=== PATIENT | female | born 1950 | race Caucasian/White ===

== ENCOUNTER → 2016-09-11 | Outpatient (CLI) | payer OTHER ==
[~2016-09-11] MED LIST: CETI10TA84 PO; CHOL20005 PO; DICL1GEL12 TOP; FLUT0.0529 NAE; IPRA0.037 NAE; LISI-461 PO; MULT-513 PO; PRT/20 PO; REDCAP2 PO; SLOW FE PO; ZLF/100 PO
--- NOTE | 2016-09-12 07:55 | MAMMOGRAPHY REPORT ---
BILATERAL DIGITAL SCREENING MAMMOGRAM WITH CAD: 09/11/2016 CLINICAL HISTORY: Routine screening examination. TECHNIQUE: Bilateral CC and MLO views were obtained. Current study was also evaluated with a Comput er Aided Detection (CAD) system. COMPARISON: Comparison is made to exams dated: 09/09/2015 mammogram, 08/28/2014 mammogram, 08/27/2013 ma mmogram, 08/12/2012 mammogram, 08/10/2011 mammogram, and 02/17/2011 mammogram - [facility]. BREAST COMPOSITION: There are scattered areas of fibroglandular density in both breasts. FINDINGS: There are a few scattered benign-appearing punctate microcalcifications. No new suspicio us mass, architectural distortion or cluster of microcalcifications is seen. IMPRESSION: ACR BI-RADS CATEGORY 1: NEGATIVE There is no mammographic evidence of malignancy. A 1 year screening mammogram is recommended. The p atient will receive written notification of the results. Approximately 10% of breast cancers are not detected with mammography. A negative mammographic repor t should not delay biopsy if a clinically suggestive mass is present. Amanda Bird M.D. ay/:09/11/2016 16:36:58 Grant Coordinator: Deb SUÁREZ(Lary)(Archana), [facility] letter sent: Normal 1/2 BI-RADS Code: ACR BI-RADS Category 1: Negative
== END | disposition home or self-care (01) ==
LOC: C.MAMM 11:21
PROVIDERS: ATTEND Family Medicine
DX: Z12.31 Encounter for screening mammogram for malignant neoplasm of breast (principal)

== ENCOUNTER → 2016-09-26 | Outpatient (CLI) | payer OTHER | END | disposition home or self-care (01) | LOC: C.MAMM 11:20 | PROVIDERS: ATTEND Family Medicine | DX: M85.851 Other specified disorders of bone density and structure, right thigh (principal); M85.852 Other specified disorders of bone density and structure, left thigh; M85.88 Other specified disorders of bone density and structure, other site ==

== ENCOUNTER → 2017-09-13 | Outpatient (CLI) | payer OTHER ==
--- NOTE | 2017-09-13 14:15 | MAMMOGRAPHY REPORT ---
BILATERAL DIGITAL SCREENING MAMMOGRAM TOMOSYNTHESIS WITH CAD: 09/13/2017 CLINICAL HISTORY: Routine screening. Patient has no complaints. TECHNIQUE: Breast tomosynthesis in addition to standard 2D mammography was performed. Current study was also evaluated with a Computer Aided Detection (CAD) system. COMPARISON: Comparison is made to exams dated: 09/11/2016 mammogram, 09/09/2015 mammogram, 08/28/2014 ma mmogram, 08/27/2013 mammogram, 08/12/2012 mammogram, and 08/10/2011 mammogram - [facility]. BREAST COMPOSITION: There are scattered areas of fibroglandular density in both breasts. FINDINGS: No suspicious masses, calcifications, or areas of architectural distortion are noted in ei ther breast. There has been no significant interval change compared to prior exams. IMPRESSION: ACR BI-RADS CATEGORY 1: NEGATIVE There is no mammographic evidence of malignancy. A 1 year screening mammogram is recommended. The pa tient will receive written notification of the results. Approximately 10% of breast cancers are not detected with mammography. A negative mammographic report should not delay biopsy if a clinically suggestive mass is present. Erica Caceres M.D. ah/:09/13/2017 10:38:46 Grounds Caretaker: Sandhya SUÁREZ(Lary)(Archana), [facility] letter sent: Normal 1/2 BI-RADS Code: ACR BI-RADS Category 1: Negative
== END | disposition home or self-care (01) ==
LOC: C.MAMM 09:05
PROVIDERS: ATTEND Family Medicine
DX: Z12.31 Encounter for screening mammogram for malignant neoplasm of breast (principal)

== ENCOUNTER 2018-09-03 23:03 | Inpatient (IN) ==
--- OUTSIDE RECORDS SUMMARY | 2018-09-03 23:06 | External Medical Summary | Continuity of Care Document ---
:1950 Author Name Jim Guzman, Provider Address Unavailable Unavailable , Care Team Providers Name Role Phone Drake Landry M.D. Unavailable [email or web address] [email or web address] Unavailable Unavailable Unavailable Unavailable Unavailable Problems Obstructive sleep apnea (327.23) (G47.33) Generalized osteoarthritis of unspecified site (715.00) (M15 .9) Depression (311) (F32.9) Esophageal reflux (530.81) (K21.9) Hypertension (401.9) (I10) Allergic rhinitis (477.9) (J30.9) Allergies and Adverse Reactions Biaxin TABS (Allergy) Doxycycline Hyclate CAPS (Allergy) Penicillins (Allergy) Sulfa Drugs (Allergy) Medications Vitamin D 2000 UNIT Oral Capsule; TAKE 1 CAPSULE Daily Megan Landry Start: 06-Oct-2011 Quantity: 30 Refills: 5 Premarin 0.625 MG/GM Vaginal Cream; USE DIRECTED. Megan Landry Start: 06-Oct-2011 Refills: 0 Cetirizine HCl - 10 MG Oral Tablet; TAKE 1 TABLET AT B EDTIME. Megan Landry Start: 06-Oct-2011 Refills: 0 Clobetasol Propionate 0.05 % External Cr eam; APPLY SPARINGLY TO AFFECTED AREA(S) TWICE DAILY Megan Landry Start: 06-Oct-2011 Refills: 0 Sertraline HCl - 100 MG Oral Tablet; TAKE 1 TABLET DAILY. Megan Vasquez Start: 06-Oct-2011 Refills: 0 Pantoprazole Sodium 40 MG Oral Tablet Delayed Release; TAKE 1 TABLET DAILY. Megan Landry Start: 06-Oct-2011 Refills: 0 Lisinopril 10 MG Oral Tablet; TAKE 1 TABLET DAILY FOR BLOOD PRESSURE. Megan Landry Start: 06-Oct-2011 Refills: 0 CeleBREX 200 MG Oral Capsule; TAKE 1 CAPSULE Daily Abel Landry Start: 06-Oct-2011 Refills: 0 Procedures History of Myringotomy - With Eustachian Tube Inflation Status: Completed History of Nasal Endoscopy Polypectomy S tatus: Completed History of Nasal Septal Deviation Repair Status: Completed History of Tonsillectomy With Adenoidectomy Status: Completed History of Tubal Ligation Status: Comple tejas History of Total Abdominal Hysterectomy With Removal Of Both Status: Completed Ovaries Immunizations Immunizations not documented Family History Father Family history of Obstructive Sleep Apnea Status: Active Social History - Smoking Status Former smoker Plan of Treatment Planned Observations Planned Goals not documented Results No Known Results Results not documented
[2018-09-03] MEDS ORDERED: SODIUM CHLORIDE 0.9% 1000ML 1,000 ML IV ONE (23:32)
[2018-09-04 00:03] LABS: Appearance Urine Clear (Clear); Bilirubin Urine Negative (Negative); Blood Urine Negative (Negative); Color Urine Yellow; Glucose Urine UA Negative (Negative); Ketones Urine Negative (Negative); Leukocyte Esterase Urine Negative (Negative); Nitrite Urine Negative (Negative); Protein Urine Negative (Negative); Specific Gravity Urine 1.013 (1.000-1.030); Urobilinogen Urine Negative (Negative)
[2018-09-04] MEDS ORDERED: MoRPHine SULFATE 4 MG/ML 1 ML CARP\\VIAL IV STA (00:13)
[2018-09-04] MEDS ORDERED: ONDANSETRON INJ 2 MG/ML 2 ML VIAL IV STA (00:13)
[2018-09-04] MEDS ORDERED: SODIUM CHLORIDE 0.9% 1000ML 1,000 ML IV SCH (00:15)
[2018-09-04 00:33] LABS: Basophils # (auto) 0.02 K/uL (0-0.2); Basophils % (auto) 0.4 %; Eosinophils # (auto) 0.21 K/uL (0-0.5); Eosinophils % (auto) 3.9 %; Hematocrit (blood only) 39.7 % (37-47); Hemoglobin 13.4 g/dL (12.0-16.0); Lymphocytes # (auto) 1.95 K/uL (1.2-3.4); Lymphocytes % (auto) 36.2 %; Mean Corpuscular Hgb Conc 33.8 g/dL (32-36); Mean Corpuscular Volume 93.4 fL (80-100); Mean Platelet Volume 9.5 fL (7.4-10.4); Monocytes # (auto) 0.49 K/uL (0.11-0.59); Monocytes % (auto) 9.1 %; Neutrophils # (auto) 2.71 K/uL (1.4-6.5); Neutrophils % (auto) 50.4 %; Platelet Count 190 K/uL (130-400); RDW Coefficient of Variation 12.9 % (11.5-14.5); RDW Standard Deviation 43.9 fL (36.4-46.3); Red Blood Count 4.25 M/uL (4.2-5.4); White Blood Count 5.38 K/uL (4.8-10.8)
[2018-09-04 00:38] LABS: iSTAT Creatinine 0.6 mg/dl (0.6-1.3); iSTAT Hemoglobin 13.9 g/dl (12.0-16.0); iSTAT Ionized Calcium 1.14 mmol/l (1.12-1.32); iSTAT Potassium 2.7 mEq/L (3.3-5.0)
[2018-09-04 00:52] LABS: Alanine Aminotransferase 18 U/L (12-78); Aspartate Aminotransferase 25 U/L (15-37); BUN Creatinine Ratio 13.7 (10-20); Bilirubin Direct 0.1 mg/dl (0-0.2); Blood Urea Nitrogen 10 mg/dl (7-18); Calcium 8.6 mg/dl (8.5-10.1); Carbon Dioxide 23 mmol/L (21-32); Chloride 107 mmol/L (98-107); Creatinine Clr Calc Pharmacy 66.2 ml/min; Est GFR (African American) 96.5; Est GFR (Non-African American) 83.2; Glucose 85 mg/dl (70-99); Potassium 2.7 mmol/L (3.5-5.1); Sodium 139 mmol/L (136-145)
[2018-09-04 00:57] LABS: Alkaline Phosphatase 68 U/L (45-117); Bilirubin,Total 0.5 mg/dl (0.2-1); Total Protein 7.4 gm/dl (6.4-8.2); Troponin I < 0.015 ng/ml (0-0.045)
[2018-09-04] MEDS ORDERED: IOVERSOL 100ml IV PRN (01:16)
[2018-09-04] MEDS ORDERED: fentaNYL citrate 100 MCG/2 ML VIAL IV STA (01:30)
[2018-09-04] MEDS ORDERED: CIPROFLOXACIN 400MG / 200ML D5W IV ONE (02:45)
[2018-09-04] MEDS ORDERED: metroNIDAZOLE 500 MG/100 ML BAG IV ONE (02:45)
--- NOTE | 2018-09-04 04:04 | Consultation Report ---
DATE OF ADMISSION: 09/03/2018 CHIEF COMPLAINT: Abdominal pain and diarrhea. HISTORY OF PRESENT ILLNESS: Ms. Duran is a 68-year-old female who presented to the Emergency Department with several days of worsening diarrhea and abdominal pain. She has a history of intermittent diarrhea in the past. She was in her usual state of health on Sunday and had a meal of beef and noodles followed by some rum and Cokes. She awoke early Sunday morning with nausea, vomiting, and diarrhea. The diarrhea persisted over the next several days and has progressively worsened. This afternoon, she was having diarrhea almost every 10 minutes and had significant back and abdominal pain. She has never had pain like this before. She does not report any blood in her stool. She has had a colonoscopy last fall and has one every 5 years. They have found polyps, but no other abnormalities. Her brother was diagnosed with colon cancer. She does not recall any sick contacts. When she presented to the Emergency Department, she was hypotensive, but responded to a liter of fluids. Her stool was sent for cultures. She had some morphine, which she states took the edge off. Prior to my arrival, she had had 50 mcg of fentanyl. Upon my arrival in the room, she was filling out her paperwork and appeared comfortable. She was normotensive and nontachycardic. PAST MEDICAL HISTORY: Hypertension, reflux, depression. PAST SURGICAL HISTORY: Hemorrhoidectomy, total abdominal hysterectomy. MEDICATIONS: Atorvastatin 10 mg p.o. daily, buspirone 5 mg p.o. daily, cetirizine 5 mg p.o. daily, cholecalciferol 2000 units p.o. daily, lisinopril 10 mg p.o. daily, pantoprazole 40 mg p.o. daily, sertraline 200 mg p.o. daily. SOCIAL HISTORY: Denies tobacco, light drinking. REVIEW OF SYSTEMS: A 10-point review of systems was completed and was negative except as above. PHYSICAL EXAMINATION: VITAL SIGNS: Afebrile, normotensive, nontachycardic, normal respiratory rate. GENERAL: In no acute distress, well developed, well nourished. HEENT: Normocephalic, atraumatic. Pupils equally round and reactive to light and accommodation, extraocular muscles intact bilaterally, mucous membranes slightly dry. NECK: No thyromegaly, no lymphadenopathy. LUNGS: Clear to auscultation bilaterally. HEART: Regular rate and rhythm, no murmur, rubs or gallops. ABDOMEN: Soft, mildly but diffusely tender to palpation, no guarding, no rebound. No pain out of proportion to exam. No evidence of hernia. MUSCULOSKELETAL: Muscle strength 5/5. EXTREMITIES: 2+ radial and pedal pulses bilaterally, no edema. SKIN: No rashes, no abnormal lesions on cursory exam. NEUROLOGIC: Cranial nerves II-XII grossly intact bilaterally, no obvious neuro deficits. PSYCHIATRIC: Normal affect, pleasant, awake, alert and oriented x3. LABORATORY DATA: Lactate normal. White blood cell count normal, potassium 2.7, otherwise labs unremarkable. IMAGING DATA: CT scan with IV contrast, report shows portal venous gas. Pneumatosis of the right colon and hepatic flexure without wall thickening or surrounding fat stranding or hypoenhancement. Findings could represent bowel ischemia. Fluid-filled colon is compatible with diarrhea. Normal appendix. No bowel obstruction. No free air or free fluid. Moderate atherosclerosis of the aorta. No significant stenosis of the celiac artery, SMA, or VALERIA. Chest x-ray normal. ASSESSMENT: This is a 68-year-old female with several-day history of diarrhea and worsening abdominal pain. Her CT scan has findings of pneumatosis and portal venous gas, which are concerning for ischemia; however, on physical exam, she has some mild tenderness, but no significant peritoneal signs. She also does not have any pain out of proportion to exam. She is otherwise stable and her labs are normal except for hypokalemia which is likely related to her diarrhea. At this point, I do not feel that she has any bowel ischemia, and no emergent surgical intervention is indicated. This is likely an infectious colitis. PLAN: Recommend admission to the medical service, likely to ICU or telemetry unit. Stool cultures, O and P, fecal leukocytes. NPO, IV Fluids, Antibiotics Repeat labs in the morning including a lactate. Serial abdominal exams. I did discuss the possibility of a need for an emergent exploratory laparotomy with the patient if her symptoms worsen or do not improve. We briefly reviewed the risks of surgery to include bleeding, infection, open abdomen, prolonged ICU stay, need for future more extensive surgery, ostomy, damage to surrounding structures, and the risks of anesthesia. I discussed these findings with Dr. Zaragoza from the Emergency Department. The differential diagnosis, imaging findings, and plan of care were discussed with the patient, all questions were answered. The patient expressed understanding and agrees with the plan of care as stated. MICHELLE
--- NOTE | 2018-09-04 04:59 | Emergency Department Note ---
Entered by Abdi Yoon acting as a scribe for ED Provider Note Name: Alice Duran Age: 68 Arrives Via: Triage Informant: Self CC: Abdominal pain with diarrhea HPI: 68 y/o female arrives for evaluation of intermittent diarrhea beginning three days ago. The patient states she was feeling well until Sunday. She reports she developed nausea and vomiting followed by diarrhea. The patient notes she took either Lomotil or Loperamide, she is unsure. She states she has minimal bowel movements throughout Sunday. The patient reports her symptoms returned today with severe diarrhea and diffuse abdominal pain. She notes her diarrhea is watery, and she had 20+ bowel movements today. The patient states her diarrhea has a mild bile coloration to it and denies black or blood stool. She reports no one else around her has diarrhea, and her brother has a history of c-diff. The patient notes her does not have diarrhea. She also denies recent antibiotic use, eating abnormal foods, and using well water. The patient states her abdominal pain radiates to her flank and back and is cramping in nature. She reports her symptoms worsen with movement and are better with rest. The patient notes her symptoms also comes in waves. She states she took Motrin earlier this evening with slight relief. The patient reports she also feels very weak and fatigued. She denies chest pain, shortness of breath, headache, swelling, rashes, bruising, urinary symptoms, or other symptoms. ROS: See above HPI for pertinent positives & negatives. A total of 10 systems reviewed and were otherwise negative. Past Medical History: HTN, Dyslipidemia, anxiety, depression Past Surgical History: Hysterectomy, tonsillectomy Family History: Brother - HIV+, Brother - C-diff Social History: Denies smoking and drug use. Retired. Occasionally drinks alcohol. Home Medications: Atorvastatin, buspirone, cetirizine, lisinopril, pantoprazole, sertraline Allergies Penicillins, tetracyclines, and sulfa drugs. Physical: Vitals: BP 75/55, Pulse 70, Resp 18, O2 Sat 99 Exam: GENERAL: Patient is tired, dehydrated, and weak appearing and in no acute distress. EYES: No scleral icterus, unremarkable pupils. ENT: Mucous membranes dry, no nasal congestion. NECK: No masses appreciated, no meningismus, trachea is midline. RESPIRATORY: No dyspnea. Clear to auscultation and equal bilaterally. No wheeze, no rhonchi. CARDIOVASCULAR: Regular rate and rhythm. No murmurs, rubs, gallops appreciated. GASTROINTESTINAL: Abdomen soft, diffuse tenderness to the entire abdomen without rebound, no peritonitis. Bowel sounds positive. No masses appreciated. BACK: No midline tenderness, no CVA tenderness EXTREMITIES: Normal motion all extremities, no cyanosis, no edema. NEUROLOGIC: Alert and oriented, no acute motor or sensory deficits, no focal weakness, cranial nerves grossly intact. SKIN: No rash, no jaundice, no diaphoresis. ED Course: Prior Medical Record, Triage/Nursing Notes, Medications, Allergies reviewed by Me Vital Signs: reviewed and remarkable for Hypotension Labs: Reviewed and remarkable for normal cbc, bmp, lft, lipase, lactate, ua other than moderate hypokalemia Interventions: Saline Lock, NSS Bolus 1L IV, Morphine 4mg IV, Fentanyl 50mcg IV, Cipro 400mg IV, Flagyl 500mg IV Imaging: X ray results are stated below per my interpretation: Chest: 1 view: No infiltrate, no effusion, normal cardiac border. [facility] Radiologist interpretation reviewed by me: "CT ABDOMEN & PELVIS With Contrast: Portal venous gas. Pneumatosis of the right colon and hepatic flexure, without wall thickening or surrounding fat stranding or hypoenhancement. Findings could represent bowel ischemia. Fluid-filled colon is compatible with diarrhea. Normal appendix. No bowel obstruction. No free air or free fluid. Moderate atherosclerosis of the aorta. No significant stenosis of the celiac artery, SMA, or VALERIA. Radiologist: Tanesha Howard MD" Consults: Dr Mark evaluated patient at bedside and discussed patient further with Dr Vera as well. Reassessments/Times: 2323: The patient was evaluated in room C08. A complete history and physical exam was performed. 0014: The patient states worsening abdominal cramping. I ordered morphine, Zofran, and additional fluids. 0124: I discussed the patients case with Dr. Mark, General Surgery. He is on his way in to evaluate the patient. 0141: I reevaluated the patient. She notes worsening pain. She will receive fentanyl. 0224: I spoke with Dr. Mark again. He recommends the patient be evaluated by the hospitalist and receive Cipro and with close monitoring. 0227: The patient is feeling much better after fentanyl. Agreeable to a hospitalist evaluation. She does not think she is allergic to Cipro or Flagyl. 0239: I spoke with Dr. Vera and he will evaluate the patient for further management. Blood pressure: Hypotension on arrival Disposition: Hospitalization Differentials: Viral, Bacterial, Parasitic, Iatrogenic, C-Diff, Malabsorbtion, Irritable Bowel Disease, IBS, Ischemic Bowel, amongst other pathologies entertained. Medical Decision Making: Pleasant 68 yr old female with gastroenteritis by history though quite uncomfor table with diffuse upper abdominal pain and TTP. Lactate and labs looking OK though with hypotension on arrival and her exam CT felt indicated. She was given morphine without improvement though with Fentanyl and improvement in BP her symptoms are much improved. She was given Fluids and sent to CT revealing pneumotosis right colon and portal venous gas. Gen Surg emergently consulted and they were at bedside evaluating patient further. By this time patient is much improved, breathing comfortably and vitals looking good. Labs without wbc elvation and will note lactate is normal as well. After prolonged discussion with Dr Mark plan will be Cipro/Flagyl and medical admission. Dr Darren calhoun down to ED and evaluated patient/discussed with patient/Gen Surg. No indication of acute arterial occlusion. Unclear etiology of pneumotosis, maybe hypotension, maybe just severe colitis. With improvement and stability Gen Surg plans that monitor for now and admit to medical team which seems reasonable. Patient comfortable and stable at time of admission Impression: Pneumatosis of intestines Colitis Hypokalemia Tony Zaragoza MD The scribe's documentation has been prepared under my direction and personally reviewed by me in its entirety. I confirm that the note above accurately reflects all work, treatment, procedures, and medical decision making performed by me. Impression & Plan Pneumatosis of intestines, Colitis, Acute hypokalemia Past Med/Surg History Medical History Depression (Chronic) Anxiety (Chronic) Dyslipidemia (Chronic) HTN (hypertension) (Chronic) Surgical History Hx of tonsillectomy (Resolved) H/O: hysterectomy (Resolved) Family History Brother HIV positive Brother C. difficile colitis Social History Feels Safe at Home: Yes Smoking Status: Never smoker Results & Data Vital Signs Vital Signs - 24 hr 09/03/18 23:11 09/04/18 01:26 Sepsis Recent Fever Within 48 Hours No Sepsis Action Taken by Nursing No Action Required Pulse Rate 70 Pulse Rate [Left Finger] 50 L Respiratory Rate 18 20 Respiratory Effort / Characteristics Non-Labored Spontaneous Respiratory Depth Normal Blood Pressure 75/55 L Blood Pressure [Right Arm] 175/73 H Blood Pressure Mean 61 Blood Pressure Mean [Right Arm] 107 Blood Pressure Position Lying Blood Pressure Position [Right Arm] Lying Pulse Oximetry 99 98 Oxygen Delivery Method Room Air Room Air Home Medications Current Medication List: was personally reviewed by me Laboratory Data Attestation: I reviewed the patient's lab results. Result diagrams: 09/04/18 00:20 09/04/18 00:20 Lab Results 09/03/18 09/03/18 09/04/18 Range/Units 23:27 23:27 00:20 WBC 5.38 (4.8-10.8) K/uL RBC 4.25 (4.2-5.4) M/uL Hgb 13.4 (12.0-16.0) g/dL POC Hgb (12.0-16.0) g/dl Hct 39.7 (37-47) % POC Hct (37-47) % MCV 93.4 (80-100) fL MCH 31.5 (25-34) pg MCHC 33.8 (32-36) g/dL RDW Std Deviation 43.9 (36.4-46.3) fL RDW Coeff of Swapnil 12.9 (11.5-14.5) % Plt Count 190 (130-400) K/uL MPV 9.5 (7.4-10.4) fL Immature Gran % (Auto) 0.0 % Neut % (Auto) 50.4 % Lymph % (Auto) 36.2 % [place] % (Auto) 9.1 % Eos % (Auto) 3.9 % Baso % (Auto) 0.4 % Immature Gran # (Auto) 0.00 (0.00-0.02) K/uL Neut # (Auto) 2.71 (1.4-6.5) K/uL Lymph # (Auto) 1.95 (1.2-3.4) K/uL [place] # (Auto) 0.49 (0.11-0.59) K/uL Eos # (Auto) 0.21 (0-0.5) K/uL Baso # (Auto) 0.02 (0-0.2) K/uL POC Sodium (135-144) mEq/L Sodium (136-145) mmol/L POC Potassium (3.3-5.0) mEq/L Potassium (3.5-5.1) mmol/L POC Chloride (101-112) mEq/L Chloride (98-107) mmol/L Carbon Dioxide (21-32) mmol/L POC Total CO2 (24-31) mEq/l Anion Gap (3-11) POC Anion Gap (16-25) mmol/L POC BUN (7-18) mg/dl BUN (7-18) mg/dl Creatinine (0.6-1.2) mg/dl POC Creatinine (0.6-1.3) mg/dl Est Cr Clr Drug Dosing ml/min Est GFR ( Amer) Est GFR (Non-Af Amer) BUN/Creatinine Ratio (10-20) Glucose (70-99) mg/dl POC Glucose (other) (70-99) mg/dl Lactate (0.4-2.0) mmol/L Calcium (8.5-10.1) mg/dl POC Ioniz Calcium Di (1.12-1.32) mmol/l Magnesium (1.8-2.4) mg/dl Total Bilirubin (0.2-1) mg/dl Direct Bilirubin (0-0.2) mg/dl AST (15-37) U/L ALT (12-78) U/L Alkaline Phosphatase (45-117) U/L Troponin I (0-0.045) ng/ml Total Protein (6.4-8.2) gm/dl Albumin (3.4-5.0) gm/dl Lipase (73-393) U/L Urine Color Yellow Urine Appearance Clear (Clear) Urine pH 6.0 (4.5-7.5) Ur Specific [place] 1.013 (1.000-1.030) Urine Protein Negative (Negative) Urine Glucose (UA) Negative (Negative) Urine Ketones Negative (Negative) Urine Blood Negative (Negative) Urine Nitrite Negative (Negative) Urine Bilirubin Negative (Negative) Urine Urobilinogen Negative (Negative) Ur Leukocyte Esterase Negative (Negative) Stl C. diff Tox B Gene Negative Cdiff Gene (Neg) 09/04/18 09/04/18 09/04/18 Range/Units 00:20 00:21 00:25 WBC (4.8-10.8) K/uL RBC (4.2-5.4) M/uL Hgb (12.0-16.0) g/dL POC Hgb 13.9 (12.0-16.0) g/dl Hct (37-47) % POC Hct 41 (37-47) % MCV (80-100) fL MCH (25-34) pg MCHC (32-36) g/dL RDW Std Deviation (36.4-46.3) fL RDW Coeff of Swapnil (11.5-14.5) % Plt Count (130-400) K/uL MPV (7.4-10.4) fL Immature Gran % (Auto) % Neut % (Auto) % Lymph % (Auto) % [place] % (Auto) % Eos % (Auto) % Baso % (Auto) % Immature Gran # (Auto) (0.00-0.02) K/uL Neut # (Auto) (1.4-6.5) K/uL Lymph # (Auto) (1.2-3.4) K/uL [place] # (Auto) (0.11-0.59) K/uL Eos # (Auto) (0-0.5) K/uL Baso # (Auto) (0-0.2) K/uL POC Sodium 140 (135-144) mEq/L Sodium 139 (136-145) mmol/L POC Potassium 2.7 L (3.3-5.0) mEq/L Potassium 2.7 L (3.5-5.1) mmol/L POC Chloride 103 (101-112) mEq/L Chloride 107 (98-107) mmol/L Carbon Dioxide 23 (21-32) mmol/L POC Total CO2 21 L (24-31) mEq/l Anion Gap 9.0 (3-11) POC Anion Gap 19.0 (16-25) mmol/L POC BUN 9 (7-18) mg/dl BUN 10 (7-18) mg/dl Creatinine 0.74 (0.6-1.2) mg/dl POC Creatinine 0.6 (0.6-1.3) mg/dl Est Cr Clr Drug Dosing 66.2 ml/min Est GFR ( Amer) 96.5 Est GFR (Non-Af Amer) 83.2 BUN/Creatinine Ratio 13.7 (10-20) Glucose 85 (70-99) mg/dl POC Glucose (other) 90 (70-99) mg/dl Lactate 1.0 (0.4-2.0) mmol/L Calcium 8.6 (8.5-10.1) mg/dl POC Ioniz Calcium Di 1.14 (1.12-1.32) mmol/l Magnesium 2.0 (1.8-2.4) mg/dl Total Bilirubin 0.5 (0.2-1) mg/dl Direct Bilirubin 0.1 (0-0.2) mg/dl AST 25 (15-37) U/L ALT 18 (12-78) U/L Alkaline Phosphatase 68 (45-117) U/L Troponin I < 0.015 (0-0.045) ng/ml Total Protein 7.4 (6.4-8.2) gm/dl Albumin 4.0 (3.4-5.0) gm/dl Lipase 117 (73-393) U/L Urine Color Urine Appearance (Clear) Urine pH (4.5-7.5) Ur Specific [place] (1.000-1.030) Urine Protein (Negative) Urine Glucose (UA) (Negative) Urine Ketones (Negative) Urine Blood (Negative) Urine Nitrite (Negative) Urine Bilirubin (Negative) Urine Urobilinogen (Negative) Ur Leukocyte Esterase (Negative) Stl C. diff Tox B Gene (Neg) Administered Medications Discontinued Medications Fentanyl Citrate (Fentanyl Citrate) 50 mcg IV NOW STA Stop: 09/04/18 01:31 Last Admin: 09/04/18 01:36 Dose: 50 mcg Documented by: [id number] Sodium Chloride (Nss 1000ml) 1,000 mls @ 999 mls/hr IV .Q1H1M ONE Stop: 09/04/18 00:32 Last Infusion: 09/04/18 01:25 Dose: 0 mls/hr Documented by: [id number] Admin: 09/03/18 23:41 Dose: 999 mls/hr Documented by: [id number] Sodium Chloride (Nss 1000ml) 1,000 mls @ 125 mls/hr IV .Q8H ARMANDO Stop: 10/04/18 00:14 Last Admin: 09/04/18 01:25 Dose: 125 mls/hr Documented by: [id number] Ioversol (Optiray 320 100ml) 100 ml IV ONCE PRN PRN Reason: Interaction Checking Stop: 09/08/18 01:15 Last Admin: 09/04/18 01:16 Dose: 98 ml Documented by: [id number] Morphine Sulfate (Morphine Sulfate) 4 mg IV NOW STA Stop: 09/04/18 00:14 Last Admin: 09/04/18 00:17 Dose: 4 mg Documented by: [id number] Ondansetron HCl (Zofran) 4 mg IV NOW STA Stop: 09/04/18 00:14 Last Admin: 09/04/18 00:17 Dose: 4 mg Documented by: [id number] Blood Pressure Blood Pressure Findings: Elevated blood pressure Blood Pressure Disposition: further management by hospitalist Discharge Plan Visit Data *Final* Discharge Date/Time: 09/04/18 03:00 Chief Complaint: Diarrhea Stated Complaint: EXPLOSIVE DIARRHEA ED Provider: Tony Zaragoza Discharge Problem: Pneumatosis of intestines, Colitis, Acute hypokalemia Patient Disposition: Being Evaluated by Hospitalist Prescriptions Prescriptions: No Action sertraline 100 mg Tablet 200 mg PO DAILY RF: 0 pantoprazole 40 mg Tablet,Delayed Release (Dr/Ec) 40 mg PO DAILY RF: 0 cetirizine 10 mg Tablet 5 mg PO DAILY RF: 0 cholecalciferol (vitamin D3) [Vitamin D3] 2,000 unit Capsule 2,000 unit PO DAILY RF: 0 lisinopril 10 mg Tablet 10 mg PO DAILY RF: 0 buspirone 5 mg Tablet 5 mg PO BID RF: 0 atorvastatin 10 mg Tablet 10 mg PO DAILY RF: 0 Referrals Referrals: Shahbaz Andrew [Primary Care Provider] - The scribe's documentation has been prepared under my direction and personally reviewed by me in its entirety. I confirm that the note above accurately reflects all work, treatment, procedures, and medical decision making performed by me.
[2018-09-04] MEDS ORDERED: ONDANSETRON INJ 2 MG/ML 2 ML VIAL IV PRN (05:51)
[2018-09-04] MEDS: NSS + 20MEQ KCL 20 MEQ/1,000 ML BAG IV SCH ×3 (06:09→19:56)
[2018-09-04] MEDS: POTASSIUM CHLORIDE / WTR 10 MEQ/100 ML PLCT IV SCH ×3 (06:09→08:27)
[2018-09-04] MEDS: ACETAMINOPHEN 1000 MG/100 ML IV IV PRN (06:14)
--- NOTE | 2018-09-04 06:26 | CT Scan Report ---
CT OF THE ABDOMEN AND PELVIS WITH CONTRAST CLINICAL HISTORY: Diffuse abdominal pain. Diarrhea. COMPARISON STUDY: CT of the abdomen and pelvis December 05, 2006. Abdominal ultrasound December 21, 2014 . TECHNIQUE: Following IV administration of 98 mL of Optiray-320, axial images of the abdomen and pelvi s were obtained from the lung bases to the proximal femurs. Images were reviewed in the axial, sagitt al, and coronal planes. IV contrast was administered without complication. Automated exposure contro l was utilized for the study. A dose lowering technique was utilized adhering to the principles of A BRIDGETTE. CT DOSE: 741.47 mGycm FINDINGS: Lung bases are clear. There is no free air. There is moderate portal venous gas within the liver. This originates from the right colon. Note is made of pneumatosis extending from the level of the cecum to the hepatic flexure. There is associated mesenteric venous gas. There is no evidence for a bowel obstruction. Colon is fluid-filled. The caliber of the abdominal aorta is normal. There is m ild plaque within the abdominal aorta. Visualized portions of the superior mesenteric artery and the smaller branches are patent. No bowel wall thickening is noted. There is no adjacent infiltration. Th ere is no abdominal or pelvic lymphadenopathy. The spleen, adrenal glands, kidneys and pancreas are u nremarkable. No biliary or pancreatic ductal dilatation is present. There is no peripancreatic or per icholecystic infiltration. IMPRESSION: Portal venous gas within the liver which originates from the right colon with pneumatosi s and mesenteric venous gas extending from the level of the cecum to the hepatic flexure. No free air . No bowel wall thickening or adjacent infiltration. These findings are nonspecific however are omi rning for colonic ischemia. Correlation with clinical evidence for bowel ischemia is recommended. If present, surgical consultation is recommended. Fluid-filled colon may reflect a diarrheal state. No b owel obstruction. Electronically signed by: Rodriguez Espinosa M.D. 09/04/2018 6:24 AM
--- NOTE | 2018-09-04 06:26 | XRay Report ---
XR chest 1V portable CLINICAL HISTORY: Pre-Op COMPARISON STUDY: Chest radiograph April 05, 2018. FINDINGS: Lung volumes are normal. There is no pneumothorax or pleural effusion. There is no consolid ation or evidence for pulmonary edema. There is mild cardiomegaly. IMPRESSION: No acute cardiopulmonary findings. Electronically signed by: Rodriguez Espinosa M.D. 09/04/2018 6:25 AM
[2018-09-04 06:41] LABS: Basophils # (auto) 0.02 K/uL (0-0.2); Basophils % (auto) 0.4 %; Eosinophils # (auto) 0.03 K/uL (0-0.5); Eosinophils % (auto) 0.6 %; Hematocrit (blood only) 35.2 % (37-47); Hemoglobin 11.9 g/dL (12.0-16.0); Immature Granulocytes # (auto) 0.01 K/uL (0.00-0.02); Immature Granulocytes % (auto) 0.2 %; Lymphocytes % (auto) 21.4 %; Mean Corpuscular Hgb Conc 33.8 g/dL (32-36); Mean Corpuscular Volume 91.9 fL (80-100); Mean Platelet Volume 9.1 fL (7.4-10.4); Monocytes # (auto) 0.37 K/uL (0.11-0.59); Monocytes % (auto) 7.2 %; Neutrophils # (auto) 3.62 K/uL (1.4-6.5); Neutrophils % (auto) 70.2 %; Platelet Count 163 K/uL (130-400); RDW Coefficient of Variation 12.9 % (11.5-14.5); RDW Standard Deviation 43.6 fL (36.4-46.3); Red Blood Count 3.83 M/uL (4.2-5.4); White Blood Count 5.15 K/uL (4.8-10.8)
--- NOTE | 2018-09-04 07:01 | History & Physical Report ---
Date of Service September 04, 2018 Assessment & Plan (1) Pneumatosis of intestines: Intractable diarrhea/pneumatosis of intestines/colitis- N.p.o. except essential medications. Cipro 400 mg IV every 12 hours. Flagyl 500 mg IV every 8 hours. Famotidine 20 mg IV every 12 hours. NSS + KCl 20 mEq at 100 mils per hour. K riders x3. Acetaminophen 1000 mg IV every 8 hours PRN. Trial of cholestyramine to help slow down volume of loose stools. Consult general surgery Dr. Mrak, has already seen the patient in ED. Present on Admission?: Yes (2) Colitis: See above. Present on Admission?: Yes (3) Acute hypokalemia: Secondary to GI losses. And individual K wires. P repeat laboratories in a.m. Laced on IV fluids Present on Admission?: Yes (4) Depression: Anxiety with depression- Hold sertraline 20 mg p.o. daily and buspirone 5 mg p.o. twice daily. Patient lorazepam 0.5 mg IV at bedtime as needed. Present on Admission?: Yes (5) Anxiety: See above Present on Admission?: Yes (6) Dyslipidemia: Hold atorvastatin 10 mg p.o. daily Present on Admission?: Yes History of Present Illness Chief Complaint: The patient presents emergency room with generalized abdominal pain and intractable diarrhea. Primary Care Provider: Shahbaz Andrew The patient is a 60-year-old female with a past medical history including dyslipidemia, hypertension, anxiety with depression who presents to the emergency department with 3 days of abdominal discomfort, explosive diarrhea. She took an pidi-wci-ldalbnh agent, unsure if it was Lomotil or loperamide, that helped her symptoms briefly. She denies any blood in stool. She has not had any recent travels or sick exposures, and none of her close contacts have similar symptoms. She reports that she and her do eat a lot more fruits and vegetables, but reports that she cleaned them up very thoroughly. Allergies Allergy/AdvReac Type Severity Reaction Status Date / Time Penicillins Allergy Severe UNKN Verified 09/03/18 23:49 doxycycline Allergy Intermediate HIVE Verified 09/03/18 23:49 mold Allergy Intermediate CONGESTION Verified 09/03/18 23:49 Sulfa (Sulfonamide Allergy Mild Hives Verified 09/03/18 23:49 Antibiotics) Tetracyclines Allergy Unknown Unknown Verified 09/03/18 23:49 Home Medications Home Medications Medication Instructions Recorded Confirmed Type atorvastatin 10 mg PO DAILY 09/03/18 09/03/18 History buspirone 5 mg PO BID 09/03/18 09/03/18 History cetirizine 5 mg PO DAILY 09/03/18 09/03/18 History cholecalciferol (vitamin D3) 2,000 unit PO DAILY 09/03/18 09/03/18 History [Vitamin D3] lisinopril 10 mg PO DAILY 09/03/18 09/03/18 History pantoprazole 40 mg PO DAILY 09/03/18 09/03/18 History sertraline 200 mg PO DAILY 09/03/18 09/03/18 History Past Med/Surg History Medical History Depression (Chronic) Anxiety (Chronic) Dyslipidemia (Chronic) HTN (hypertension) (Chronic) Surgical History Hx of tonsillectomy (Resolved) H/O: hysterectomy (Resolved) Family History Brother HIV positive Brother C. difficile colitis Social History Feels Safe at Home: Yes Smoking Status: Never smoker Review of Systems Review of Systems: The patient denies chest pain, palpitations, shortness of breath, dyspnea on exertion, cough, lower extremity swelling, sore throat, fevers, chills, sweats, constipation, blood in urine or stool, dysuria, urinary frequency or urgency, lightheadedness, dizziness, headache, memory loss, loss of consciousness, rash, abnormal bruising or bleeding, imbalance, focal or generalized weakness, numbness or tingling in arms or legs, generalized arthralgias or myalgias, back or neck pain, or night sweats. The review of systems is otherwise negative other than for that already noted above, and at least 10 systems have been reviewed. Physical Exam Physical Exam: The patient is awake, alert and oriented 3, normocephalic and atraumatic, lying in bed and in no acute distress. HEENT--PERRL, EOMI, mucous membranes and oropharynx dry. Neck--supple. No JVD. No bruits. Thyroid normal, trachea midline, no adenopathy. Heart--normal S1 and S2. No murmurs, rubs or gallops. Lungs--clear bilaterally, no respiratory distress, no accessory muscle use. Abdomen--normal bowel sounds and soft. Nontender. Nondistended.. Extremities--no cyanosis or clubbing. No edema. There are good distal pulses b/l. Dermatologic--normal skin turgor, normal color, no abnormal lymph nodes, no rash. Neurologic--cranial nerves II through XII grossly intact. Rheumatologic--normal range of motion. Psychiatric--normal affect. Results & Data Vital Signs (Past 12 Hours) Vital Signs Temp Pulse Pulse Resp BP BP Pulse Ox 09/04/18 04:15 97.9 F 65 18 135/88 97 09/04/18 01:26 50 L 20 175/73 H 98 09/03/18 23:11 70 18 75/55 L 99 Laboratory Results Laboratory Results WBC 5.15 K/uL (4.8-10.8) 09/04/18 06:28 RBC 3.83 M/uL (4.2-5.4) L 09/04/18 06:28 Hgb 11.9 g/dL (12.0-16.0) L 09/04/18 06:28 POC Hgb 13.9 g/dl (12.0-16.0) 09/04/18 00:25 Hct 35.2 % (37-47) L 09/04/18 06:28 POC Hct 41 % (37-47) 09/04/18 00:25 MCV 91.9 fL (80-100) 09/04/18 06:28 MCH 31.1 pg (25-34) 09/04/18 06:28 MCHC 33.8 g/dL (32-36) 09/04/18 06:28 RDW Std Deviation 43.6 fL (36.4-46.3) 09/04/18 06:28 RDW Coeff of Swapnil 12.9 % (11.5-14.5) 09/04/18 06:28 Plt Count 163 K/uL (130-400) 09/04/18 06:28 MPV 9.1 fL (7.4-10.4) 09/04/18 06:28 Immature Gran % (Auto) 0.2 % 09/04/18 06:28 Neut % (Auto) 70.2 % 09/04/18 06:28 Lymph % (Auto) 21.4 % 09/04/18 06:28 [place] % (Auto) 7.2 % 09/04/18 06:28 Eos % (Auto) 0.6 % 09/04/18 06:28 Baso % (Auto) 0.4 % 09/04/18 06:28 Immature Gran # (Auto) 0.01 K/uL (0.00-0.02) 09/04/18 06:28 Neut # (Auto) 3.62 K/uL (1.4-6.5) 09/04/18 06: Lymph # (Auto) 1.10 K/uL (1.2-3.4) L 09/04/18 06:28 [place] # (Auto) 0.37 K/uL (0.11-0.59) 09/04/18 06:28 Eos # (Auto) 0.03 K/uL (0-0.5) 09/04/18 06:28 Baso # (Auto) 0.02 K/uL (0-0.2) 09/04/18 06:28 POC Sodium 140 mEq/L (135-144) 09/04/18 00:25 Sodium 139 mmol/L (136-145) 09/04/18 00:20 POC Potassium 2.7 mEq/L (3.3-5.0) L 09/04/18 00:25 Potassium 2.7 mmol/L (3.5-5.1) L 09/04/18 00:20 POC Chloride 103 mEq/L (101-112) 09/04/18 00:25 Chloride 107 mmol/L (98-107) 09/04/18 00:20 Carbon Dioxide 23 mmol/L (21-32) 09/04/18 00:20 POC Total CO2 21 mEq/l (24-31) L 09/04/18 00:25 9.0 (3-11) 09/04/18 00:20 POC Anion Gap 19.0 mmol/L (16-25) 09/04/18 00:25 POC BUN 9 mg/dl (7-18) 09/04/18 00:25 BUN 10 mg/dl (7-18) 09/04/18 00:20 0.74 mg/dl (0.6-1.2) 09/04/18 00:20 POC Creatinine 0.6 mg/dl (0.6-1.3) 09/04/18 00:25 Est Cr Clr Drug Dosing 66.2 ml/min 09/04/18 00:20 Est GFR ( Amer) 96.5 09/04/18 00:20 Est GFR (Non-Af Amer) 83.2 09/04/18 00:20 13.7 (10-20) 09/04/18 00:20 Glucose 85 mg/dl (70-99) 09/04/18 00:20 POC Glucose (other) 90 mg/dl (70-99) 09/04/18 00:25 1.0 mmol/L (0.4-2.0) 09/04/18 00:21 Calcium 8.6 mg/dl (8.5-10.1) 09/04/18 00:20 POC Ioniz Calcium Di 1.14 mmol/l (1.12-1.32) 09/04/18 00:25 Magnesium 2.0 mg/dl (1.8-2.4) 09/04/18 00:20 0.5 mg/dl (0.2-1) 09/04/18 00:20 0.1 mg/dl (0-0.2) 09/04/18 00:20 AST 25 U/L (15-37) 09/04/18 00:20 ALT 18 U/L (12-78) 09/04/18 00:20 68 U/L (45-117) 09/04/18 00:20 < 0.015 ng/ml (0-0.045) 09/04/18 00:20 7.4 gm/dl (6.4-8.2) 09/04/18 00:20 4.0 gm/dl (3.4-5.0) 09/04/18 00:20 117 U/L (73-393) 09/04/18 00:20 Yellow 09/03/18 23:27 Clear (Clear) 09/03/18 23:27 6.0 (4.5-7.5) 09/03/18 23:27 Ur Specific [place] 1.013 (1.000-1.030) 09/03/18 23:27 Negative (Negative) 09/03/18 23:27 Negative (Negative) 09/03/18 23:27 Negative (Negative) 09/03/18 23:27 Negative (Negative) 09/03/18 23:27 Negative (Negative) 09/03/18 23:27 Negative (Negative) 09/03/18 23:27 Negative (Negative) 09/03/18 23:27 Ur Leukocyte Esterase Negative (Negative) 09/03/18 23:27 Stl C. diff Tox B Gene Negative Cdiff Gene (Neg) 09/03/18 23:27 Diagnostic Findings [place], [place] [phone] CT Scan Report Patient: BRIANNA WRIGHT AAdmit Date: 09/04/18 MR#: [id number]: [address] Acct ID:[id number]: Date: 1950[facility] Zip: [place] [address] Age: 68Location: 3W Sex: F Room/Bed: [facility] Att Phy: Christiano Vera M.D.Diagnosis: INTRACTABLE DIARRHEA, HYPOKALEMIA, DEHYDRATION Angeli Phy: Shahbaz Andrew M.D.Service Date: 09/04/18 Fam Phy: Interpreting Phy: Rodriguez Espinosa MD Admit Phy: Christiano Vera M.D. Ordering Phy: Tony Zaragoza M.D. cc: ~ CT OF THE ABDOMEN AND PELVIS WITH CONTRAST CLINICAL HISTORY: Diffuse abdominal pain. Diarrhea. COMPARISON STUDY: CT of the abdomen and pelvis December 05, 2006. Abdominal ultrasound December 21, 2014. TECHNIQUE: Following IV administration of 98 mL of Optiray-320, axial images of the abdomen and pelvis were obtained from the lung bases to the proximal femurs. Images were reviewed in the axial, sagittal, and coronal planes. IV contrast was administered without complication. Automated exposure control was utilized for the study. A dose lowering technique was utilized adhering to the principles of ALARA. CT DOSE: 741.47 mGycm FINDINGS: Lung bases are clear. There is no free air. There is moderate portal venous gas within the liver. This originates from the right colon. Note is made of pneumatosis extending from the level of the cecum to the hepatic flexure. There is associated mesenteric venous gas. There is no evidence for a bowel obstruction. Colon is fluid-filled. The caliber of the abdominal aorta is normal. There is mild plaque within the abdominal aorta. Visualized portions of the superior mesenteric artery and the smaller branches are patent. No bowel wall thickening is noted. There is no adjacent infiltration. There is no abdominal or pelvic lymphadenopathy. The spleen, adrenal glands, kidneys and pancreas are unremarkable. No biliary or pancreatic ductal dilatation is present. There is no peripancreatic or pericholecystic infiltration. IMPRESSION: Portal venous gas within the liver which originates from the right colon with pneumatosis and mesenteric venous gas extending from the level of the cecum to the hepatic flexure. No free air. No bowel wall thickening or adjacent infiltration. These findings are nonspecific however are concerning for colonic ischemia. Correlation with clinical evidence for bowel ischemia is recommended. If present, surgical consultation is recommended. Fluid-filled colon may reflect a diarrheal state. No bowel obstruction. Electronically signed by: Rodriguez Espinosa M.D. 09/04/2018 6:24 AM Dictated: 09/04/18 0611 Transcribed: 09/04/18 0611 [place], [place] [phone] XRay Report Patient: BRIANNA WRIGHT AAdmit Date: 09/04/18 MR#: [id number]: [address] Acct ID:[id number]: Date: [address] [place] [address] Zip: [place] [address] Age: 68Location: 3W Sex: F Room/Bed: [facility] Att Phy: Christiano Vera M.D.Diagnosis: INTRACTABLE DIARRHEA, HYPOKALEMIA, DEHYDRATION Angeli Phy: Shahbaz Andrew M.D.Service Date: 09/04/18 Fam Phy: Interpreting Phy: Rodriguez Espinosa MD Admit Phy: Christiano Vera M.D. Ordering Phy: Tony Zaragoza M.D. cc: ~ XR chest 1V portable CLINICAL HISTORY: Pre-Op COMPARISON STUDY: Chest radiograph April 05, 2018. FINDINGS: Lung volumes are normal. There is no pneumothorax or pleural effusion. There is no consolidation or evidence for pulmonary edema. There is mild cardiomegaly. IMPRESSION: No acute cardiopulmonary findings. Electronically signed by: Rodriguez Espinosa M.D. 09/04/2018 6:25 AM Dictated: 09/04/1825 Transcribed: 09/04/1825 Code Status & VTE Plan Code Status Full code VTE Prophylaxis Plan VTE Prophylaxis will be ordered: Yes
[2018-09-04 07:13] LABS: Albumin Level 3.3 gm/dl (3.4-5.0); BUN Creatinine Ratio 14.4 (10-20); Calcium 7.8 mg/dl (8.5-10.1); Creatinine Clr Calc Pharmacy 78.6 ml/min; Est GFR (African American) 106.3; Est GFR (Non-African American) 91.7; Magnesium 1.8 mg/dl (1.8-2.4); Potassium 3.3 mmol/L (3.5-5.1)
[2018-09-04 07:17] LABS: Albumin Globulin Ratio 1.1 (0.9-2); Bilirubin,Total 0.4 mg/dl (0.2-1); Globulin 2.9 gm/dl (2.5-4.0); Total Protein 6.2 gm/dl (6.4-8.2)
[2018-09-04] MEDS ORDERED: MoRPHine SULFATE 2 MG/ML CARP IV PRN (07:51)
[2018-09-04] MEDS: CHOLESTYRAMINE LIGHT 4 GM PKT PO SCH ×2 (08:13→17:40)
--- NOTE | 2018-09-04 08:19 | Surgery Progress Note ---
Date of Service September 04, 2018 Assessment & Plan (1) Colitis: 68-year-old female with likely infectious colitis with portal venous gas. Her pain appears to be improving, her abdominal exam is not concerning, and she has no pain out of proportion to exam. Her white blood cell count remained s table with no left shift. Low concern for colonic ischemia at this time. Recommendations: Continue bowel rest, may have clear liquids this afternoon if doing well Follow-up stool cultures Continue IV fluids and IV antibiotics Serial abdominal exams GI consultation Surgery will continue to follow Present on Admission?: Yes (2) Pneumatosis of intestines: Subjective 68-year-old female with 4 days of abdominal pain and diarrhea and CT findings of portal venous gas concerning for ischemia. Overall doing well since admission. She is having pain between administration of pain medicine, but her pain appears to be less acute and improving. She continued to have some diarrhea overnight. Denies any fevers or nausea. Physical Exam Constitutional: WD/WN, vitals as above Gastrointestinal (Abdomen): Percussion/Palpation: + abdomen tender (Mild diffuse tenderness to palpation) and abdomen soft; no guarding, abdomen not rigid and no hernia Results & Data Vital Signs (Past 12 Hours) Vital Signs Temp Pulse Pulse Pulse Resp BP BP 09/04/18 07:57 36.6 C 56 L 14 132/78 09/04/18 04:15 36.6 C 65 18 09/04/18 01:26 50 L 20 09/03/18 23:11 70 18 75/55 L BP Pulse Ox 09/04/18 07:57 94 09/04/18 04:15 135/88 97 09/04/18 01:26 175/73 H 98 09/03/18 23:11 99 Laboratory Results Laboratory Results - last 24 hr 09/03/18 09/03/18 09/04/18 23:27 23:27 00:20 WBC 5.38 RBC 4.25 Hgb 13.4 POC Hgb Hct 39.7 POC Hct MCV 93.4 MCH 31.5 MCHC 33.8 RDW Std Deviation 43.9 RDW Coeff of Swapnil 12.9 Plt Count 190 MPV 9.5 Immature Gran % (Auto) 0.0 Neut % (Auto) 50.4 Lymph % (Auto) 36.2 [place] % (Auto) 9.1 Eos % (Auto) 3.9 Baso % (Auto) 0.4 Immature Gran # (Auto) 0.00 Neut # (Auto) 2.71 Lymph # (Auto) 1.95 [place] # (Auto) 0.49 Eos # (Auto) 0.21 Baso # (Auto) 0.02 POC Sodium Sodium POC Potassium Potassium POC Chloride Chloride Carbon Dioxide POC Total CO2 Anion Gap POC Anion Gap POC BUN BUN Creatinine POC Creatinine Est Cr Clr Drug Dosing Est GFR ( Amer) Est GFR (Non-Af Amer) BUN/Creatinine Ratio Glucose POC Glucose (other) Lactate Calcium POC Ioniz Calcium Di Magnesium Total Bilirubin Direct Bilirubin AST ALT Alkaline Phosphatase Troponin I Total Protein Albumin Globulin Albumin/Globulin Ratio Lipase Urine Color Yellow Urine Appearance Clear Urine pH 6.0 Ur Specific [place] 1.013 Urine Protein Negative Urine Glucose (UA) Negative Urine Ketones Negative Urine Blood Negative Urine Nitrite Negative Urine Bilirubin Negative Urine Urobilinogen Negative Ur Leukocyte Esterase Negative Stl C. diff Tox B Gene Negative Cdiff Gene 09/04/18 09/04/18 09/04/18 00:20 00:21 00:25 WBC RBC Hgb POC Hgb 13.9 Hct POC Hct 41 MCV MCH MCHC RDW Std Deviation RDW Coeff of Swapnil Plt Count MPV Immature Gran % (Auto) Neut % (Auto) Lymph % (Auto) [place] % (Auto) Eos % (Auto) Baso % (Auto) Immature Gran # (Auto) Neut # (Auto) Lymph # (Auto) [place] # (Auto) Eos # (Auto) Baso # (Auto) POC Sodium 140 Sodium 139 POC Potassium 2.7 L Potassium 2.7 L POC Chloride 103 Chloride 107 Carbon Dioxide 23 POC Total CO2 21 L Anion Gap 9.0 POC Anion Gap 19.0 POC BUN 9 BUN 10 Creatinine 0.74 POC Creatinine 0.6 Est Cr Clr Drug Dosing 66.2 Est GFR ( Amer) 96.5 Est GFR (Non-Af Amer) 83.2 BUN/Creatinine Ratio 13.7 Glucose 85 POC Glucose (other) 90 Lactate 1.0 Calcium 8.6 POC Ioniz Calcium Di 1.14 Magnesium 2.0 Total Bilirubin 0.5 Direct Bilirubin 0.1 AST 25 ALT 18 Alkaline Phosphatase 68 Troponin I < 0.015 Total Protein 7.4 Albumin 4.0 Globulin Albumin/Globulin Ratio Lipase 117 Urine Color Urine Appearance Urine pH Ur Specific [place] Urine Protein Urine Glucose (UA) Urine Ketones Urine Blood Urine Nitrite Urine Bilirubin Urine Urobilinogen Ur Leukocyte Esterase Stl C. diff Tox B Gene 09/04/18 09/04/18 06:28 06:28 WBC 5.15 RBC 3.83 L Hgb 11.9 L POC Hgb Hct 35.2 L POC Hct MCV 91.9 MCH 31.1 MCHC 33.8 RDW Std Deviation 43.6 RDW Coeff of Swapnil 12.9 Plt Count 163 MPV 9.1 Immature Gran % (Auto) 0.2 Neut % (Auto) 70.2 Lymph % (Auto) 21.4 [place] % (Auto) 7.2 Eos % (Auto) 0.6 Baso % (Auto) 0.4 Immature Gran # (Auto) 0.01 Neut # (Auto) 3.62 Lymph # (Auto) 1.10 L [place] # (Auto) 0.37 Eos # (Auto) 0.03 Baso # (Auto) 0.02 POC Sodium Sodium 137 POC Potassium Potassium 3.3 L D POC Chloride Chloride 109 H Carbon Dioxide 22 POC Total CO2 Anion Gap 6.0 POC Anion Gap POC BUN BUN 9 Creatinine 0.64 POC Creatinine Est Cr Clr Drug Dosing 78.6 Est GFR ( Amer) 106.3 Est GFR (Non-Af Amer) 91.7 BUN/Creatinine Ratio 14.4 Glucose 92 POC Glucose (other) Lactate Calcium 7.8 L POC Ioniz Calcium Di Magnesium 1.8 Total Bilirubin 0.4 Direct Bilirubin AST 18 ALT 17 Alkaline Phosphatase 57 Troponin I Total Protein 6.2 L Albumin 3.3 L Globulin 2.9 Albumin/Globulin Ratio 1.1 Lipase Urine Color Urine Appearance Urine pH Ur Specific [place] Urine Protein Urine Glucose (UA) Urine Ketones Urine Blood Urine Nitrite Urine Bilirubin Urine Urobilinogen Ur Leukocyte Esterase Stl C. diff Tox B Gene Diagnostic Findings CT OF THE ABDOMEN AND PELVIS WITH CONTRAST CLINICAL HISTORY: Diffuse abdominal pain. Diarrhea. COMPARISON STUDY: CT of the abdomen and pelvis December 05, 2006. Abdominal ult rasound December 21, 2014. TECHNIQUE: Following IV administration of 98 mL of Optiray-320, axial images of the abdomen and pelvis were obtained from the lung bases to the proximal femurs. Images were reviewed in the axial, sagittal, and coronal planes. IV contrast was administered without complication. Automated exposure control was utilized for the study. A dose lowering technique was utilized adhering to the principles of ALARA. CT DOSE: 741.47 mGycm FINDINGS: Lung bases are clear. There is no free air. There is moderate portal venous gas within the liver. This originates from the right colon. Note is made of pneumatosis extending from the level of the cecum to the hepatic flexure. There is associated mesenteric venous gas. There is no evidence for a bowel obstruction. Colon is fluid-filled. The caliber of the abdominal aorta is normal. There is mild plaque within the abdominal aorta. Visualized portions of the superior mesenteric artery and the smaller branches are patent. No bowel wall thickening is noted. There is no adjacent infiltration. There is no abdominal or pelvic lymphadenopathy. The spleen, adrenal glands, kidneys and pancreas are unremarkable. No biliary or pancreatic ductal dilatation is present. There is no peripancreatic or pericholecystic infiltration. IMPRESSION: Portal venous gas within the liver which originates from the right colon with pneumatosis and mesenteric venous gas extending from the level of the cecum to the hepatic flexure. No free air. No bowel wall thickening or adjacent infiltration. These findings are nonspecific however are concerning for colonic ischemia. Correlation with clinical evidence for bowel ischemia is recommended. If present, surgical consultation is recommended. Fluid-filled colon may reflect a diarrheal state. No bowel obstruction.
[2018-09-04] MEDS: metroNIDAZOLE 500 MG/100 ML BAG IV SCH ×2 (09:40→17:46)
[2018-09-04] MEDS: FAMOTIDINE 20 MG in SYRINGE 3 ML IV SCH ×2 (09:41→20:03)
[2018-09-04] MEDS: MoRPHine SULFATE 2 MG/ML CARP IV PRN ×2 (13:13→17:37)
[2018-09-04 13:29] LABS: BUN Creatinine Ratio 12.9 (10-20); Creatinine Clr Calc Pharmacy 86.7 ml/min; Est GFR (African American) 109.8; Est GFR (Non-African American) 94.7; Potassium 3.6 mmol/L (3.5-5.1)
[2018-09-04] MEDS: CIPROFLOXACIN 400 MG/200 ML BAG IV SCH (13:49)
[2018-09-04] MEDS: LISINOPRIL 10 MG TAB PO SCH (20:00)
[2018-09-05] MEDS: NSS + 20MEQ KCL 20 MEQ/1,000 ML BAG IV SCH ×4 (01:54→23:57)
[2018-09-05] MEDS: CIPROFLOXACIN 400 MG/200 ML BAG IV SCH ×2 (01:54→13:49)
[2018-09-05] MEDS: metroNIDAZOLE 500 MG/100 ML BAG IV SCH ×3 (01:54→18:36)
[2018-09-05] MEDS: MoRPHine SULFATE 2 MG/ML CARP IV PRN ×4 (03:05→15:47)
[2018-09-05 07:26] LABS: Basophils # (auto) 0.04 K/uL (0-0.2); Basophils % (auto) 0.6 %; Eosinophils # (auto) 0.13 K/uL (0-0.5); Eosinophils % (auto) 1.9 %; Hemoglobin 11.8 g/dL (12.0-16.0); Immature Granulocytes # (auto) 0.01 K/uL (0.00-0.02); Immature Granulocytes % (auto) 0.1 %; Lymphocytes # (auto) 1.17 K/uL (1.2-3.4); Lymphocytes % (auto) 16.7 %; Mean Corpuscular Hgb Conc 33.7 g/dL (32-36); Mean Corpuscular Volume 92.1 fL (80-100); Mean Platelet Volume 9.1 fL (7.4-10.4); Monocytes # (auto) 0.58 K/uL (0.11-0.59); Monocytes % (auto) 8.3 %; Neutrophils # (auto) 5.08 K/uL (1.4-6.5); Neutrophils % (auto) 72.4 %; Platelet Count 143 K/uL (130-400); RDW Standard Deviation 43.5 fL (36.4-46.3); White Blood Count 7.01 K/uL (4.8-10.8)
[2018-09-05 07:54] LABS: Albumin Level 3.2 gm/dl (3.4-5.0); BUN Creatinine Ratio 9.4 (10-20); Calcium 8.3 mg/dl (8.5-10.1); Creatinine Clr Calc Pharmacy 93.2 ml/min; Est GFR (African American) 112.4; Magnesium 1.7 mg/dl (1.8-2.4); Potassium 3.7 mmol/L (3.5-5.1)
[2018-09-05 07:57] LABS: Albumin Globulin Ratio 1.1 (0.9-2); Bilirubin,Total 0.4 mg/dl (0.2-1); Total Protein 6.2 gm/dl (6.4-8.2)
--- NOTE | 2018-09-05 08:58 | Surgery Progress Note ---
Date of Service September 05, 2018 Assessment & Plan (1) Colitis: 68-year-old female with likely infectious colitis with portal venous gas on initial CT. Her vital signs, labs, and urine output are normal. However her pain is slightly increased, though she hasn't been asking for pain meds. We w ill obtain a CT with oral and IV contrast. Stool cultures pending Recommendations: CT abd/pel with oral and IV contrast Continue bowel rest Follow-up stool cultures Continue IV fluids and IV antibiotics Possible GI consultation Surgery will continue to follow (2) Pneumatosis of intestines: Subjective 68-year-old female with 5 days of abdominal pain and diarrhea and CT findings of portal venous gas concerning for ischemia on admission. Overall doing well since admission. She states she had a rough night but only took 1 dose of pain meds, didn't realize she had to ask. Some flatus, diarrhea has stopped. Pain is more localized to RLQ. No fevers, no nausea. Physical Exam Constitutional: WD/WN, vitals as above Gastrointestinal (Abdomen): Percussion/Palpation: + abdomen tender (Moderate TTP, no guarding. More localized to RLQ, worse than yest) and abdomen soft; no guarding, abdomen not rigid and no hernia Results & Data Vital Signs (Past 12 Hours) Vital Signs Temp Pulse Pulse Resp BP Pulse Ox 09/05/18 07:43 36.8 C 66 16 143/77 H 94 09/04/18 23:05 36.7 C 66 20 171/85 H 96 Laboratory Results Laboratory Results - last 24 hr 09/04/18 09/05/18 09/05/18 12:59 07:05 07:05 WBC 7.01 RBC 3.80 L Hgb 11.8 L Hct 35.0 L MCV 92.1 MCH 31.1 MCHC 33.7 RDW Std Deviation 43.5 RDW Coeff of Swapnil 13.0 Plt Count 143 MPV 9.1 Immature Gran % (Auto) 0.1 Neut % (Auto) 72.4 Lymph % (Auto) 16.7 [place] % (Auto) 8.3 Eos % (Auto) 1.9 Baso % (Auto) 0.6 Immature Gran # (Auto) 0.01 Neut # (Auto) 5.08 Lymph # (Auto) 1.17 L [place] # (Auto) 0.58 Eos # (Auto) 0.13 Baso # (Auto) 0.04 Sodium 139 140 Potassium 3.6 3.7 Chloride 112 H 112 H Carbon Dioxide 19 L 20 L Anion Gap 8.0 8.0 BUN 8 5 L Creatinine 0.58 L 0.54 L Est Cr Clr Drug Dosing 86.7 93.2 Est GFR ( Amer) 109.8 112.4 Est GFR (Non-Af Amer) 94.7 97.0 BUN/Creatinine Ratio 12.9 9.4 L Glucose 89 94 Calcium 8.0 L 8.3 L Magnesium 1.7 L Total Bilirubin 0.4 AST 19 ALT 17 Alkaline Phosphatase 58 Total Protein 6.2 L Albumin 3.2 L Globulin 3.0 Albumin/Globulin Ratio 1.1
[2018-09-05] MEDS: LISINOPRIL 10 MG TAB PO SCH (09:30)
[2018-09-05] MEDS: CHOLESTYRAMINE LIGHT 4 GM PKT PO SCH ×2 (09:33→16:58)
[2018-09-05] MEDS: ACETAMINOPHEN 1000 MG/100 ML IV IV PRN ×2 (09:37→20:55)
[2018-09-05] MEDS: FAMOTIDINE 20 MG in SYRINGE 3 ML IV SCH ×2 (09:37→20:53)
[2018-09-05] MEDS ORDERED: IOVERSOL 100ml IV PRN (11:38)
--- NOTE | 2018-09-05 12:07 | CT Scan Report ---
CT abd pelvis oral and IV con CLINICAL HISTORY: 68 years-old Female presenting with abdominal discomfort and diarrhea. TECHNIQUE: Multidetector CT of the abdomen and pelvis was performed after the administration of oral and intravenous contrast. IV contrast: 93 mL of Optiray 320. One or more dose lowering techniques wer e used consistent with the principles of ALARA (as low as reasonably achievable), including automatic exposure control, mA or kV adjustment to individual patient size, and/or use of iterative reconstruc tion. COMPARISON: 09/04/2018. CT DOSE (mGy.cm): The estimated cumulative dose is 743.22 mGycm. 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 Lung bases: Normal heart size. No pericardial or pleural effusion. Minimal dependent changes likely a telectasis. Solid peripheral 5 mm nodule right middle lobe unchanged since 2006. Solid 5 mm nodule in the lateral basal right lower lobe minimally increased in size since 2006. Liver: Normal morphology. Vague hypodensity along the fissure for the ligamentum teres likely perfusi onal variation or focal fat. Patent hepatic vasculature. Biliary: No intrahepatic or extrahepatic biliary ductal dilatation. Vicarious excretion of contrast i n the gallbladder, which is otherwise normal. Pancreas: Normal. Spleen: Normal. Adrenal glands: Normal. Kidneys and ureters: Normal. No hydronephrosis. Bladder: Incompletely evaluated secondary to underdistention. Pelvic organs: Uterus surgically absent. Bowel: Interval development of significant wall thickening of the cecum and ascending colon to the [place] of the hepatic flexure. This is in the same distribution as pneumatosis and mesenteric gas on patrice or CT. Extensive pericolonic inflammatory change is now evident. The appendix is normal. No bowel obs truction. Peritoneal cavity: Resolution of prior portal and mesenteric venous gas. Trace fluid in the right par acolic gutter. No free intraperitoneal gas. Small volume pelvic free fluid. Lymph nodes: No enlarged lymph nodes in the abdomen or pelvis. Vasculature: Atherosclerosis of the normal caliber abdominal aorta. IVC patent. Abdominal wall: Low transverse incision scar suggested. Nonspecific focal infiltration in the periumb ilical region. Musculoskeletal: Normal. IMPRESSION: 1. Interval development of significant colonic wall thickening and pericolonic inflammatory change i n the region of the cecum and ascending colon to the level of the hepatic flexure. Resolution of prio r pneumatosis and mesenteric and portal venous gas in this distribution. Findings most concerning for colitis, most likely infectious or inflammatory. Ischemic colitis is also a possibility though consi dered less likely. The report will be called/faxed according to standard departmental protocol. Electronically signed by: Bobby Callaway M.D. 09/05/2018 12:06 PM
[2018-09-05] MEDS: MAGNESIUM SULFATE / D5W 1 GM/100 ML BAG IV SCH ×2 (13:45→14:59)
--- NOTE | 2018-09-05 15:04 | Hospitalist Progress Note ---
Date of Service September 05, 2018 Assessment & Plan (1) Pneumatosis of intestines: Intractable diarrhea/pneumatosis of intestines/colitis- Cipro 400 mg IV every 12 hours. Flagyl 500 mg IV every 8 hours. NSS + KCl 20 mEq at 100 mils per hour. appreciate general surgery consult repeat CT today without the pneumatosis shows worsening right sided colitis, suspected to be infectious (2) Colitis: CT today shows colitis in cecum and ascending colon tender to palpation will allow clear liquids today no personal or family history of IBD, no blood in stools, these issues are all acute has had colonoscopies with Dr. Hennessy in the past, only abnormalities were some polyps will ask Dr. Hennessy to see today stool culture negative, will send for C diff if she can provide another sample (3) Acute hypokalemia: Secondary to GI losses. K is 3.7 today continue to supplement in IV fluids (4) Depression: Anxiety with depression- Hold sertraline 20 mg p.o. daily and buspirone 5 mg p.o. twice daily. Patient lorazepam 0.5 mg IV at bedtime as needed. (5) Anxiety: See above (6) Dyslipidemia: Hold atorvastatin 10 mg p.o. daily (7) Hypomagnesemia: low at 1.7, replace with IV today, repeat level tomorrow Subjective patient still with pain today, more intense on right side and RLQ no vomiting no diarrhea since manager switch on 09/04 she did move bowels after the PO contrast today no fever, no sweats appreciate surgery note will allow her some clear liquids consult Dr. Hennessy who has scoped her in the past stool culture with no growth, will ask for C diff testing but she is not moving bowels currently Review of Systems Review of Systems: All systems reviewed & are unremarkable except as noted in HPI & below Gastrointestinal: + abdominal pain (RLQ, right side) and + diarrhea/loose stools; no nausea, no vomiting, no constipation, no blood in stools and no melena Physical Exam Constitutional: WD/WN, vitals as above Eyes: PERRL, conjunctivae normal, anicteric sclerae ENMT: external ear and nose normal, oropharynx normal Neck: trachea midline, no thyromegaly Respiratory: normal respiratory effort, lungs clear to auscultation Cardiovascular: RRR, no murmur, no edema Gastrointestinal (Abdomen): Inspection/Auscultation: abdomen normal to inspection and normal bowel sounds; abdomen not distended Percussion/Palpation: + abdomen tender (RLQ) and abdomen soft; no guarding, abdomen not rigid and no hepatosplenomegaly Musculoskeletal: no cyanosis or clubbing, extremities motor strength 5/5 Skin: no rashes, warm and dry Neurologic: patellar DTR's 2+ bilat, sensation intact and PERRL, EOMI, accommodation nl, no face palsy, no dysarthria Psychiatric: A+Ox3, euthymic affect Lymphatic: no cervical or axillary lymphadenopathy Results & Data Vital Signs (Past 12 Hours) Vital Signs Temp Pulse Resp BP Pulse Ox 09/05/18 07:43 36.8 C 66 16 143/77 H 94 Laboratory Results Laboratory Results - last 24 hr 09/05/18 09/05/18 07:05 07:05 WBC 7.01 RBC 3.80 L Hgb 11.8 L Hct 35.0 L MCV 92.1 MCH 31.1 MCHC 33.7 RDW Std Deviation 43.5 RDW Coeff of Swapnil 13.0 Plt Count 143 MPV 9.1 Immature Gran % (Auto) 0.1 Neut % (Auto) 72.4 Lymph % (Auto) 16.7 [place] % (Auto) 8.3 Eos % (Auto) 1.9 Baso % (Auto) 0.6 Immature Gran # (Auto) 0.01 Neut # (Auto) 5.08 Lymph # (Auto) 1.17 L [place] # (Auto) 0.58 Eos # (Auto) 0.13 Baso # (Auto) 0.04 Sodium 140 Potassium 3.7 Chloride 112 H Carbon Dioxide 20 L Anion Gap 8.0 BUN 5 L Creatinine 0.54 L Est Cr Clr Drug Dosing 93.2 Est GFR ( Amer) 112.4 Est GFR (Non-Af Amer) 97.0 BUN/Creatinine Ratio 9.4 L Glucose 94 Calcium 8.3 L Magnesium 1.7 L Total Bilirubin 0.4 AST 19 ALT 17 Alkaline Phosphatase 58 Total Protein 6.2 L Albumin 3.2 L Globulin 3.0 Albumin/Globulin Ratio 1.[address] ABDOMEN AND PELVIS WITH PO AND IV CONTRAST IMPRESSION: 1. Interval development of significant colonic wall thickening and pericolonic inflammatory change in the region of the cecum and ascending colon to the level of the hepatic flexure. Resolution of prior pneumatosis and mesenteric and portal venous gas in this distribution. Findings most concerning for colitis, most likely infectious or inflammatory. Ischemic colitis is also a possibility though considered less likely. Medications Administered Current Inpatient Medications Acetaminophen (Ofirmev) 1,000 mg IV Q8H PRN PRN Reason: Pain or Fever Stop: 10/04/18 05:57 Last Admin: 09/05/18 09:37 Dose: 1,000 mg Documented by: Cholestyramine Resin (Questran) 4 gm PO BID@0730,1630 [facility]O Stop: 10/04/18 07:29 Last Admin: 09/05/18 09:33 Dose: Not Given Documented by: Potassium Chloride/Sodium Chloride (Normal Saline W/20 Meq Kcl) 20 meq in 1,000 mls @ 150 mls/hr IV .Q6H40M [facility] Stop: 10/04/18 05:59 Last Infusion: 09/05/18 12:03 Dose: 150 mls/hr Documented by: Lorazepam (Ativan) 0.5 mg in 1 mls @ 1 mls/min IV HS PRN PRN Reason: Insomnia Stop: 10/04/18 05:55 Famotidine 20 mg/ Syringe 5 mls @ 2.5 mls/min IV Q12 [facility] Stop: 10/04/18 08:59 Last Admin: 09/05/18 09:37 Dose: 2.5 mls/min Documented by: Ciprofloxacin (Cipro) 400 mg in 200 mls @ 100 mls/hr IV Q12H [facility]O Stop: 09/14/18 13:59 Last Admin: 09/05/18 13:49 Dose: 100 mls/hr Documented by: Metronidazole (Flagyl) 500 mg in 100 mls @ 100 mls/hr IV Q8H [facility] Stop: 09/14/18 09:59 Last Infusion: 09/05/18 10:53 Dose: Infused Documented by: Ioversol (Optiray 320 100ml) 100 ml IV ONCE PRN PRN Reason: Interaction Checking Stop: 09/08/18 01:15 Last Admin: 09/04/18 01:16 Dose: 98 ml Documented by: Ioversol (Optiray 320 100ml) 93 ml IV ONCE PRN PRN Reason: Interaction Checking Stop: 09/09/18 11:37 Last Admin: 09/05/18 11:38 Dose: 93 ml Documented by: Lisinopril (Zestril) 10 mg PO QAM [facility] Stop: 10/04/18 19:59 Last Admin: 09/05/18 09:30 Dose: 10 mg Documented by: Morphine Sulfate (Morphine Sulfate) 2 mg IV Q3H PRN PRN Reason: Pain Stop: 09/18/18 07:50 Last Admin: 09/05/18 12:05 Dose: 2 mg Documented by: Ondansetron HCl (Zofran) 4 mg IV Q6H PRN PRN Reason: Nausea Stop: 10/04/18 05:50
--- NOTE | 2018-09-05 17:17 | Gastrointestinal Consultation ---
Date of Consultation September 05, 2018 Assessment & Plan (1) Pneumatosis of intestines: acute onset of GI symptoms suggest infection or ischemia with IBD unlikely. Continue supportive care and abx. Colonoscopy would be high risk for perforation in the acute setting. colitis--as above for pneumatossi. Diarrhea--cdiff neg, Stool cx no growth so far History of Present Illness Reason for Consultation: severe pain, colitis Requesting Physician: DR Andres Vincent Attending Physician: Andres Vincent, DO History of Present Illness cc abd pain, diarrhea HPI Pt with fhx CRC, hx of colon polyps with most recent colonocoy by DR dowling 11/2017 normal exam presents to ER few days after abrupt onset of abd pain and profuse non bloody diarrhea. She did not eat out and no other family ill. Initial CT a/p R colon pneumatosis and PV gas. Repeat CT today resolution of pneumatosis and gas but right sided colitis. SMA appeared patent on initial. CT. WBC and lactic acid normal. Only stool this admit today post oral contrast. Her abd pain is somewhat better but still significant in RLQ. Allergies Allergy/AdvReac Type Severity Reaction Status Date / Time Penicillins Allergy Severe UNKN Verified 09/03/18 23:49 doxycycline Allergy Intermediate HIVE Verified 09/03/18 23:49 mold Allergy Intermediate CONGESTION Verified 09/03/18 23:49 Sulfa (Sulfonamide Allergy Mild Hives Verified 09/03/18 23:49 Antibiotics) Tetracyclines Allergy Unknown Unknown Verified 09/03/18 23:49 Home Medications Home Medications Medication Instructions Recorded Confirmed Type atorvastatin 10 mg PO DAILY 09/03/18 09/03/18 History buspirone 5 mg PO BID 09/03/18 09/03/18 History cetirizine 5 mg PO DAILY 09/03/18 09/03/18 History cholecalciferol (vitamin D3) 2,000 unit PO DAILY 09/03/18 09/03/18 History [Vitamin D3] lisinopril 10 mg PO DAILY 09/03/18 09/03/18 History pantoprazole 40 mg PO DAILY 09/03/18 09/03/18 History sertraline 200 mg PO DAILY 09/03/18 09/03/18 History Patient History Medical History Depression (Chronic) Anxiety (Chronic) Dyslipidemia (Chronic) HTN (hypertension) (Chronic) Surgical History Hx of tonsillectomy (Resolved) H/O: hysterectomy (Resolved) Family History Brother HIV positive Brother C. difficile colitis Social History Feels Safe at Home: Yes Smoking Status: Never smoker Review of Systems Review of Systems: All systems reviewed & are unremarkable except as noted in HPI & below Physical Exam Constitutional: WD/WN, vitals as above Eyes: PERRL, conjunctivae normal, anicteric sclerae ENMT: external ear and nose normal, oropharynx normal Neck: normal visual inspection and trachea midline Respiratory: normal respiratory effort, lungs clear to auscultation Cardiovascular: RRR, no murmur, no edema Gastrointestinal (Abdomen): Inspection/Auscultation: abdomen normal to inspection pos bs soft, guarding left and right lower abdomen but worse on right, no rebound Neurologic: PERRL, EOMI, accommodation nl, no face palsy, no dysarthria Psychiatric: A+Ox3, euthymic affect Results & Data Vital Signs (Past 12 Hours) Vital Signs Temp Pulse Pulse Resp BP BP Pulse Ox 09/05/18 15:05 36.6 C 67 16 134/77 96 09/05/18 07:43 36.8 C 66 16 143/77 H 94
[2018-09-06] MEDS: MoRPHine SULFATE 2 MG/ML CARP IV PRN ×2 (00:12→21:25)
[2018-09-06] MEDS: CIPROFLOXACIN 400 MG/200 ML BAG IV SCH (02:01)
[2018-09-06] MEDS: metroNIDAZOLE 500 MG/100 ML BAG IV SCH ×2 (02:03→09:27)
[2018-09-06] MEDS: NSS + 20MEQ KCL 20 MEQ/1,000 ML BAG IV SCH ×2 (06:10→13:06)
[2018-09-06] MEDS: ACETAMINOPHEN 1000 MG/100 ML IV IV PRN ×2 (06:14→15:41)
[2018-09-06 07:15] LABS: Hematocrit (blood only) 34.1 % (37-47); Hemoglobin 11.4 g/dL (12.0-16.0); Mean Corpuscular Hgb Conc 33.4 g/dL (32-36); Mean Corpuscular Volume 93.4 fL (80-100); Mean Platelet Volume 9.2 fL (7.4-10.4); Platelet Count 152 K/uL (130-400); RDW Coefficient of Variation 13.1 % (11.5-14.5); RDW Standard Deviation 44.8 fL (36.4-46.3); Red Blood Count 3.65 M/uL (4.2-5.4); White Blood Count 8.52 K/uL (4.8-10.8)
[2018-09-06 07:43] LABS: Basophils # (auto) 0.04 K/uL (0-0.2); Basophils % (auto) 0.5 %; Eosinophils # (auto) 0.24 K/uL (0-0.5); Eosinophils % (auto) 2.8 %; Immature Granulocytes # (auto) 0.02 K/uL (0.00-0.02); Immature Granulocytes % (auto) 0.2 %; Lymphocytes # (auto) 1.39 K/uL (1.2-3.4); Lymphocytes % (auto) 16.3 %; Monocytes # (auto) 0.57 K/uL (0.11-0.59); Monocytes % (auto) 6.7 %; Neutrophils # (auto) 6.26 K/uL (1.4-6.5); Neutrophils % (auto) 73.5 %
[2018-09-06 07:53] LABS: BUN Creatinine Ratio 5.1 (10-20); Calcium 8.2 mg/dl (8.5-10.1); Creatinine Clr Calc Pharmacy 88.3 ml/min; Est GFR (African American) 110.4; Est GFR (Non-African American) 95.3; Magnesium 2.1 mg/dl (1.8-2.4); Potassium 3.9 mmol/L (3.5-5.1)
[2018-09-06 07:56] LABS: Bilirubin,Total 0.3 mg/dl (0.2-1); Globulin 3.1 gm/dl (2.5-4.0); Total Protein 6.1 gm/dl (6.4-8.2)
[2018-09-06] MEDS: FAMOTIDINE 20 MG in SYRINGE 3 ML IV SCH ×2 (09:27→21:28)
[2018-09-06] MEDS: LISINOPRIL 10 MG TAB PO SCH (09:27)
[2018-09-06] MEDS: LORazepam 0.5 MG/1 ML VIAL IV PRN (10:06)
--- NOTE | 2018-09-06 10:52 | Surgery Progress Note ---
Date of Service September 06, 2018 Assessment & Plan (1) Colitis: 68-year-old female with likely infectious colitis with portal venous gas on initial CT. Her vital signs, labs, and urine output are normal. Stool cx negative. GI saw patient and no plans to scope with acute colitis. CT with resolved portal venous gas and pneumotosis, but right sided colitis. Recommendations: no surgical indication at this time Continue antibiotics advance to low fiber diet as tolerated surgery will follow peripherally, Dr. Smith covering over weekend. (2) Pneumatosis of intestines: Subjective 68 y/o female with colitis, initial CT with portal venous gas and pneumotosis. Repeat CT yesterday with resolution of PVG and pneumotosis, now just colitis. Feeling better, tolerating liquids. Still sore. Physical Exam Constitutional: WD/WN, vitals as above Gastrointestinal (Abdomen): Percussion/Palpation: + abdomen tender (Moderate TTP in RLQ, improved from yesterday. No peritonitis) and abdomen soft; no guarding, abdomen not rigid and no hernia Results & Data Vital Signs (Past 12 Hours) Vital Signs Temp Pulse Pulse Resp BP BP Pulse Ox 09/06/18 07:36 36.4 C L 56 L 21 130/76 96 09/05/18 23:22 36.7 C 62 18 144/81 H 95 Laboratory Results Laboratory Results - last 24 hr 09/05/18 09/06/18 09/06/18 17:35 07:01 07:01 WBC 8.52 RBC 3.65 L Hgb 11.4 L Hct 34.1 L MCV 93.4 MCH 31.2 MCHC 33.4 RDW Std Deviation 44.8 RDW Coeff of Swapnil 13.1 Plt Count 152 MPV 9.2 Immature Gran % (Auto) 0.2 Neut % (Auto) 73.5 Lymph % (Auto) 16.3 [place] % (Auto) 6.7 Eos % (Auto) 2.8 Baso % (Auto) 0.5 Immature Gran # (Auto) 0.02 Neut # (Auto) 6.26 Lymph # (Auto) 1.39 [place] # (Auto) 0.57 Eos # (Auto) 0.24 Baso # (Auto) 0.04 Sodium 139 Potassium 3.9 Chloride 111 H Carbon Dioxide 22 Anion Gap 6.0 BUN 3 L Creatinine 0.57 L Est Cr Clr Drug Dosing 88.3 Est GFR ( Amer) 110.4 Est GFR (Non-Af Amer) 95.3 BUN/Creatinine Ratio 5.1 L Glucose 91 Calcium 8.2 L Magnesium 2.1 Total Bilirubin 0.3 AST 13 L ALT 13 Alkaline Phosphatase 58 Total Protein 6.1 L Albumin 3.0 L Globulin 3.1 Albumin/Globulin Ratio 1.0 Stl C. diff Tox B Gene Negative Cdiff Gene Diagnostic Findings CT abd pelvis oral and IV con CLINICAL HISTORY: 68 years-old Female presenting with abdominal discomfort and diarrhea. TECHNIQUE: Multidetector CT of the abdomen and pelvis was performed after the administration of oral and intravenous contrast. IV contrast: 93 mL of Optiray 320. One or more dose lowering techniques were used consistent with the principles of ALARA (as low as reasonably achievable), including automatic exposure control, mA or kV adjustment to individual patient size, and/or use of iterative reconstruction. COMPARISON: 09/04/2018. CT DOSE (mGy.cm): The estimated cumulative dose is 743.22 mGycm. 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 Lung bases: Normal heart size. No pericardial or pleural effusion. Minimal dependent changes likely atelectasis. Solid peripheral 5 mm nodule right middle lobe unchanged since 2006. Solid 5 mm nodule in the lateral basal right lower lobe minimally increased in size since 2006. Liver: Normal morphology. Vague hypodensity along the fissure for the ligamentum teres likely perfusional variation or focal fat. Patent hepatic vasculature. Biliary: No intrahepatic or extrahepatic biliary ductal dilatation. Vicarious excretion of contrast in the gallbladder, which is otherwise normal. Pancreas: Normal. Spleen: Normal. Adrenal glands: Normal. Kidneys and ureters: Normal. No hydronephrosis. Bladder: Incompletely evaluated secondary to underdistention. Pelvic organs: Uterus surgically absent. Bowel: Interval development of significant wall thickening of the cecum and ascending colon to the level of the hepatic flexure. This is in the same distribution as pneumatosis and mesenteric gas on prior CT. Extensive pericolonic inflammatory change is now evident. The appendix is normal. No bowel obstruction. Peritoneal cavity: Resolution of prior portal and mesenteric venous gas. Trace fluid in the right paracolic gutter. No free intraperitoneal gas. Small volume pelvic free fluid. Lymph nodes: No enlarged lymph nodes in the abdomen or pelvis. Vasculature: Atherosclerosis of the normal caliber abdominal aorta. IVC patent. Abdominal wall: Low transverse incision scar suggested. Nonspecific focal infiltration in the periumbilical region. Musculoskeletal: Normal. IMPRESSION: 1. Interval development of significant colonic wall thickening and pericolonic inflammatory change in the region of the cecum and ascending colon to the level of the hepatic flexure. Resolution of prior pneumatosis and mesenteric and portal venous gas in this distribution. Findings most concerning for colitis, most likely infectious or inflammatory. Ischemic colitis is also a possibility though considered less likely. The report will be called/faxed according to standard departmental protocol.
[2018-09-06] MEDS: SERTRALINE HCL 100 MG TABLET PO SCH (10:53)
[2018-09-06] MEDS ORDERED: LOPERAMIDE HCL 2 MG CAP PO PRN (13:01)
[2018-09-06] MEDS: metroNIDAZOLE 500 MG TAB PO SCH ×2 (15:19→21:25)
--- NOTE | 2018-09-06 15:40 | Progress Note ---
DATE: 09/06/2018 SUBJECTIVE: The patient reports continued pain in the right side of the abdomen, although less than when she came in. She was advanced to a low-fiber diet today, but has not yet eaten any low-fiber foods. She continues on Eliquis, but tolerated those fine. Her stool culture is still no growth so far. PHYSICAL EXAMINATION: VITAL SIGNS: Show blood pressure 130/76, pulse 56, temperature is 36.4. ABDOMEN: Shows her to be tender on the right side of the abdomen to percussion and palpation. No mass or rebound. CT scan yesterday showed diminished pneumatosis in the right colon and absence of air in the portal vein, but there is still persistent thickening of the right colon. IMPRESSION: The patient has what looks like acute colitis of the right colon with a normal white count, normal lactic acid mitigating ischemia as a diagnosis. This is most likely an infectious process and I recommend that she continue on a low-fiber diet and continue Cipro and Flagyl until she is able to tolerate low-fiber diet without having more increased pain. Dr. Meehan will be covering over the weekend.
[2018-09-06] MEDS: CIPROFLOXACIN 500 MG TAB PO SCH (21:25)
--- NOTE | 2018-09-06 23:04 | Hospitalist Progress Note ---
Date of Service September 06, 2018 Assessment & Plan (1) Pneumatosis of intestines: Intractable diarrhea/pneumatosis of intestines/colitis- Cipro 400 mg IV every 12 hours. Flagyl 500 mg IV every 8 hours. will make both the Cipro and Flagyl PO starting tomorrow NSS + KCl 20 mEq at 100 mils per hour. appreciate general surgery consult repeat CT 09/05 without the pneumatosis shows worsening right sided colitis, suspected to be infectious appreciate GI consult (2) Colitis: CT 09/05 showed colitis in cecum and ascending colon tender to palpation tolerating clears, advance to low fiber diet no personal or family history of IBD, no blood in stools, these issues are all acute has had colonoscopies with Dr. Hennessy in the past, only abnormalities were some polyps stool culture negative, C diff negative (3) Acute hypokalemia: Secondary to GI losses. K is 3.9 today continue to supplement in IV fluids (4) Depression: Anxiety with depression- Hold sertraline 20 mg p.o. daily and buspirone 5 mg p.o. twice daily. Patient lorazepam 0.5 mg IV at bedtime as needed. (5) Anxiety: Resume Zofoft and Buspar Ativan did not help (6) Dyslipidemia: Hold atorvastatin 10 mg p.o. daily (7) Hypomagnesemia: low at 1.7, replace with IV today, repeat level tomorrow Subjective less pain today drinking all of the liquids on her tray, feels hungry discussed trying some low residue diet, she agreed reviewed labs, CBC and BMP stable updated at the bedside Review of Systems Review of Systems: All systems reviewed & are unremarkable except as noted in HPI & below Gastrointestinal: + abdominal pain (RLQ, right side) and + diarrhea/loose stools; no nausea, no vomiting, no constipation, no blood in stools and no melena Physical Exam Constitutional: WD/WN, vitals as above Eyes: PERRL, conjunctivae normal, anicteric sclerae ENMT: external ear and nose normal, oropharynx normal Neck: trachea midline, no thyromegaly Respiratory: normal respiratory effort, lungs clear to auscultation Cardiovascular: RRR, no murmur, no edema Gastrointestinal (Abdomen): Inspection/Auscultation: abdomen normal to inspection and normal bowel sounds; abdomen not distended Percussion/Palpation: + abdomen tender (RLQ) and abdomen soft; no guarding, abdomen not rigid and no hepatosplenomegaly Musculoskeletal: no cyanosis or clubbing, extremities motor strength 5/5 Skin: no rashes, warm and dry Neurologic: patellar DTR's 2+ bilat, sensation intact and PERRL, EOMI, accommodation nl, no face palsy, no dysarthria Psychiatric: A+Ox3, euthymic affect Lymphatic: no cervical or axillary lymphadenopathy Results & Data Laboratory Results Laboratory Results - last 24 hr 09/06/18 09/06/18 07:01 07:01 WBC 8.52 RBC 3.65 L Hgb 11.4 L Hct 34.1 L MCV 93.4 MCH 31.2 MCHC 33.4 RDW Std Deviation 44.8 RDW Coeff of Swapnil 13.1 Plt Count 152 MPV 9.2 Immature Gran % (Auto) 0.2 Neut % (Auto) 73.5 Lymph % (Auto) 16.3 [place] % (Auto) 6.7 Eos % (Auto) 2.8 Baso % (Auto) 0.5 Immature Gran # (Auto) 0.02 Neut # (Auto) 6.26 Lymph # (Auto) 1.39 [place] # (Auto) 0.57 Eos # (Auto) 0.24 Baso # (Auto) 0.04 Sodium 139 Potassium 3.9 Chloride 111 H Carbon Dioxide 22 Anion Gap 6.0 BUN 3 L Creatinine 0.57 L Est Cr Clr Drug Dosing 88.3 Est GFR ( Amer) 110.4 Est GFR (Non-Af Amer) 95.3 BUN/Creatinine Ratio 5.1 L Glucose 91 Calcium 8.2 L Magnesium 2.1 Total Bilirubin 0.3 AST 13 L ALT 13 Alkaline Phosphatase 58 Total Protein 6.1 L Albumin 3.0 L Globulin 3.1 Albumin/Globulin Ratio 1.0 Medications Administered Current Inpatient Medications Acetaminophen (Ofirmev) 1,000 mg IV Q8H PRN PRN Reason: Pain or Fever Stop: 10/04/18 05:57 Last Admin: 09/06/18 15:41 Dose: 1,000 mg Documented by: Buspirone HCl (Buspar) 5 mg PO BID [facility] Stop: 10/06/18 09:59 Last Admin: 09/06/18 21:24 Dose: 5 mg Documented by: Ciprofloxacin (Cipro) 500 mg PO BID [facility]; Protocol Stop: 09/14/18 20:59 Last Admin: 09/06/18 21:25 Dose: 500 mg Documented by: Lorazepam (Ativan) 0.5 mg in 1 mls @ 1 mls/min IV HS PRN PRN Reason: Insomnia Stop: 10/04/18 05:55 Last Admin: 09/06/18 10:06 Dose: 1 mls/min Documented by: Famotidine 20 mg/ Syringe 5 mls @ 2.5 mls/min IV Q12 [facility] Stop: 10/04/18 08:59 Last Admin: 09/06/18 21:28 Dose: 2.5 mls/min Documented by: Ioversol (Optiray 320 100ml) 100 ml IV ONCE PRN PRN Reason: Interaction Checking Stop: 09/08/18 01:15 Last Admin: 09/04/18 01:16 Dose: 98 ml Documented by: Ioversol (Optiray 320 100ml) 93 ml IV ONCE PRN PRN Reason: Interaction Checking Stop: 09/09/18 11:37 Last Admin: 09/05/18 11:38 Dose: 93 ml Documented by: [facility]op[facility] ([facility]) [facility] Stop: 10/04/18 19:59 Last Admin: 09/06/18 09:27 Dose: 10 mg Documented by: Loperamide HCl (Imodium) 2 mg PO Q6 PRN PRN Reason: Diarrhea Stop: 10/06/18 13:00 Metronidazole (Flagyl) 500 mg PO TID [facility]; Protocol Stop: 09/14/18 13:59 Last Admin: 09/06/18 21:25 Dose: 500 mg Documented by: Morphine Sulfate (Morphine Sulfate) 2 mg IV Q3H PRN PRN Reason: Pain Stop: 09/18/18 07:50 Last Admin: 09/06/18 21:25 Dose: 2 mg Documented by: Ondansetron HCl (Zofran) 4 mg IV Q6H PRN PRN Reason: Nausea Stop: 10/04/18 05:50 Sertraline HCl (Zoloft) 200 mg PO QAM [facility] Stop: 10/06/18 09:59 Last Admin: 09/06/18 10:53 Dose: 200 mg Documented by:
[2018-09-07] MEDS: MoRPHine SULFATE 2 MG/ML CARP IV PRN ×2 (05:27→14:01)
[2018-09-07] MEDS: ACETAMINOPHEN 1000 MG/100 ML IV IV PRN ×2 (07:20→16:34)
[2018-09-07] MEDS: CIPROFLOXACIN 500 MG TAB PO SCH ×2 (07:21→20:16)
[2018-09-07] MEDS: metroNIDAZOLE 500 MG TAB PO SCH ×3 (07:21→20:16)
[2018-09-07] MEDS: LISINOPRIL 10 MG TAB PO SCH (07:21)
[2018-09-07] MEDS: SERTRALINE HCL 100 MG TABLET PO SCH (07:21)
[2018-09-07 07:24] LABS: Basophils # (auto) 0.02 K/uL (0-0.2); Basophils % (auto) 0.3 %; Eosinophils % (auto) 2.8 %; Hematocrit (blood only) 32.2 % (37-47); Immature Granulocytes # (auto) 0.02 K/uL (0.00-0.02); Immature Granulocytes % (auto) 0.3 %; Lymphocytes # (auto) 1.45 K/uL (1.2-3.4); Lymphocytes % (auto) 20.1 %; Mean Corpuscular Hgb Conc 34.2 g/dL (32-36); Mean Corpuscular Volume 91.5 fL (80-100); Mean Platelet Volume 9.2 fL (7.4-10.4); Monocytes # (auto) 0.47 K/uL (0.11-0.59); Monocytes % (auto) 6.5 %; Neutrophils # (auto) 5.07 K/uL (1.4-6.5); Platelet Count 188 K/uL (130-400); RDW Coefficient of Variation 12.9 % (11.5-14.5); RDW Standard Deviation 43.2 fL (36.4-46.3); Red Blood Count 3.52 M/uL (4.2-5.4); White Blood Count 7.23 K/uL (4.8-10.8)
[2018-09-07] MEDS: FAMOTIDINE 20 MG in SYRINGE 3 ML IV SCH ×2 (07:24→20:20)
[2018-09-07 08:00] LABS: Albumin Level 3.1 gm/dl (3.4-5.0); BUN Creatinine Ratio 7.5 (10-20); Calcium 8.9 mg/dl (8.5-10.1); Creatinine Clr Calc Pharmacy 82.5 ml/min; Est GFR (Non-African American) 93.1; Magnesium 2.1 mg/dl (1.8-2.4); Potassium 3.8 mmol/L (3.5-5.1)
[2018-09-07 08:02] LABS: Bilirubin,Total 0.3 mg/dl (0.2-1); Globulin 3.2 gm/dl (2.5-4.0); Total Protein 6.3 gm/dl (6.4-8.2)
--- NOTE | 2018-09-07 09:59 | Surgery Progress Note ---
Date of Service less pain today, she tolerated diet, no nausea, no vomiting, pt is still have some pain on right side abdomen, September 07, 2018 Assessment & Plan (1) Colitis: F/U right colitis, pt is doing better, she tolerated diet, some tenderness at RUQ, order U/S study to R/O gallbladder disease, continue iv antibiotic, pt agrees with the plan, I answered all questions, will F/U Subjective less pain today drinking all of the liquids on her tray, feels hungry discussed trying some low residue diet, she agreed reviewed labs, CBC and BMP stable updated at the bedside Physical Exam Constitutional: WD/WN, vitals as above well developed and well nourished Neck: trachea midline, no thyromegaly Respiratory: normal respiratory effort, lungs clear to auscultation normal respiratory effort Cardiovascular: RRR, no murmur, no edema Gastrointestinal (Abdomen): Percussion/Palpation: + abdomen tender and abdomen soft some tendernes at right side abdomen, no rebound pain, no guarding, Neurologic: awake Psychiatric: Orientation: alert and oriented x 3 Results & Data Vital Signs (Past 12 Hours) Vital Signs Temp Pulse Pulse Resp BP Pulse Ox 09/07/18 07:05 36.9 C 66 18 148/80 H 97 09/06/18 23:27 37.0 C 69 14 147/81 H 95 Laboratory Results Abnormal lab results 09/07/18 09/07/18 Range/Units 07:05 07:05 RBC 3.52 L (4.2-5.4) M/uL Hgb 11.0 L (12.0-16.0) g/dL Hct 32.2 L (37-47) % Chloride 108 H (98-107) mmol/L BUN 5 L (7-18) mg/dl BUN/Creatinine Ratio 7.5 L (10-20) AST 12 L (15-37) U/L Total Protein 6.3 L (6.4-8.2) gm/dl Albumin 3.1 L (3.4-5.0) gm/dl
--- NOTE | 2018-09-07 11:58 | Hospitalist Progress Note ---
Date of Service September 07, 2018 Assessment & Plan (1) Pneumatosis of intestines: Intractable diarrhea/pneumatosis of intestines/colitis- Cipro 400 mg IV every 12 hours. Flagyl 500 mg IV every 8 hours. will make both the Cipro and Flagyl PO starting today will complete 10-14 days total NSS + KCl 20 mEq at 100 mils per hour, stop fluids appreciate general surgery consult repeat CT 09/05 without the pneumatosis shows worsening right sided colitis, suspected to be infectious appreciate GI consult, no plans for scope likely home tomorrow (2) Colitis: CT 09/05 showed colitis in cecum and ascending colon tender to palpation tolerating clears, advance to low fiber diet no personal or family history of IBD, no blood in stools, these issues are all acute has had colonoscopies with Dr. Hennessy in the past, only abnormalities were some polyps stool culture negative, C diff negative Cipro and Flagyl, likely home tomorrow (3) Acute hypokalemia: Secondary to GI losses. K is 3.8 today stop IV fluids (4) Depression: Anxiety with depression- resume sertraline 200 mg p.o. daily and buspirone 5 mg p.o. twice daily. Patient lorazepam 0.5 mg IV at bedtime as needed. (5) Anxiety: Resume Zofoft and Buspar Ativan did not help (6) Dyslipidemia: Hold atorvastatin 10 mg p.o. daily (7) Hypomagnesemia: low at 1.7, replaced, stable now Subjective patient feeling a lot better today, less pain, tolerating diet had one loose stool today, no bleeding appreciate Dr. Smith note, will check RUQ US to look at gall bladder vitals stable, no fever patient feels a little light headed, no vertigo she is looking forward to her family coming to see her today she feels like she will be ready to go home tomorrow Review of Systems Review of Systems: All systems reviewed & are unremarkable except as noted in HPI & below Constitutional: no fever, no chills and no weakness Respiratory: no dyspnea Cardiovascular: no chest pain Gastrointestinal: + abdominal pain and + diarrhea/loose stools; no nausea, no vomiting and no constipation Physical Exam Constitutional: WD/WN, vitals as above Eyes: PERRL, conjunctivae normal, anicteric sclerae ENMT: external ear and nose normal, oropharynx normal Neck: trachea midline, no thyromegaly Respiratory: normal respiratory effort, lungs clear to auscultation Cardiovascular: RRR, no murmur, no edema Gastrointestinal (Abdomen): Inspection/Auscultation: abdomen normal to inspection and normal bowel sounds; abdomen not distended Percussion/Palpation: + abdomen tender (RLQ and slight RUQ, less pain than before) and abdomen soft; no guarding, abdomen not rigid and no hepatosplenomegaly Musculoskeletal: no cyanosis or clubbing, extremities motor strength 5/5 Skin: no rashes, warm and dry Neurologic: patellar DTR's 2+ bilat, sensation intact and PERRL, EOMI, accommodation nl, no face palsy, no dysarthria Psychiatric: A+Ox3, euthymic affect Lymphatic: no cervical or axillary lymphadenopathy Results & Data Vital Signs (Past 12 Hours) Vital Signs Temp Pulse Resp BP Pulse Ox 09/07/18 07:05 36.9 C 66 18 148/80 H 97 Laboratory Results Laboratory Results - last 24 hr 09/07/18 09/07/18 07:05 07:05 WBC 7.23 RBC 3.52 L Hgb 11.0 L Hct 32.2 L MCV 91.5 MCH 31.3 MCHC 34.2 RDW Std Deviation 43.2 RDW Coeff of Swapnil 12.9 Plt Count 188 MPV 9.2 Immature Gran % (Auto) 0.3 Neut % (Auto) 70.0 Lymph % (Auto) 20.1 [place] % (Auto) 6.5 Eos % (Auto) 2.8 Baso % (Auto) 0.3 Immature Gran # (Auto) 0.02 Neut # (Auto) 5.07 Lymph # (Auto) 1.45 [place] # (Auto) 0.47 Eos # (Auto) 0.20 Baso # (Auto) 0.02 Sodium 139 Potassium 3.8 Chloride 108 H Carbon Dioxide 26 Anion Gap 5.0 BUN 5 L Creatinine 0.61 Est Cr Clr Drug Dosing 82.5 Est GFR ( Amer) 108.0 Est GFR (Non-Af Amer) 93.1 BUN/Creatinine Ratio 7.5 L Glucose 96 Calcium 8.9 Magnesium 2.1 Total Bilirubin 0.3 AST 12 L ALT 13 Alkaline Phosphatase 59 Total Protein 6.3 L Albumin 3.1 L Globulin 3.2 Albumin/Globulin Ratio 1.0 Medications Administered Current Inpatient Medications Acetaminophen (Ofirmev) 1,000 mg IV Q8H PRN PRN Reason: Pain or Fever Stop: 10/04/18 05:57 Last Admin: 09/07/18 07:20 Dose: 1,000 mg Documented by: Buspirone HCl (Buspar) 5 mg PO BID [facility] Stop: 10/06/18 09:59 Last Admin: 09/07/18 07:22 Dose: 5 mg Documented by: Ciprofloxacin (Cipro) 500 mg PO BID [facility]; Protocol Stop: 09/14/18 20:59 Last Admin: 09/07/18 07:21 Dose: 500 mg Documented by: Lorazepam (Ativan) 0.5 mg in 1 mls @ 1 mls/min IV HS PRN PRN Reason: Insomnia Stop: 10/04/18 05:55 Last Admin: 09/06/18 10:06 Dose: 1 mls/min Documented by: Famotidine 20 mg/ Syringe 5 mls @ 2.5 mls/min IV Q12 [facility] Stop: 10/04/18 08:59 Last Admin: 09/07/18 07:24 Dose: 2.5 mls/min Documented by: Ioversol (Optiray 320 100ml) 100 ml IV ONCE PRN PRN Reason: Interaction Checking Stop: 09/08/18 01:15 Last Admin: 09/04/18 01:16 Dose: 98 ml Documented by: Ioversol (Optiray 320 100ml) 93 ml IV ONCE PRN PRN Reason: Interaction Checking Stop: 09/09/18 11:37 Last Admin: 09/05/18 11:38 Dose: 93 ml Documented by: Lisinopril (Zestril) 10 mg PO QAM [facility] Stop: 10/04/18 19:59 Last Admin: 09/07/18 07:21 Dose: 10 mg Documented by: Loperamide HCl (Imodium) 2 mg PO Q6 PRN PRN Reason: Diarrhea Stop: 10/06/18 13:00 Metronidazole (Flagyl) 500 mg PO TID [facility]; Protocol Stop: 09/14/18 13:59 Last Admin: 09/07/18 07:21 Dose: 500 mg Documented by: Morphine Sulfate (Morphine Sulfate) 2 mg IV Q3H PRN PRN Reason: Pain Stop: 09/18/18 07:50 Last Admin: 09/07/18 05:27 Dose: 2 mg Documented by: Ondansetron HCl (Zofran) 4 mg IV Q6H PRN PRN Reason: Nausea Stop: 10/04/18 05:50 Sertraline HCl (Zoloft) 200 mg PO [facility] Stop: 10/06/18 09:59 Last Admin: 09/07/18 07:21 Dose: 200 mg Documented by:
--- NOTE | 2018-09-07 16:10 | Gastroenterology Progress Note ---
Date of Service September 07, 2018 Assessment & Plan (1) Pneumatosis of intestines: acute onset of GI symptoms suggest infection or ischemia with IBD unlikely. Continue supportive care and abx. Colonoscopy would be high risk for perforation in the acute setting. colitis--as above for pneumatossi Diarrhea--cdiff neg, Stool cx neg Pt overall continues to improve. Await US GB. Recommend on DC sending to Dr Hennessy for OV to decide whether outpt colonoscopy should be done or not. Subjective cc f/u abd pain, diarrhea HPI Pt much improved vs admit but still had 6/10 abd pain this am. Was tolerating solid diet yesterday but currenntly NPO for GB u/s ordered by surgery. Diarrhea yesteday. No stools today. Review of Systems Respiratory: no dyspnea Cardiovascular: no chest pain Physical Exam Constitutional: WD/WN, vitals as above Respiratory: normal respiratory effort, lungs clear to auscultation Cardiovascular: RRR, no murmur, no edema Gastrointestinal (Abdomen): Inspection/Auscultation: abdomen normal to inspection pos bs, soft, no guarding nor rebound Psychiatric: A+Ox3, euthymic affect Results & Data Vital Signs (Past 12 Hours) Vital Signs Temp Pulse Resp BP Pulse Ox 09/07/18 07:05 36.9 C 66 18 148/80 H 97
--- NOTE | 2018-09-07 18:33 | Ultrasound Report ---
ABDOMINAL ULTRASOUND, RIGHT UPPER QUADRANT HISTORY: RUQ pain, R/O gallbladder disease. COMPARISON: CT of the abdomen and pelvis September 05, 2018. Right upper quadrant ultrasound December 21. FINDINGS: Liver is sonographically normal. There is no biliary ductal dilatation. The common bile susie t measures 5 mm in caliber. The pancreatic body is normal. The head and tail are obscured. There is n o right hydronephrosis. The gallbladder is normal. There are no gallstones. No sonographic Vera sig n was reported. Gallbladder wall thickness is at the upper limits of normal. IMPRESSION: No significant abnormality identified within the right upper quadrant by sonography. Electronically signed by: Rodriguez Espinosa M.D. 09/07/2018 6:32 PM
[2018-09-07] MEDS: LORazepam 0.5 MG/1 ML VIAL IV PRN (20:26)
[2018-09-08] MEDS: ACETAMINOPHEN 1000 MG/100 ML IV IV PRN (00:53)
[2018-09-08 06:34] LABS: Basophils # (auto) 0.03 K/uL (0-0.2); Basophils % (auto) 0.6 %; Eosinophils # (auto) 0.23 K/uL (0-0.5); Eosinophils % (auto) 4.6 %; Hematocrit (blood only) 34.1 % (37-47); Hemoglobin 11.4 g/dL (12.0-16.0); Immature Granulocytes # (auto) 0.01 K/uL (0.00-0.02); Immature Granulocytes % (auto) 0.2 %; Lymphocytes # (auto) 1.24 K/uL (1.2-3.4); Lymphocytes % (auto) 24.8 %; Mean Corpuscular Hgb Conc 33.4 g/dL (32-36); Mean Corpuscular Volume 92.9 fL (80-100); Mean Platelet Volume 9.6 fL (7.4-10.4); Monocytes # (auto) 0.39 K/uL (0.11-0.59); Monocytes % (auto) 7.8 %; Platelet Count 214 K/uL (130-400); RDW Coefficient of Variation 12.7 % (11.5-14.5); RDW Standard Deviation 43.3 fL (36.4-46.3); Red Blood Count 3.67 M/uL (4.2-5.4)
[2018-09-08 07:08] LABS: Albumin Level 3.1 gm/dl (3.4-5.0); BUN Creatinine Ratio 11.8 (10-20); Calcium 8.7 mg/dl (8.5-10.1); Creatinine Clr Calc Pharmacy 70.8 ml/min; Est GFR (African American) 101.4; Est GFR (Non-African American) 87.5; Magnesium 2.2 mg/dl (1.8-2.4); Potassium 3.6 mmol/L (3.5-5.1)
[2018-09-08 07:12] LABS: Bilirubin,Total 0.4 mg/dl (0.2-1); Globulin 3.2 gm/dl (2.5-4.0); Total Protein 6.3 gm/dl (6.4-8.2)
[2018-09-08 07:39] VITALS: BP 136/74; PULSE 66; TEMP 97.7; O2SAT 95
[2018-09-08] MEDS: CIPROFLOXACIN 500 MG TAB PO SCH (08:37)
[2018-09-08] MEDS: metroNIDAZOLE 500 MG TAB PO SCH (08:37)
[2018-09-08] MEDS: SERTRALINE HCL 100 MG TABLET PO SCH (08:38)
[2018-09-08] MEDS: LISINOPRIL 10 MG TAB PO SCH (08:38)
[2018-09-08] MEDS: FAMOTIDINE 20 MG in SYRINGE 3 ML IV SCH ×2 (09:00→10:16)
--- NOTE | 2018-09-08 09:36 | Surgery Progress Note ---
Date of Service pt is doing fine, no abdominal pain, no nausea, no vomiting, she tolerated diet, September 08, 2018 Assessment & Plan (1) Colitis: F/U right colitis, pt is doing better, she tolerated diet, some tenderness at RUQ, order U/S study to R/O gallbladder disease, continue iv antibiotic, pt agrees with the plan, I answered all questions, will F/U 09/08/2018 9: 35am, U/S study- negative for gallbladder disease. pt wants to go home today, F/U me prn [phone] Subjective cc f/u abd pain, diarrhea HPI Pt much improved vs admit but still had 6/10 abd pain this am. Was tolerating solid diet yesterday but currenntly NPO for GB u/s ordered by surgery. Diarrhea yesteday. No stools today. Physical Exam Constitutional: WD/WN, vitals as above well developed and well nourished Neck: trachea midline, no thyromegaly Respiratory: normal respiratory effort, lungs clear to auscultation normal respiratory effort Cardiovascular: RRR, no murmur, no edema Gastrointestinal (Abdomen): Percussion/Palpation: + abdomen tender and abdomen soft Neurologic: awake Psychiatric: Orientation: alert and oriented x 3 Results & Data Vital Signs (Past 12 Hours) Vital Signs Temp Pulse Resp BP Pulse Ox 09/08/18 07:39 36.5 C 66 17 136/74 95 09/07/18 22:52 37 C 68 16 116/64 96
--- NOTE | 2018-09-08 13:54 | Discharge Summary ---
Date of Service September 08, 2018 Admission HPI Per Admitting Provider The patient is a 60-year-old female with a past medical history including dyslipidemia, hypertension, anxiety with depression who presents to the emergency department with 3 days of abdominal discomfort, explosive diarrhea. She took an [id number] agent, unsure if it was Lomotil or loperamide, that helped her symptoms briefly. She denies any blood in stool. She has not had any recent travels or sick exposures, and none of her close contacts have similar symptoms. She reports that she and her do eat a lot more fruits and vegetables, but reports that she cleaned them up very thoroughly. Principal Diagnosis Colitis Discharge Exam Constitutional WD/WN, vitals as above Eyes PERRL, conjunctivae normal, anicteric sclerae ENMT external ear and nose normal, oropharynx normal Neck trachea midline, no thyromegaly Respiratory normal respiratory effort, lungs clear to auscultation Cardiovascular RRR, no murmur, no edema Gastrointestinal (Abdomen) Inspection/Auscultation: abdomen normal to inspection and normal bowel sounds; abdomen not distended Percussion/Palpation: abdomen soft; abdomen nontender, no guarding, abdomen not rigid and no hepatosplenomegaly Musculoskeletal no cyanosis or clubbing, extremities motor strength 5/5 Skin no rashes, warm and dry Neurologic patellar DTR's 2+ bilat, sensation intact and PERRL, EOMI, accommodation nl, no face palsy, no dysarthria Psychiatric A+Ox3, euthymic affect Lymphatic no cervical or axillary lymphadenopathy Discharge Data Allergies Allergy/AdvReac Type Severity Reaction Status Date / Time Penicillins Allergy Severe UNKN Verified 09/03/18 23:49 doxycycline Allergy Intermediate HIVE Verified 09/03/18 23:49 mold Allergy Intermediate CONGESTION Verified 09/03/18 23:49 Sulfa (Sulfonamide Allergy Mild Hives Verified 09/03/18 23:49 Antibiotics) Tetracyclines Allergy Unknown Unknown Verified 09/03/18 23:49 Consultations 09/04/18 01:30 Consult General Surgery Stat 09/04/18 05:19 Consult General Surgery Routine 09/05/18 12:51 Consult Gastroenterology Routine Ordered Studies 09/04/18 00:26 CT abd pelvis IV con only Urgent 09/05/18 09:09 CT abd pelvis oral and IV con Urgent 09/07/18 09:50 US abdomen limited Routine Hospital Course (1) Pneumatosis of intestines: Intractable diarrhea/pneumatosis of intestines/colitis- initially treated with: Cipro 400 mg IV every 12 hours. Flagyl 500 mg IV every 8 hours. transitioned to PO Cipro and Flagyl on 09/06, tolerated well will complete 7 more days as outpatient for 10 days total NSS + KCl 20 mEq at 100 mils per hour, stopped fluids appreciate general surgery consult repeat CT 09/05 without the pneumatosis shows worsening right sided colitis, suspected to be infectious appreciate GI consult, no plans for scope d/c to home on low residue diet follow up with PCP in a week follow up Dr. Hennessy in 6-8 weeks (2) Colitis: CT 09/05 showed colitis in cecum and ascending colon tender to palpation tolerating clears, advance to low fiber diet no personal or family history of IBD, no blood in stools, these issues are all acute has had colonoscopies with Dr. Hennessy in the past, only abnormalities were some polyps stool culture negative, C diff negative Cipro and Flagyl for 7 more days consider scope in 6-8 weeks (3) Acute hypokalemia: Secondary to GI losses. K is 3.8 stop IV fluids (4) Depression: Anxiety with depression- resume sertraline 200 mg p.o. daily and buspirone 5 mg p.o. twice daily. Patient lorazepam 0.5 mg IV at bedtime as needed. (5) Anxiety: Resume Zofoft and Buspar Ativan did not help (6) Dyslipidemia: Hold atorvastatin 10 mg p.o. daily (7) Hypomagnesemia: low at 1.7, replaced, stable now Total Time Total Time Spent Total Time Spent (In Minutes): 35 minutes Total Time Includes: Examination of the Patient, Discharge Planning and Medication Reconciliation Discharge Plan Discharge Items Patient Disposition: Home - Self-Care Reason For Visit: INTRACTABLE DIARRHEA, HYPOKALEMIA, DEHYDRATION Discharge Diagnosis: Colitis Hypokalemia Dehydration Condition: Good Discharge Goals: Improve disease control and Improve function Activity: Resume your previous activity Non-emergency contact: Primary Care Provider and [place] Call non-emergency contact if: you have any medication questions, your symptoms worsen and you have a fever Follow-up/Referrals: Shahbaz Andrew [Primary Care Provider] - Diet: Regular Addtl Provider Instructions: Medications: - CIPRO and FLAGYL: two antibiotics, take for an additional one week to treat colitis - IMODIUM: can get over the counter, take as needed for loose stool Right sided colitis: seen on CT of the abdomen/pelvis no other pathology seen, gall bladder normal on ultrasound improved with antibiotics and IV fluids Dr. Hennessy recommends follow up but would not consider a colonoscopy for at least 6 weeks can slowly advance diet over the next week, high fiber will be okay by the end of the week would not be concerned about occasional loose stool in next week FOLLOW UP - Dr. Andrew by the end of the week, please call office on Sunday to scheduled hospital follow up - Dr. Hennessy in 6-8 weeks, please have Dr. Andrew make a referral, follow up Prescriptions: New loperamide 2 mg Capsule 2 mg PO Q6 PRN (Reason: loose stool) 7 Days Qty: 20 RF: 0 metronidazole 500 mg Tablet 500 mg PO TID 7 Days Qty: 21 RF: 0 ciprofloxacin HCl 500 mg Tablet 500 mg PO BID 7 Days Qty: 14 RF: 0 Continued sertraline 100 mg Tablet 200 mg PO DAILY RF: 0 pantoprazole 40 mg Tablet,Delayed Release (Dr/Ec) 40 mg PO DAILY RF: 0 cetirizine 10 mg Tablet 5 mg PO DAILY RF: 0 cholecalciferol (vitamin D3) [Vitamin D3] 2,000 unit Capsule 2,000 unit PO DAILY RF: 0 lisinopril 10 mg Tablet 10 mg PO DAILY RF: 0 buspirone 5 mg Tablet 5 mg PO BID RF: 0 atorvastatin 10 mg Tablet 10 mg PO DAILY RF: 0 Stand-Alone Forms: [facility]/Other Patient Handouts: Diet Low Residue Discharge Orders: Discharge Order (Routine); Ordered 09/08/18 Ordered By: Andres Vincent Admission Data Admit Date/Time: 09/04/18 03:47 Attending Provider: Andres Vincent Admit Provider: Christiano Vera Primary Care Provider: Shahbaz Andrew Other Providers: Castillo Mark ; Arturo Hennessy Service: Medical Other Interventions: Discharge Summary Assessment (RN) Last Done: 09/08/18 10:38 DC Date/Time DO NOT enter until pt leaves facility: 09/08/18 11:44
== END 2018-09-08 11:44 | disposition home or self-care (01) | DRG 394 ==
LOC: ED 23:03 → 3W 09-04 03:47 → SUATTDRO 09-04 03:47 → 3W 09-04 05:47

== ENCOUNTER 2021-04-14 03:18 | Inpatient (IN) ==
[2021-04-14] MEDS ORDERED: PANTOprazole 80 MG in DEXTROSE 5% 100 ML IV STA (03:35)
[2021-04-14] MEDS ORDERED: ONDANSETRON INJ 2 MG/ML 2 ML VIAL IV STA ×2 (03:35→06:36)
[2021-04-14] MEDS ORDERED: fentaNYL citrate 100 MCG/2 ML VIAL IV STA (03:35)
--- NOTE | 2021-04-14 03:38 | Emergency Department Note ---
Impression & Plan Colitis, Acute GI bleeding ED Provider Note Name: BRIANNA WRIGHT Age: 70 Sex: F Arrives Via: Walk-In Informant: Patient ED Provider: Tony Zaragoza MD Chief Complaint: Rectal bleeding Impression: As per impression above Medical Decision Making: This is a 70-year-old female who arrives for evaluation of rectal bleeding. She has a history of colitis though denies previous bleeding like this. She has had 3 episodes of bloody stool and notes diffuse abdominal pain. Exam has some mild diffuse tenderness but there is no peritonitis on exam bowel sounds are somewhat hyperactive as well. IV established she was given fentanyl IV Zofran IV and normal saline bolus with improvement in her symptoms. She was also given Protonix given her recent steroid and NSAID use in the setting of GI bleed. She denies any history of peptic ulcer disease or GERD in the past though. Labs are relatively benign and with the pain and bleeding it was felt that CT would be indicated. CT does find evidence of colitis of ischemic or infectious etiology is difficult to determine. She has no fever nor WBC elevation thus I would hold on any antibiotics at this time. She is moderately hypertensive but given findings will allow this for the moment rather than causing any risk of hypotension. She was given further fluids and some more narcotic pain medications his pain started to return. She does not however have a surgical abdomen on repeat evaluations nor is she in extremis. Prior Medical Record and Triage/Nursing Notes reviewed by Me Additional history obtained from chart and Differentials:Diverticulosis, AVM, coagulopathy, colitis, inflammatory bowel disease, malignancy, Jessika-Craig tear, esophagitis, peptic ulcer disease, variceal bleed, gastritis, epistaxis, fissure, hemorrhoids, as well as other pat hologies. Vital Signs: reviewed and remarkable for hypertension Interventions: Saline lock, normal saline bolus, fentanyl IV Dilaudid IV Zofran IV, Protonix IV Labs:Reviewed and remarkable for no significant abnormalities Imaging:As per radiologist below-colitis Consults: [] Of [facility] [place] Divisionist service Plan: Disposition:Hospitalization. Condition: Good History of Present Illness:This is a 70-year-old female who arrives for evaluation of bloody stools. Patient notes that throughout the day she has been developing increasing abdominal cramping and discomfort. Associated with nausea without vomiting. She notes earlier this evening she had a large bloody bowel movement which was dark. She states that she had a smaller bowel movement later on it was still bloody but no pain. Then shortly thereafter had a large development and began. She notes continued abdominal cramping. Periumbilical that radiates to her entire abdomen. Patient took some Benadryl at home hoping this might make this better without success. Movement makes worse rest makes better. She was seen earlier in the day for swelling of her lips felt to be due to lisinopril and was given Benadryl, steroids and TXA. She notes lip swelling has essentially resolved. She has no shortness of breath, chest pain, syncope, palpitations, back pain, headache, neck pain, fevers, chills, leg swelling, rashes, other bleeding, bruising nor other symptoms. She has no history of GI bleed. She has had multiple colonoscopies which she states have not revealed anything in the past. She believes she had an endoscopy several years ago which she believes was negative. She has no history of gastric ulcers or GI bleeds. She has had no recent abdominal surgeries however does have a history of colitis. ROS: See above HPI for pertinent positives & negatives. A total of 10 systems reviewed and were otherwise negative. Past Medical History:Anxiety, depression, dyslipidemia, hypertension, allergies, colitis, hypomagnesemia Past Surgical History:Tonsillectomy, hysterectomy Family History:See Below Social History:See Below Home Medications:See Below Allergies:See Below Vitals:Blood Pressure: 192/105, Pulse 74, RR 22, T 36.5C, O2 97% on RA Physical Exam: GENERAL: Patient is very uncomfortable appearing and in moderate distress. EYES: No scleral icterus, unremarkable pupils. ENT: Mucous membranes moist, no nasal congestion. NECK: No masses appreciated, nomeningismus, trachea is midline. RESPIRATORY: No dyspnea. Clear to auscultation and equal bilaterally. No wheeze, no rhonchi. CARDIOVASCULAR: Regular rate and rhythm.No murmurs, rubs, gallops appreciated. GASTROINTESTINAL: Diffuse mild tenderness entire abdomen without specific peritonitis. She has hyperactive bowel sounds. There are no masses appreciated. BACK: No midline tenderness, no CVA tenderness EXTREMITIES: Normal motion all extremities, no cyanosis, no edema. NEUROLOGIC: Alert and oriented, no acute motor or sensory deficits, no focal weakness, cranial nerves grossly intact. SKIN: No rash, no jaundice, no diaphoresis. PSYCH: Appropriate GCS: 15 ED Course: Times/Reassessments: Patient feels much better after pain medications, she did have some increasing pain well over an hour after the fentanyl and was given a small dose of Dilaudid with good result. Tony Zaragoza MD Past Med/Surg History Medical History (Updated 04/14/21 @ 08:04 by Tony Zaragoza MD) Anxiety Colitis Depression Dyslipidemia HTN (hypertension) Surgical History H/O: hysterectomy Hx of tonsillectomy Family History Brother HIV positive Brother C. difficile colitis Social History Smoking Status: Former smoker Tobacco Type: Cigarettes Feels Safe at Home: Yes Assistive Devices: Glasses and Hearing Aid - Bilateral Allergies Allergies Allergy/AdvReac Type Severity Reaction Status Date / Time Penicillins Allergy Severe UNKN Verified 03/30/21 09:37 doxycycline Allergy Intermediate HIVE Verified 03/30/21 09:37 mold Allergy Intermediate CONGESTION Verified 03/30/21 09:37 Sulfa (Sulfonamide Allergy Mild Hives Verified 03/30/21 09:37 Antibiotics) Tetracyclines Allergy Unknown Unknown Verified 03/30/21 09:37 Home Meds Home Medications Medication Instructions Recorded Confirmed atorvastatin 10 mg tablet 10 mg PO DAILY 09/03/18 03/30/21 buspirone 5 mg tablet 5 mg PO BID 09/03/18 03/30/21 cetirizine 10 mg tablet 5 mg PO DAILY 09/03/18 03/30/21 cholecalciferol (vitamin D3) 50 2,000 unit PO DAILY 09/03/18 03/30/21 mcg (2,000 unit) capsule (Vitamin D3) lisinopril 10 mg tablet 10 mg PO DAILY 09/03/18 03/30/21 pantoprazole 40 mg tablet,delayed 40 mg PO DAILY 09/03/18 03/30/21 release sertraline 100 mg tablet 200 mg PO DAILY 05/14/19 12/08/21 Previous Rx's Medication Instructions Recorded estradiol 1 g VAGINAL 2XWK #42.5 g 03/30/21 Results & Data (ED) Vital Signs Vital Signs - 24 hr 04/14/21 03:22 04/14/21 04:10 04/14/21 05:32 Temperature 36.5 C Temperature Source Temporal Artery Scan Pulse Rate 70 Pulse Rate [Apical] 74 74 Pulse Rhythm [Apical] Regular Regular Pulse Strength [Apical] Normal Normal Respiratory Rate 16 22 17 Respiratory Effort / Characteristics Non-Labored Spontaneous Non-Labored Non-Labored Respiratory Depth Normal Normal Normal Respiratory Pattern Regular Blood Pressure 215/99 H Blood Pressure [Right Arm] 192/105 H 195/104 H Blood Pressure Mean 137 Blood Pressure Mean [Right Arm] 134 134 Blood Pressure Position Sitting Blood Pressure Position [Right Arm] Sitting Pulse Oximetry 95 97 98 Oxygen Delivery Method Room Air Room Air Room Air Sepsis Recent Fever Within 48 Hours No Sepsis New/Unexplained Change in Mental Status N/A Sepsis Action Taken by Nursing No Action Required 04/14/21 08:05 Temperature Temperature Source Pulse Rate Pulse Rate [Apical] 76 Pulse Rhythm [Apical] Pulse Strength [Apical] Respiratory Rate 20 Respiratory Effort / Characteristics Respiratory Depth Respiratory Pattern Blood Pressure Blood Pressure [Right Arm] 136/118 H Blood Pressure Mean Blood Pressure Mean [Right Arm] 124 Blood Pressure Position Blood Pressure Position [Right Arm] Sitting Pulse Oximetry 98 Oxygen Delivery Method Room Air Sepsis Recent Fever Within 48 Hours Sepsis New/Unexplained Change in Mental Status Sepsis Action Taken by Nursing Laboratory Data Result diagrams: 04/14/21 03:52 04/14/21 03:52 Lab Results 04/14/21 04/14/21 04/14/21 Range/Units 03:52 03:52 03:52 WBC 11.19 H (4.8-10.8) K/uL RBC 4.32 (4.2-5.4) M/uL Hgb 13.5 (12.0-16.0) g/dL Hct 40.8 (37-47) % MCV 94.4 (80-100) fL MCH 31.3 (25-34) pg MCHC 33.1 (32-36) g/dL RDW Std Deviation 43.8 (36.4-46.3) fL RDW Coeff of Swapnil 12.8 (11.5-14.5) % Plt Count 223 (130-400) K/uL MPV 10.0 (7.4-10.4) fL Immature Gran % (Auto) 0.2 % Neut % (Auto) 84.8 % Lymph % (Auto) 8.4 % [place] % (Auto) 6.3 % Eos % (Auto) 0.1 % Baso % (Auto) 0.2 % Neut # (Auto) 9.49 H (1.4-6.5) K/uL Lymph # (Auto) 0.94 L (1.2-3.4) K/uL [place] # (Auto) 0.71 H (0.11-0.59) K/uL Eos # (Auto) 0.01 (0-0.5) K/uL Baso # (Auto) 0.02 (0-0.2) K/uL Immature Gran # (Auto) 0.02 (0.00-0.02) K/uL PT 10.0 (9.0-12.0) Seconds INR 1.0 (0.9-1.1) APTT 22.3 (21.0-31.0) Seconds PTT Ratio 0.8 Sodium (136-145) mmol/L Potassium (3.5-5.1) mmol/L Chloride (98-107) mmol/L Carbon Dioxide (21-32) mmol/L Anion Gap (3-11) BUN (7-18) mg/dl Creatinine (0.6-1.2) mg/dl Est Cr Clr Drug Dosing ml/min Est GFR ( Amer) ml/min Est GFR (Non-Af Amer) ml/min BUN/Creatinine Ratio (10-20) Glucose (70-99) mg/dl Calcium (8.5-10.1) mg/dl Total Bilirubin (0.2-1) mg/dl Direct Bilirubin (0-0.2) mg/dl AST (15-37) U/L ALT (12-78) Alkaline Phosphatase (45-117) U/L Troponin I (0-0.045) ng/ml Total Protein (6.4-8.2) gm/dl Albumin (3.4-5.0) gm/dl Lipase (73-393) U/L Urine Color Urine Appearance (Clear) Urine pH (4.5-7.5) Ur Specific [place] (1.000-1.030) Urine Protein (Negative) Urine Glucose (UA) (Negative) Urine Ketones (Negative) Urine Blood (Negative) Urine Nitrite (Negative) Urine Bilirubin (Negative) Urine Urobilinogen (Negative) Ur Leukocyte Esterase (Negative) SARS-CoV-2, RNA, NAAT (NEGATIVE) Blood Type A Positive Antibody Screen NEGATIVE 04/14/21 04/14/21 04/14/21 Range/Units 03:52 04:16 05:25 WBC (4.8-10.8) K/uL RBC (4.2-5.4) M/uL Hgb (12.0-16.0) g/dL Hct (37-47) % MCV (80-100) fL MCH (25-34) pg MCHC (32-36) g/dL RDW Std Deviation (36.4-46.3) fL RDW Coeff of Swapnil (11.5-14.5) % Plt Count (130-400) K/uL MPV (7.4-10.4) fL Immature Gran % (Auto) % Neut % (Auto) % Lymph % (Auto) % [place] % (Auto) % Eos % (Auto) % Baso % (Auto) % Neut # (Auto) (1.4-6.5) K/uL Lymph # (Auto) (1.2-3.4) K/uL [place] # (Auto) (0.11-0.59) K/uL Eos # (Auto) (0-0.5) K/uL Baso # (Auto) (0-0.2) K/uL Immature Gran # (Auto) (0.00-0.02) K/uL PT (9.0-12.0) Seconds INR (0.9-1.1) APTT (21.0-31.0) Seconds PTT Ratio Sodium 138 (136-145) mmol/L Potassium 3.7 (3.5-5.1) mmol/L Chloride 107 (98-107) mmol/L Carbon Dioxide 23 (21-32) mmol/L Anion Gap 8.0 (3-11) BUN 12 (7-18) mg/dl Creatinine 0.82 (0.6-1.2) mg/dl Est Cr Clr Drug Dosing 62.6 ml/min Est GFR ( Amer) 84.0 ml/min Est GFR (Non-Af Amer) 72.5 ml/min BUN/Creatinine Ratio 14.9 (10-20) Glucose 129 H (70-99) mg/dl Calcium 9.5 (8.5-10.1) mg/dl Total Bilirubin 0.4 (0.2-1) mg/dl Direct Bilirubin 0.1 (0-0.2) mg/dl AST 19 (15-37) U/L ALT 19 (12-78) Alkaline Phosphatase 69 (45-117) U/L Troponin I < 0.015 (0-0.045) ng/ml Total Protein 7.7 (6.4-8.2) gm/dl Albumin 4.2 (3.4-5.0) gm/dl Lipase 121 (73-393) U/L Urine Color Yellow Urine Appearance Clear (Clear) Urine pH 6.5 (4.5-7.5) Ur Specific [place] 1.021 (1.000-1.030) Urine Protein Negative (Negative) Urine Glucose (UA) Negative (Negative) Urine Ketones Negative (Negative) Urine Blood Negative (Negative) Urine Nitrite Negative (Negative) Urine Bilirubin Negative (Negative) Urine Urobilinogen Negative (Negative) Ur Leukocyte Esterase Negative (Negative) SARS-CoV-2, RNA, NAAT NEGATIVE (NEGATIVE) Blood Type Antibody Screen Administered Medications Sodium Chloride (Nss 1000ml) 1,000 mls @ 125 mls/hr IV .Q8H ARMANDO Stop: 05/14/21 06:44 Last Admin: 04/14/21 07:57 Dose: 125 mls/hr Documented by: [id number] Discontinued Medications Fentanyl Citrate (Fentanyl Citrate 100 Mcg/2 Ml Vial) 50 mcg IV NOW STA Stop: 04/14/21 03:36 Last Admin: 04/14/21 04:07 Dose: 50 mcg Documented by: [id number] Hydromorphone HCl (Hydromorphone Inj 0.5 Mg/0.5 Ml Syr) 0.5 mg IV NOW STA Stop: 04/14/21 06:37 Last Admin: 04/14/21 07:54 Dose: 0.5 mg Documented by: [id number] Pantoprazole Sodium 80 mg/ (Dextrose) 100 mls @ 400 mls/hr IV ONE STA Stop: 04/14/21 03:49 Last Infusion: 04/14/21 05:43 Dose: 0 mls/hr Documented by: [id number] Admin: 04/14/21 05:24 Dose: 400 mls/hr Documented by: [id number] Ioversol (Optiray 320 100ml) 95 ml IV ONCE ONE Stop: 04/14/21 05:57 Last Admin: 04/14/21 05:57 Dose: 95 ml Documented by: [id number] Ondansetron HCl (Ondansetron Inj 2 Mg/Ml 2 Ml Vial) 4 mg IV NOW STA Stop: 04/14/21 03:36 Last Admin: 04/14/21 04:07 Dose: 4 mg Documented by: [id number] Ondansetron HCl (Ondansetron Inj 2 Mg/Ml 2 Ml Vial) 4 mg IV NOW STA Stop: 04/14/21 06:37 Last Admin: 04/14/21 07:54 Dose: 4 mg Documented by: [id number] Imaging Data Radiologist's Impression: Abdomen/Pelvis CT 04/14/21 05:09 CT OF THE ABDOMEN AND PELVIS WITH CONTRAST CLINICAL HISTORY: diffuse abdominal pain, gi bleed COMPARISON STUDY: CT of the abdomen and pelvis September 05, 2018. CT angiography of the abdomen and pelvis November 05, 2018. TECHNIQUE: Following IV administration of 95 mL of Optiray, axial images of the abdomen and pelvis were obtained from the lung bases to the proximal femurs. Images were reviewed in the axial, sagittal, and coronal planes. IV contrast was administered without complication. Automated exposure control was utilized for the study. A dose lowering technique was utilized adhering to the principles of ALARA. CT DOSE: 577.51 mGy.cm FINDINGS: A 6 mm right lower lobe nodule on image 6 of 416 was partially visualize on exam of December 05, 2016. This is probably benign. No pneumatosis, free air or portal venous gas is present. There is a small hiatal hernia. The liver, spleen, adrenal glands, kidneys and pancreas are unremarkable. There is no biliary or pancreatic ductal dilatation. No peripancreatic or pericholecystic infiltration is present. No hydronephrosis is present. There is no evidence for a bowel obstruction. The appendix is normal. There is moderate wall thickening of the splenic flexure of the colon and the proximal to mid descending colon. There is pericolonic infiltration. There is no free air or abscess. There is moderate plaque of the abdominal aorta. Proximal branch vessels are patent. No acute fracture or suspicious lesion is identified within visualized skeletal structures. No abdominal or pelvic lymphadenopathy is present. IMPRESSION: Moderate wall thickening of the splenic flexure of the colon and the proximal to mid descending colon with mild pericolonic infiltration. This represents a nonspecific colitis which may be infectious, ischemic or inflammatory in etiology. No free air or abscess. ACT 112: Negative or not required by law. Electronically signed by: Rodriguez Espinosa M.D. 04/14/2021 7:00 AM Discharge Plan Visit Data Chief Complaint: Rectal Bleed Stated Complaint: RECTAL BLEED ED Provider: Tony Zaragoza Discharge Problem: Colitis, Acute GI bleeding Forms Stand Alone Forms: My [facility] Prescriptions Prescriptions: No Action estradiol 0.01 % (0.1 mg/gram) cream 1 g vaginal 2XWK Qty: 42.5 RF: 3 sertraline 100 mg Tablet 200 mg PO DAILY RF: 0 pantoprazole 40 mg Tablet,Delayed Release (Dr/Ec) 40 mg PO DAILY RF: 0 cetirizine 10 mg Tablet 5 mg PO DAILY RF: 0 cholecalciferol (vitamin D3) [Vitamin D3] 2,000 unit Capsule 2,000 unit PO DAILY RF: 0 lisinopril 10 mg Tablet 10 mg PO DAILY RF: 0 buspirone 5 mg Tablet 5 mg PO BID RF: 0 atorvastatin 10 mg Tablet 10 mg PO DAILY RF: 0 Referrals Referrals: Aashish Jacob MD [Primary Care Provider] -
[2021-04-14 04:09] LABS: Basophils # (auto) 0.02 K/uL (0-0.2); Basophils % (auto) 0.2 %; Eosinophils # (auto) 0.01 K/uL (0-0.5); Eosinophils % (auto) 0.1 %; Hematocrit (blood only) 40.8 % (37-47); Hemoglobin 13.5 g/dL (12.0-16.0); Immature Granulocytes # (auto) 0.02 K/uL (0.00-0.02); Immature Granulocytes % (auto) 0.2 %; Lymphocytes # (auto) 0.94 K/uL (1.2-3.4); Lymphocytes % (auto) 8.4 %; Mean Corpuscular Hemoglobin 31.3 pg (25-34); Mean Corpuscular Hgb Conc 33.1 g/dL (32-36); Mean Corpuscular Volume 94.4 fL (80-100); Monocytes # (auto) 0.71 K/uL (0.11-0.59); Monocytes % (auto) 6.3 %; Neutrophils # (auto) 9.49 K/uL (1.4-6.5); Neutrophils % (auto) 84.8 %; Platelet Count 223 K/uL (130-400); RDW Coefficient of Variation 12.8 % (11.5-14.5); RDW Standard Deviation 43.8 fL (36.4-46.3); Red Blood Count 4.32 M/uL (4.2-5.4); White Blood Count 11.19 K/uL (4.8-10.8)
[2021-04-14 04:14] LABS: Partial Thromboplastin Ratio 0.8; Partial Thromboplastin Time 22.3 Seconds (21.0-31.0)
[2021-04-14 04:32] LABS: Alanine Aminotransferase 19 (12-78); Albumin Level 4.2 gm/dl (3.4-5.0); Aspartate Aminotransferase 19 U/L (15-37); BUN Creatinine Ratio 14.9 (10-20); Bilirubin Direct 0.1 mg/dl (0-0.2); Blood Urea Nitrogen 12 mg/dl (7-18); Calcium 9.5 mg/dl (8.5-10.1); Carbon Dioxide 23 mmol/L (21-32); Chloride 107 mmol/L (98-107); Creatinine Clr Calc Pharmacy 62.6 ml/min; Est GFR (Non-African American) 72.5 ml/min; Glucose 129 mg/dl (70-99); Lipase 121 U/L (73-393); Potassium 3.7 mmol/L (3.5-5.1); Sodium 138 mmol/L (136-145)
[2021-04-14 04:37] LABS: Alkaline Phosphatase 69 U/L (45-117); Bilirubin,Total 0.4 mg/dl (0.2-1); Total Protein 7.7 gm/dl (6.4-8.2); Troponin I < 0.015 ng/ml (0-0.045)
[2021-04-14] MEDS ORDERED: OPTIRAY 320 100ml IV ONE (05:56)
[2021-04-14] MEDS ORDERED: HYDROmorphone INJ 0.5 MG/0.5 ML SYR IV STA (06:36)
[2021-04-14 06:58] LABS: Appearance Urine Clear (Clear); Bilirubin Urine Negative (Negative); Blood Urine Negative (Negative); Color Urine Yellow; Glucose Urine UA Negative (Negative); Ketones Urine Negative (Negative); Leukocyte Esterase Urine Negative (Negative); Nitrite Urine Negative (Negative); Protein Urine Negative (Negative); Specific Gravity Urine 1.021 (1.000-1.030); Urobilinogen Urine Negative (Negative); pH Urine 6.5 (4.5-7.5)
--- NOTE | 2021-04-14 07:02 | CT Scan Report ---
CT OF THE ABDOMEN AND PELVIS WITH CONTRAST CLINICAL HISTORY: diffuse abdominal pain, gi bleed COMPARISON STUDY: CT of the abdomen and pelvis September 05, 2018. CT angiography of the abdomen and pelvi s November 05, 2018. TECHNIQUE: Following IV administration of 95 mL of Optiray, axial images of the abdomen and pelvis we re obtained from the lung bases to the proximal femurs. Images were reviewed in the axial, sagittal, and coronal planes. IV contrast was administered without complication. Automated exposure control wa s utilized for the study. A dose lowering technique was utilized adhering to the principles of ALARA . CT DOSE: 577.51 mGy.cm FINDINGS: A 6 mm right lower lobe nodule on image 6 of 416 was partially visualize on exam of December 05, 2016. This is probably benign. No pneumatosis, free air or portal venous gas is present. There is a small hiatal hernia. The liver, spleen, adrenal glands, kidneys and pancreas are unremarkable. The re is no biliary or pancreatic ductal dilatation. No peripancreatic or pericholecystic infiltration i s present. No hydronephrosis is present. There is no evidence for a bowel obstruction. The appendix i s normal. There is moderate wall thickening of the splenic flexure of the colon and the proximal to m id descending colon. There is pericolonic infiltration. There is no free air or abscess. There is mod erate plaque of the abdominal aorta. Proximal branch vessels are patent. No acute fracture or suspici ous lesion is identified within visualized skeletal structures. No abdominal or pelvic lymphadenopath y is present. IMPRESSION: Moderate wall thickening of the splenic flexure of the colon and the proximal to mid eddie cending colon with mild pericolonic infiltration. This represents a nonspecific colitis which may be infectious, ischemic or inflammatory in etiology. No free air or abscess. ACT 112: Negative or not required by law. Electronically signed by: Rodriguez Espinosa M.D. 04/14/2021 7:00 AM
[2021-04-14] MEDS: SODIUM CHLORIDE 0.9% 1000ML 1,000 ML IV SCH ×2 (07:57→18:35)
--- NOTE | 2021-04-14 08:58 | History & Physical Report ---
Date of Service April 14, 2021 Assessment & Plan (1) Bright red blood per rectum: Plan: Alice is a 70-year-old female who presents with 1 day of bright red blood per rectum and 1 day of nausea/vomiting and loose bowels. She has a history of hemorrhoids with bleeding and recurrent interventions, and thrombosed hemorrhoid extraction in the distant past. Rectal Bleeding/Bright red bloody diarrhea without melena - Internal and external hemorrhoids appreciated on exam. Pt with long history of hemorrhoids with intervention, these are currently painful to her - Hgb 13.5, recheck stable - No ongoing bleeding - hemodynamically stable - Hydrocortisone topical PRN (2) Colitis: Plan: Colitis, suspected infectious - CT-A/P: Moderate wall thickening of the splenic flexure of the colon and the proximal to mid descending colon with mild pericolonic infiltration. This represents a nonspecific colitis which may be infectious, ischemic or inflammatory in etiology. No free air or abscess. - bloody diarrhea, bright red, x2 episodes starting last night - Pt with hx of hemorrhoids as above, suspect hemorrhoidal bleeding rather than true bloody diarrhea - Stool pathogen panel pending - WBC trace elevation, ?demargination from N/V - N/V improving. Continue Zofran/pain control as needed Defer antibiotic intervention at this time Follow for adequate pain control and oral intake, admit on observation Hypertension No [employer] medications, blood pressure with reasonable control at time of assessment (3) Depression: Plan: Continue sertraline home dosing (4) Dyslipidemia: Plan: Continue atorvastatin (5) Alcohol use: Plan: Alcohol Use - No hx of withdrawal sx, no hx of seizures - 4-5 drinks per day, last 04/12 - No cytopenia, no transaminitis, INR normal - Pt interested in alcohol community resources - AWSS at risk protocol - +Thiamine, Folic Acid Plan: DVT PPX: SCDs, defer pharmacoppx in the setting of BRBPR Diet: Regular as tolerated CODE STATUS: DNR/DNI, surrogate decision maker would be . Discussed with patient Disposition: Med/surge, patient with moderate alcohol intake although has not had any signs of withdrawal, shakes, seizures or tremors before. ELIZABETH S at risk protocol, if any signs of withdrawal would transfer to telemetry History of Present Illness Primary Care Provider: Aashish Jacob MD Weds AM went to dentist and chiropracter. Had a lot of lower back work. Went home and sat down and started to feel like she had to go to the bathroom and had some 'bowel aches, like I needed to poop but couldn't.' Then when she could later in the evening had 'explosive diarrhea', nausea, vomiting, and with some lip swelling. Presented to [facility] and was treated for angioedema. Had been on lisinopril fo rmany years but stopped yesterday, had started vaginal estrogen treatment which she has had many times before. After returning home 1 hour later she had a bright red bloody bowl movement x2. No BM mixed into the stool and was mostly in the water. Apple sauce/rice/chicken since last night which stayed down OK. Nausea comes and goes in waves, seems to be gradually improving. No history of bloody bowel movements. Keeps up to date on colonoscopies, last was 1 year ago and was normal. No hx of diverticulosis or diverticulitis. She does have a history of 'lots of hemorrhoids.' She these are flared at the moment. Noone else in the family is sick. Lives with who is well. COVID vaccinated with booster Medical History: Reviewed. Medications: Reviewed. Last took medications last night (04/13, took Atorva, sertraline, buspar) Surgical History: Reviewed Allergies: Reviewed Social History: Lives with . Social reviewed. ETOH 4-5 per day, has had periods of sobriety before reports her also drinks alcohol so none of these have been sustained. Denies any past history of tremors/DTs/seizures/withdrawal symptoms. He is interested in reducing her alcohol intake, and would like to be connected to community resources for this. Code Status: Surrogate decision maker would be her . DNR/DNI, discussed with patient. Allergies Allergy/AdvReac Type Severity Reaction Status Date / Time Penicillins Allergy Severe UNKN Verified 04/14/21 09:53 doxycycline Allergy Intermediate HIVE Verified 04/14/21 09:53 mold Allergy Intermediate CONGESTION Verified 04/14/21 09:53 Sulfa (Sulfonamide Allergy Mild Hives Verified 04/14/21 09:53 Antibiotics) Tetracyclines Allergy Unknown Unknown Verified 04/14/21 09:53 Home Medications Medication Instructions Recorded Confirmed Type atorvastatin 10 mg tablet 10 mg PO DAILY 09/03/18 04/14/21 History buspirone 5 mg tablet 5 mg PO BID 09/03/18 04/14/21 History cetirizine 10 mg tablet 5 mg PO DAILY 09/03/18 04/14/21 History cholecalciferol (vitamin D3) 50 2,000 unit PO DAILY 09/03/18 04/14/21 History mcg (2,000 unit) capsule (Vitamin D3) pantoprazole 40 mg tablet,delayed 40 mg PO DAILY 09/03/18 04/14/21 History release sertraline 100 mg tablet 200 mg PO DAILY 09/03/18 04/14/21 History estradiol 1 g VAGINAL 2XWK #42.5 g 03/30/21 04/14/21 Rx Past Med/Surg History Medical History (Updated 04/14/21 @ 12:34 by Bobby Reeves MD) Anxiety Colitis Depression Dyslipidemia HTN (hypertension) Surgical History H/O: hysterectomy Hx of tonsillectomy Family History Brother HIV positive Brother C. difficile colitis Social History Smoking Status: Former smoker Tobacco Type: Cigarettes Hx Alcohol Use: Yes Alcohol Intake Frequency: 4 or More x per/Week Alcohol Intake Frequency Comment: 4glasses/day Feels Safe at Home: Yes Assistive Devices: Glasses and Hearing Aid - Bilateral Review of Systems Review of Systems: Constitutional: Denies fever, chills, malaise, weight change Eyes: Denies double vision, vision change, eye pain ENT: Denies ear pain, sore throat, sinus pain Cardiovascular: Denies Chest pain, chest pressure, palpitations, extremity swelling Respiratory: Denies shortness of breath, cough, sputum production, difficulty breathing Gastrointestinal: As noted in HPI Genitourinary: Denies pain with urination, urinary urgency, urinary frequency Musculoskeletal: Denies weakness, muscle aches/pain, joint aches/pain Integumentary:Denies rash, lesions, bruising Neurological: Denies headache, numbness, tingling, focal weakness Physical Exam Physical Exam: General: A&Ox3. NAD. Cooperative. HEENT: Atraumatic, normocephalic. Visual acuity and hearing grossly intact. Pupils equal and reactive to light and accommodation. Oropharynx and lips normal, no signs of angioedema at admitting assessment. Pulm: CTAB A&P. -wheezes, -rales, -rhonchi. Symmetrical chest rise. No increase work of breathing. No respiratory distress. Cardiac: RRR, -mrg. Radial pulses intact and symmetrical. Abdominal: Mild tenderness to infraumbilical palpation, abdomen otherwise soft without guarding/rebound. Bowel sounds intact. Rectal:internal and external hemorrhoids presents. No signs of thrombosis. Extremities: Warm, dry, moving all extremities. Manager [employer] strength in ankle dorsiflexion/plantar flexion grossly intact. Radial and PT pulses intact. Results & Data Results & Data ([facility]) Vital Signs (Past 12 Hours) Vital Signs Temp Pulse Pulse Resp BP BP Pulse Ox 04/14/21 08:05 76 20 136/118 H 98 04/14/21 05:32 74 17 195/104 H 98 04/14/21 04:10 74 22 192/105 H 97 04/14/21 03:22 36.5 C 70 16 215/99 H 95 PG Care Time/CCT Total # of Minutes Spent Total Time Spent with Patient: Total time spent is greater than 50% in coordination of care (as documented) at patient's floor/unit and/or counseling patient: Coding Level of Care Code INT OBSERVATION CARE 50M LVL 2 Diagnoses Bright red blood per rectum K62.5 Colitis K52.9 Depression F32.9 Dyslipidemia E78.5 Alcohol use Z72.89
[2021-04-14] MEDS ORDERED: HYDROmorphone INJ 0.5 MG/0.5 ML SYR IV PRN (10:21)
[2021-04-14] MEDS ORDERED: HYDROmorphone INJ 0.5 MG/0.5 ML SYR ONE (10:26)
[2021-04-14] MEDS: HYDROmorphone INJ 0.5 MG/0.5 ML SYR IV PRN ×2 (10:33→19:56)
[2021-04-14] MEDS ORDERED: HYDROCORTISONE ACETATE 25 MG SUPP PR PRN (12:43)
[2021-04-14] MEDS ORDERED: LORazepam 1 MG TAB PO PRN (16:55)
[2021-04-14] MEDS ORDERED: POLYETHYLENE (MIRALAX) 17 GM PACK PO PRN (16:55)
[2021-04-14] MEDS ORDERED: ONDANSETRON INJ 2 MG/ML 2 ML VIAL IV PRN (16:55)
[2021-04-14 18:15] LABS: Basophils # (auto) 0.02 K/uL (0-0.2); Basophils % (auto) 0.2 %; Eosinophils # (auto) 0.16 K/uL (0-0.5); Eosinophils % (auto) 1.5 %; Hematocrit (blood only) 38.8 % (37-47); Hemoglobin 12.5 g/dL (12.0-16.0); Immature Granulocytes # (auto) 0.02 K/uL (0.00-0.02); Immature Granulocytes % (auto) 0.2 %; Lymphocytes % (auto) 16.6 %; Mean Corpuscular Hemoglobin 31.2 pg (25-34); Mean Corpuscular Hgb Conc 32.2 g/dL (32-36); Mean Corpuscular Volume 96.8 fL (80-100); Mean Platelet Volume 10.5 fL (7.4-10.4); Monocytes # (auto) 0.71 K/uL (0.11-0.59); Monocytes % (auto) 6.5 %; Neutrophils # (auto) 8.16 K/uL (1.4-6.5); Platelet Count 164 K/uL (130-400); RDW Coefficient of Variation 13.2 % (11.5-14.5); RDW Standard Deviation 46.9 fL (36.4-46.3); Red Blood Count 4.01 M/uL (4.2-5.4); White Blood Count 10.87 K/uL (4.8-10.8)
[2021-04-14] MEDS: THIAMINE HCL 100 MG in SYRINGE 9 ML IV SCH (18:34)
[2021-04-14] MEDS: PANTOprazole 40 MG TAB PO SCH (18:34)
[2021-04-14] MEDS: FOLIC ACID 1 MG TAB PO SCH (19:02)
[2021-04-14 19:19] LABS: Folate (Folic Acid) > 20.00 ng/ml (>5.38); Vitamin B12 779 pg/ml (193-986)
[2021-04-14] MEDS: SERTRALINE HCL 100 MG TABLET PO SCH (21:32)
[2021-04-14] MEDS: busPIRone 5 MG TAB PO SCH (21:32)
[2021-04-15] MEDS: SODIUM CHLORIDE 0.9% 1000ML 1,000 ML IV SCH ×2 (00:35→09:23)
--- NOTE | 2021-04-15 06:59 | Hospitalist Progress Note ---
Date of Service April 15, 2021 Assessment & Plan (1) Bright red blood per rectum: Plan: (1) Bright red blood per rectum: Plan: Alice is a 70-year-old female who presents with 1 day of bright red blood per rectum and 1 day of nausea/vomiting and loose bowels. She has a history of hemorrhoids with bleeding and recurrent interventions, and thrombosed hemorrhoid extraction in the distant past. Rectal Bleeding/Bright red bloody diarrhea without melena - Internal and external hemorrhoids appreciated on exam. Pt with long history of hemorrhoids with intervention, these are currently painful to her - Hgb 13.5, recheck stable - No ongoing bleeding, though patient describes further bloody bowel movements - hemodynamically stable - Hydrocortisone topical PRN, suppositories orders, though carries some risk perforation -obtained stool sample (2) Colitis: Plan: Colitis, suspected infectious - CT-A/P:Moderate wall thickening of the splenic flexure of the colon and the proximal to mid descending colon with mild pericolonic infiltration. This represents a nonspecific colitis which may be infectious, ischemic or inflammatory in etiology. No free air or abscess. - bloody diarrhea, bright red, x2 episodes starting last night - Pt with hx of hemorrhoids as above, suspect hemorrhoidal bleeding rather than true bloody diarrhea - Stool pathogen panel pending - WBC trace elevation, ?demargination from N/V - N/V improving. Continue Zofran/pain control as needed Defer antibiotic intervention at this time --> started patient on cipro and flagyl, patient developed hives after 80% cipro infusion, cipro discontinued, hives resolved Follow for adequate pain control and oral intake, admit on observation -GI consulted for colitis and GI bleed, would appreciate recommendation Hypertension No [employer]OV[employer] medications, blood pressure with reasonable control at time of assessment -started HCTZ, no improvement in BP -patient pain and anxiety contributory to elevated bp (3) Depression: Plan: Continue sertraline home dosing (4) Dyslipidemia: Plan: Continue atorvastatin (5) Alcohol use: Plan: Alcohol Use - No hx of withdrawal sx, no hx of seizures - 4-5 drinks per day, last 04/12 - No cytopenia, no transaminitis, INR normal - Pt interested in alcohol community resources - AWSS at risk protocol --> max score 1 no ativan given - +Thiamine, Folic Acid Plan: DVT PPX: SCDs, defer pharmacoppx in the setting of BRBPR Diet: Regular as tolerated CODE STATUS: DNR/DNI, surrogate decision maker would be . Discussed with patient Disposition: Med/surge, patient with moderate alcohol intake although has not had any signs of withdrawal, shakes, seizures or tremors before. ELIZABETH S at risk protocol, if any signs of withdrawal would transfer to telemetry (2) Alcohol use: (3) Colitis: (4) Depression: (5) Dyslipidemia: (6) HTN (hypertension): Admission and Anticipated Discharge Date Admission Date: April 14, 2021 Supervising Physician Co-Signing Physician Notes Patient seen and examined, chart reviewed, case discussed with Dr. Abreu and I agree with the assessment and plan as above except as otherwise noted Alice is a 70-year-old female who presents with 1 day of bright red blood per rectum and 1 day of nausea/vomiting and loose bowels. She has a history of hemorrhoids with bleeding and recurrent interventions, and thrombosed hemorrhoid extraction in the distant past. She reports she feels well today, has continued in her low mid abdomen. Had 1 bowel movement with blood today, bright red blood mixed in stool. This was collected and sent for pathogen testing. No shortness of breath/difficulty breathing/fever/chills/sweats/nausea/vomiting. General: A&Ox3. NAD. Cooperative. HEENT: Atraumatic, normocephalic. Visual acuity and hearing grossly intact. Pulm: CTAB A&P. -wheezes, -rales, -rhonchi. Symmetrical chest rise. No increase work of breathing. No respiratory distress. Cardiac: RRR, -mrg. Radial pulses intact and symmetrical. Abdominal: Remains with infraumbilical mild abdominal tenderness, no rebound, no guarding. Bowel sounds intact. Rectal Bleeding/Bright red bloody diarrhea without melena - Internal and external hemorrhoids appreciated on exam. Pt with long history of hemorrhoids with intervention, these are currently painful to her - Hgb 13.5, recheck stable -No tachycardia/hypotension Diverticulitis below Colitis,? Infectious CT-A/P:Moderate wall thickening of the splenic flexure of the colon and the proximal to mid descending colon with mild pericolonic infiltration. This represents a nonspecific colitis which may be infectious, ischemic or inflammatory in etiology. No free air or abscess. 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 Patient tolerated Flagyl, with hives following administration of ciprofloxacin with no mucosal or respiratory involvement. Resolved spontaneously on reassessment. Allergy updated. Penicillin allergy, doxycycline allergy, sulfa allergy with multiple hives. GI consulted, given multiple allergies and pending panel will defer additional antibiotic at this time Hypertension Increased, patient with gradual increase and lisinopril stopped due to angioedema Started on losartan. remains hypertensive, adjunct hydrochlorothiazide added with recheck pending this afternoon Hydralazine for SBP greater than 180 if needed Depression: Continue sertraline History of alcohol use: No tremors, mentating normally, continues on it USS with thiamine/folic acid. No cytopenia/transaminitis/coagulopathy Subjective 70yo female seen at bedside, cooperative, describes abd pain in b/l lower quadrants at 4/10 and headache that improves with coffee. She is anxious, concerned over her bp. States she has had 6 bloody bowel movements since her symptoms started, has not had solid movement since before her hospitalization. She states the BM themselves are not painful. She describes a long history of hemorrhoids. Later in day patient describes BM with 2 blood clots, taken as stool sample. Patient describes her pain increased to 7/10, with cva tenderness b/l, is h esitant to take dilaudid due to fear of further constipation. Patient asked if GI could come see her. Review of Systems Review of Systems: Positive headache, abd pain Negative fever chills Negative dizziness Negative chest pain palpitations SOB Negative nausea vomitting diarrhea constipation Negative numbness tingling rash swelling Physical Exam Constitutional: WD/WN, vitals as above Respiratory: normal respiratory effort, lungs clear to auscultation Cardiovascular: RRR, no murmur, no edema Heart Sounds: normal S1 and normal S2 Gastrointestinal (Abdomen): Inspection/Auscultation: abdomen normal to inspection and normal bowel sounds; abdomen not distended Percus austin/Palpation: + abdomen tender (b/l lower quadrants) Skin: no rashes, warm and dry Note: patient developed hives after IV cipro that quickly resolved after abx discontinued Psychiatric: Orientation: alert and oriented x 3 Mood: + anxious mood Results & Data Results & Data ([facility]) Vital Signs (Past 12 Hours) Vital Signs Temp Pulse Pulse Pulse Resp BP BP 04/14/21 21:55 36.8 C 75 16 171/96 H 04/14/21 20:40 36.6 C 78 14 209/94 H 04/14/21 20:28 72 16 187/99 H 04/14/21 20:00 72 17 187/99 H Pulse Ox 04/14/21 21:55 91 04/14/21 20:40 94 04/14/21 20:28 96 04/14/21 20:00 96 Laboratory Results 04/15/21 04/15/21 04/14/21 Range/Units 06:52 06:52 17:43 Sodium 140 (136-145) mmol/L Potassium 3.8 (3.5-5.1) mmol/L Chloride 109 H (98-107) mmol/L Carbon Dioxide 26 (21-32) mmol/L Anion Gap 6.0 (3-11) BUN 9 (7-18) mg/dl Creatinine 0.73 (0.6-1.2) mg/dl Est Cr Clr Drug Dosing 70.3 ml/min Est GFR ( Amer) 96.7 ml/min Est GFR (Non-Af Amer) 83.4 ml/min BUN/Creatinine Ratio 11.7 (10-20) Glucose 84 (70-99) mg/dl Calcium 9.0 (8.5-10.1) mg/dl Total Bilirubin 0.3 (0.2-1) mg/dl AST 15 (15-37) U/L ALT 17 (12-78) Alkaline Phosphatase 65 (45-117) U/L Total Protein 7.0 (6.4-8.2) gm/dl Albumin 3.6 (3.4-5.0) gm/dl Globulin 3.4 (2.5-4.0) gm/dl Albumin/Globulin Ratio 1.0 (0.9-2) Vitamin B12 779 (193-986) pg/ml Folate > 20.00 (>5.38) ng/ml Hepatitis C Ab Screen Neg (Neg) Medications Administered Current Inpatient Medications Atorvastatin Calcium (Atorvastatin 10 Mg Tab) 10 mg PO DAILY ARMANDO Stop: 05/15/21 08:59 Last Admin: 04/15/21 09:22 Dose: 10 mg Documented by: Buspirone HCl (Buspirone 5 Mg Tab) 5 mg PO BID COUNT INCLUDES THE [facility] Stop: 05/14/21 20:59 Last Admin: 04/15/21 09:22 Dose: 5 mg Documented by: Folic Acid (Folic Acid 1 Mg Tab) [facility] [place] Stop: 05/14/21 16:54 Last Admin: 04/15/21 09:22 Dose: 1 mg Documented by: Hydrochlorothiazide (Hydrochlorothiazide 25 Mg Tab) 25 [facility] [place] Stop: 05/16/21 08:59 Hydrocortisone (Hydrocortisone Acetate 25 Mg Supp) 25 mg NM BID PRN PRN Reason: Hemorrhoids Stop: 05/14/21 12:42 Hydromorphone HCl (Hydromorphone Inj 0.5 Mg/0.5 Ml Syr) 0.25 mg IV Q6H PRN PRN Reason: Pain 0-5 Stop: 04/28/21 10:20 Hydromorphone HCl (Hydromorphone Inj 0.5 Mg/0.5 Ml Syr) 0.5 mg IV Q6H PRN PRN Reason: Pain 6-10 Stop: 04/28/21 10:20 Last Admin: 04/14/21 19:56 Dose: 0.5 mg Documented by: Thiamine HCl 100 mg/ Syringe 10 mls @ 2 mls/min [facility] [place] Stop: 05/14/21 17:29 Last Admin: 04/15/21 09:22 Dose: 2 mls/min Documented by: Ciprofloxacin (Cipro / D5w) 400 mg in 200 mls @ 100 mls/hr IV Q12H COUNT INCLUDES THE [facility]; Protocol Stop: 04/25/21 12:59 Last Infusion: 04/15/21 16:03 Dose: Infused Documented by: Lorazepam (Lorazepam 1 Mg Tab) 1 mg PO ONE PRN; Protocol PRN Reason: EtoH Withdrawal AWSS 6-10 Losartan Potassium (Losartan Potassium 25 Mg Tab) 25 [facility] [place] Stop: 05/15/21 12:59 Last Admin: 04/15/21 15:12 Dose: 25 mg Documented by: Metronidazole (Metronidazole 500 Mg Tab) 500 mg PO TID COUNT INCLUDES THE [facility] Stop: 04/25/21 13:59 Last Admin: 04/15/21 13:20 Dose: 500 mg Documented by: Ondansetron HCl (Ondansetron Inj 2 Mg/Ml 2 Ml Vial) 4 mg IV Q6H PRN PRN Reason: Nausea Stop: 05/14/21 16:54 Pantoprazole Sodium (Pantoprazole 40 Mg Tab) 40 mg PO DAILY ARMANDO Stop: 05/14/21 16:54 Last Admin: 04/15/21 09:22 Dose: 40 mg Documented by: Polyethylene Glycol (Polyethylene (Miralax) 17 Gm Pack) 17 gm PO BID PRN PRN Reason: Constipation Stop: 05/14/21 16:54 Last Admin: 04/15/21 12:40 Dose: 17 gm Documented by: Sertraline HCl (Sertraline Hcl 100 Mg Tablet) 200 mg PO HS COUNT INCLUDES THE [facility] Stop: 05/14/21 20:59 Last Admin: 04/14/21 21:32 Dose: 200 mg Documented by: Vitamin D (Cholecalciferol 1,000 Units 25 Mcg Tab) 2,000 units PO DAILY ARMANDO Stop: 05/15/21 08:59 Last Admin: 04/15/21 09:22 Dose: 2,000 units Documented by: Resident Activity Tracking Resident Involvement: Resident Care Provided Care Provided: Adult Hospital Medicine
[2021-04-15 08:04] LABS: Albumin Level 3.6 gm/dl (3.4-5.0); BUN Creatinine Ratio 11.7 (10-20); Creatinine Clr Calc Pharmacy 70.3 ml/min; Est GFR (African American) 96.7 ml/min; Est GFR (Non-African American) 83.4 ml/min; Potassium 3.8 mmol/L (3.5-5.1)
--- NOTE | 2021-04-15 08:05 | Electrocardiogram Report ---
Test Reason : Blood Pressure : / mmHG Vent. Rate : 058 BPM Atrial Rate : 058 BPM P-R Int : 168 ms QRS Dur : 098 ms QT Int : 432 ms P-R-T Axes : 049 017 026 degrees QTc Int : 424 ms Poor data quality, interpretation may be adversely affected Sinus bradycardia Otherwise normal ECG When compared with ECG of 13-APR-2021 13:46, Nonspecific T wave abnormality no longer evident in Anterior leads Confirmed by Jesús Peralta ([id number]) on 04/15/2021 8:05:31 AM Referred By: REFERRED SELF Confirmed By:Jesús Peralta
[2021-04-15 08:07] LABS: Globulin 3.4 gm/dl (2.5-4.0)
[2021-04-15] MEDS ORDERED: hydroCHLOROthiazide 25 MG TAB PO STA (08:58)
[2021-04-15 09:03] LABS: Bilirubin,Total 0.3 mg/dl (0.2-1)
[2021-04-15] MEDS: FOLIC ACID 1 MG TAB PO SCH (09:22)
[2021-04-15] MEDS: PANTOprazole 40 MG TAB PO SCH (09:22)
[2021-04-15] MEDS: CHOLECALCIFEROL 1,000 UNITS 25 MCG TAB PO SCH (09:22)
[2021-04-15] MEDS: busPIRone 5 MG TAB PO SCH ×2 (09:22→21:01)
[2021-04-15] MEDS: ATORVASTATIN 10 MG TAB PO SCH (09:22)
[2021-04-15] MEDS: THIAMINE HCL 100 MG in SYRINGE 9 ML IV SCH (09:22)
[2021-04-15] MEDS ORDERED: POLYETHYLENE (MIRALAX) 17 GM PACK ONE (12:15)
[2021-04-15] MEDS: POLYETHYLENE (MIRALAX) 17 GM PACK PO PRN ×2 (12:40→23:47)
[2021-04-15] MEDS: CIPROFLOXACIN / D5W 400 MG/200 ML BAG IV SCH (13:20)
[2021-04-15] MEDS: metroNIDAZOLE 500 MG TAB PO SCH ×2 (13:20→21:01)
[2021-04-15] MEDS: LOSARTAN POTASSIUM 25 MG TAB PO SCH (15:12)
[2021-04-15] MEDS ORDERED: ACETAMINOPHEN 500 MG TAB PO ONE (16:20)
--- NOTE | 2021-04-15 18:56 | Billing Data ---
Date of Service April 15, 2021 Coding Level of Care Code 83892 Subseq Hosp Care Lvl 2
[2021-04-15] MEDS ORDERED: hydrALAZINE HCL 20 MG/ML VIAL IV PRN (19:07)
[2021-04-15 20:44] LABS: Adenovirus F 40/41 PCR Not Detected (NotDetected); Astrovirus PCR Not Detected (NotDetected); Campylobacter PCR Not Detected (NotDetected); Clostridium diff Toxin A/B PCR Not Detected (NotDetected); Cryptosporidium PCR Not Detected (NotDetected); Cyclospora cayetanensis PCR Not Detected (NotDetected); Entamoeba histolytica PCR Not Detected (NotDetected); Enteroaggregative E.coli(EAEC) Not Detected (NotDetected); Enteropathogenic E.coli (EPEC) Not Detected (NotDetected); Enterotoxigenic E.coli (ETEC) Not Detected (NotDetected); Giardia lamblia PCR Not Detected (NotDetected); Norovirus GI/GII PCR Not Detected (NotDetected); Plesiomonas shigelloides PCR Not Detected (NotDetected); Rotavirus A PCR Not Detected (NotDetected); Salmonella PCR Not Detected (NotDetected); Sapovirus PCR Not Detected (NotDetected); Shiga-like Toxin E.coli (STEC) Not Detected (NotDetected); Shigella/Enteroinvasive E.coli Not Detected (NotDetected); Vibrio cholerae PCR Not Detected (NotDetected); Vibrio species PCR Not Detected (NotDetected); Yersinia enterocolitica PCR Not Detected (NotDetected)
[2021-04-15] MEDS: SERTRALINE HCL 100 MG TABLET PO SCH (21:01)
[2021-04-15] MEDS: HYDROmorphone INJ 0.5 MG/0.5 ML SYR IV PRN (21:01)
[2021-04-16] MEDS ORDERED: ACETAMINOPHEN 500 MG TAB PO PRN (00:10)
[2021-04-16] MEDS: CIPROFLOXACIN / D5W 400 MG/200 ML BAG IV SCH (00:17)
--- NOTE | 2021-04-16 07:21 | Hospitalist Progress Note ---
Date of Service April 16, 2021 Assessment & Plan (1) Bright red blood per rectum: Plan: (1) Bright red blood per rectum: Plan: Alice is a 70-year-old female who presents with 1 day of bright red blood per rectum and 1 day of nausea/vomiting and loose bowels. She has a history of hemorrhoids with bleeding and recurrent interventions, and thrombosed hemorrhoid extraction in the distant past. Rectal Bleeding/Bright red bloody diarrhea without melena - Internal and external hemorrhoids appreciated on exam. Pt with long history of hemorrhoids with intervention, these are currently painful to her - Hgb 13.5, recheck stable - No ongoing bleeding, though patient describes further bloody bowel movements - hemodynamically stable - Hydrocortisone topical PRN, suppositories orders, though carries some risk perforation - obtained stool sample, PCR negative (2) Colitis: Plan: Colitis, suspected infectious - CT-A/P:Moderate wall thickening of the splenic flexure of the colon and the proximal to mid descending colon with mild pericolonic infiltration. This represents a nonspecific colitis which may be infectious, ischemic or inflammatory in etiology. No free air or abscess. - bloody diarrhea, bright red, x2 episodes starting last night - Pt with hx of hemorrhoids as above, suspect hemorrhoidal bleeding rather than true bloody diarrhea - Stool pathogen panel negative - WBC trace elevation, ?demargination from N/V - N/V improving. Continue Zofran/pain control as needed Defer antibiotic intervention at this time --> started patient on cipro and flagyl, patient developed hives after 80% cipro infusion, cipro discontinued, hives resolved Follow for adequate pain control and oral intake, admit on observation - GI consulted: recommend 5 day course flagyl, suggested cipro for additional coverage suspect infectious process unlikely ischemic, recommend diet as tolerated, will likely need outpatient colonoscopy in 4-6 weeks to further evaluate anusol cream BID for 2 weeks for the hemorrhoids miralax 1-2 times daily prn constipation follow up in 1-2 weeks with [facility] - started patient of ceftriaxone for better coverage, given patient's listed allergy to penicillin will closely monitor -started daily miralax BID Hypertension No [employer] medications, blood pressure with reasonable control at time of assessment -started HCTZ, no improvement in BP -patient pain and anxiety contributory to elevated bp -patient started on losartan, BP improved with both medication still elevated (3) Depression: Plan: Continue sertraline home dosing (4) Dyslipidemia: Plan: Continue atorvastatin (5) Alcohol use: Plan: Alcohol Use - No hx of withdrawal sx, no hx of seizures - 4-5 drinks per day, last 04/12 - No cytopenia, no transaminitis, INR normal - Pt interested in alcohol [employer] resources - AWSS at risk protocol --> max score 1 no ativan given - +Thiamine, Folic Acid Plan: DVT PPX: SCDs, defer pharmacoppx in the setting of BRBPR Diet: Regular as tolerated CODE STATUS: DNR/DNI, surrogate decision maker would be . Discussed with patient Disposition: Med/surge, patient with moderate alcohol intake although has not had any signs of withdrawal, shakes, seizures or tremors before. ELIZABETH S at risk protocol, if any signs of withdrawal would transfer to telemetry (2) Alcohol use: (3) Colitis: (4) Depression: (5) Dyslipidemia: (6) HTN (hypertension): Admission and Anticipated Discharge Date Admission Date: April 14, 2021 Supervising Physician Co-Signing Physician Notes Patient seen and examined, chart reviewed, case discussed with Dr. Abreu and I agree with the assessment and plan as above except as otherwise noted Alice is a 70-year-old female who presents with 1 day of bright red blood per rectum and 1 day of nausea/vomiting and loose bowels. She has a history of hemorrhoids with bleeding and recurrent interventions, and thrombosed hemorrhoid extraction in the distant past. She reports she feels well today, has continued in her low mid abdomen. Had 1 bowel movement with blood today, bright red blood mixed in stool. This was collected and sent for pathogen testing. No shortness of breath/difficulty breathing/fever/chills/sweats/nausea/vomiting. General: A&Ox3. NAD. Cooperative. HEENT: Atraumatic, normocephalic. Visual acuity and hearing grossly intact. Pulm: CTAB A&P. -wheezes, -rales, -rhonchi. Symmetrical chest rise. No increase work of breathing. No respiratory distress. Cardiac: RRR, -mrg. Radial pulses intact and symmetrical. Abdominal: Remains with infraumbilical mild abdominal tenderness, no rebound, no guarding. Bowel sounds intact. Rectal Bleeding/Bright red bloody diarrhea without melena - Internal and external hemorrhoids appreciated on exam. Pt with long history of hemorrhoids with intervention, these are currently painful to her - Hgb 13.5, recheck stable -No tachycardia/hypotension Diverticulitis below Colitis,? Infectious CT-A/P:Moderate wall thickening of the splenic flexure of the colon and the proximal to mid descending colon with mild pericolonic infiltration. This represents a nonspecific colitis which may be infectious, ischemic or inflammatory in etiology. No free air or abscess. 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 Patient tolerated Flagyl, with hives following administration of ciprofloxacin with no mucosal or respiratory involvement. Resolved spontaneously on reassessment. Allergy updated. Penicillin allergy, doxycycline allergy, sulfa allergy with multiple hives. GI consulted Due to incomplete coverage with only flagyl and h/o of hives for kaushal. Will try rocephin. will closely monitor patient for allergies. Hypertension Increased, patient with gradual increase and lisinopril stopped due to angioedema Started on losartan. remains hypertensive, adjunct hydrochlorothiazide added with recheck pending this afternoon Hydralazine for SBP greater than 180 if needed Depression: Continue sertraline History of alcohol use: No tremors, mentating normally, continues on it USS with thiamine/folic acid. No cytopenia/transaminitis/coagulopathy Subjective 70yo Female seen at bedside, calm comfortable cooperative. She states her abd pain is better from yesterday, still 4/10 diffuse, she did not use dilaudid overnight, states the tylenol did not help much. Patient states she does have an appetite, denies nausea vomitting, has been passing gas, denies bowel movements for today. Patient requests nasal flonase. Patient complains of headache in front and back of head, requests OMM. States her headache is much improved after treatment with OMM. Review of Systems Review of Systems: Positive headache, abd pain Negative fever chills Negative dizziness Negative chest pain palpitations SOB Negative nausea vomitting diarrhea constipation Negative numbness tingling rash swelling Physical Exam Constitutional: WD/WN, vitals as above Eyes: PERRL, conjunctivae normal, anicteric sclerae Neck: trachea midline, no thyromegaly Respiratory: normal respiratory effort, lungs clear to auscultation Cardiovascular: RRR, no murmur, no edema Heart Sounds: normal S1 and normal S2 Gastrointestinal (Abdomen): Inspection/Auscultation: abdomen normal to inspection and normal bowel sounds; abdomen not distended Percussion/Palpation: + abdomen tender (diffuse tenderness worse in LUQ) Skin: no rashes, warm and dry Psychiatric: Orientation: alert and oriented x 3 Mood: + anxious mood Results & Data Results & Data ([facility]) Vital Signs (Past 12 Hours) Vital Signs Temp Pulse Resp BP Pulse Ox 04/16/21 07:14 69 157/95 H 04/16/21 06:38 66 176/92 H 04/16/21 00:36 77 156/93 H 04/15/21 23:51 68 176/92 H 04/15/21 22:50 36.7 C 73 16 125/76 92 04/15/21 20:55 73 168/104 H Laboratory Results 04/16/21 04/16/21 04/15/21 Range/Units 07:03 07:03 15:40 WBC 9.23 (4.8-10.8) K/uL RBC 4.36 (4.2-5.4) M/uL Hgb 13.7 (12.0-16.0) g/dL Hct 41.5 (37-47) % MCV 95.2 (80-100) fL MCH 31.4 (25-34) pg MCHC 33.0 (32-36) g/dL RDW Std Deviation 44.6 (36.4-46.3) fL RDW Coeff of Swapnil 12.9 (11.5-14.5) % Plt Count 185 (130-400) K/uL MPV 10.1 (7.4-10.4) fL Sodium 135 L (136-145) mmol/L Potassium 3.6 (3.5-5.1) mmol/L Chloride 101 (98-107) mmol/L Carbon Dioxide 29 (21-32) mmol/L Anion Gap 5.0 (3-11) BUN 11 (7-18) mg/dl Creatinine 0.76 (0.6-1.2) mg/dl Est Cr Clr Drug Dosing 67.5 ml/min Est GFR ( Amer) 92.1 ml/min Est GFR (Non-Af Amer) 79.5 ml/min BUN/Creatinine Ratio 14.3 (10-20) Glucose 95 (70-99) mg/dl Calcium 9.9 (8.5-10.1) mg/dl Stl C. cayetanensis PCR Not Detected (NotDetected) Stool Rotavirus A PCR Not Detected (NotDetected) Stl Adenov F 40/41 PCR Not Detected (NotDetected) Stool Astrovirus (PCR) Not Detected (NotDetected) Stool Campylobacter PCR Not Detected (NotDetected) Stl C. diff Tox A/B PCR Not Detected (NotDetected) Stool Cryptosporidium PCR Not Detected (NotDetected) Stl E.coli Shiga Tox PCR Not Detected (NotDetected) Stl Enterotoxigenic E PCR Not Detected (NotDetected) Stool EPEC (PCR) Not Detected (NotDetected) Stool EAEC (PCR) Not Detected (NotDetected) Stl E. histolytica PCR Not Detected (NotDetected) Stool Giardia Lamblia PCR Not Detected (NotDetected) Stool Salmonella PCR Not Detected (NotDetected) Stool Sapovirus (PCR) Not Detected (NotDetected) Stl P. shigelloides PCR Not Detected (NotDetected) Stl Shigella/EIEC PCR Not Detected (NotDetected) St Y.enterocolitica PCR Not Detected (NotDetected) Stool Vibrio (PCR) Not Detected (NotDetected) Stl Vibrio cholerae PCR Not Detected (NotDetected) Stl Norovirus GI/GII PCR Not Detected (NotDetected) Medications Administered Current Inpatient Medications Acetaminophen (Acetaminophen 500 Mg Tab) 1,000 mg PO Q8H PRN PRN Reason: headache Stop: 05/16/21 00:09 Last Admin: 04/16/21 00:40 Dose: 1,000 mg Documented by: Atorvastatin Calcium (Atorvastatin 10 Mg Tab) 10 mg PO DAILY [facility] Stop: 05/15/21 08:59 Last Admin: 04/16/21 08:28 Dose: 10 mg Documented by: Buspirone HCl (Buspirone 5 Mg Tab) 5 mg PO BID [facility] Stop: 05/14/21 20:59 Last Admin: 04/16/21 08:27 Dose: 5 mg Documented by: Fluticasone Propionate (Fluticasone Propionate Na Spr 16 Gm Btl) 2 sprays NA DAILY PRN PRN Reason: Allergy Symptoms Stop: 05/16/21 09:20 Last Admin: 04/16/21 15:24 Dose: 2 sprays Documented by: Folic Acid (Folic Acid 1 Mg Tab) 1 mg PO [facility] Stop: 05/14/21 16:54 Last Admin: 04/16/21 08:27 Dose: 1 mg Documented by: Hydralazine HCl (Hydralazine Hcl 20 Mg/Ml Vial) 5 mg IV Q6 PRN PRN Reason: Hypertension Stop: 05/15/21 19:06 Hydrochlorothiazide (Hydrochlorothiazide 25 Mg Tab) 25 mg PO [facility] Stop: 05/16/21 08:59 Last Admin: 04/16/21 08:28 Dose: 25 mg Documented by: Hydrocortisone (Hydrocortisone Acetate 25 Mg Supp) 25 mg [place] BID PRN PRN Reason: Hemorrhoids Stop: 05/14/21 12:42 Hydromorphone HCl (Hydromorphone Inj 0.5 Mg/0.5 Ml Syr) 0.25 mg IV Q6H PRN PRN Reason: Pain 0-5 Stop: 04/28/21 10:20 Hydromorphone HCl (Hydromorphone Inj 0.5 Mg/0.5 Ml Syr) 0.5 mg IV Q6H PRN PRN Reason: Pain 6-10 Stop: 04/28/21 10:20 Last Admin: 04/15/21 21:01 Dose: 0.5 mg Documented by: Thiamine HCl 100 mg/ Syringe 10 mls @ 2 mls/min IV [place] Stop: 05/14/21 17:29 Last Admin: 04/16/21 08:27 Dose: 2 mls/min Documented by: Ceftriaxone Sodium 2,000 mg/ (Dextrose) 70 mls @ 100 mls/hr IV Q24H [facility]; Protocol Stop: 04/26/21 13:44 Last Infusion: 04/16/21 16:44 Dose: Infused Documented by: Lactobacillus Acidoph/Casei/Rhamnos (Advanced Probiotic 1250 Mg Capsule) 2 cap PO DAILY [facility] Stop: 05/16/21 13:59 Last Admin: 12/25/21 15:23 Dose: 2 cap Documented by: Lorazepam (Lorazepam 1 Mg Tab) 1 mg PO ONE PRN; Protocol PRN Reason: EtoH Withdrawal AWSS 6-10 Losartan Potassium (Losartan Potassium 25 Mg Tab) 25 mg PO QAM [facility] Stop: 05/15/21 12:59 Last Admin: 04/16/21 08:28 Dose: 25 mg Documented by: Metronidazole (Metronidazole 500 Mg Tab) 500 mg PO TID [facility] Stop: 04/25/21 13:59 Last Admin: 04/16/21 13:13 Dose: 500 mg Documented by: Ondansetron HCl (Ondansetron Inj 2 Mg/Ml 2 Ml Vial) 4 mg IV Q6H PRN PRN Reason: Nausea Stop: 05/14/21 16:54 Pantoprazole Sodium (Pantoprazole 40 Mg Tab) 40 mg PO DAILY [facility] Stop: 05/14/21 16:54 Last Admin: 04/16/21 08:27 Dose: 40 mg Documented by: Polyethylene Glycol (Polyethylene (Miralax) 17 Gm Pack) 17 gm PO BID PRN PRN Reason: Constipation Stop: 05/14/21 16:54 Last Admin: 04/16/21 13:22 Dose: 17 gm Documented by: Polyethylene Glycol (Polyethylene (Miralax) 17 Gm Pack) 17 gm PO BID [facility] Stop: 05/16/21 20:59 Sertraline HCl (Sertraline Hcl 100 Mg Tablet) 200 mg PO HS [facility] Stop: 05/14/21 20:59 Last Admin: 04/15/21 21:01 Dose: 200 mg Documented by: Vitamin D (Cholecalciferol 1,000 Units 25 Mcg Tab) 2,000 units PO DAILY [facility] Stop: 05/15/21 08:59 Last Admin: 04/16/21 08:28 Dose: 2,000 units Documented by: Resident Activity Tracking Resident Involvement: Resident Care Provided Care Provided: Adult Hospital Medicine
[2021-04-16 07:43] LABS: Hematocrit (blood only) 41.5 % (37-47); Hemoglobin 13.7 g/dL (12.0-16.0); Mean Corpuscular Hemoglobin 31.4 pg (25-34); Mean Corpuscular Volume 95.2 fL (80-100); Mean Platelet Volume 10.1 fL (7.4-10.4); Platelet Count 185 K/uL (130-400); RDW Coefficient of Variation 12.9 % (11.5-14.5); RDW Standard Deviation 44.6 fL (36.4-46.3); Red Blood Count 4.36 M/uL (4.2-5.4); White Blood Count 9.23 K/uL (4.8-10.8)
[2021-04-16 08:06] LABS: BUN Creatinine Ratio 14.3 (10-20); Calcium 9.9 mg/dl (8.5-10.1); Creatinine Clr Calc Pharmacy 67.5 ml/min; Est GFR (African American) 92.1 ml/min; Est GFR (Non-African American) 79.5 ml/min; Potassium 3.6 mmol/L (3.5-5.1)
[2021-04-16] MEDS: busPIRone 5 MG TAB PO SCH ×2 (08:27→20:20)
[2021-04-16] MEDS: THIAMINE HCL 100 MG in SYRINGE 9 ML IV SCH (08:27)
[2021-04-16] MEDS: PANTOprazole 40 MG TAB PO SCH (08:27)
[2021-04-16] MEDS: FOLIC ACID 1 MG TAB PO SCH (08:27)
[2021-04-16] MEDS: hydroCHLOROthiazide 25 MG TAB PO SCH (08:28)
[2021-04-16] MEDS: LOSARTAN POTASSIUM 25 MG TAB PO SCH (08:28)
[2021-04-16] MEDS: ATORVASTATIN 10 MG TAB PO SCH (08:28)
[2021-04-16] MEDS: CHOLECALCIFEROL 1,000 UNITS 25 MCG TAB PO SCH (08:28)
[2021-04-16] MEDS: metroNIDAZOLE 500 MG TAB PO SCH ×3 (08:29→20:19)
[2021-04-16] MEDS: POLYETHYLENE (MIRALAX) 17 GM PACK PO PRN (13:22)
--- NOTE | 2021-04-16 13:39 | Gastrointestinal Consultation ---
Date of Consultation April 16, 2021 Assessment & Plan (1) Bright red blood per rectum: (2) Colitis: (3) Hemorrhoids: hematochezia likely from colitis and hemorrhoids; hgb is wnl. regarding the colitis; suspect an infectious process though stool testing was negative; unlikely to be ischemic currently she is quite constipated recs: --5 day course of flagyl -diet as tolerated --will likely need outpatient colonoscopy in 4-6 weeks to further evaluate --anusol cream BID for 2 weeks for the hemorrhoids --miralax 1-2 times daily prn constipation --follow up in 1-2 weeks with [facility] Thank you for allowing me to participate in the care of this patient History of Present Illness Attending Physician: Andrew Jeffrey History of Present Illness 70 yo female with hx diverticulosis and colitis here with colitis. She notes prior to admission she had diarrhea and hematochezia. CT imaging showed colitis, stool studies are all negative including for cdiff. Last colonoscopy was a year ago. She has internal and external hemorrhoids. No sick contacts. afebrile. labs reviewed, VSS, hgb normal. Allergies Allergy/AdvReac Type Severity Reaction Status Date / Time Penicillins Allergy Severe UNKN Verified 04/14/21 09:53 doxycycline Allergy Intermediate HIVE Verified 04/14/21 09:53 mold Allergy Intermediate CONGESTION Verified 04/14/21 09:53 Sulfa (Sulfonamide Allergy Mild Hives Verified 04/14/21 09:53 Antibiotics) Tetracyclines Allergy Unknown Unknown Verified 04/14/21 09:53 ciprofloxacin [From Cipro] Allergy Hives Verified 04/15/21 18:50 clarithromycin [From Biaxin] Allergy Unknown Verified 04/15/21 12:31 Home Medications Medication Instructions Recorded Confirmed Type atorvastatin 10 mg tablet 10 mg PO DAILY 09/03/18 04/14/21 History buspirone 5 mg tablet 5 mg PO BID 09/03/18 04/14/21 History cetirizine 10 mg tablet 5 mg PO DAILY 09/03/18 04/14/21 History cholecalciferol (vitamin D3) 50 2,000 unit PO DAILY 09/03/18 04/14/21 History mcg (2,000 unit) capsule (Vitamin D3) pantoprazole 40 mg tablet,delayed 40 mg PO DAILY 09/03/18 04/14/21 History release sertraline 100 mg tablet 200 mg PO DAILY 09/03/18 04/14/21 History estradiol 1 g VAGINAL 2XWK #42.5 g 03/30/21 04/14/21 Rx Patient History Medical History (Updated 04/16/21 @ 13:34 by Abner Topete MD) Anxiety Colitis Depression Dyslipidemia HTN (hypertension) Surgical History H/O: hysterectomy Hx of tonsillectomy Family History Brother HIV positive Brother C. difficile colitis Social History Smoking Status: Former smoker Tobacco Type: Cigarettes Hx Alcohol Use: Yes Alcohol type: beer Alcohol Intake Frequency: 4 or More x per/Week Alcohol Intake Frequency Comment: 4glasses/day Hx Substance Use: No Communication Ability: Effective Beliefs That Will Affect Care: None marital status: Current Living Situation: Spouse Feels Safe at Home: Yes Safety Concerns: Feels Safe At This Time Assistive Devices: Glasses and Hearing Aid - Bilateral Review of Systems Constitutional: no fever, no chills and no weight loss Eyes: as per Subjective / HPI Ear, Nose, Mouth, Throat: as per Subjective / HPI Respiratory: no dyspnea and no dyspnea on exertion Cardiovascular: no chest pain and no palpitations Gastrointestinal: as per Subjective / HPI Musculoskeletal: no joint pain and no swelling Integumentary: no rash and no lesions Neurologic: no numbness and no paresthesia Psychiatric: no depression and no anxiety Endocrine: no fatigue Hematologic / Lymphatic: no easy bleeding and no easy bruising Physical Exam Constitutional: WD/WN, vitals as above Eyes: EOM intact bilaterally Neck: normal visual inspection Respiratory: normal respiratory effort, lungs clear to auscultation Cardiovascular: RRR, no murmur, no edema Gastrointestinal (Abdomen): Inspection/Auscultation: abdomen normal to inspection; abdomen not distended Percussion/Palpation: abdomen soft; abdomen nontender and no hepatosplenomegaly Musculoskeletal: Extremities: no cyanosis Gait: normal gait Skin: no rashes, warm and dry Neurologic: moves all extremities Psychiatric: A+Ox3, euthymic affect Results & Data ([place]) Vital Signs (Past 12 Hours) Vital Signs Temp Pulse Resp BP Pulse Ox 04/16/21 07:50 36.8 C 70 16 151/95 H 94 04/16/21 07:14 69 157/95 H 04/16/21 06:38 66 176/92 H PG Care Time/CCT Total # of Minutes Spent Total Time Spent with Patient: Total time spent is greater than 50% in coordination of care (as documented) at patient's floor/unit and/or counseling patient: Coding Level of Care Code 89177 Initial Inpt Care Lvl 3 Diagnoses Bright red blood per rectum K62.5 Colitis K52.9 Hemorrhoids K64.9
[2021-04-16] MEDS: cefTRIAXone SODIUM 2,000 MG in DEXTROSE 5% 50 ML IV SCH (15:23)
[2021-04-16] MEDS: ADVANCED PROBIOTIC 1250 MG CAPSULE PO SCH (15:23)
[2021-04-16] MEDS: FLUTICASONE PROPIONATE NA SPR 16 GM BTL PRN (15:24)
[2021-04-16] MEDS: POLYETHYLENE (MIRALAX) 17 GM PACK PO SCH (20:21)
[2021-04-16] MEDS: SERTRALINE HCL 100 MG TABLET PO SCH (21:20)
--- NOTE | 2021-04-17 07:13 | Hospitalist Progress Note ---
Date of Service April 17, 2021 Assessment & Plan (1) Bright red blood per rectum: Plan: (1) Bright red blood per rectum: Plan: Alice is a 70-year-old female who presents with 1 day of bright red blood per rectum and 1 day of nausea/vomiting and loose bowels. She has a history of hemorrhoids with bleeding and recurrent interventions, and thrombosed hemorrhoid extraction in the distant past. Rectal Bleeding/Bright red bloody diarrhea without melena - Internal and external hemorrhoids appreciated on exam. Pt with long history of hemorrhoids with intervention, these are currently painful to her - Hgb 13.5, recheck stable - No ongoing bleeding, though patient describes further bloody bowel movements - hemodynamically stable - Hydrocortisone topical PRN, suppositories orders, though carries some risk perforation - obtained stool sample, PCR negative (2) Colitis: Plan: Colitis, suspected infectious - CT-A/P:Moderate wall thickening of the splenic flexure of the colon and the proximal to mid descending colon with mild pericolonic infiltration. This represents a nonspecific colitis which may be infectious, ischemic or inflammatory in etiology. No free air or abscess. - bloody diarrhea, bright red, x2 episodes starting last night - Pt with hx of hemorrhoids as above, suspect hemorrhoidal bleeding rather than true bloody diarrhea - Stool pathogen panel negative - WBC trace elevation, ?demargination from N/V - N/V improving. Continue Zofran/pain control as needed Defer antibiotic intervention at this time --> started patient on cipro and flagyl, patient developed hives after 80% cipro infusion, cipro discontinued, hives resolved Follow for adequate pain control and oral intake, admit on observation - GI consulted: recommend 5 day course flagyl, suggested cipro for additional coverage suspect infectious process unlikely ischemic, recommend diet as tolerated, will likely need outpatient colonoscopy in 4-6 weeks to further evaluate anusol cream BID for 2 weeks for the hemorrhoids miralax 1-2 times daily prn constipation follow up in 1-2 weeks with [facility] - started patient of ceftriaxone for better coverage, given patient's listed allergy to penicillin will closely monitor -started daily miralax BID Hypertension No [employer]DER medications, blood pressure with reasonable control at time of assessment -started HCTZ, no improvement in BP -patient pain and anxiety contributory to elevated bp -patient started on losartan, BP improved with both medication still elevated (3) Depression: Plan: Continue sertraline home dosing (4) Dyslipidemia: Plan: Continue atorvastatin (5) Alcohol use: Plan: Alcohol Use - No hx of withdrawal sx, no hx of seizures - 4-5 drinks per day, last 04/12 - No cytopenia, no transaminitis, INR normal - Pt interested in alcohol [employer] resources - AWSS at risk protocol --> max score 1 no ativan given - +Thiamine, Folic Acid Plan: DVT PPX: SCDs, defer pharmacoppx in the setting of BRBPR Diet: Regular as tolerated CODE STATUS: DNR/DNI, surrogate decision maker would be . Discussed with patient Disposition: Med/surge, patient with moderate alcohol intake although has not had any signs of withdrawal, shakes, seizures or tremors before. ELIZABETH S at risk protocol, if any signs of withdrawal would transfer to telemetry (2) Alcohol use: (3) Colitis: (4) Depression: (5) Dyslipidemia: (6) HTN (hypertension): Admission and Anticipated Discharge Date Admission Date: April 16, 2021 Physical Exam Constitutional: WD/WN, vitals as above Eyes: PERRL, conjunctivae normal, anicteric sclerae Neck: trachea midline, no thyromegaly Respiratory: normal respiratory effort, lungs clear to auscultation Cardiovascular: RRR, no murmur, no edema Heart Sounds: normal S1 and normal S2 Gastrointestinal (Abdomen): Inspection/Auscultation: abdomen normal to inspection and normal bowel sounds; abdomen not distended Percussion/Palpation: + abdomen tender (diffuse tenderness worse in LUQ) Skin: no rashes, warm and dry Psychiatric: Orientation: alert and oriented x 3 Mood: + anxious mood Results & Data Results & Data ([facility]) Vital Signs (Past 12 Hours) Vital Signs Temp Pulse Resp BP Pulse Ox 04/17/21 00:20 79 156/89 H 04/16/21 22:47 36.6 C 71 16 170/90 H 96
[2021-04-17 07:59] LABS: Hematocrit (blood only) 40.5 % (37-47); Hemoglobin 12.9 g/dL (12.0-16.0); Mean Corpuscular Hemoglobin 30.7 pg (25-34); Mean Corpuscular Hgb Conc 31.9 g/dL (32-36); Mean Corpuscular Volume 96.4 fL (80-100); Mean Platelet Volume 10.3 fL (7.4-10.4); Platelet Count 197 K/uL (130-400); RDW Coefficient of Variation 13.1 % (11.5-14.5); RDW Standard Deviation 45.7 fL (36.4-46.3); White Blood Count 7.15 K/uL (4.8-10.8)
--- NOTE | 2021-04-17 08:23 | Billing Data ---
Date of Service April 16, 2021 Coding Level of Care Code 30621 Subseq Hosp Care Lvl 3 Time Spent (min) 35
[2021-04-17 08:32] LABS: BUN Creatinine Ratio 17.1 (10-20); Calcium 9.4 mg/dl (8.5-10.1); Creatinine Clr Calc Pharmacy 61.8 ml/min; Est GFR (African American) 82.8 ml/min; Est GFR (Non-African American) 71.4 ml/min; Potassium 4.5 mmol/L (3.5-5.1)
[2021-04-17] MEDS: ADVANCED PROBIOTIC 1250 MG CAPSULE PO SCH (08:59)
[2021-04-17] MEDS: hydroCHLOROthiazide 25 MG TAB PO SCH (08:59)
[2021-04-17] MEDS: ATORVASTATIN 10 MG TAB PO SCH (08:59)
[2021-04-17] MEDS: FOLIC ACID 1 MG TAB PO SCH (09:00)
[2021-04-17] MEDS: LOSARTAN POTASSIUM 25 MG TAB PO SCH (09:00)
[2021-04-17] MEDS: CHOLECALCIFEROL 1,000 UNITS 25 MCG TAB PO SCH (09:00)
[2021-04-17] MEDS: PANTOprazole 40 MG TAB PO SCH (09:00)
[2021-04-17] MEDS: POLYETHYLENE (MIRALAX) 17 GM PACK PO SCH (09:00)
[2021-04-17] MEDS: busPIRone 5 MG TAB PO SCH (09:00)
[2021-04-17] MEDS: metroNIDAZOLE 500 MG TAB PO SCH ×2 (09:00→15:12)
[2021-04-17] MEDS: THIAMINE HCL 100 MG in SYRINGE 9 ML IV SCH (09:01)
[2021-04-17] MEDS: FLUTICASONE PROPIONATE NA SPR 16 GM BTL PRN (10:24)
[2021-04-17] MEDS: cefTRIAXone SODIUM 2,000 MG in DEXTROSE 5% 50 ML IV SCH (15:02)
--- NOTE | 2021-04-17 15:33 | Discharge Summary ---
Date of Service April 17, 2021 Admission HPI Per Admitting Provider Weds AM went to dentist and chiropracter. Had a lot of lower back work. Went home and sat down and started to feel like she had to go to the bathroom and had some 'bowel aches, like I needed to poop but couldn't.' Then when she could later in the evening had 'explosive diarrhea', nausea, vomiting, and with some lip swelling. Presented to [facility] and was treated for angioedema. Had been on lisinopril fo rmany years but stopped yesterday, had started vaginal estrogen treatment which she has had many times before. After returning home 1 hour later she had a bright red bloody bowl movement x2. No BM mixed into the stool and was mostly in the water. Apple sauce/rice/chicken since last night which stayed down OK. Nausea comes and goes in waves, seems to be gradually improving. No history of bloody bowel movements. Keeps up to date on colonoscopies, last was 1 year ago and was normal. No hx of diverticulosis or diverticulitis. She does have a history of 'lots of hemorrhoids.' She these are flared at the moment. Noone else in the family is sick. Lives with who is well. COVID vaccinated with booster Medical History: Reviewed. Medications: Reviewed. Last took medications last night (04/13, took Atorva, sertraline, buspar) Surgical History: Reviewed Allergies: Reviewed Social History: Lives with . Social reviewed. ETOH 4-5 per day, has had periods of sobriety before reports her also drinks alcohol so none of these have been sustained. Denies any past history of tremors/DTs/seizures/withdrawal symptoms. He is interested in reducing her alcohol intake, and would like to be connected to community resources for this. Code Status: Surrogate decision maker would be her . DNR/DNI, discussed with patient. Admission Exam Per Admitting Provider Physical Exam: General: A&Ox3. NAD. Cooperative. HEENT: Atraumatic, normocephalic. Visual acuity and hearing grossly intact. Pupils equal and reactive to light and accommodation. Oropharynx and lips normal, no signs of angioedema at admitting assessment. Pulm: CTAB A&P. -wheezes, -rales, -rhonchi. Symmetrical chest rise. No increase work of breathing. No respiratory distress. Cardiac: RRR, -mrg. Radial pulses intact and symmetrical. Abdominal: Mild tenderness to infraumbilical palpation, abdomen otherwise soft without guarding/rebound. Bowel sounds intact. Rectal:internal and external hemorrhoids presents. No signs of thrombosis. Extremities: Warm, dry, moving all extremities. Application Support Technician strength in ankle wood siflexion/plantar flexion grossly intact. Radial and PT pulses intact. Principal Diagnosis Infectious Colitis Discharge Exam Constitutional WD/WN, vitals as above Eyes PERRL, conjunctivae normal, anicteric sclerae Respiratory normal respiratory effort, lungs clear to auscultation Cardiovascular RRR, no murmur, no edema Gastrointestinal (Abdomen) normal bowel sounds, soft, nontender, no hepatosplenomegaly Skin no rashes, warm and dry Psychiatric A+Ox3, euthymic affect Discharge Data Allergies Allergy/AdvReac Type Severity Reaction Status Date / Time Penicillins Allergy Severe UNKN Verified 04/14/21 09:53 doxycycline Allergy Intermediate HIVE Verified 04/14/21 09:53 mold Allergy Intermediate CONGESTION Verified 04/14/21 09:53 Sulfa (Sulfonamide Allergy Mild Hives Verified 04/14/21 09:53 Antibiotics) Tetracyclines Allergy Unknown Unknown Verified 04/14/21 09:53 ciprofloxacin [From Cipro] Allergy Hives Verified 04/15/21 18:50 clarithromycin [From Biaxin] Allergy Unknown Verified 04/15/21 12:31 Consultations 04/14/21 08:20 ED Decision to Admit Stat 04/16/21 07:00 Consult Gastroenterology Routine Ordered Studies 04/14/21 05:09 CT abd pelvis IV con only Urgent Hospital Course (1) Bright red blood per rectum: Alice is a 70-year-old female who presents with 1 day of bright red blood per rectum and 1 day of nausea/vomiting and loose bowels. She has a history of hemorrhoids with bleeding and recurrent interventions, and thrombosed hemorrhoid extraction in the distant past. 1) Follow with PCP to titrate HTN medication, started on Losartan 25mg daily 2) Follow with GI in 2 wks, possible colonoscopy 3) Patient to continue Flagyl TID and Ceferoxime BID for 4 days, including day of discharge. Infectious Colitis CT-A/P:Moderate wall thickening of the splenic flexure of the colon and the proximal to mid descending colon with mild pericolonic infiltration. This represents a nonspecific colitis which may be infectious, ischemic or inflammatory in etiology. No free air or abscess. Patient described bloody diarrhea, bright red, x2 episodes starting night b/f admit. Pt with hx of hemorrhoids as above, suspect hemorrhoidal bleeding rather than true bloody diarrhea. Stool pathogen panel negative. WBC trace elevation, nausea vomitting present later improved with zofran/pain control. Started patient on cipro and flagyl, patient developed hives after 80% cipro infusion, cipro discontinued, hives resolved. Started Ceftriaxone, patient tolerated abx well. - GI consulted: recommend 5 day course flagyl and additional abx to cover gram +/- suspect infectious process unlikely ischemic, recommend diet as tolerated, will likely need outpatient colonoscopy in 4-6 weeks to further evaluate anusol cream BID for 2 weeks for the hemorrhoids miralax 1-2 times daily prn constipation follow up in 1-2 weeks with [facility] Patient had bowel movement on day 4 following treatment with miralax, OMT, stool described as normal with some darker blood that patient attributes to her hemorroids. Patient discharged on Flagyl 500mg TID with first outpatient dose starting tonight, and Ceferoxime 500mg BID with first outpatient dose starting tonight, 4 day course including today. Patient to follow with PCP and GI in outpatient. Rectal Bleeding/Bright red bloody diarrhea without melena Internal and external hemorrhoids appreciated on exam. Pt with long history of hemorrhoids with intervention, these are currently painful to her. Hgb 13.5, recheck stable. No ongoing bleeding, though patient describes further bloody bowel movements. Ordered Hydrocortisone topical PRN. Otained stool sample, PCR negative. Consulted GI, not concerned for ischemic colitis, more likely due to hemorrhoids. Hypertension No OCEAN FORWARDER medications. Patient pain and anxiety contributory to elevated bp. Started HCTZ and losartan, patient described dizziness changing position from seate to standing, dc'd HTCZ, patient to continue losartan and follw with PCP to titrate BP medication. Depression: Continue sertraline home dosing Dyslipidemia: Continue atorvastatin Alcohol Use No hx of withdrawal sx, no hx of seizures. 4-5 drinks per day, last 04/12. No cytopenia, no transaminitis, INR normal. Pt interested in alcohol community re sources. AWSS at risk protocol --> max score 1 no ativan given. Daily thiamine, Folic Acid (2) Alcohol use: (3) Colitis: (4) Depression: (5) Dyslipidemia: (6) HTN (hypertension): Total Time Total Time Spent Total Time Spent (In Minutes): see attending attestation Discharge Plan Discharge Items Patient Disposition: Home - Self-Care Reason For Visit: RECTAL BLEED Discharge Diagnosis: Infectious Colitis Activity: Resume your previous activity Non-emergency contact: Primary Care Provider Call non-emergency contact if: you have any medication questions, your symptoms worsen, your pain is worsening and you have a fever Follow-up/Referrals: Kuldeep Meehan [Physician] - (Can schedule with any machine plate stacker in this group within 2 weeks) Aashish Jacob MD [Primary Care Provider] - (Please schedule f/u within 1 week) Diet: Regular Addtl Attending Provider Instructions: You were admitted to the hospital for infectious colitis with bloody bowel movements. You were treated with antibiotics, osteopathic manipulation, and laxatives. Your history of hemorrhoids are partially contributory to you bloody bowel movements. You were seen by the machine plate stacker, please follow up with them in outpatient for further management of your colitis and possible colonoscopy. For home management of your hemorrhoids, try a diet high in fiber, stay hydrated, and stay active within your limites. You may use miralax daily to encourage soft bowel movements. While in the hospital we stopped your Lisinopril due to allergic reaction and started you on a blood pressure medication called Losartan. Please take Losartan daily and follow up with your PCP to properly titrate the medication to treat your hypertension. A discharge summary will be sent to your primary care physician to ensure continuity of care. Please bring this discharge summary with you to your next office appointment so that your provider can review it at that time. Follow-up appointments: We have requested a follow-up appointment with your primary care physician within one week of discharge. Please call their office if you do not hear from them. We have requested a follow-up appointment with machine plate stacker within two weeks of discharge. Please call their office if you do not hear from them. Keep all your follow-up appointments as already scheduled. If you cannot make an appointment, notify your provider. Medications: Your medication list has been reviewed and reconciled upon discharge to ensure accuracy and continuity of care. An updated list of all your medications is included with your hospital discharge paperwork. Please review this list closely, and make note of any changes. * We sent a new medication called Losartan to your pharmacy. Take Losartan 25mg one tablet daily * We sent a new medication called Metronidazole to your pharmacy. Take Metronidazole 500mg one tablet 3 times a day for 4 days, starting with 1 tablet after you return home today at 6pm * We sent a new medication called Cefuroxime to your pharmacy. Take Cefuroxime 500mg twice a day for 4 days, starting with 1 tablet after you return home today at 6pm Please take your medication with food. Take your medications as instructed; do not skip a dose of your medicines. Make sure all of your doctors know every medicine you are taking (including jwkd-ven-pvwfvmg medicines, vitamins, and supplements). Call your primary care provider before taking any new medicines (including quvi-ynh-wuuvofi medicines, vitamins, and supplements), because some of these may interact with your current medications, or may make your symptoms worse. Tell your primary care provider if you cannot afford your medications. CONTACT YOUR PRIMARY CARE PROVIDER if you experience any of the following: fever, shortness of breath, worsening abdominal pain abdominal distention Difficulty following your treatment plan, or difficulty taking medications CALL 911 OR GO TO THE EMERGENCY DEPARTMENT if you experience any of the following: Sudden, severe abdominal pain or nausea/vomiting Severe chest pain, or chest pain that radiates (moves) to your jaw or arm Sudden, severe shortness of breath or difficulty breathing Thank you for allowing us to participate in your care. Pending Studies at Discharge: No Stand-Alone Forms: My [facility], Smoking Cessation Medications and DC Order Prescriptions: New losartan 25 mg tablet 25 mg PO DAILY Qty: 30 RF: 0 metronidazole 500 mg tablet 500 mg PO TID Qty: 10 RF: 0 cefuroxime axetil 500 mg tablet 500 mg PO BID Qty: 7 RF: 0 Continued estradiol 0.01 % (0.1 mg/gram) cream 1 g vaginal 2XWK Qty: 42.5 RF: 3 sertraline 100 mg Tablet 200 mg PO DAILY RF: 0 pantoprazole 40 mg Tablet,Delayed Release (Dr/Ec) 40 mg PO DAILY RF: 0 cetirizine 10 mg Tablet 5 mg PO DAILY RF: 0 cholecalciferol (vitamin D3) [Vitamin D3] 2,000 unit Capsule 2,000 unit PO DAILY RF: 0 buspirone 5 mg Tablet 5 mg PO BID RF: 0 atorvastatin 10 mg Tablet 10 mg PO DAILY RF: 0 Discharge Orders: Discharge Order (Routine); Ordered 04/17/21 Ordered By: Peyton Martin/Other Patient Handouts: Alcohol and Older Adults, Treating Hemorrhoids: Self-Care Admission Data Admit Date/Time: 04/16/21 13:46 Attending Provider: Andrew Jeffrey Admit Provider: Bobby Reeves Primary Care Provider: Aashish Jacob Other Providers: Bobby Reeves ; Abner Topete Other Interventions: Discharge Summary Assessment (RN) Last Done: 04/17/21 15:03 Supervising Physician Co-Signing Physician Notes Patient seen and examined, chart reviewed, case discussed with Dr. Abreu and I agree with the assessment and plan as above except as otherwise noted Rectal Bleeding/Bright red bloody diarrhea without melena - Internal and external hemorrhoids appreciated on exam. Pt with long history of hemorrhoids with intervention, these are currently painful to her - Hgb 13.5, recheck stable -No tachycardia/hypotension Diverticulitis below Colitis,? Infectious CT-A/P:Moderate wall thickening of the splenic flexure of the colon and the proximal to mid descending colon with mild pericolonic infiltration. This represents a nonspecific colitis which may be infectious, ischemic or inflammatory in etiology. No free air or abscess. 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 Patient tolerated Flagyl, with hives following administration of ciprofloxacin with no mucosal or respiratory involvement. Resolved spontaneously on reassessment. Allergy updated. Penicillin allergy, doxycycline allergy, sulfa allergy with multiple hives. GI consulted Patient tolerated cephalosporin with flagyl. Patient also had BM. Patient has improved and will complete 5-6 day course of antibiotics at home. Patient is agreeable to plan Hypertension Increased, patient with gradual increase and lisinopril stopped due to angioedema Started on losartan. remains hypertensive, adjunct hydrochlorothiazide added with recheck pending this afternoon Hydralazine for SBP greater than 180 if needed Depression: Continue sertraline History of alcohol use: No tremors, mentating normally, continues on it USS with thiamine/folic acid. No cytopenia/transaminitis/coagulopathy Resident Activity Tracking Resident Involvement: Resident Care Provided Care Provided: Adult [facility]
--- NOTE | 2021-04-17 22:54 | Billing Data ---
Date of Service April 17, 2021 Coding Level of Care Code D/C DAY MANAGEMENT >30 MINS Time Spent (min) 35
== END 2021-04-17 15:56 | disposition home or self-care (01) | DRG 392 ==
LOC: EDINP 03:18 → ED 03:18 → SUATTDRO 09:33 → 3N 20:28

== ENCOUNTER 2024-10-20 21:34 | Inpatient (IN) ==
[2024-10-20 22:03] LABS: Hematocrit (blood only) 37.3 % (37.0-47.0); Hemoglobin 12.0 g/dl (12.0-16.0); Immature Granulocytes # (auto) 0.02 K/uL (0.01-0.20); Immature Granulocytes % (auto) 0.3 %; Mean Corpuscular Hemoglobin 29.4 pg (25.0-34.0); Mean Corpuscular Volume 91.4 fL (80.0-100.0); Platelet Count 164 K/uL (130-400); RDW Standard Deviation 44.3 fL (36.4-46.3); Red Blood Count 4.08 M/uL (4.20-5.40); White Blood Count 6.86 K/ul (4.8-10.8)
[2024-10-20 22:21] LABS: Alanine Aminotransferase 6.0 U/L (7-52); Alkaline Phosphatase 39.0 U/L (34-104); Anion Gap 8.0 (3-11); Bilirubin,Total 0.8 mg/dl (0.2-1.0); Blood Urea Nitrogen 17.0 mg/dl (6-23); Calcium 8.4 mg/dl (8.6-10.3); Carbon Dioxide 21.0 mmol/L (21-32); Chloride 106.0 mmol/L (98-107); Creatinine Clr Calc Pharmacy 73.1 ml/min; Glucose 126.0 mg/dl (70-99(Fasting)); Magnesium 2.3 mg/dl (1.7-2.4); Potassium 3.6 mmol/L (3.5-5.1); Sodium 135.0 mmol/L (136-145); Total Protein 6.6 gm/dl (6.0-8.3)
[2024-10-20] MEDS: OPTIRAY 320 125ml IV ONE (22:32)
[2024-10-20 22:33] LABS: iSTAT Art Bld Gas Base Excess -5.0 meg/L (-9-1.8)
[2024-10-20 22:42] LABS: INR 1.1 (0.9-1.1); Partial Thromboplastin Time 29 Seconds (21-31); Prothrombin Time 11.4 Seconds (9.0-12.0)
--- NOTE | 2024-10-20 22:56 | CT Scan Report ---
Exam(s): CT HEAD Without Contrast EXAM: CT Head Without Intravenous Contrast CLINICAL HISTORY: Reason for exam: ams. TECHNIQUE: Axial computed tomography images of the head/brain without intravenous contrast. CTDI is 25.24 mGy and DLP is 751.85 mGy-cm. Automated exposure control was utilized for the study. A dose lowering technique was utilized adhering to the principles of ALARA. COMPARISON: 09/10/2024 FINDINGS: Brain: See below. Ventricles: Unremarkable. No ventriculomegaly. Bones/joints: Postop changes left frontal craniotomy with encephalomalacia involving the left frontal lobe. Allowing for subtle differences in technique there has been interval increase in vasogenic edema within the left frontal lobe . This results in subtle left-to- right midline shift of 5 mm which is new when compared to prior exam. No acute fracture. Soft tissues: Unremarkable. Sinuses: Unremarkable as visualized. No acute sinusitis. Mastoid air cells: Unremarkable as visualized. No mastoid effusion. IMPRESSION: No acute findings in the head/brain. Postoperative changes left frontal lobe. Left frontal craniotomy with worsening vasogenic edema within the left frontal lobe and subtle new ytas-ef-hvaqo midline shift measuring 5 mm. Findings concerning for an underlying mass. Postcontrast MRI of the head recommended for further evaluation. Communications: Call Doctor Other Electronically signed by: Mark Chapa MD 10/20/24 22:55 PM
--- NOTE | 2024-10-20 22:59 | CT Scan Report ---
Exam(s): CTA CHEST IV Amt: 115cc optiray 320 EXAM: CT Angiography Chest With Intravenous Contrast CLINICAL HISTORY: Reason for exam: ro pe. TECHNIQUE: Axial computed tomographic angiography images of the chest with intravenous contrast. CTDI is 25.24 mGy and DLP is 751 mGy-cm. Automated exposure control was utilized for the study. A dose lowering technique was utilized adhering to the principles of ALARA. MIP reconstructed images were created and reviewed. COMPARISON: No relevant prior studies available. FINDINGS: Limitations: Exam is slightly limited secondary to patient respiratory motion. Pulmonary arteries: Unremarkable. No pulmonary embolism. Aorta: No acute findings. No thoracic aortic aneurysm. Lungs: Diffuse changes COPD. 0.5 cm pulmonary nodule right lower lobe axial image 39 series 5. Linear atelectasis in the lingula. Mild bibasilar dependent atelectasis. Pleural space: Unremarkable. No significant effusion. No pneumothorax. Heart: Unremarkable. No cardiomegaly. No significant pericardial effusion. No evidence of RV dysfunction. Bones/joints: No acute fracture. No dislocation. Soft tissues: Unremarkable. Lymph nodes: Unremarkable. No enlarged lymph nodes. IMPRESSION: No acute findings in the visualized arteries of the chest. 0.5 cm pulmonary nodule right lower lobe Fleischner Society Guidelines suggest no follow-up is necessary for patients with a low or high risk of malignancy. Electronically signed by: Mark Chapa MD 10/20/24 22:58 PM
[2024-10-20 23:11] LABS: Chlamydia pneumoniae PCR Not Detected (NotDetected); Coronavirus 229E PCR Not Detected (NotDetected); Coronavirus CoV-2 (COVID19)PCR Not Detected (NotDetected); Coronavirus HKU1 PCR Not Detected (NotDetected); Coronavirus NL63 PCR Not Detected (NotDetected); Coronavirus OC43PCR Not Detected (NotDetected); Human Metapneumovirus PCR Not Detected (NotDetected); Parainfluenza Virus 1 PCR Not Detected (NotDetected); Parainfluenza Virus 2 PCR Not Detected (NotDetected); Parainfluenza Virus 3 PCR Not Detected (NotDetected); Parainfluenza Virus 4 PCR Not Detected (NotDetected); Respiratory Syncytial VirusPCR Not Detected (NotDetected); Rhinovirus/Enterovirus PCR Not Detected (NotDetected)
--- NOTE | 2024-10-20 23:50 | History & Physical Report ---
Date of Service October 20, 2024 Assessment & Plan (1) Hypoxia: (2) Glioblastoma of frontal lobe: (3) JAIME (obstructive sleep apnea): Plan 74 year old female with glioblastoma presents to the ER with shortness of breath and hypoxia #Hypoxia No respiratory distress No cause found on CT pulmonary angiogram History of obstructive sleep apnea not on CPAP TTE Suspect most likely diagnosis is poor inspiratory effort and atelectasis due to generalized fatigue from chemotherapy #Glioblastoma Consult oncology and palliative care Continue dexamethasone and temozolomide #Hypertension Continue valsartan and amlodipine #Anxiety Continue sertraline and buspirone VTE Prophylaxis - Lovenox 40mg SQ daily Disposition - observation on med/tele Admission and Anticipated Discharge Date Admission Date: October 20, 2024 History of Present Illness Chief Complaint: Hypoxia Primary Care Provider: Shahbaz Andrew MD Alice Duran is a 74 year old female with glioblastoma on chemotherapy who presents to the ER due to hypoxia and labored breathing. She denies any fever, chills, cough. She notes chronic nasal congestion but no worse than usual. The patient does not feel short of breath but her reports her breathing was much more labored at home and she was noted to be hypoxia on EMS pulse oximeter therefore decided to bring her to the ER. She is on room air at baseline. She has recently been on chemotherapy and has been very fatigued following this and her was unable to get her up today. She had been eating and drinking well up until today when she has been drinking much less. Allergies Allergy/AdvReac Type Severity Reaction Status Date / Time lisinopril Allergy Severe swelling Verified 10/20/24 22:56 Penicillins Allergy Severe UNKN Verified 10/20/24 22:56 ciprofloxacin [From Cipro] Allergy Intermediate Hives Verified 10/20/24 22:56 doxycycline Allergy Intermediate HIVE Verified 10/20/24 22:56 mold Allergy Intermediate CONGESTION Verified 10/20/24 22:56 Sulfa (Sulfonamide Allergy Intermediate Hives Verified 10/20/24 22:56 Antibiotics) clarithromycin [From Biaxin] Allergy Unknown CAN'T Verified 10/20/24 22:56 REMEMBER Tetracyclines Allergy Unknown CAN'T Verified 10/20/24 22:56 REMEMBER Home Medications Medication Instructions Recorded Confirmed Type buspirone 5 mg tablet 5 mg PO BID 09/03/18 10/20/24 History cetirizine 10 mg tablet 5 mg PO DAILY PRN Allergy Symptoms 09/03/18 10/20/24 History cholecalciferol (vitamin D3) 50 2,000 unit PO QAM 09/03/18 10/20/24 History mcg (2,000 unit) capsule (Vitamin D3) sertraline 100 mg tablet 200 mg PO HS 09/03/18 10/20/24 History amlodipine 5 mg tablet 5 mg PO QAM 08/30/21 10/20/24 History atorvastatin 20 mg tablet 20 mg PO QAM 10/07/21 10/20/24 History denosumab 60 mg/mL subcutaneous 60 mg subcut .[id number] 05/31/24 10/20/24 History syringe (Prolia) fluticasone propionate 50 2 spray intranasal DAILY 05/31/24 10/20/24 History mcg/actuation nasal spray,suspension valsartan 80 mg tablet 80 mg PO DAILY 05/31/24 10/20/24 History hydroxyzine pamoate 25 mg capsule 25 mg PO QID PRN Anxiety 06/23/24 10/20/24 History ondansetron HCl 8 mg tablet 8 mg PO Q8H PRN n/v 07/07/24 10/20/24 History temozolomide 140 mg capsule 140 mg PO DAILY 07/08/24 10/20/24 History dexamethasone 2 mg tablet 2 mg PO DAILY 08/11/24 10/20/24 History cyclobenzaprine 5 mg tablet 5 mg PO Q12H PRN eye muscle spasm 10/09/24 10/20/24 Rx 1 month #60 tabs betamethasone dipropionate 0.05 % 1 applic topical BID PRN dermatitis 10/20/24 10/20/24 History topical ointment Past Med/Surg History Problem List (Updated 10/21/24 @ 01:40 by Simon Norris MD) Hypoxia (Acute) Fine motor impairment Hand weakness Severe muscle deconditioning Weakness generalized Gait instability Advanced care planning/counseling discussion Generalized headaches Palliative care by specialist Drug reaction 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) COVID-19 (Acute) Hemorrhoids Alcohol use Bright red blood per rectum Acute GI bleeding (Acute) Colitis (Acute) Postmenopausal atrophic vaginitis Pneumatosis of intestines (Acute) General ill feeling (Acute) Chest pain (Acute) Seasonal allergies (Chronic) JAIME (obstructive sleep apnea) no device Colitis (Acute) resolved Depression (Chronic) Anxiety (Chronic) Dyslipidemia (Chronic) HTN (hypertension) (Chronic) Medical History Seasonal allergies GERD (gastroesophageal reflux disease) COVID-19 11/17/22 > fever, sinus pressure, sore throat, headache > all resolved except for some fatigue Surgical History Status post craniotomy History of tooth extraction History of myringotomy History of endoscopic sinus surgery History of dilatation and curettage History of colonoscopy Family History Brother HIV positive Cancer Multiple sites Brother C. difficile colitis Brother Cancer Lung Social History Smoking Status: Former smoker Tobacco Type: Cigarettes Age Started Using Tobacco: 19; packs per day: 0.5; Second Hand Exposure: No; Do You Dip or Chew Tobacco: No; Hx Alcohol Use: Yes Alcohol type: beer and hard liquor Alcohol Intake Frequency: 4 or More x per/Week Alcohol Intake Frequency Comment: less frequently since craniotomy Hx Substance Use: No Preferred Language: Togolese Communication Ability: Effective Visual Impairment: Partially Limited Hearing Ability: Hard of Hearing Tumor Registrar Required: No Beliefs That Will Affect Care: None marital status: Current Living Situation: Spouse current occupational status: retired Feels Safe at Home: Yes Diet: regular Assistive Devices: Glasses and Hearing Aid - Bilateral Review of Systems Review of Systems: All systems reviewed & are unremarkable except as noted in HPI & below Physical Exam Constitutional: well developed; + not well nourished and no acute distress ENMT: external ear and nose normal, oropharynx normal Respiratory: normal respiratory effort; no respiratory distress Auscultation: lungs clear to auscultation bilaterally; no diminished lung sounds, no crackles, no rhonchi and no wheezes Cardiovascular: RRR, no murmur, no edema Gastrointestinal (Abdomen): normal bowel sounds, soft, nontender, no hepatosplenomegaly Musculoskeletal: no cyanosis or clubbing, extremities motor strength 5/5 Skin: no rashes, warm and dry Neurologic: moves all extremities and awake; not confused Psychiatric: A+Ox3, euthymic affect Results & Data Results & Data Vital Signs (Past 12 Hours) Vital Signs Temp Pulse Pulse Resp BP BP Pulse Ox 10/20/24 23:45 70 20 96 10/20/24 23:38 70 20 88 L 10/20/24 23:08 93 10/20/24 23:00 77 20 135/100 93 10/20/24 22:08 81 20 115/71 93 10/20/24 21:53 81 10/20/24 21:53 90 10/20/24 21:44 82 10/20/24 21:36 37.6 C H 82 20 123/71 94 O2 Del Method O2 Flow Rate 10/20/24 23:45 Non-rebreather 3 10/20/24 23:38 Non-rebreather 1 10/20/24 23:08 Nasal Cannula 1 10/20/24 23:00 Nasal Cannula 1 10/20/24 22:08 Oxymask 5 10/20/24 21:53 Oxymask 10/20/24 21:53 Oxymask 5 10/20/24 21:44 10/20/24 21:36 Oxymask 4 Laboratory Results Abnormal lab results 10/20/24 10/20/24 10/20/24 Range/Units 19:45 22:10 22:19 RBC 4.08 L (4.20-5.40) M/uL POC Hct 36 L (37-47) % Lymph # (Auto) 0.29 L (1.20-3.40) K/uL POC pCO2 31 L (35-46) mmHg POC pO2 59 L (80-95) mmHg Sodium 135 L (136-145) mmol/L POC Total CO2 19 L 21 L (24-31) mmol/L BUN/Creatinine Ratio 25.0 H (10-20) Glucose 126 H (70-99(Fasting)) mg/dl POC Glucose (other) 126 H (70-99) mg/dl Calcium 8.4 L (8.6-10.3) mg/dl AST 11 L (13-39) U/L ALT 6 L (7-52) U/L Diagnostic Findings CT Head Without Intravenous Contrast CLINICAL HISTORY: Reason for exam: ams. TECHNIQUE: Axial computed tomography images of the head/brain without intravenous contrast. CTDI is 25.24 mGy and DLP is 751.85 mGy-cm. Automated exposure control was utilized for the study. A dose lowering technique was utilized adhering to the principles of ALARA. COMPARISON: 09/10/2024 FINDINGS: Brain: See below. Ventricles: Unremarkable. No ventriculomegaly. Bones/joints: Postop changes left frontal craniotomy with encephalomalacia involving the left frontal lobe. Allowing for subtle differences in technique there has been interval increase in vasogenic edema within the left frontal lobe . This results in subtle left-to right midline shift of 5 mm which is new when compared to prior exam. No acute fracture. Soft tissues: Unremarkable. Sinuses: Unremarkable as visualized. No acute sinusitis. Mastoid air cells: Unremarkable as visualized. No mastoid effusion. IMPRESSION: No acute findings in the head/brain. Postoperative changes left frontal lobe. Left frontal craniotomy with worsening vasogenic edema within the left frontal lobe and subtle new [id number] midline shift measuring 5 mm. Findings concerning for an underlying mass. Postcontrast MRI of the head recommended for further evaluation. XR Chest, 1 View CLINICAL HISTORY: Reason for exam: Sepsis. TECHNIQUE: Frontal view of the chest. COMPARISON: No relevant prior studies available. FINDINGS: Lungs: Unremarkable. No consolidation. Pleural space: Unremarkable. No pneumothorax. Heart: Unremarkable. No cardiomegaly. Mediastinum: Unremarkable. Normal mediastinal contour. Bones/joints: Unremarkable. No acute fracture. IMPRESSION: Normal chest x-ray. CT Angiography Chest With Intravenous Contrast CLINICAL HISTORY: Reason for exam: ro pe. TECHNIQUE: Axial computed tomographic angiography images of the chest with intravenous contrast. CTDI is 25.24 mGy and DLP is 751 mGy-cm. Automated exposure control was utilized for the study. A dose lowering technique was utilized adhering to the principles of ALARA. MIP reconstructed images were created and reviewed. COMPARISON: No relevant prior studies available. FINDINGS: Limitations: Exam is slightly limited secondary to patient respiratory motion . Pulmonary arteries: Unremarkable. No pulmonary embolism. Aorta: No acute findings. No thoracic aortic aneurysm. Lungs: Diffuse changes COPD. 0.5 cm pulmonary nodule right lower lobe axial image 39 series 5. Linear atelectasis in the lingula. Mild bibasilar dependent atelectasis. Pleural space: Unremarkable. No significant effusion. No pneumothorax. Heart: Unremarkable. No cardiomegaly. No significant pericardial effusion. No evidence of RV dysfunction. Bones/joints: No acute fracture. No dislocation. Soft tissues: Unremarkable. Lymph nodes: Unremarkable. No enlarged lymph nodes. IMPRESSION: No acute findings in the visualized arteries of the chest. 0.5 cm pulmonary nodule right lower lobe Fleischner Society Guidelines suggest no follow-up is necessary for patients with a low or high risk of malignancy. Medications Administered ER Medications Given: None ECG Rate (beats per minute): 84 Rhythm: normal sinus Findings: no acute ischemic change Comparison ECG Date: from (September 10, 2024) Change: no significant change Code Status & VTE Plan Code Status DNR/DNI VTE Prophylaxis Plan VTE Prophylaxis will be ordered: Yes PG Care Time/CCT Total # of Minutes Spent Total Time Spent with Patient: Total time spent is greater than 50% in coordination of care (as documented) at patient's floor/unit and/or counseling patient: Coding Level of Care Code 42224 INT INP/OBS CARE 3/75MIN Diagnoses Hypoxia R09.02 Glioblastoma of frontal lobe C71.1 JAIME (obstructive sleep apnea) G47.33
--- NOTE | 2024-10-21 00:20 | Emergency Department Note ---
History of Present Illness General Chief complaint: Shortness of Breath/Dyspnea Stated complaint: SOB Time Seen by Provider: 10/20/24 21:45 History of Present Illness Provider complaint: Shortness of breath 74-year-old female DNR/DNI with history of brain cancer who has undergone radiation therapy, craniotomy, and is currently undergoing chemotherapy presents emergency department for shortness of breath. Patient does not use oxygen normally. Reportedly the patient was increasingly lethargic and tired today and having labored breathing per nursing staff we discussed with EMS. called 911 and the patient was found to have low oxygen saturation in the low 80s on room air. Supplemental oxygen was applied which improved the patient's oxygen saturation. Home Medications Medication Instructions Recorded Confirmed Type buspirone 5 mg tablet 5 mg PO BID 09/03/18 10/20/24 History cetirizine 10 mg tablet 5 mg PO DAILY PRN Allergy Symptoms 09/03/18 10/20/24 History cholecalciferol (vitamin D3) 50 2,000 unit PO QAM 09/03/18 10/20/24 History mcg (2,000 unit) capsule (Vitamin D3) sertraline 100 mg tablet 200 mg PO HS 09/03/18 10/20/24 History amlodipine 5 mg tablet 5 mg PO QAM 08/30/21 10/20/24 History atorvastatin 20 mg tablet 20 mg PO QAM 10/07/21 10/20/24 History denosumab 60 mg/mL subcutaneous 60 mg subcut .[id number] 05/31/24 10/20/24 History syringe (Prolia) fluticasone propionate 50 2 spray intranasal DAILY 05/31/24 10/20/24 History mcg/actuation nasal spray,suspension valsartan 80 mg tablet 80 mg PO DAILY 05/31/24 10/20/24 History hydroxyzine pamoate 25 mg capsule 25 mg PO QID PRN Anxiety 06/23/24 10/20/24 History ondansetron HCl 8 mg tablet 8 mg PO Q8H PRN n/v 07/07/24 10/20/24 History temozolomide 140 mg capsule 140 mg PO DAILY 07/08/24 10/20/24 History dexamethasone 2 mg tablet 2 mg PO DAILY 08/11/24 10/20/24 History cyclobenzaprine 5 mg tablet 5 mg PO Q12H PRN eye muscle spasm 10/09/24 10/20/24 Rx 1 month #60 tabs betamethasone dipropionate 0.05 % 1 applic topical BID PRN dermatitis 10/20/24 10/20/24 History topical ointment Allergies Allergy/AdvReac Type Severity Reaction Status Date / Time lisinopril Allergy Severe swelling Verified 10/20/24 22:56 Penicillins Allergy Severe UNKN Verified 10/20/24 22:56 ciprofloxacin [From Cipro] Allergy Intermediate Hives Verified 10/20/24 22:56 doxycycline Allergy Intermediate HIVE Verified 10/20/24 22:56 mold Allergy Intermediate CONGESTION Verified 10/20/24 22:56 Sulfa (Sulfonamide Allergy Intermediate Hives Verified 10/20/24 22:56 Antibiotics) clarithromycin [From Biaxin] Allergy Unknown CAN'T Verified 10/20/24 22:56 REMEMBER Tetracyclines Allergy Unknown CAN'T Verified 10/20/24 22:56 REMEMBER Past Med/Surg History Problem List (Updated 10/21/24 @ 00:20 by Mani Owens MD) Hypoxia (Acute) Fine motor impairment Hand weakness Severe muscle deconditioning Weakness generalized Gait instability Advanced care planning/counseling discussion Generalized headaches Palliative care by specialist Drug reaction 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) COVID-19 (Acute) Hemorrhoids Alcohol use Bright red blood per rectum Acute GI bleeding (Acute) Colitis (Acute) Postmenopausal atrophic vaginitis Hypomagnesemia Acute hypokalemia (Acute) Pneumatosis of intestines (Acute) General ill feeling (Acute) Chest pain (Acute) Seasonal allergies (Chronic) JAIME (obstructive sleep apnea) no device Colitis (Acute) resolved Depression (Chronic) Anxiety (Chronic) Dyslipidemia (Chronic) HTN (hypertension) (Chronic) Medical History Seasonal allergies GERD (gastroesophageal reflux disease) COVID-19 11/17/22 > fever, sinus pressure, sore throat, headache > all resolved except for some fatigue Surgical History Status post craniotomy History of tooth extraction History of myringotomy History of endoscopic sinus surgery History of dilatation and curettage History of colonoscopy Family History Brother HIV positive Cancer Multiple sites Brother C. difficile colitis Brother Cancer Lung Social History Smoking Status: Former smoker Tobacco Type: Cigarettes Age Started Using Tobacco: 19; packs per day: 0.5; Second Hand Exposure: No; Do You Dip or Chew Tobacco: No; Hx Alcohol Use: Yes Alcohol type: beer and hard liquor Alcohol Intake Frequency: 4 or More x per/Week Alcohol Intake Frequency Comment: less frequently since craniotomy Hx Substance Use: No Preferred Language: Lao Communication Ability: Effective Visual Impairment: Partially Limited Hearing Ability: Hard of Hearing Management Trainee Required: No Beliefs That Will Affect Care: None marital status: Current Living Situation: Spouse current occupational status: retired Feels Safe at Home: Yes Diet: regular Assistive Devices: Glasses and Hearing Aid - Bilateral Physical Exam Vital Signs Vital Signs - 24 hr 10/20/24 21:36 10/20/24 21:44 10/20/24 21:53 Temperature 37.6 C H Temperature Source Oral Pulse Rate 82 82 Pulse Rate [Apical] Respiratory Rate 20 Respiratory Effort / Characteristics Respiratory Depth Respiratory Pattern Blood Pressure 123/71 Blood Pressure [Right Arm] Blood Pressure Mean 88 Blood Pressure Mean [Right Arm] Blood Pressure Position Semi-fowlers Blood Pressure Position [Right Arm] Pulse Oximetry 94 90 Oxygen Delivery Method Oxymask Oxymask Oxygen Flow Rate 4 5 Sepsis Recent Fever Within 48 Hours No Sepsis New/Unexplained Change in Mental Status No Sepsis Action Taken by Nursing No Action Required 10/20/24 21:53 10/20/24 22:08 10/20/24 23:00 Temperature Temperature Source Pulse Rate Pulse Rate [Apical] 81 81 77 Respiratory Rate 20 20 Respiratory Effort / Characteristics Labored Labored Non-Labored Respiratory Depth Normal Respiratory Pattern Regular Blood Pressure Blood Pressure [Right Arm] 115/71 135/100 Blood Pressure Mean Blood Pressure Mean [Right Arm] 85 111 Blood Pressure Position Blood Pressure Position [Right Arm] Semi-fowlers Pulse Oximetry 93 93 Oxygen Delivery Method Oxymask Oxymask Nasal Cannula Oxygen Flow Rate 5 1 Sepsis Recent Fever Within 48 Hours Sepsis New/Unexplained Change in Mental Status Sepsis Action Taken by Nursing 10/20/24 23:08 10/20/24 23:38 10/20/24 23:45 Temperature Temperature Source Pulse Rate 70 70 Pulse Rate [Apical] Respiratory Rate 20 20 Respiratory Effort / Characteristics Respiratory Depth Respiratory Pattern Blood Pressure Blood Pressure [Right Arm] Blood Pressure Mean Blood Pressure Mean [Right Arm] Blood Pressure Position Blood Pressure Position [Right Arm] Pulse Oximetry 93 88 L 96 Oxygen Delivery Method Nasal Cannula Non-rebreather Non-rebreather Oxygen Flow Rate 1 1 3 Sepsis Recent Fever Within 48 Hours Sepsis New/Unexplained Change in Mental Status Sepsis Action Taken by Nursing Physical Exam GENERAL: Ill-appearing. CV: Normal rate, regular rhythm, normal heart sounds and intact distal pulses. There is no peripheral edema. Palpable radial pulses bue. PULM/CHEST: Rhonchi bilaterally. ABD: The abdomen is soft. There is no tenderness. Course Course 2144: The patient was evaluated in room A10. A complete history and physical exam was performed Cardiac monitoring: An order was placed for continuous cardiac monitoring. The monitor shows a rate of 80 with sinus rhythm interpreted by me Supplemental oxygen applied which improved the patient's oxygen saturation. 2308: Vital signs stable on supplemental oxygen. Labs are unremarkable. Imaging shows no PE or pneumonia. CT head does make mention that there are no acute findings however there is worsening vasogenic edema with a frontal lobe concerning for an underlying mass. [facility] given her hypoxia. Administered Medications Discontinued Medications Ioversol (Optiray 320 125ml) 115 ml IV ONCE ONE Stop: 10/20/24 22:32 Last Admin: 10/20/24 22:32 Dose: 115 ml Documented By: PAOLO Critical Care Time Critical Care Time: Yes Total Critical Care Time: 47 I have personally spent greater than 47 minutes of critical care time in the direct management of this patient. This includes bedside care, interpretation of diagnostic studies, and testing, discussion with consultants, patient, and family members, and other required patient management activities. This 47 minutes is in excess of all separately billable procedures. Medical Decision Making Medical Records Attestation: I reviewed the patient's medical records. External medical records reviewed. Patient is DNR/DNI dating back to 2020. Patient has had several meetings with palliative care after her diagnosis with glioblastoma. Laboratory Data Attestation: I reviewed the patient's lab results. 10/20/24 19:45 10/20/24 19:45 Lab Results 10/20/24 10/20/24 10/20/24 Range/Units 19:45 22:04 22:10 WBC 6.86 (4.8-10.8) K/ul RBC 4.08 L (4.20-5.40) M/uL Hgb 12.0 (12.0-16.0) g/dl POC Hgb 12.2 (12.0-16.0) g/dl Hct 37.3 (37.0-47.0) % POC Hct 36 L (37-47) % MCV 91.4 (80.0-100.0) fL MCH 29.4 (25.0-34.0) pg MCHC 32.2 (32.0-36.0) g/dL RDW Std Deviation 44.3 (36.4-46.3) fL RDW Coeff of Swapnil 13.2 (11.5-14.5) % Plt Count 164 (130-400) K/uL MPV 9.4 (9.4-12.4) fL Immature Gran % (Auto) 0.3 % Neut % (Auto) 85.7 % Lymph % (Auto) 4.2 % [place] % (Auto) 6.9 % Eos % (Auto) 2.3 % Baso % (Auto) 0.6 % Neut # (Auto) 5.88 (1.40-6.50) K/uL Lymph # (Auto) 0.29 L (1.20-3.40) K/uL [place] # (Auto) 0.47 (0.11-0.59) K/uL Eos # (Auto) 0.16 (0.00-0.50) K/uL Baso # (Auto) 0.04 (0.00-0.20) K/uL Immature Gran # (Auto) 0.02 (0.01-0.20) K/uL PT 11.4 (9.0-12.0) Seconds INR 1.1 (0.9-1.1) APTT 29 (21-31) Seconds PTT Ratio 1.1 POC pH (7.35-7.45) POC pCO2 (35-46) mmHg POC pO2 (80-95) mmHg POC HCO3 (19-24) natali/L POC Base Excess (-9-1.8) natali/L POC ABG O2 Sat (90-95) % POC Sodium 137 (135-144) mmol/L Sodium 135 L (136-145) mmol/L POC Potassium 3.9 (3.3-5.0) mmol/L Potassium 3.6 (3.5-5.1) mmol/L POC Chloride 105 (101-112) mmol/L Chloride 106 (98-107) mmol/L Carbon Dioxide 21 (21-32) mmol/L POC Total CO2 19 L (24-31) mmol/L Anion Gap 8 (3-11) POC Anion Gap 18.0 (16-25) mmol/L POC BUN 15 (7-18) mg/dl BUN 17 (6-23) mg/dl Creatinine 0.68 (0.6-1.2) mg/dl POC Creatinine 0.8 (0.6-1.3) mg/dl Est Cr Clr Drug Dosing 73.1 ml/min eGFR 91.33 BUN/Creatinine Ratio 25.0 H (10-20) Glucose 126 H (70-99(Fasting)) mg/dl POC Glucose (other) 126 H (70-99) mg/dl Lactate 0.9 (0.4-2.0) mmol/L Calcium 8.4 L (8.6-10.3) mg/dl POC Ioniz Calcium Di 1.14 (1.12-1.32) mmol/l Magnesium 2.3 (1.7-2.4) mg/dl Total Bilirubin 0.8 (0.2-1.0) mg/dl Direct Bilirubin 0.1 (0-0.2) mg/dl AST 11 L (13-39) U/L ALT 6 L (7-52) U/L Alkaline Phosphatase 39 (34-104) U/L Troponin I High Sens 9.4 (0-14) pg/ml Total Protein 6.6 (6.0-8.3) gm/dl Albumin 3.7 (3.4-5.0) gm/dl Procalcitonin 0.06 (0-0.5) ng/ml Adenovirus (PCR) Not Detected (NotDetected) B. pertussis DNA (PCR) Not Detected (NotDetected) B.parapertussis DNA PCR Not Detected (NotDetected) C. pneumoniae DNA (PCR) Not Detected (NotDetected) Coronavirus OC43 (PCR) Not Detected (NotDetected) Coronavirus HKU1 (PCR) Not Detected (NotDetected) Coronavirus 229E (PCR) Not Detected (NotDetected) SARS-CoV-2 (PCR) Not Detected (NotDetected) Coronavirus NL63 (PCR) Not Detected (NotDetected) Human Metapneumovir PCR Not Detected (NotDetected) Influenza Type A (PCR) Not Detected (NotDetected) Influenza Type B (PCR) Not Detected (NotDetected) M. pneumoniae (PCR) Not Detected (NotDetected) Parainfluenza 1 (PCR) Not Detected (NotDetected) Parainfluenza 2 (PCR) Not Detected (NotDetected) Parainfluenza 3 (PCR) Not Detected (NotDetected) Parainfluenza 4 (PCR) Not Detected (NotDetected) RSV (PCR) Not Detected (NotDetected) Entero/Rhino (PCR) Not Detected (NotDetected) 10/20/24 Range/Units 22:19 WBC (4.8-10.8) K/ul RBC (4.20-5.40) M/uL Hgb (12.0-16.0) g/dl POC Hgb 12.9 (12.0-16.0) g/dl Hct (37.0-47.0) % POC Hct 38 (37-47) % MCV (80.0-100.0) fL MCH (25.0-34.0) pg MCHC (32.0-36.0) g/dL RDW Std Deviation (36.4-46.3) fL RDW Coeff of Swapnil (11.5-14.5) % Plt Count (130-400) K/uL MPV (9.4-12.4) fL Immature Gran % (Auto) % Neut % (Auto) % Lymph % (Auto) % [place] % (Auto) % Eos % (Auto) % Baso % (Auto) % Neut # (Auto) (1.40-6.50) K/uL Lymph # (Auto) (1.20-3.40) K/uL [place] # (Auto) (0.11-0.59) K/uL Eos # (Auto) (0.00-0.50) K/uL Baso # (Auto) (0.00-0.20) K/uL Immature Gran # (Auto) (0.01-0.20) K/uL PT (9.0-12.0) Seconds INR (0.9-1.1) APTT (21-31) Seconds PTT Ratio POC pH 7.42 (7.35-7.45) POC pCO2 31 L (35-46) mmHg POC pO2 59 L (80-95) mmHg POC HCO3 20 (19-24) natali/L POC Base Excess -5.0 (-9-1.8) natali/L POC ABG O2 Sat 91.0 (90-95) % POC Sodium 136 (135-144) mmol/L Sodium (136-145) mmol/L POC Potassium 3.7 (3.3-5.0) mmol/L Potassium (3.5-5.1) mmol/L POC Chloride (101-112) mmol/L Chloride (98-107) mmol/L Carbon Dioxide (21-32) mmol/L POC Total CO2 21 L (24-31) mmol/L Anion Gap (3-11) POC Anion Gap (16-25) mmol/L POC BUN (7-18) mg/dl BUN (6-23) mg/dl Creatinine (0.6-1.2) mg/dl POC Creatinine (0.6-1.3) mg/dl Est Cr Clr Drug Dosing ml/min eGFR BUN/Creatinine Ratio (10-20) Glucose (70-99(Fasting)) mg/dl POC Glucose (other) (70-99) mg/dl Lactate (0.4-2.0) mmol/L Calcium (8.6-10.3) mg/dl POC Ioniz Calcium Di (1.12-1.32) mmol/l Magnesium (1.7-2.4) mg/dl Total Bilirubin (0.2-1.0) mg/dl Direct Bilirubin (0-0.2) mg/dl AST (13-39) U/L ALT (7-52) U/L Alkaline Phosphatase (34-104) U/L Troponin I High Sens (0-14) pg/ml Total Protein (6.0-8.3) gm/dl Albumin (3.4-5.0) gm/dl Procalcitonin (0-0.5) ng/ml Adenovirus (PCR) (NotDetected) B. pertussis DNA (PCR) (NotDetected) B.parapertussis DNA PCR (NotDetected) C. pneumoniae DNA (PCR) (NotDetected) Coronavirus OC43 (PCR) (NotDetected) Coronavirus HKU1 (PCR) (NotDetected) Coronavirus 229E (PCR) (NotDetected) SARS-CoV-2 (PCR) (NotDetected) Coronavirus NL63 (PCR) (NotDetected) Human Metapneumovir PCR (NotDetected) Influenza Type A (PCR) (NotDetected) Influenza Type B (PCR) (NotDetected) M. pneumoniae (PCR) (NotDetected) Parainfluenza 1 (PCR) (NotDetected) Parainfluenza 2 (PCR) (NotDetected) Parainfluenza 3 (PCR) (NotDetected) Parainfluenza 4 (PCR) (NotDetected) RSV (PCR) (NotDetected) Entero/Rhino (PCR) (NotDetected) Imaging Data Attestation: I personally reviewed and interpreted this imaging study as follows: My Impression: Chest x-ray: No significant change from the chest x-ray done on September 10, 2024. Radiologist's Impression: Chest CTA 10/20/24 21:53 Exam(s): CTA CHEST IV Amt: 115cc optiray 320 EXAM: CT Angiography Chest With Intravenous Contrast CLINICAL HISTORY: Reason for exam: ro pe. TECHNIQUE: Axial computed tomographic angiography images of the chest with intravenous contrast. CTDI is 25.24 mGy and DLP is 751 mGy-cm. Automated exposure control was utilized for the study. A dose lowering technique was utilized adhering to the principles of ALARA. MIP reconstructed images were created and reviewed. COMPARISON: No relevant prior studies available. FINDINGS: Limitations: Exam is slightly limited secondary to patient respiratory motion. Pulmonary arteries: Unremarkable. No pulmonary embolism. Aorta: No acute findings. No thoracic aortic aneurysm. Lungs: Diffuse changes COPD. 0.5 cm pulmonary nodule right lower lobe axial image 39 series 5. Linear atelectasis in the lingula. Mild bibasilar dependent atelectasis. Pleural space: Unremarkable. No significant effusion. No pneumothorax. Heart: Unremarkable. No cardiomegaly. No significant pericardial effusion. No evidence of RV dysfunction. Bones/joints: No acute fracture. No dislocation. Soft tissues: Unremarkable. Lymph nodes: Unremarkable. No enlarged lymph nodes. IMPRESSION: No acute findings in the visualized arteries of the chest. 0.5 cm pulmonary nodule right lower lobe Fleischner Society Guidelines suggest no follow-up is necessary for patients with a low or high risk of malignancy. Electronically signed by: Mark Chapa MD 10/20/24 22:[address] 10/20/24 21:53 CR Exam(s): CT HEAD Without Contrast EXAM: CT Head Without Intravenous Contrast CLINICAL HISTORY: Reason for exam: ams. TECHNIQUE: Axial computed tomography images of the head/brain without intravenous contrast. CTDI is 25.24 mGy and DLP is 751.85 mGy-cm. Automated exposure control was utilized for the study. A dose lowering technique was utilized adhering to the principles of ALARA. COMPARISON: 09/10/2024 FINDINGS: Brain: See below. Ventricles: Unremarkable. No ventriculomegaly. Bones/joints: Postop changes left frontal craniotomy with encephalomalacia involving the left frontal lobe. Allowing for subtle differences in technique there has been interval increase in vasogenic edema within the left frontal lobe . This results in subtle left-to- right midline shift of 5 mm which is new when compared to prior exam. No acute fracture. Soft tissues: Unremarkable. Sinuses: Unremarkable as visualized. No acute sinusitis. Mastoid air cells: Unremarkable as visualized. No mastoid effusion. IMPRESSION: No acute findings in the head/brain. Postoperative changes left frontal lobe. Left frontal craniotomy with worsening vasogenic edema within the left frontal lobe and subtle new [id number] midline shift measuring 5 mm. Findings concerning for an underlying mass. Postcontrast MRI of the head recommended for further evaluation. Communications: Call Doctor Other Electronically signed by: Mark Chapa MD 10/20/24 22:55 PM ECG Data Attestation: I personally reviewed and interpreted this ECG as follows: Rate (beats per minute): 84 Rhythm: + normal sinus ECG Intervals/blocks: + Normal QRS, + Normal OK and + Normal QT-c ECG ST segments: + Normal ST segments [facility] Narrative 2145: The patient was evaluated in room A10. A complete history and physical exam was performed Cardiac monitoring: An order was placed for continuous cardiac monitoring. The monitor shows a rate of 80 with sinus rhythm interpreted by me Supplemental oxygen applied which improved the patient's oxygen saturation. 2308: Vital signs stable on supplemental oxygen. Labs are unremarkable. Imaging shows no PE or pneumonia. CT head does make mention that there are no acute findings however there is worsening vasogenic edema with a frontal lobe concerning for an underlying mass. [facility] given her hypoxia. Impression & Plan Hypoxia Discharge Plan Visit Data Chief Complaint: Shortness of Breath/Dyspnea Stated Complaint: SOB ED Provider: Mani Owens Discharge Problem: Hypoxia Patient Disposition: Admitted As Inpatient Condition: Serious Forms Stand Alone Forms: My [facility] Prescriptions Prescriptions: No Action ondansetron HCl 8 mg tablet 8 mg PO Q8H PRN (Reason: n/v) temozolomide 140 mg Capsule 140 mg PO DAILY Rx Instructions: must be taken on empty stomach dexamethasone 2 mg tablet 2 mg PO DAILY Patient Comments: currently tapering down- goal 2 mg daily atorvastatin 20 mg tablet 20 mg PO QAM cyclobenzaprine 5 mg tablet 5 mg PO Q12H PRN (Reason: eye muscle spasm) 30 Days Qty: 60 0RF sertraline 100 mg Tablet 200 mg PO HS cetirizine 10 mg Tablet 5 mg PO DAILY PRN (Reason: Allergy Symptoms) cholecalciferol (vitamin D3) [Vitamin D3] 2,000 unit Capsule 2,000 unit PO QAM buspirone 5 mg Tablet 5 mg PO BID amlodipine 5 mg tablet 5 mg PO QAM hydroxyzine pamoate 25 mg capsule 25 mg PO QID PRN (Reason: Anxiety) valsartan 80 mg tablet 80 mg PO DAILY fluticasone propionate 50 mcg/actuation spray,suspension 2 spray INTRANASAL DAILY Prolia 60 mg/mL syringe 60 mg subcut .[id number] Rx Instructions: LAST TAKEN 09/2024. Once every 6 months betamethasone dipropionate 0.05 % ointment 1 applic topical BID PRN (Reason: dermatitis) Referrals Referrals: Shahbaz Andrew MD [Primary Care Provider] -
--- NOTE | 2024-10-21 00:30 | XRay Report ---
Exam(s): XR CXR 1 VIEW EXAM: XR Chest, 1 View CLINICAL HISTORY: Reason for exam: Sepsis. TECHNIQUE: Frontal view of the chest. COMPARISON: No relevant prior studies available. FINDINGS: Lungs: Unremarkable. No consolidation. Pleural space: Unremarkable. No pneumothorax. Heart: Unremarkable. No cardiomegaly. Mediastinum: Unremarkable. Normal mediastinal contour. Bones/joints: Unremarkable. No acute fracture. IMPRESSION: Normal chest x-ray. Electronically signed by: Mark Chapa MD 10/21/24 00:29 AM
[2024-10-21] MEDS ORDERED: CYCLOBENZAPRINE HCL 5 MG TAB PO PRN (03:01)
[2024-10-21] MEDS ORDERED: FLUOCINONIDE 0.05% OINT 15 GM TUBE EXT PRN (03:17)
[2024-10-21 06:35] LABS: Appearance Urine Cloudy (Clear); Bacteria Urine Automated 4+ (None Seen); Epithelial Cell Urine Auto 0-2 /hpf (0-2); Glucose Urine UA Negative (Negative); RBC Urine Automated 0-2 /hpf (0-2)
[2024-10-21] MEDS: TEMOZOLOMIDE 20 MG CAPSULE PO SCH (06:35)
[2024-10-21] MEDS: TEMOZOLOMIDE 100 MG CAPSULE PO SCH (06:35)
[2024-10-21 06:54] LABS: WBC Urine Automated 0-5 /hpf (0-5)
[2024-10-21] MEDS: VALSARTAN 80 MG TAB PO SCH (08:42)
[2024-10-21] MEDS: busPIRone 5 MG TAB PO SCH (08:42)
[2024-10-21] MEDS: ENOXAPARIN INJ 40 MG/0.4 ML SYR SQ SCH (08:42)
[2024-10-21] MEDS: ATORVASTATIN 20 MG TAB PO SCH (08:42)
[2024-10-21] MEDS: FLUTICASONE PROPIONATE NA SPR 16 GM BTL NAE SCH (08:43)
[2024-10-21 08:51] LABS: Alanine Aminotransferase 4.0 U/L (7-52); Albumin Globulin Ratio 1.5 (0.9-2); Alkaline Phosphatase 34.0 U/L (34-104); Anion Gap 8.0 (3-11); Bilirubin,Total 0.6 mg/dl (0.2-1.0); Blood Urea Nitrogen 18.0 mg/dl (6-23); Calcium 8.2 mg/dl (8.6-10.3); Carbon Dioxide 23.0 mmol/L (21-32); Chloride 105.0 mmol/L (98-107); Creatinine Clr Calc Pharmacy 67.3 ml/min; Globulin 2.6 gm/dl (2.5-4.0); Glucose 101.0 mg/dl (70-99(Fasting)); Potassium 3.5 mmol/L (3.5-5.1); Sodium 136.0 mmol/L (136-145); Total Protein 6.4 gm/dl (6.0-8.3)
--- NOTE | 2024-10-21 09:19 | Palliative Care Consultation ---
Date of Consultation October 21, 2024 Assessment & Plan (1) Weakness generalized: post chemo fatigue ct head ? disease progression, will get a Mri (2) Constipation: no BM is 4-5 days, normal for her is daily abdomen mildly tender on exam, will initiate bowel regimen of senna s 2 tabs BID and dulcolax supp prn daily increase hydration (3) Sleep apnea: Had a prior in home cpap but returned it (possibly) bc she did not like the mask and felt the [employer] company wouldn't help her find a better mask. will check overnight oximetry and adjust for home o2 qhs if needed. will follow up with PSG / JAIME mgt needs in OP [facility] med clinic. (4) Severe muscle deconditioning: (5) Advanced care planning/counseling discussion: I held a 25min face to face ACP with pt, and their daughter, Debra at the bedside. They expressed understandable concern that chemo may not be as well tolerated as it had been last time, and also note the dose was reduced. She is feeling like she does not want more chemo but asked about resuming the lower dose option. They will reach out to Dr Celis for more advice and will need an updated brain MRI which we will obtain while she is here. we spoke about her untreated JAIME - she notes she had a CPAP at home but the mask did not work and it was returned to the [employer]. She is willing to try it but asks if she needs oxygen, noting it is easier to wear the oxygen than CPAP mask. We agreed to obtain an overnight oximetry tonight and see if she qualifies. We will arrange a clinic follow up 11/13 and can pursue a new CPAP machine at that time, she may need a new home PSG. I encouraged them to discuss goals as a family. Alice is feeling like the chemo is taking too much from her and not giving her QOL. Her is openly frightened about mortality issues and feels she should continue chemo but maybe try a lower dose. Debra is supportive of whatever pt wants for herself and advocates that as a family they will stand by her mom's choice. (6) Palliative care by specialist: (7) Gait instability: (8) Generalized headaches: (9) Glioblastoma of frontal lobe: (10) Fine motor impairment: Plan As above. Overnight oximetry tonight MRI Brain tonight Thank you for allowing us to participate in the ongoing care of this patient. Please page with any additional concerns. Marti Couch DNP Director, Palliative Medicine History of Present Illness Reason for Consultation: On 10/21/24 @ 03:02 Simon Norris Wrote To Ansley Couch symptomatic management, goals of care Attending Physician: Mark Stewart DO History of Present Illness Alice is well known to me from [facility] clinic She has Left frontal, Glioblastoma, IDH wild-type, WHO grade 4. Stage IV. She is followed by [facility] oncology. She recovered well from craniotomy 06/10/24/Dr Ivory. She was on a dexamethasone taper. She is off prophylactic levetiracetam. Recommendation for radiation therapy and low-dose temozolomide. This will be followed by adjuvant temozolomide. Patient was referred to radiation oncology at [facility]. Completed 5 day C1 Temodar on Sunday - Dr. Rodrigez from neuro-oncology at [facility] Increasing fatigue, per daughter via telephone call with me yesterday. no other acute concerns, pt was awake and alert. Oral intake down but not signif from usual lower than average baseline ER Brain CT: FINDINGS: Brain: See below. Ventricles: Unremarkable. No ventriculomegaly. Bones/joints: Postop changes left frontal craniotomy with encephalomalacia involving the left frontal lobe. Allowing for subtle differences in technique there has been interval increase in vasogenic edema within the left frontal lobe . This results in subtle lhfn-or-zgygg midline shift of 5 mm which is new when compared to prior exam. No acute fracture. Soft tissues: Unremarkable. Sinuses: Unremarkable as visualized. No acute sinusitis. Mastoid air cells: Unremarkable as visualized. No mastoid effusion. IMPRESSION: No acute findings in the head/brain. Postoperative changes left frontal lobe. Left frontal craniotomy with worsening vasogenic edema within the left frontal lobe and subtle new [id number]-fx-[id number] midline shift measuring 5 mm. Findings concerning for an underlying mass. Postcontrast MRI of the head recommended for further evaluation. She presented to the ER with shortness of breath and hypoxia, via EMS - called by . She was found to be in no respiratory distress, there was no cause found on CT pulmonary angiogram, She does have a hx of obstructive sleep apnea and does not use CPAP. Most likely her dx is poor inspiratory effort and atelectasis due to generalized fatigue from chemotherapy Allergies Allergy/AdvReac Type Severity Reaction Status Date / Time lisinopril Allergy Severe swelling Verified 10/20/24 22:56 Penicillins Allergy Severe UNKN Verified 10/20/24 22:56 ciprofloxacin [From Cipro] Allergy Intermediate Hives Verified 10/20/24 22:56 doxycycline Allergy Intermediate HIVE Verified 10/20/24 22:56 mold Allergy Intermediate CONGESTION Verified 10/20/24 22:56 Sulfa (Sulfonamide Allergy Intermediate Hives Verified 10/20/24 22:56 Antibiotics) clarithromycin [From Biaxin] Allergy Unknown CAN'T Verified 10/20/24 22:56 REMEMBER Tetracyclines Allergy Unknown CAN'T Verified 10/20/24 22:56 REMEMBER Home Medications Medication Instructions Recorded Confirmed Type buspirone 5 mg tablet 5 mg PO BID 09/03/18 10/20/24 History cetirizine 10 mg tablet 5 mg PO DAILY PRN Allergy Symptoms 09/03/18 10/20/24 History cholecalciferol (vitamin D3) 50 2,000 unit PO QAM 09/03/18 10/20/24 History mcg (2,000 unit) capsule (Vitamin D3) sertraline 100 mg tablet 200 mg PO HS 09/03/18 10/20/24 History amlodipine 5 mg tablet 5 mg PO QAM 08/30/21 10/20/24 History atorvastatin 20 mg tablet 20 mg PO QAM 10/07/21 10/20/24 History denosumab 60 mg/mL subcutaneous 60 mg subcut .[id number] 05/31/24 10/20/24 History syringe (Prolia) fluticasone propionate 50 2 spray intranasal DAILY 05/31/24 10/20/24 History mcg/actuation nasal spray,suspension valsartan 80 mg tablet 80 mg PO DAILY 05/31/24 10/20/24 History hydroxyzine pamoate 25 mg capsule 25 mg PO QID PRN Anxiety 06/23/24 10/20/24 History ondansetron HCl 8 mg tablet 8 mg PO Q8H PRN n/v 07/07/24 10/20/24 History temozolomide 140 mg capsule 140 mg PO DAILY 07/08/24 10/20/24 History dexamethasone 2 mg tablet 2 mg PO DAILY 08/11/24 10/20/24 History cyclobenzaprine 5 mg tablet 5 mg PO Q12H PRN eye muscle spasm 10/09/24 10/20/24 Rx 1 month #60 tabs betamethasone dipropionate 0.05 % 1 applic topical BID PRN dermatitis 10/20/24 10/20/24 History topical ointment Patient History Medical History Seasonal allergies GERD (gastroesophageal reflux disease) COVID-19 11/17/22 > fever, sinus pressure, sore throat, headache > all resolved except for some fatigue Surgical History Status post craniotomy History of tooth extraction History of myringotomy History of endoscopic sinus surgery History of dilatation and curettage History of colonoscopy Family History Brother HIV positive Cancer Multiple sites Brother C. difficile colitis Brother Cancer Lung Social History Smoking Status: Former smoker Tobacco Type: Cigarettes Age Started Using Tobacco: 19; packs per day: 0.5; Second Hand Exposure: No; Do You Dip or Chew Tobacco: No; Hx Alcohol Use: Yes Alcohol type: beer Alcohol Intake Frequency: 4 or More x per/Week Alcohol Intake Frequency Comment: less frequently since craniotomy Hx Substance Use: No Preferred Language: Kazakh Communication Ability: Effective Visual Impairment: Partially Limited Hearing Ability: Hard of Hearing Rod Placer Required: No Beliefs That Will Affect Care: None marital status: Current Living Situation: Spouse Current Living Situation Comment: with current occupational status: retired Feels Safe at Home: Yes Diet: regular Assistive Devices: None Review of Systems Review of Systems: All systems reviewed & are unremarkable except as noted in Subjective Physical Exam Constitutional: + acute distress, + ill appearing, avera ge body habitus, + frail appearing and cooperative Eyes: + eyes dysmorphic and PERRL ENMT: external ear and nose normal, oropharynx normal Neck: trachea midline, no thyromegaly normal visual inspection; no neck crepitus and neck nontender Respiratory: normal respiratory effort, lungs clear to auscultation Auscultation: + diminished lung sounds Cardiovascular: Heart Sounds: normal S1 and normal S2 Extremities: normal capillary refill Gastrointestinal (Abdomen): Inspection/Auscultation: abdomen normal to inspection and normal bowel sounds Percussion/Palpation: abdomen soft; abdomen nontender, no guarding and abdomen not rigid Musculoskeletal: Extremities: + abnormal strength and + muscle atrophy Skin: + pallor Psychiatric: A+Ox3, euthymic affect Apperance: appropriately groomed and appeared stated age Eye Contact: good eye contact Speech: normal rate/rhythm/volume of speech Affect: + flat affect Thought Process: + tangential thought process Hallucinations: no auditory hallucinations, no visual hallucinations and no tactile hallucinations Cognition: recent memory grossly intact, attention grossly intact and language grossly intact Estimated Intelligence: average estimated intelligence Results & Data Vital Signs (Past 12 Hours) Vital Signs Temp Pulse Pulse Pulse Resp BP BP 10/21/24 08:06 37.1 C 71 16 124/78 10/21/24 07:16 81 10/21/24 06:43 10/21/24 04:26 10/21/24 04:26 36.5 C 74 18 10/21/24 04:21 74 10/21/24 03:01 79 18 10/21/24 02:00 78 16 10/21/24 01:42 80 10/21/24 01:00 79 14 10/21/24 00:00 79 16 10/20/24 23:45 70 20 10/20/24 23:38 70 20 10/20/24 23:08 10/20/24 23:00 77 20 10/20/24 22:08 81 20 10/20/24 21:53 81 10/20/24 21:53 10/20/24 21:44 82 10/20/24 21:36 37.6 C H 82 20 123/71 BP Pulse Ox O2 Del Method O2 Flow Rate 10/21/24 08:06 94 Oxymask 1 10/21/24 07:16 10/21/24 06:43 96 Nasal Cannula 1 10/21/24 04:26 Oxymask 7 10/21/24 04:26 119/77 95 Oxymask 7 10/21/24 04:21 10/21/24 03:01 135/74 94 Oxymask 8 10/21/24 02:00 130/75 95 Oxymask 8 10/21/24 01:42 10/21/24 01:00 130/76 92 Non-rebreather 5 10/21/24 00:00 130/82 92 Non-rebreather 3 10/20/24 23:45 96 Non-rebreather 3 10/20/24 23:38 88 L Non-rebreather 1 10/20/24 23:08 93 Nasal Cannula 1 10/20/24 23:00 135/100 93 Nasal Cannula 1 10/20/24 22:08 115/71 93 Oxymask 5 10/20/24 21:53 Oxymask 10/20/24 21:53 90 Oxymask 5 10/20/24 21:44 10/20/24 21:36 94 Oxymask 4 Laboratory Results 10/21/24 10/21/24 10/20/24 Range/Units 07:56 05:45 22:19 WBC (4.8-10.8) K/ul RBC (4.20-5.40) M/uL Hgb (12.0-16.0) g/dl POC Hgb 12.9 (12.0-16.0) g/dl Hct (37.0-47.0) % POC Hct 38 (37-47) % MCV (80.0-100.0) fL MCH (25.0-34.0) pg MCHC (32.0-36.0) g/dL RDW Std Deviation (36.4-46.3) fL RDW Coeff of Swapnil (11.5-14.5) % Plt Count (130-400) K/uL MPV (9.4-12.4) fL Immature Gran % (Auto) % Neut % (Auto) % Lymph % (Auto) % [place] % (Auto) % Eos % (Auto) % Baso % (Auto) % Neut # (Auto) (1.40-6.50) K/uL Lymph # (Auto) (1.20-3.40) K/uL [place] # (Auto) (0.11-0.59) K/uL Eos # (Auto) (0.00-0.50) K/uL Baso # (Auto) (0.00-0.20) K/uL Immature Gran # (Auto) (0.01-0.20) K/uL PT (9.0-12.0) Seconds INR (0.9-1.1) APTT (21-31) Seconds PTT Ratio POC pH 7.42 (7.35-7.45) POC pCO2 31 L (35-46) mmHg POC pO2 59 L (80-95) mmHg POC HCO3 20 (19-24) natali/L POC Base Excess -5.0 (-9-1.8) natali/L POC ABG O2 Sat 91.0 (90-95) % POC Sodium 136 (135-144) mmol/L Sodium 136 (136-145) mmol/L POC Potassium 3.7 (3.3-5.0) mmol/L Potassium 3.5 (3.5-5.1) mmol/L POC Chloride (101-112) mmol/L Chloride 105 (98-107) mmol/L Carbon Dioxide 23 (21-32) mmol/L POC Total CO2 21 L (24-31) mmol/L Anion Gap 8 (3-11) POC Anion Gap (16-25) mmol/L POC BUN (7-18) mg/dl BUN 18 (6-23) mg/dl Creatinine 0.73 (0.6-1.2) mg/dl POC Creatinine (0.6-1.3) mg/dl Est Cr Clr Drug Dosing 67.3 ml/min eGFR 86.24 BUN/Creatinine Ratio 24.7 H (10-20) Glucose 101 H (70-99(Fasting)) mg/dl POC Glucose (other) (70-99) mg/dl Lactate (0.4-2.0) mmol/L Calcium 8.2 L (8.6-10.3) mg/dl POC Ioniz Calcium Di (1.12-1.32) mmol/l Magnesium (1.7-2.4) mg/dl Total Bilirubin 0.6 (0.2-1.0) mg/dl Direct Bilirubin (0-0.2) mg/dl AST 11 L (13-39) U/L ALT 4 L (7-52) U/L Alkaline Phosphatase 34 (34-104) U/L Troponin I High Sens (0-14) pg/ml Total Protein 6.4 (6.0-8.3) gm/dl Albumin 3.8 (3.4-5.0) gm/dl Globulin 2.6 (2.5-4.0) gm/dl Albumin/Globulin Ratio 1.5 (0.9-2) Procalcitonin (0-0.5) ng/ml Urine Color Yellow Urine Appearance Cloudy A (Clear) Urine pH 7.5 (4.5-7.5) Ur Specific [place] > 1.045 H (1.000-1.030) Urine Protein 1+ H (Negative) Urine Glucose (UA) Negative (Negative) Urine Ketones Trace H (Negative) Urine Blood Negative (Negative) Urine Nitrite Negative (Negative) Urine Bilirubin Negative (Negative) Urine Urobilinogen Negative (Negative) Ur Leukocyte Esterase Negative (Negative) Urine WBC (Auto) 0-5 (0-5) /hpf Urine RBC (Auto) 0-2 (0-2) /hpf U Hyaline Cast (Auto) 3-5 H (0-2) /lpf U Epithel Cells (Auto) 0-2 (0-2) /hpf Urine Bacteria (Auto) 4+ H (None Seen) Urine Mucus Present A (None Prsent) Urine Comment Adenovirus (PCR) (NotDetected) B. pertussis DNA (PCR) (NotDetected) B.parapertussis DNA PCR (NotDetected) C. pneumoniae DNA (PCR) (NotDetected) Coronavirus OC43 (PCR) (NotDetected) Coronavirus HKU1 (PCR) (NotDetected) Coronavirus 229E (PCR) (NotDetected) SARS-CoV-2 (PCR) (NotDetected) Coronavirus NL63 (PCR) (NotDetected) Human Metapneumovir PCR (NotDetected) Influenza Type A (PCR) (NotDetected) Influenza Type B (PCR) (NotDetected) M. pneumoniae (PCR) (NotDetected) Parainfluenza 1 (PCR) (NotDetected) Parainfluenza 2 (PCR) (NotDetected) Parainfluenza 3 (PCR) (NotDetected) Parainfluenza 4 (PCR) (NotDetected) RSV (PCR) (NotDetected) Entero/Rhino (PCR) (NotDetected) 10/20/24 10/20/24 10/20/24 Range/Units 22:10 22:04 19:45 WBC 6.86 (4.8-10.8) K/ul RBC 4.08 L (4.20-5.40) M/uL Hgb 12.0 (12.0-16.0) g/dl POC Hgb 12.2 (12.0-16.0) g/dl Hct 37.3 (37.0-47.0) % POC Hct 36 L (37-47) % MCV 91.4 (80.0-100.0) fL MCH 29.4 (25.0-34.0) pg MCHC 32.2 (32.0-36.0) g/dL RDW Std Deviation 44.3 (36.4-46.3) fL RDW Coeff of Swapnil 13.2 (11.5-14.5) % Plt Count 164 (130-400) K/uL MPV 9.4 (9.4-12.4) fL Immature Gran % (Auto) 0.3 % Neut % (Auto) 85.7 % Lymph % (Auto) 4.2 % [place] % (Auto) 6.9 % Eos % (Auto) 2.3 % Baso % (Auto) 0.6 % Neut # (Auto) 5.88 (1.40-6.50) K/uL Lymph # (Auto) 0.29 L (1.20-3.40) K/uL [place] # (Auto) 0.47 (0.11-0.59) K/uL Eos # (Auto) 0.16 (0.00-0.50) K/uL Baso # (Auto) 0.04 (0.00-0.20) K/uL Immature Gran # (Auto) 0.02 (0.01-0.20) K/uL PT 11.4 (9.0-12.0) Seconds INR 1.1 (0.9-1.1) APTT 29 (21-31) Seconds PTT Ratio 1.1 POC pH (7.35-7.45) POC pCO2 (35-46) mmHg POC pO2 (80-95) mmHg POC HCO3 (19-24) natali/L POC Base Excess (-9-1.8) natali/L POC ABG O2 Sat (90-95) % POC Sodium 137 (135-144) mmol/L Sodium 135 L (136-145) mmol/L POC Potassium 3.9 (3.3-5.0) mmol/L Potassium 3.6 (3.5-5.1) mmol/L POC Chloride 105 (101-112) mmol/L Chloride 106 (98-107) mmol/L Carbon Dioxide 21 (21-32) mmol/L POC Total CO2 19 L (24-31) mmol/L Anion Gap 8 (3-11) POC Anion Gap 18.0 (16-25) mmol/L POC BUN 15 (7-18) mg/dl BUN 17 (6-23) mg/dl Creatinine 0.68 (0.6-1.2) mg/dl POC Creatinine 0.8 (0.6-1.3) mg/dl Est Cr Clr Drug Dosing 73.1 ml/min eGFR 91.33 BUN/Creatinine Ratio 25.0 H (10-20) Glucose 126 H (70-99(Fasting)) mg/dl POC Glucose (other) 126 H (70-99) mg/dl Lactate 0.9 (0.4-2.0) mmol/L Calcium 8.4 L (8.6-10.3) mg/dl POC Ioniz Calcium Di 1.14 (1.12-1.32) mmol/l Magnesium 2.3 (1.7-2.4) mg/dl Total Bilirubin 0.8 (0.2-1.0) mg/dl Direct Bilirubin 0.1 (0-0.2) mg/dl AST 11 L (13-39) U/L ALT 6 L (7-52) U/L Alkaline Phosphatase 39 (34-104) U/L Troponin I High Sens 9.4 (0-14) pg/ml Total Protein 6.6 (6.0-8.3) gm/dl Albumin 3.7 (3.4-5.0) gm/dl Globulin (2.5-4.0) gm/dl Albumin/Globulin Ratio (0.9-2) Procalcitonin 0.06 (0-0.5) ng/ml Urine Color Urine Appearance (Clear) Urine pH (4.5-7.5) Ur Specific [place] (1.000-1.030) Urine Protein (Negative) Urine Glucose (UA) (Negative) Urine Ketones (Negative) Urine Blood (Negative) Urine Nitrite (Negative) Urine Bilirubin (Negative) Urine Urobilinogen (Negative) Ur Leukocyte Esterase (Negative) Urine WBC (Auto) (0-5) /hpf Urine RBC (Auto) (0-2) /hpf U Hyaline Cast (Auto) (0-2) /lpf U Epithel Cells (Auto) (0-2) /hpf Urine Bacteria (Auto) (None Seen) Urine Mucus (None Prsent) Urine Comment Adenovirus (PCR) Not Detected (NotDetected) B. pertussis DNA (PCR) Not Detected (NotDetected) B.parapertussis DNA PCR Not Detected (NotDetected) C. pneumoniae DNA (PCR) Not Detected (NotDetected) Coronavirus OC43 (PCR) Not Detected (NotDetected) Coronavirus HKU1 (PCR) Not Detected (NotDetected) Coronavirus 229E (PCR) Not Detected (NotDetected) SARS-CoV-2 (PCR) Not Detected (NotDetected) Coronavirus NL63 (PCR) Not Detected (NotDetected) Human Metapneumovir PCR Not Detected (NotDetected) Influenza Type A (PCR) Not Detected (NotDetected) Influenza Type B (PCR) Not Detected (NotDetected) M. pneumoniae (PCR) Not Detected (NotDetected) Parainfluenza 1 (PCR) Not Detected (NotDetected) Parainfluenza 2 (PCR) Not Detected (NotDetected) Parainfluenza 3 (PCR) Not Detected (NotDetected) Parainfluenza 4 (PCR) Not Detected (NotDetected) RSV (PCR) Not Detected (NotDetected) Entero/Rhino (PCR) Not Detected (NotDetected) Diagnostic Findings Chest CTA 10/20/24 21:53 Exam(s): CTA CHEST IV Amt: 115cc optiray 320 EXAM: CT Angiography Chest With Intravenous Contrast CLINICAL HISTORY: Reason for exam: ro pe. TECHNIQUE: Axial computed tomographic angiography images of the chest with intravenous contrast. CTDI is 25.24 mGy and DLP is 751 mGy-cm. Automated exposure control was utilized for the study. A dose lowering technique was utilized adhering to the principles of ALARA. MIP reconstructed images were created and reviewed. COMPARISON: No relevant prior studies available. FINDINGS: Limitations: Exam is slightly limited secondary to patient respiratory motion. Pulmonary arteries: Unremarkable. No pulmonary embolism. Aorta: No acute findings. No thoracic aortic aneurysm. Lungs: Diffuse changes COPD. 0.5 cm pulmonary nodule right lower lobe axial image 39 series 5. Linear atelectasis in the lingula. Mild bibasilar dependent atelectasis. Pleural space: Unremarkable. No significant effusion. No pneumothorax. Heart: Unremarkable. No cardiomegaly. No significant pericardial effusion. No evidence of RV dysfunction. Bones/joints: No acute fracture. No dislocation. Soft tissues: Unremarkable. Lymph nodes: Unremarkable. No enlarged lymph nodes. IMPRESSION: No acute findings in the visualized arteries of the chest. 0.5 cm pulmonary nodule right lower lobe Fleischner Society Guidelines suggest no follow-up is necessary for patients with a low or high risk of malignancy. Electronically signed by: Mark Chapa MD 10/20/24 22:58 PM Chest X-Ray 10/20/24 21:53 Exam(s): XR CXR 1 VIEW EXAM: XR Chest, 1 View CLINICAL HISTORY: Reason for exam: Sepsis. TECHNIQUE: Frontal view of the chest. COMPARISON: No relevant prior studies available. FINDINGS: Lungs: Unremarkable. No consolidation. Pleural space: Unremarkable. No pneumothorax. Heart: Unremarkable. No cardiomegaly. Mediastinum: Unremarkable. Normal mediastinal contour. Bones/joints: Unremarkable. No acute fracture. IMPRESSION: Normal chest x-ray. Electronically signed by: Mark Chapa MD 10/21/24 00:[address] 10/20/24 21:53 CR Exam(s): CT HEAD Without Contrast EXAM: CT Head Without Intravenous Contrast CLINICAL HISTORY: Reason for exam: ams. TECHNIQUE: Axial computed tomography images of the head/brain without intravenous contrast. CTDI is 25.24 mGy and DLP is 751.85 mGy-cm. Automated exposure control was utilized for the study. A dose lowering technique was utilized adhering to the principles of ALARA. COMPARISON: 09/10/2024 FINDINGS: Brain: See below. Ventricles: Unremarkable. No ventriculomegaly. Bones/joints: Postop changes left frontal craniotomy with encephalomalacia involving the left frontal lobe. Allowing for subtle differences in technique there has been interval increase in vasogenic edema within the left frontal lobe . This results in subtle left-to- right midline shift of 5 mm which is new when compared to prior exam. No acute fracture. Soft tissues: Unremarkable. Sinuses: Unremarkable as visualized. No acute sinusitis. Mastoid air cells: Unremarkable as visualized. No mastoid effusion. IMPRESSION: No acute findings in the head/brain. Postoperative changes left frontal lobe. Left frontal craniotomy with worsening vasogenic edema within the left frontal lobe and subtle new [id number] midline shift measuring 5 mm. Findings concerning for an underlying mass. Postcontrast MRI of the head recommended for further evaluation. Communications: Call Doctor Other Electronically signed by: Mark Chapa MD 10/20/24 22:55 PM PG Care Time/CCT Total # of Minutes Spent Total Time Spent with Patient: Total time spent is greater than 50% in coordination of care (as documented) at patient's floor/unit and/or counseling patient: I spent 70 minutes overall addressing this case: 15 min in medical data review/discussion with referring provider(s) and/or preparation for the visit 15 min in direct interaction with the patient/exam 25 min in Advance Care Planning/Goals of Care discussions as detailed above in note (must be >16min) 10 min in subsequent review and synthesis of assessment and plan 15 min communicating with other providers regarding the patient's case: Dr. Stewart Advanced Care Planning 67941 Advanced Care Planning 30 [place] [address] IN/OBS CONSULT LVL 4,60M (25 - SIGNIFICANT, SEPARATELY IDENTIFIABLE ) Patient Type New Medical Decision Making High Complexity Diagnoses Weakness generalized R53.1 Constipation K59.00 Sleep apnea G47.30 Severe muscle deconditioning R29.898 Advanced care planning/counseling discussion Z71.89 Palliative care by specialist Z51.5 Gait instability R26.81 Generalized headaches R51.9 Glioblastoma of frontal lobe C71.1 Fine motor impairment R29.818; R29.898 Additional Codes Advanced Care Planning - 13005 Advanced Care Planning 30 Min: 50084 Advanced Care Planning 30 Min ([id number])
--- NOTE | 2024-10-21 09:38 | Oncology Consultation ---
Date of Consultation October 21, 2024 Assessment & Plan (1) Glioblastoma of frontal lobe: Plan -Recommend brain MRI to better evaluate possible significant vasogenic edema with midline shift. If she is found to have significant vasogenic edema, may benefit from steroids/bevacizumab. -Continue follow-up with neuro oncology/neurosurgery at [facility]. 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 Patient presented to the ER with shortness of breath and generalized weakness. CTA chest was negative for PE. CT head revealed left frontal craniotomy with worsening vasogenic edema within left frontal lobe subtle new left to right midline shift measuring 5 mm Allergies Allergy/AdvReac Type Severity Reaction Status Date / Time lisinopril Allergy Severe swelling Verified 10/20/24 22:56 Penicillins Allergy Severe UNKN Verified 10/20/24 22:56 ciprofloxacin [From Cipro] Allergy Intermediate Hives Verified 10/20/24 22:56 doxycycline Allergy Intermediate HIVE Verified 10/20/24 22:56 mold Allergy Intermediate CONGESTION Verified 10/20/24 22:56 Sulfa (Sulfonamide Allergy Intermediate Hives Verified 10/20/24 22:56 Antibiotics) clarithromycin [From Biaxin] Allergy Unknown CAN'T Verified 10/20/24 22:56 REMEMBER Tetracyclines Allergy Unknown CAN'T Verified 10/20/24 22:56 REMEMBER Home Medications Medication Instructions Recorded Confirmed Type buspirone 5 mg tablet 5 mg PO BID 09/03/18 10/20/24 History cetirizine 10 mg tablet 5 mg PO DAILY PRN Allergy Symptoms 09/03/18 10/20/24 History cholecalciferol (vitamin D3) 50 2,000 unit PO QAM 09/03/18 10/20/24 History mcg (2,000 unit) capsule (Vitamin D3) sertraline 100 mg tablet 200 mg PO HS 09/03/18 10/20/24 History amlodipine 5 mg tablet 5 mg PO QAM 08/30/21 10/20/24 History atorvastatin 20 mg tablet 20 mg PO QAM 10/07/21 10/20/24 History denosumab 60 mg/mL subcutaneous 60 mg subcut .[id number] 05/31/24 10/20/24 History syringe (Prolia) fluticasone propionate 50 2 spray intranasal DAILY 05/31/24 10/20/24 History mcg/actuation nasal spray,suspension valsartan 80 mg tablet 80 mg PO DAILY 05/31/24 10/20/24 History hydroxyzine pamoate 25 mg capsule 25 mg PO QID PRN Anxiety 06/23/24 10/20/24 History ondansetron HCl 8 mg tablet 8 mg PO Q8H PRN n/v 07/07/24 10/20/24 History temozolomide 140 mg capsule 140 mg PO DAILY 07/08/24 10/20/24 History dexamethasone 2 mg tablet 2 mg PO DAILY 08/11/24 10/20/24 History cyclobenzaprine 5 mg tablet 5 mg PO Q12H PRN eye muscle spasm 10/09/24 10/20/24 Rx 1 month #60 tabs betamethasone dipropionate 0.05 % 1 applic topical BID PRN dermatitis 10/20/24 10/20/24 History topical ointment Patient History Medical History Seasonal allergies GERD (gastroesophageal reflux disease) COVID-19 11/17/22 > fever, sinus pressure, sore throat, headache > all resolved except for some fatigue Surgical History Status post craniotomy History of tooth extraction History of myringotomy History of endoscopic sinus surgery History of dilatation and curettage History of colonoscopy Family History Brother HIV positive Cancer Multiple sites Brother C. difficile colitis Brother Cancer Lung Social History Smoking Status: Former smoker Tobacco Type: Cigarettes Age Started Using Tobacco: 19; packs per day: 0.5; Second Hand Exposure: No; Do You Dip or Chew Tobacco: No; Hx Alcohol Use: Yes Alcohol type: beer Alcohol Intake Frequency: 4 or More x per/Week Alcohol Intake Frequency Comment: less frequently since craniotomy Hx Substance Use: No Preferred Language: [place] Communication Ability: Effective Visual Impairment: Partially Limited Hearing Ability: Hard of Hearing Shopper'S Aide Required: No Beliefs That Will Affect Care: None marital status: Current Living Situation: Spouse Current Living Situation Comment: with current occupational status: retired Feels Safe at Home: Yes Diet: regular Assistive Devices: None Results & Data Vital Signs (Past 12 Hours) Vital Signs Temp Pulse Pulse Pulse Resp BP BP 10/21/24 09:18 10/21/24 08:06 37.1 C 71 16 124/78 10/21/24 07:16 81 10/21/24 06:43 10/21/24 04:26 10/21/24 04:26 36.5 C 74 18 119/77 10/21/24 04:21 74 10/21/24 03:01 79 18 135/74 10/21/24 02:00 78 16 130/75 10/21/24 01:42 80 10/21/24 01:00 79 14 130/76 10/21/24 00:00 79 16 130/82 10/20/24 23:45 70 20 10/20/24 23:38 70 20 10/20/24 23:08 10/20/24 23:00 77 20 135/100 10/20/24 22:08 81 20 115/71 10/20/24 21:53 81 10/20/24 21:53 10/20/24 21:44 82 Pulse Ox O2 Del Method O2 Flow Rate 10/21/24 09:18 Nasal Cannula, Oxymask 1 10/21/24 08:06 94 Oxymask 1 10/21/24 07:16 10/21/24 06:43 96 Nasal Cannula 1 10/21/24 04:26 Oxymask 7 10/21/24 04:26 95 Oxymask 7 10/21/24 04:21 10/21/24 03:01 94 Oxymask 8 10/21/24 02:00 95 Oxymask 8 10/21/24 01:42 10/21/24 01:00 92 Non-rebreather 5 10/21/24 00:00 92 Non-rebreather 3 10/20/24 23:45 96 Non-rebreather 3 10/20/24 23:38 88 L Non-rebreather 1 10/20/24 23:08 93 Nasal Cannula 1 10/20/24 23:00 93 Nasal Cannula 1 10/20/24 22:08 93 Oxymask 5 10/20/24 21:53 Oxymask 10/20/24 21:53 90 Oxymask 5 10/20/24 21:44
[2024-10-21 10:50] LABS: Base Excess VBG -3.4 mEq/L; HCO3 VBG 20 mmol/L; Oxygen Saturation VBG 80.6 %; PCO2 VBG 31 mmHg (38-50); PO2 VBG 45 mmHg; pH VBG 7.42 (7.36-7.41)
[2024-10-21 10:51] LABS: Carboxyhemoglobin 1.3 % THgb; Methemoglobin < 0.7 % (0.0-1.5)
--- NOTE | 2024-10-21 10:57 | Hospitalist Progress Note ---
Date of Service October 21, 2024 Assessment & Plan (1) Hypoxia: (2) Weakness generalized: (3) JAIME (obstructive sleep apnea): Plan 74 year old female with PMH of HTN, Glioblastoma, Anxiety w presents to the ER with shortness of breath and hypoxia. No acute findings on CTA, Chest Xray. No acute changes on EKG. Admitted for O2 supplementation for Hypoxia and further workup for Hypoxia #Hypoxia No respiratory distress No cause found on CT pulmonary angiogram History of obstructive sleep apnea not on CPAP TTE pending Suspect most likely diagnosis is poor inspiratory effort and atelectasis due to generalized fatigue from chemotherapy Albuterol Nebu q 6hr #Glioblastoma Consult oncology and palliative care Continue dexamethasone and temozolomide #Hypertension Continue valsartan and amlodipine #Anxiety Continue sertraline and buspirone VTE Prophylaxis - Lovenox 40mg SQ daily Disposition - observation on med/tele Admission and Anticipated Discharge Date Admission Date: October 20, 2024 Supervising Physician Co-Signing Physician Notes I personally examined the patient and verified all miranda points of history and exam, discussed case, and agree with decision making with Dr Mittal ongoing sob. no cough. no chest pressure. just feels dyspnea, worse with exertion. vitals noted heent nc at mmm breathing mildly labored, mild accessory muscles, lungs quiet/reduced air entry but clear - no r/r/w good effort dyspnea - clear lungs on exam and imaging, but notably diminished air entry. ?weakness due to chemo + deconditioning vs ?COPD type variant vs other. work on setting up O2 for home, give trial of neb and follow for response GBM - in d/w palliative team, re-imaging will be helpful in prognosis/discussions/goals of care - MRI brain ordered Subjective She feels about the same, feels weak. Labored breathing +. On 1 L of O2 Review of Systems Review of Systems: As per HPI Physical Exam Constitutional: well developed; + not well nourished and no acute distress ENMT: external ear and nose normal, oropharynx normal Respiratory: normal respiratory effort; no respiratory distress Auscultation: lungs clear to auscultation bilaterally; no diminished lung sounds, no crackles, no rhonchi and no wheezes Cardiovascular: RRR, no murmur, no edema Gastrointestinal (Abdomen): normal bowel sounds, soft, nontender, no hepatosplenomegaly Musculoskeletal: no cyanosis or clubbing, extremities motor strength 5/5 Skin: no rashes, warm and dry Neurologic: moves all extremities and awake; not confused Psychiatric: A+Ox3, euthymic affect Results & Data Results & Data Vital Signs (Past 12 Hours) Vital Signs Temp Pulse Pulse Pulse Resp BP BP 10/21/24 06:43 10/21/24 04:26 10/21/24 04:26 36.5 C 74 18 119/77 10/21/24 04:21 74 10/21/24 03:01 79 18 135/74 10/21/24 02:00 78 16 130/75 10/21/24 01:42 80 10/21/24 01:00 79 14 130/76 10/21/24 00:00 79 16 130/82 10/20/24 23:45 70 20 10/20/24 23:38 70 20 10/20/24 23:08 10/20/24 23:00 77 20 135/100 10/20/24 22:08 81 20 115/71 10/20/24 21:53 81 10/20/24 21:53 10/20/24 21:44 82 10/20/24 21:36 37.6 C H 82 20 123/71 Pulse Ox O2 Del Method O2 Flow Rate 10/21/24 06:43 96 Nasal Cannula 1 10/21/24 04:26 Oxymask 7 10/21/24 04:26 95 Oxymask 7 10/21/24 04:21 10/21/24 03:01 94 Oxymask 8 10/21/24 02:00 95 Oxymask 8 10/21/24 01:42 10/21/24 01:00 92 Non-rebreather 5 10/21/24 00:00 92 Non-rebreather 3 10/20/24 23:45 96 Non-rebreather 3 10/20/24 23:38 88 L Non-rebreather 1 10/20/24 23:08 93 Nasal Cannula 1 10/20/24 23:00 93 Nasal Cannula 1 10/20/24 22:08 93 Oxymask 5 10/20/24 21:53 Oxymask 10/20/24 21:53 90 Oxymask 5 10/20/24 21:44 10/20/24 21:36 94 Oxymask 4 Resident Activity Tracking Resident Involvement: Resident Care Provided Care Provided: Adult [facility]
[2024-10-21 11:01] LABS: Hematocrit (blood only) 38.7 % (37.0-47.0); Hemoglobin 12.6 g/dl (12.0-16.0); Immature Granulocytes # (auto) 0.03 K/uL (0.01-0.20); Immature Granulocytes % (auto) 0.5 %; Mean Corpuscular Hemoglobin 29.4 pg (25.0-34.0); Mean Corpuscular Volume 90.4 fL (80.0-100.0); Platelet Count 147 K/uL (130-400); RDW Standard Deviation 44.9 fL (36.4-46.3); Red Blood Count 4.28 M/uL (4.20-5.40); White Blood Count 6.29 K/ul (4.8-10.8)
[2024-10-21] MEDS: POLYETHYLENE (MIRALAX) 17 GM PACK PO SCH (14:55)
--- NOTE | 2024-10-21 15:04 | Electrocardiogram Report ---
Test Reason : Blood Pressure : */* mmHG Vent. Rate : 84 BPM Atrial Rate : 84 BPM P-R Int : 146 ms QRS Dur : 92 ms QT Int : 374 ms P-R-T Axes : 18 -12 33 degrees QTcB Int : 441 ms Normal sinus rhythm Inferior infarct (cited on or before 10-Sep-2024) Abnormal ECG When compared with ECG of 10-Sep-2024 10:34, No significant change was found Confirmed by Donell Young ([id number]) on 10/21/2024 3:03:38 PM Referred By: REFERRED SELF Confirmed By: Donell Young
--- NOTE | 2024-10-21 17:03 | Billing Data ---
Date of Service October 21, 2024 Coding Level of Care Code 63630 SUB INP/OBS CARE MIN
[2024-10-21] MEDS: ALBUTEROL 0.5% NEB SOLN 2.5 MG/0.5 ML VIAL NEB SCH (20:36)
[2024-10-21] MEDS: SERTRALINE HCL 100 MG TABLET PO SCH (21:10)
[2024-10-21] MEDS: cefTRIAXone SODIUM 2,000 MG/50 ML BAG IV SCH (21:10)
[2024-10-21] MEDS: DOCUSATE SODIUM/SENNA 50/8.6MG TAB PO SCH (21:17)
[2024-10-21] MEDS: CETIRIZINE HCL 10 MG TABLET PO PRN (21:34)
[2024-10-21] MEDS: ALBUTEROL 0.5% NEB SOLN 2.5 MG/0.5 ML VIAL NEB STA (23:03)
--- NOTE | 2024-10-21 23:23 | Magnetic Resonance Report ---
Exam(s): MRI HEAD Without Contrast EXAM: MR Head Without Intravenous Contrast CLINICAL HISTORY: GBM. TECHNIQUE: Magnetic resonance images of the head/brain without intravenous contrast in multiple planes. COMPARISON: CT head 10/20/2024, MRI brain 09/05/2024 FINDINGS: Limited by lack of IV contrast material. Redemonstrated left frontal craniotomy defect with underlying dural thickening. Decreased fluid under the craniotomy flap. Redemonstrated surgical defect in the left frontal lobe extending to the frontal horn of the left lateral ventricle with overall increased in extensive left frontal hyperintensity on FLAIR and T2 weighted images. Redemonstrated focal surgical defect extending to the left basal ganglia and external capsule, more defined as compared to the prior study. Small amount of hemosiderin along the margins of the left frontal parenchymal surgical and left basal ganglia defects. Increased diffuse abnormal signal in the left caudate, basal ganglia and extending into the external and posterior limb of the internal capsule and thalamus with increased mass effect of the left lateral ventricle. Increased 5.6 mm [id number] midline shift at the level of the lateral ventricles. Basilar cisterns are intact. No evidence for acute hemorrhage or other abnormal extra-axial fluid collection. No acute stroke on diffusion-weighted images. Fluid in the bilateral mastoid air cells. Generalized age-appropriate atrophy. IMPRESSION: Status post left frontal lobe mass resection with prominent surgical defect with redemonstrated remote blood products along the margins of the surgical defect. Overall increased left frontal hyperintense signal in the subcortical white matter extending through the basal ganglia, caudate, internal/external capsules and left thalamus with increased mass effect of the left lateral ventricle with increased [id number] midline shift. Considerations include vasogenic edema versus radiation related changes. Evaluation for recurrent tumors limited by lack of intravenous contrast material. Electronically signed by: Aashish An M.D. 10/21/24 23:21 PM
[2024-10-22 05:49] LABS: Allen Test Pos (Pos); HCO3 ABG 23 mmol/L (19-24); Oxygen Saturation ABG 96.4 % (90-95); PCO2 ABG 33 mmHg (35-46); PO2 ABG 72 mmHg (80-95)
--- NOTE | 2024-10-22 07:59 | Hospitalist Progress Note ---
Date of Service October 22, 2024 Assessment & Plan (1) Glioblastoma of frontal lobe: (2) Hypoxia: Plan 74 year old female with PMH of HTN, Glioblastoma, Anxiety w presents to the ER with shortness of breath and hypoxia. No acute findings on CTA, Chest Xray. No acute changes on EKG. Admitted for O2 supplementation for Hypoxia and further workup for Hypoxia #Hypoxia No respiratory distress No cause found on CT pulmonary angiogram History of obstructive sleep apnea not on CPAP TTE pending Suspect most likely diagnosis is poor inspiratory effort and atelectasis due to generalized fatigue from chemotherapy Albuterol Nebu q 6hr #Glioblastoma Consult oncology and palliative care Continue dexamethasone and temozolomide #Hypertension Continue valsartan and amlodipine #Anxiety Continue sertraline and buspirone VTE Prophylaxis - Lovenox 40mg SQ daily Disposition - observation on med/tele Admission and Anticipated Discharge Date Admission Date: October 20, 2024 Supervising Physician Co-Signing Physician Notes I personally examined the patient and verified all miranda points of history and exam, discussed case, and agree with decision making with Dr Mittal Breathing feels better. No shortness of breath. He is on oxygen, but overall feels better with this. She did have some nausea and vomitingrelates probably shortly after taking MiraLAX, and feels like her belly got full fairly easily leading to nausea and vomiting. She had been able to eat breakfast well earlier in the day. MRI noted. Vitals noted, in general she is awake and alert fatigued but no distress. HEENT normocephalic atraumatic mucous membranes mois t. Breathing unlabored no accessory muscle use good effort. Skin without rashes pallor or icterus. Neuro without focal deficits. dyspnea - clear lungs on exam and imaging, but notably diminished air entry. ?weakness due to chemo + deconditioning vs ?COPD type variant vs other. work on setting up O2 for home, irregular response to bronchodilatorsbut can continue as needed. Continue supportive care. Nausea/vomitingindirectly appears to relate to constipationagree with patient that the acute inciting factor probably was the 34 g of MiraLAX, but that this probably was largely because of being constipated enough that it was starting to be a problem. Continue gentle bowel regimen GBM - MRI brain with significant vasogenic edemaawaiting directions from her primary oncologist, but given that she does seem to have some mental status issues, will at least temporarily raise dexamethasone to try to improve this. DVT prophylaxisLovenox Subjective Looks more comfortable today. Her breathing is easy. Appetite is better. Not had her BM today. Seems to be improving Review of Systems Review of Systems: As per HPI Physical Exam Constitutional: well developed; + not well nourished and no acute distress ENMT: external ear and nose normal, oropharynx normal Respiratory: normal respiratory effort; no respiratory distress Auscultation: lungs clear to auscultation bilaterally; no diminished lung sounds, no crackles, no rhonchi and no wheezes Cardiovascular: RRR, no murmur, no edema Gastrointestinal (Abdomen): normal bowel sounds, soft, nontender, no hepatosplenomegaly Musculoskeletal: no cyanosis or clubbing, extremities motor strength 5/5 Skin: no rashes, warm and dry Neurologic: moves all extremities and awake; not confused Psychiatric: A+Ox3, euthymic affect Results & Data Results & Data Vital Signs (Past 12 Hours) Vital Signs Temp Pulse Pulse Pulse Pulse Resp BP 10/22/24 07:35 37.0 C 76 16 10/22/24 07:10 70 16 10/22/24 07:08 68 10/22/24 04:55 67 10/22/24 03:54 36.8 C 78 20 142/78 H 10/22/24 01:04 66 61 10/22/24 01:03 66 18 10/22/24 00:18 36.8 C 76 18 144/79 H 10/21/24 22:05 61 10/21/24 21:43 72 10/21/24 21:20 10/21/24 20:40 65 18 BP Pulse Ox Pulse Ox Pulse Ox O2 Del Method O2 Del Method O2 Del Method 10/22/24 07:35 130/80 95 Nasal Cannula 10/22/24 07:10 93 Nasal Cannula 10/22/24 07:08 10/22/24 04:55 91 Nasal Cannula 10/22/24 03:54 92 Nasal Cannula 10/22/24 01:04 93 86 L Nasal Cannula Room Air 10/22/24 01:03 86 L Room Air 10/22/24 00:18 89 L Oxymask 10/21/24 22:05 92 Room Air 10/21/24 21:43 10/21/24 21:20 Oxymask 10/21/24 20:40 95 Oxymask O2 Flow Rate O2 Flow Rate O2 Flow Rate 10/22/24 07:35 2 10/22/24 07:10 2 10/22/24 07:08 10/22/24 04:55 2 10/22/24 03:54 2 10/22/24 01:04 2 10/22/24 01:03 10/22/24 00:18 2 10/21/24 22:05 10/21/24 21:43 10/21/24 21:20 2 10/21/24 20:40 2
--- NOTE | 2024-10-22 10:26 | Palliative Care Progress Note ---
Date of Service October 22, 2024 Assessment & Plan (1) Constipation: Plan: bowel regimen underway, recc use of mineral oil enema and increase to double dose of miralax (2) Sleep apnea: Plan: overnight oximetry substantiates need for O2 2lpm NC qhs (3) Hypoxia: (4) Fine motor impairment: (5) Severe muscle deconditioning: (6) Weakness generalized: Plan: Repeat Brain MRI noted I have had this dropped into PACS for PSH Dr Rain LM with his nurse advising this is awaiting his review and provided my number for return call as needed (7) Gait instability: (8) Advanced care planning/counseling discussion: (9) Generalized headaches: (10) Palliative care by specialist: Plan As above d/e=w Dr Stewart Thank you for allowing us to participate in the ongoing care of this patient. Please page with any additional concerns. Marti Couch DNP Director, Palliative Medicine Admission and Anticipated Discharge Date Admission Date: October 20, 2024 Chantell Jenkins is seen for follow up cancer related headaches, abd pain, mild nausea, hypoxia/JAIME and chronic constipation. She is tired this morning. Drifting off easily. Denies acute pain or distress. Appetite is still on low side, mild nausea abd pain from constipation bowel regimen started last night Overnight oximetry: room air 86%, 2lpm NC added with SpO2 to 92-93% - will need O2 2lpm NC with sleep. Repeat Brain MRI last night revealed the following: Status post left frontal lobe mass resection with prominent surgical defect with redemonstrated remote blood products along the margins of the surgical defect. Overall increased left frontal hyperintense signal in the subcortical white matter extending through the basal ganglia, caudate, internal/external capsules and left thalamus with increased mass effect of the left lateral ventricle with increased [id number] midline shift. Considerations include vasogenic edema versus radiation related changes. Evaluation for recurrent tumors limited by lack of intravenous contrast material. Review of Systems Review of Systems: All systems reviewed & are unremarkable except as noted in Subjective Physical Exam Constitutional: + ill appearing, average body habitus, + frail appearing and cooperative Eyes: + eyes dysmorphic and PERRL ENMT: external ear and nose normal, oropharynx normal Neck: trachea midline, no thyromegaly normal visual inspection; no neck crepitus and neck nontender Respiratory: normal respiratory effort, lungs clear to auscultation Auscultation: + diminished lung sounds Cardiovascular: Heart Sounds: normal S1 and normal S2 Extremities: normal capillary refill Gastrointestinal (Abdomen): Inspection/Auscultation: abdomen normal to inspection and normal bowel sounds Percussion/Palpation: + abdomen tender, abdomen soft and + tympanic to percussion; no guarding and abdomen not rigid Musculoskeletal: Extremities: + abnormal strength and + muscle atrophy Skin: + pallor Psychiatric: Apperance: appropriately groomed and appeared stated age Affect: + flat affect Hallucinations: no auditory hallucinations, no visual hallucinations and no tactile hallucinations Cognition: language grossly intact Estimated Intelligence: average estimated intelligence she is tired appearing and easily drifts off. Results & Data Vital Signs (Past 12 Hours) Vital Signs Temp Pulse Pulse Pulse Pulse Pulse Pulse 10/22/24 08:33 10/22/24 07:57 109 H 104 H 100 H 88 10/22/24 07:35 37.0 C 10/22/24 07:10 10/22/24 07:08 68 10/22/24 04:55 67 10/22/24 03:54 36.8 C 10/22/24 01:04 66 61 10/22/24 01:03 10/22/24 00:18 36.8 C Pulse Resp Resp Resp Resp Resp BP 10/22/24 08:33 10/22/24 07:57 20 20 18 16 10/22/24 07:35 76 16 10/22/24 07:10 70 16 10/22/24 07:08 10/22/24 04:55 10/22/24 03:54 78 20 142/78 H 10/22/24 01:04 10/22/24 01:03 66 18 10/22/24 00:18 76 18 144/79 H BP Pulse Ox Pulse Ox Pulse Ox Pulse Ox Pulse Ox Pulse Ox 10/22/24 08:33 10/22/24 07:57 86 L 91 92 87 L 10/22/24 07:35 130/80 95 10/22/24 07:10 93 10/22/24 07:08 10/22/24 04:55 91 10/22/24 03:54 92 10/22/24 01:04 93 86 L 10/22/24 01:03 86 L 10/22/24 00:18 89 L O2 Del Method O2 Del Method O2 Del Method O2 Flow Rate O2 Flow Rate O2 Flow Rate O2 Flow Rate 10/22/24 08:33 Nasal Cannula, Oxymask 2 10/22/24 07:57 2 3 10/22/24 07:35 Nasal Cannula 2 10/22/24 07:10 Nasal Cannula 2 10/22/24 07:08 10/22/24 04:55 Nasal Cannula 10/22/24 03:54 Nasal Cannula 2 10/22/24 01:04 Nasal Cannula Room Air 2 10/22/24 01:03 Room Air 10/22/24 00:18 Oxymask 2 O2 Flow Rate O2 Flow Rate 10/22/24 08:33 10/22/24 07:57 2 10/22/24 07:35 10/22/24 07:10 10/22/24 07:08 10/22/24 04:55 2 10/22/24 03:54 10/22/24 01:04 10/22/24 01:03 10/22/24 00:18 Laboratory Results 10/22/24 10/21/24 10/21/24 Range/Units 05:30 10:28 07:56 WBC 6.29 (4.8-10.8) K/ul RBC 4.28 (4.20-5.40) M/uL Hgb 12.6 (12.0-16.0) g/dl POC Hgb (12.0-16.0) g/dl Hct 38.7 (37.0-47.0) % POC Hct (37-47) % MCV 90.4 (80.0-100.0) fL MCH 29.4 (25.0-34.0) pg MCHC 32.6 (32.0-36.0) g/dL RDW Std Deviation 44.9 (36.4-46.3) fL RDW Coeff of Swapnil 13.5 (11.5-14.5) % Plt Count 147 (130-400) K/uL MPV 10.5 (9.4-12.4) fL Immature Gran % (Auto) 0.5 % Neut % (Auto) 85.0 % Lymph % (Auto) 3.8 % [place] % (Auto) 5.6 % Eos % (Auto) 4.6 % Baso % (Auto) 0.5 % Neut # (Auto) 5.35 (1.40-6.50) K/uL Lymph # (Auto) 0.24 L (1.20-3.40) K/uL [place] # (Auto) 0.35 (0.11-0.59) K/uL Eos # (Auto) 0.29 (0.00-0.50) K/uL Baso # (Auto) 0.03 (0.00-0.20) K/uL Immature Gran # (Auto) 0.03 (0.01-0.20) K/uL PT (9.0-12.0) Seconds INR (0.9-1.1) APTT (21-31) Seconds PTT Ratio POC pH (7.35-7.45) POC pCO2 (35-46) mmHg POC pO2 (80-95) mmHg POC HCO3 (19-24) natali/L POC Base Excess (-9-1.8) natali/L ABG pH 7.45 (7.35-7.45) ABG pCO2 33 L (35-46) mmHg ABG pO2 72 L (80-95) mmHg ABG HCO3 23 (19-24) mmol/L POC ABG O2 Sat (90-95) % ABG O2 Saturation 96.4 H (90-95) % ABG Base Excess -0.4 (-9-1.8) mEq/L Felice Test Pos (Pos) VBG pH 7.42 H (7.36-7.41) VBG pCO2 31 L (38-50) mmHg VBG pO2 45 mmHg VBG HCO3 20 mmol/L VBG O2 Saturation 80.6 % VBG Base Excess -3.4 mEq/L Carboxyhemoglobin 1.3 % THgb Methemoglobin < 0.7 (0.0-1.5) % Oxygen Given 2L POC Sodium (135-144) mmol/L Sodium 136 (136-145) mmol/L POC Potassium (3.3-5.0) mmol/L Potassium 3.5 (3.5-5.1) mmol/L POC Chloride (101-112) mmol/L Chloride 105 (98-107) mmol/L Carbon Dioxide 23 (21-32) mmol/L POC Total CO2 (24-31) mmol/L Anion Gap 8 (3-11) POC Anion Gap (16-25) mmol/L POC BUN (7-18) mg/dl BUN 18 (6-23) mg/dl Creatinine 0.73 (0.6-1.2) mg/dl POC Creatinine (0.6-1.3) mg/dl Est Cr Clr Drug Dosing 67.3 ml/min eGFR 86.24 BUN/Creatinine Ratio 24.7 H (10-20) Glucose 101 H (70-99(Fasting)) mg/dl POC Glucose (other) (70-99) mg/dl Lactate (0.4-2.0) mmol/L Calcium 8.2 L (8.6-10.3) mg/dl POC Ioniz Calcium Di (1.12-1.32) mmol/l Magnesium (1.7-2.4) mg/dl Total Bilirubin 0.6 (0.2-1.0) mg/dl Direct Bilirubin (0-0.2) mg/dl AST 11 L (13-39) U/L ALT 4 L (7-52) U/L Alkaline Phosphatase 34 (34-104) U/L Troponin I High Sens (0-14) pg/ml Total Protein 6.4 (6.0-8.3) gm/dl Albumin 3.8 (3.4-5.0) gm/dl Globulin 2.6 (2.5-4.0) gm/dl Albumin/Globulin Ratio 1.5 (0.9-2) Procalcitonin (0-0.5) ng/ml Urine Color Urine Appearance (Clear) Urine pH (4.5-7.5) Ur Specific [place] (1.000-1.030) Urine Protein (Negative) Urine Glucose (UA) (Negative) Urine Ketones (Negative) Urine Blood (Negative) Urine Nitrite (Negative) Urine Bilirubin (Negative) Urine Urobilinogen (Negative) Ur Leukocyte Esterase (Negative) Urine WBC (Auto) (0-5) /hpf Urine RBC (Auto) (0-2) /hpf U Hyaline Cast (Auto) (0-2) /lpf U Epithel Cells (Auto) (0-2) /hpf Urine Bacteria (Auto) (None Seen) Urine Mucus (None Prsent) Urine Comment Adenovirus (PCR) (NotDetected) B. pertussis DNA (PCR) (NotDetected) B.parapertussis DNA PCR (NotDetected) C. pneumoniae DNA (PCR) (NotDetected) Coronavirus OC43 (PCR) (NotDetected) Coronavirus HKU1 (PCR) (NotDetected) Coronavirus 229E (PCR) (NotDetected) SARS-CoV-2 (PCR) (NotDetected) Coronavirus NL63 (PCR) (NotDetected) Human Metapneumovir PCR (NotDetected) Influenza Type A (PCR) (NotDetected) Influenza Type B (PCR) (NotDetected) M. pneumoniae (PCR) (NotDetected) Parainfluenza 1 (PCR) (NotDetected) Parainfluenza 2 (PCR) (NotDetected) Parainfluenza 3 (PCR) (NotDetected) Parainfluenza 4 (PCR) (NotDetected) RSV (PCR) (NotDetected) Entero/Rhino (PCR) (NotDetected) 10/21/24 10/20/24 10/20/24 Range/Units 05:45 22:19 22:10 WBC (4.8-10.8) K/ul RBC (4.20-5.40) M/uL Hgb (12.0-16.0) g/dl POC Hgb 12.9 12.2 (12.0-16.0) g/dl Hct (37.0-47.0) % POC Hct 38 36 L (37-47) % MCV (80.0-100.0) fL MCH (25.0-34.0) pg MCHC (32.0-36.0) g/dL RDW Std Deviation (36.4-46.3) fL RDW Coeff of Swapnil (11.5-14.5) % Plt Count (130-400) K/uL MPV (9.4-12.4) fL Immature Gran % (Auto) % Neut % (Auto) % Lymph % (Auto) % [place] % (Auto) % Eos % (Auto) % Baso % (Auto) % Neut # (Auto) (1.40-6.50) K/uL Lymph # (Auto) (1.20-3.40) K/uL [place] # (Auto) (0.11-0.59) K/uL Eos # (Auto) (0.00-0.50) K/uL Baso # (Auto) (0.00-0.20) K/uL Immature Gran # (Auto) (0.01-0.20) K/uL PT (9.0-12.0) Seconds INR (0.9-1.1) APTT (21-31) Seconds PTT Ratio POC pH 7.42 (7.35-7.45) POC pCO2 31 L (35-46) mmHg POC pO2 59 L (80-95) mmHg POC HCO3 20 (19-24) natali/L POC Base Excess -5.0 (-9-1.8) natali/L ABG pH (7.35-7.45) ABG pCO2 (35-46) mmHg ABG pO2 (80-95) mmHg ABG HCO3 (19-24) mmol/L POC ABG O2 Sat 91.0 (90-95) % ABG O2 Saturation (90-95) % ABG Base Excess (-9-1.8) mEq/L Felice Test (Pos) VBG pH (7.36-7.41) VBG pCO2 (38-50) mmHg VBG pO2 mmHg VBG HCO3 mmol/L VBG O2 Saturation % VBG Base Excess mEq/L Carboxyhemoglobin % THgb Methemoglobin (0.0-1.5) % Oxygen Given POC Sodium 136 137 (135-144) mmol/L Sodium (136-145) mmol/L POC Potassium 3.7 3.9 (3.3-5.0) mmol/L Potassium (3.5-5.1) mmol/L POC Chloride 105 (101-112) mmol/L Chloride (98-107) mmol/L Carbon Dioxide (21-32) mmol/L POC Total CO2 21 L 19 L (24-31) mmol/L Anion Gap (3-11) POC Anion Gap 18.0 (16-25) mmol/L POC BUN 15 (7-18) mg/dl BUN (6-23) mg/dl Creatinine (0.6-1.2) mg/dl POC Creatinine 0.8 (0.6-1.3) mg/dl Est Cr Clr Drug Dosing ml/min eGFR BUN/Creatinine Ratio (10-20) Glucose (70-99(Fasting)) mg/dl POC Glucose (other) 126 H (70-99) mg/dl Lactate (0.4-2.0) mmol/L Calcium (8.6-10.3) mg/dl POC Ioniz Calcium Di 1.14 (1.12-1.32) mmol/l Magnesium (1.7-2.4) mg/dl Total Bilirubin (0.2-1.0) mg/dl Direct Bilirubin (0-0.2) mg/dl AST (13-39) U/L ALT (7-52) U/L Alkaline Phosphatase (34-104) U/L Troponin I High Sens (0-14) pg/ml Total Protein (6.0-8.3) gm/dl Albumin (3.4-5.0) gm/dl Globulin (2.5-4.0) gm/dl Albumin/Globulin Ratio (0.9-2) Procalcitonin (0-0.5) ng/ml Urine Color Yellow Urine Appearance Cloudy A (Clear) Urine pH 7.5 (4.5-7.5) Ur Specific [place] > 1.045 H (1.000-1.030) Urine Protein 1+ H (Negative) Urine Glucose (UA) Negative (Negative) Urine Ketones Trace H (Negative) Urine Blood Negative (Negative) Urine Nitrite Negative (Negative) Urine Bilirubin Negative (Negative) Urine Urobilinogen Negative (Negative) Ur Leukocyte Esterase Negative (Negative) Urine WBC (Auto) 0-5 (0-5) /hpf Urine RBC (Auto) 0-2 (0-2) /hpf U Hyaline Cast (Auto) 3-5 H (0-2) /lpf U Epithel Cells (Auto) 0-2 (0-2) /hpf Urine Bacteria (Auto) 4+ H (None Seen) Urine Mucus Present A (None Prsent) Urine Comment Adenovirus (PCR) Not Detected (NotDetected) B. pertussis DNA (PCR) Not Detected (NotDetected) B.parapertussis DNA PCR Not Detected (NotDetected) C. pneumoniae DNA (PCR) Not Detected (NotDetected) Coronavirus OC43 (PCR) Not Detected (NotDetected) Coronavirus HKU1 (PCR) Not Detected (NotDetected) Coronavirus 229E (PCR) Not Detected (NotDetected) SARS-CoV-2 (PCR) Not Detected (NotDetected) Coronavirus NL63 (PCR) Not Detected (NotDetected) Human Metapneumovir PCR Not Detected (NotDetected) Influenza Type A (PCR) Not Detected (NotDetected) Influenza Type B (PCR) Not Detected (NotDetected) M. pneumoniae (PCR) Not Detected (NotDetected) Parainfluenza 1 (PCR) Not Detected (NotDetected) Parainfluenza 2 (PCR) Not Detected (NotDetected) Parainfluenza 3 (PCR) Not Detected (NotDetected) Parainfluenza 4 (PCR) Not Detected (NotDetected) RSV (PCR) Not Detected (NotDetected) Entero/Rhino (PCR) Not Detected (NotDetected) 10/20/24 10/20/24 Range/Units 22:04 19:45 WBC 6.86 (4.8-10.8) K/ul RBC 4.08 L (4.20-5.40) M/uL Hgb 12.0 (12.0-16.0) g/dl POC Hgb (12.0-16.0) g/dl Hct 37.3 (37.0-47.0) % POC Hct (37-47) % MCV 91.4 (80.0-100.0) fL MCH 29.4 (25.0-34.0) pg MCHC 32.2 (32.0-36.0) g/dL RDW Std Deviation 44.3 (36.4-46.3) fL RDW Coeff of Swapnil 13.2 (11.5-14.5) % Plt Count 164 (130-400) K/uL MPV 9.4 (9.4-12.4) fL Immature Gran % (Auto) 0.3 % Neut % (Auto) 85.7 % Lymph % (Auto) 4.2 % [place] % (Auto) 6.9 % Eos % (Auto) 2.3 % Baso % (Auto) 0.6 % Neut # (Auto) 5.88 (1.40-6.50) K/uL Lymph # (Auto) 0.29 L (1.20-3.40) K/uL [place] # (Auto) 0.47 (0.11-0.59) K/uL Eos # (Auto) 0.16 (0.00-0.50) K/uL Baso # (Auto) 0.04 (0.00-0.20) K/uL Immature Gran # (Auto) 0.02 (0.01-0.20) K/uL PT 11.4 (9.0-12.0) Seconds INR 1.1 (0.9-1.1) APTT 29 (21-31) Seconds PTT Ratio 1.1 POC pH (7.35-7.45) POC pCO2 (35-46) mmHg POC pO2 (80-95) mmHg POC HCO3 (19-24) natali/L POC Base Excess (-9-1.8) natali/L ABG pH (7.35-7.45) ABG pCO2 (35-46) mmHg ABG pO2 (80-95) mmHg ABG HCO3 (19-24) mmol/L POC ABG O2 Sat (90-95) % ABG O2 Saturation (90-95) % ABG Base Excess (-9-1.8) mEq/L Felice Test (Pos) VBG pH (7.36-7.41) VBG pCO2 (38-50) mmHg VBG pO2 mmHg VBG HCO3 mmol/L VBG O2 Saturation % VBG Base Excess mEq/L Carboxyhemoglobin % THgb Methemoglobin (0.0-1.5) % Oxygen Given POC Sodium (135-144) mmol/L Sodium 135 L (136-145) mmol/L POC Potassium (3.3-5.0) mmol/L Potassium 3.6 (3.5-5.1) mmol/L POC Chloride (101-112) mmol/L Chloride 106 (98-107) mmol/L Carbon Dioxide 21 (21-32) mmol/L POC Total CO2 (24-31) mmol/L Anion Gap 8 (3-11) POC Anion Gap (16-25) mmol/L POC BUN (7-18) mg/dl BUN 17 (6-23) mg/dl Creatinine 0.68 (0.6-1.2) mg/dl POC Creatinine (0.6-1.3) mg/dl Est Cr Clr Drug Dosing 73.1 ml/min eGFR 91.33 BUN/Creatinine Ratio 25.0 H (10-20) Glucose 126 H (70-99(Fasting)) mg/dl POC Glucose (other) (70-99) mg/dl Lactate 0.9 (0.4-2.0) mmol/L Calcium 8.4 L (8.6-10.3) mg/dl POC Ioniz Calcium Di (1.12-1.32) mmol/l Magnesium 2.3 (1.7-2.4) mg/dl Total Bilirubin 0.8 (0.2-1.0) mg/dl Direct Bilirubin 0.1 (0-0.2) mg/dl AST 11 L (13-39) U/L ALT 6 L (7-52) U/L Alkaline Phosphatase 39 (34-104) U/L Troponin I High Sens 9.4 (0-14) pg/ml Total Protein 6.6 (6.0-8.3) gm/dl Albumin 3.7 (3.4-5.0) gm/dl Globulin (2.5-4.0) gm/dl Albumin/Globulin Ratio (0.9-2) Procalcitonin 0.06 (0-0.5) ng/ml Urine Color Urine Appearance (Clear) Urine pH (4.5-7.5) Ur Specific [place] (1.000-1.030) Urine Protein (Negative) Urine Glucose (UA) (Negative) Urine Ketones (Negative) Urine Blood (Negative) Urine Nitrite (Negative) Urine Bilirubin (Negative) Urine Urobilinogen (Negative) Ur Leukocyte Esterase (Negative) Urine WBC (Auto) (0-5) /hpf Urine RBC (Auto) (0-2) /hpf U Hyaline Cast (Auto) (0-2) /lpf U Epithel Cells (Auto) (0-2) /hpf Urine Bacteria (Auto) (None Seen) Urine Mucus (None Prsent) Urine Comment Adenovirus (PCR) (NotDetected) B. pertussis DNA (PCR) (NotDetected) B.parapertussis DNA PCR (NotDetected) C. pneumoniae DNA (PCR) (NotDetected) Coronavirus OC43 (PCR) (NotDetected) Coronavirus HKU1 (PCR) (NotDetected) Coronavirus 229E (PCR) (NotDetected) SARS-CoV-2 (PCR) (NotDetected) Coronavirus NL63 (PCR) (NotDetected) Human Metapneumovir PCR (NotDetected) Influenza Type A (PCR) (NotDetected) Influenza Type B (PCR) (NotDetected) M. pneumoniae (PCR) (NotDetected) Parainfluenza 1 (PCR) (NotDetected) Parainfluenza 2 (PCR) (NotDetected) Parainfluenza 3 (PCR) (NotDetected) Parainfluenza 4 (PCR) (NotDetected) RSV (PCR) (NotDetected) Entero/Rhino (PCR) (NotDetected) Diagnostic Findings Brain MRI 10/21/24 13:31 Exam(s): MRI HEAD Without Contrast EXAM: MR Head Without Intravenous Contrast CLINICAL HISTORY: GBM. TECHNIQUE: Magnetic resonance images of the head/brain without intravenous contrast in multiple planes. COMPARISON: CT head 10/20/2024, MRI brain 09/05/2024 FINDINGS: Limited by lack of IV contrast material. Redemonstrated left frontal craniotomy defect with underlying dural thickening. Decreased fluid under the craniotomy flap. Redemonstrated surgical defect in the left frontal lobe extending to the frontal horn of the left lateral ventricle with overall increased in extensive left frontal hyperintensity on FLAIR and T2 weighted images. Redemonstrated focal surgical defect extending to the left basal ganglia and external capsule, more defined as compared to the prior study. Small amount of hemosiderin along the margins of the left frontal parenchymal surgical and left basal ganglia defects. Increased diffuse abnormal signal in the left caudate, basal ganglia and extending into the external and posterior limb of the internal capsule and thalamus with increased mass effect of the left lateral ventricle. Increased 5.6 mm [id number]-[id number] midline shift at the level of the lateral ventricles. Basilar cisterns are intact. No evidence for acute hemorrhage or other abnormal extra-axial fluid collection. No acute stroke on diffusion-weighted images. Fluid in the bilateral mastoid air cells. Generalized age-appropriate atrophy. IMPRESSION: Status post left frontal lobe mass resection with prominent rosario rgical defect with redemonstrated remote blood products along the margins of the surgical defect. Overall increased left frontal hyperintense signal in the subcortical white matter extending through the basal ganglia, caudate, internal/external capsules and left thalamus with increased mass effect of the left lateral ventricle with increased [id number]-[id number] midline shift. Considerations include vasogenic edema versus radiation related changes. Evaluation for recurrent tumors limited by lack of intravenous contrast material. Electronically signed by: Aashish An M.D. 10/21/24 23:21 PM PG Care Time/CCT Total # of Minutes Spent Total Time Spent with Patient: Total time spent is greater than 50% in coordination of care (as documented) at patient's floor/unit and/or counseling patient: I spent 55 minutes overall addressing this case: 15 min in medical data review/discussion with referring provider(s) and/or preparation for the visit 15 min in direct interaction with the patient/exam 00 min in Advance Care Planning/Goals of Care discussions as detailed above in note (must be >16min) 10 min in subsequent review and synthesis of assessment and plan 15 min communicating with other providers regarding the patient's case: [place] [address] SUB INP/OBS CARE 3/50MIN Patient Type Established History Comprehensive Exam Comprehensive Medical Decision Making High Complexity Diagnoses Constipation K59.00 Sleep apnea G47.30 Hypoxia R09.02 Fine motor impairment R29.818; R29.898 Severe muscle deconditioning R29.898 Weakness generalized R53.1 Gait instability R26.81 Advanced care planning/counseling discussion Z71.89 Generalized headaches R51.9 Palliative care by specialist Z51.5 Comment [id number]
[2024-10-22] MEDS ORDERED: POLYETHYLENE (MIRALAX) 17 GM PACK PO SCH (10:30)
[2024-10-22] MEDS: POLYETHYLENE (MIRALAX) 17 GM PACK PO ONE (11:39)
[2024-10-22] MEDS ORDERED: ALBUTEROL 0.083% NEBU SOLN 3 ML VIAL NEB PRN (16:27)
--- NOTE | 2024-10-22 18:08 | Billing Data ---
Date of Service October 22, 2024 Coding Level of Care Code 69326 SUB INP/OBS CARE
[2024-10-22] MEDS: ONDANSETRON 4 MG OD TAB PO PRN (20:29)
--- NOTE | 2024-10-22 21:34 | Communication Note ---
Date of Service: October 22, 2024 Palliative Medicine Brief Note 930pm Tel call with Dr Triston Rodrigez/[facility]. He reviewed the Brain MRI - inc vasogenic edema, likely from an enhancing /progressive lesion, would like a Brain MRI with contrast to better assess (we can have this pushed into PACS for him to compare to prior imaging.) For now he asked we increase Decadron to 4mg 0800 and 1700 for ten days then Decadron 4mg daily thereafter until further notice/do not taper. A new order has been written. Will discuss Brain MRI w/contrast in AM w/med onc and primary teams. Thank you for allowing us to participate in the ongoing care of this patient. Please page with any additional concerns. Marti Couch DNP Director, Palliative Medicine
[2024-10-23] MEDS: POLYETHYLENE (MIRALAX) 17 GM PACK PO SCH (08:28)
[2024-10-23] MEDS ORDERED: POLYETHYLENE (MIRALAX) 17 GM PACK PO SCH (09:00)
--- NOTE | 2024-10-23 10:46 | Palliative Care Progress Note ---
Date of Service October 23, 2024 Assessment & Plan (1) Constipation: Plan: bowel regimen underway, recc use of mineral oil enema and increase to double dose of miralax (2) Sleep apnea: Plan: overnight oximetry substantiates need for O2 2lpm NC qhs; spouse working with CM to [employer] for delivery to home p/t discharge. (3) Hypoxia: (4) Severe muscle deconditioning: (5) Weakness generalized: Plan: Repeat Brain MRI with contrast pending Non-contrast MRI brain in PACS for [facility] Dr Rodrigez, Per Dr Couch ([facility]) communication note: "Tel call with Dr Triston Rodrigez/[facility] Neuro Onc. He reviewed the Brain MRI - inc vasogenic edema, likely from an enhancing/progressive lesion, would like a Brain MRI with contrast to better assess (we can have this pushed into PACS for him to compare to prior imaging.) For now he asked we increase Decadron to 4mg 0800 and 1700 for ten days then Decadron 4mg daily thereafter until further notice/do not taper. A new order has been written." Pt reportedly at her baseline (self report confirmed by spouse at bedside) cognition but weakness unchanged from yesterday. MRI Brain without and with contrast pending (6) Gait instability: (7) Advanced care planning/counseling discussion: Plan: GOC not addressed today, MRI pending and pt/spouse are wanting results of contrast MRI and to discuss treatment options with her oncology team p/t any further GOC discussion (8) Generalized headaches: Plan: pt reports improvement with increased Decadron dose (9) Palliative care by specialist: Plan: Palliative care will continue to follow for ongoing pt care and family support. Plan As above Admission and Anticipated Discharge Date Admission Date: October 22, 2024 Subjective Seeing pt as continuation of care from previous Palliative Care provider, Dr Couch. Assessed pt at bedside, her spouse was present. BALJINDER. Pt awake and alert and apparently at her baseline MS this morning. She is in NAD on 2l NC. SHe c/o mild headache and stated that she hopes for discharge home after her MRI. Spouse expressed concern that she does not yet have required DME, particularly oxygen, at home for discharge. They are working with CM for this. Review of Systems Review of Systems: All systems reviewed & are unremarkable except as noted in Subjective Physical Exam Constitutional: + ill appearing, + thin, + frail appeari ng, cooperative and comfortable Eyes: PERRL ENMT: external ear and nose normal, oropharynx normal Neck: trachea midline, no thyromegaly Respiratory: normal respiratory effort, lungs clear to auscultation Auscultation: + diminished lung sounds Cardiovascular: Heart Sounds: normal S1 and normal S2 Extremities: normal capillary refill Gastrointestinal (Abdomen): Inspection/Auscultation: abdomen normal to inspection and normal bowel sounds Percussion/Palpation: + abdomen tender, abdomen soft and + tympanic to percussion; no guarding and abdomen not rigid Musculoskeletal: Extremities: + muscle atrophy generalized weakness Skin: + pallor Neurologic: PERRL, EOMI, accommodation nl, no face palsy, no dysarthria awake Psychiatric: Apperance: appropriately groomed and appeared stated age Affect: + flat affect Cognition: language grossly intact Results & Data Vital Signs (Past 12 Hours) Vital Signs Temp Pulse Pulse Resp BP Pulse Ox O2 Del Method 10/23/24 08:03 36.4 C L 58 L 18 175/70 H 96 Nasal Cannula 10/23/24 05:52 55 L 10/23/24 03:55 36.3 C L 57 L 18 122/73 96 Nasal Cannula 10/23/24 00:15 36.4 C L 62 18 142/82 H 96 Nasal Cannula O2 Flow Rate 10/23/24 08:03 2 10/23/24 05:52 10/23/24 03:55 2 10/23/24 00:15 2 Diagnostic Findings Chest CTA 10/20/24 21:53 Exam(s): CTA CHEST IV Amt: 115cc optiray 320 EXAM: CT Angiography Chest With Intravenous Contrast CLINICAL HISTORY: Reason for exam: ro pe. TECHNIQUE: Axial computed tomographic angiography images of the chest with intravenous contrast. CTDI is 25.24 mGy and DLP is 751 mGy-cm. Automated exposure control was utilized for the study. A dose lowering technique was utilized adhering to the principles of ALARA. MIP reconstructed images were created and reviewed. COMPARISON: No relevant prior studies available. FINDINGS: Limitations: Exam is slightly limited secondary to patient respiratory motion. Pulmonary arteries: Unremarkable. No pulmonary embolism. Aorta: No acute findings. No thoracic aortic aneurysm. Lungs: Diffuse changes COPD. 0.5 cm pulmonary nodule right lower lobe axial image 39 series 5. Linear atelectasis in the lingula. Mild bibasilar dependent atelectasis. Pleural space: Unremarkable. No significant effusion. No pneumothorax. Heart: Unremarkable. No cardiomegaly. No significant pericardial effusion. No evidence of RV dysfunction. Bones/joints: No acute fracture. No dislocation. Soft tissues: Unremarkable. Lymph nodes: Unremarkable. No enlarged lymph nodes. IMPRESSION: No acute findings in the visualized arteries of the chest. 0.5 cm pulmonary nodule right lower lobe Fleischner Society Guidelines suggest no follow-up is necessary for patients with a low or high risk of malignancy. Electronically signed by: Mark Chapa MD 10/20/24 22:58 PM Chest X-Ray 10/20/24 21:53 Exam(s): XR CXR 1 VIEW EXAM: XR Chest, 1 View CLINICAL HISTORY: Reason for exam: Sepsis. TECHNIQUE: Frontal view of the chest. COMPARISON: No relevant prior studies available. FINDINGS: Lungs: Unremarkable. No consolidation. Pleural space: Unremarkable. No pneumothorax. Heart: Unremarkable. No cardiomegaly. Mediastinum: Unremarkable. Normal mediastinal contour. Bones/joints: Unremarkable. No acute fracture. IMPRESSION: Normal chest x-ray. Electronically signed by: Mark Chapa MD 10/21/24 00:[address] 10/20/24 21:53 CR Exam(s): CT HEAD Without Contrast EXAM: CT Head Without Intravenous Contrast CLINICAL HISTORY: Reason for exam: ams. TECHNIQUE: Axial computed tomography images of the head/brain without intravenous contrast. CTDI is 25.24 mGy and DLP is 751.85 mGy-cm. Automated exposure control was utilized for the study. A dose lowering technique was utilized adhering to the principles of ALARA. COMPARISON: 09/10/2024 FINDINGS: Brain: See below. Ventricles: Unremarkable. No ventriculomegaly. Bones/joints: Postop changes left frontal craniotomy with encephalomalacia involving the left frontal lobe. Allowing for subtle differences in technique there has been interval increase in vasogenic edema within the left frontal lobe . This results in subtle left-to- right midline shift of 5 mm which is new when compared to prior exam. No acute fracture. Soft tissues: Unremarkable. Sinuses: Unremarkable as visualized. No acute sinusitis. Mastoid air cells: Unremarkable as visualized. No mastoid effusion. IMPRESSION: No acute findings in the head/brain. Postoperative changes left frontal lobe. Left frontal craniotomy with worsening vasogenic edema within the left frontal lobe and subtle new [id number] midline shift measuring 5 mm. Findings concerning for an underlying mass. Postcontrast MRI of the head recommended for further evaluation. Communications: Call Doctor Other Electronically signed by: Mark Chapa MD 10/20/24 22:55 PM Brain MRI 10/21/24 13:31 Exam(s): MRI HEAD Without Contrast EXAM: MR Head Without Intravenous Contrast CLINICAL HISTORY: GBM. TECHNIQUE: Magnetic resonance images of the head/brain without intravenous contrast in multiple planes. COMPARISON: CT head 10/20/2024, MRI brain 09/05/2024 FINDINGS: Limited by lack of IV contrast material. Redemonstrated left frontal craniotomy defect with underlying dural thickening. Decreased fluid under the craniotomy flap. Redemonstrated surgical defect in the left frontal lobe extending to the frontal horn of the left lateral ventricle with overall increased in extensive left frontal hyperintensity on FLAIR and T2 weighted images. Redemonstrated focal surgical defect extending to the left basal ganglia and external capsule, more defined as compared to the prior study. Small amount of hemosiderin along the margins of the left frontal parenchymal surgical and left basal ganglia defects. Increased diffuse abnormal signal in the left caudate, basal ganglia and extending into the external and posterior limb of the internal capsule and thalamus with increased mass effect of the left lateral ventricle. Increased 5.6 mm [id number] midline shift at the level of the lateral ventricles. Basilar cisterns are intact. No evidence for acute hemorrhage or other abnormal extra-axial fluid collection. No acute stroke on diffusion-weighted images. Fluid in the bilateral mastoid air cells. Generalized age-appropriate atrophy. IMPRESSION: Status post left frontal lobe mass resection with prominent surgical defect with redemonstrated remote blood products along the margins of the surgical defect. Overall increased left frontal hyperintense signal in the subcortical white matter extending through the basal ganglia, caudate, internal/external capsules and left thalamus with increased mass effect of the left lateral ventricle with increased [id number] midline shift. Considerations include vasogenic edema versus radiation related changes. Evaluation for recurrent tumors limited by lack of intravenous contrast material. Electronically signed by: Aashish An M.D. 10/21/24 23:21 PM Medications Administered Current Inpatient Medications Albuterol (Albuterol 0.083% Nebu Soln 3 Ml Vial) 2.5 mg NEB Q6H PRN; Protocol PRN Reason: Shortness Of Breath Or Wheezing Stop: 11/21/24 16:26 Amlodipine Besylate (Amlodipine Besylate 5 Mg Tab) 5 mg PO QAM ARMANDO Stop: 11/20/24 08:59 Last Admin: 10/23/24 08:29 Dose: 5 mg Atorvastatin Calcium (Atorvastatin 20 Mg Tab) 20 mg PO QAM ARMANDO Stop: 11/20/24 08:59 Last Admin: 10/23/24 08:29 Dose: 20 mg Bisacodyl (Bisacodyl 10 Mg Supp) 10 mg [place] DAILY PRN PRN Reason: Constipation Stop: 11/20/24 17:30 Last Admin: 10/22/24 13:48 Dose: 10 mg Buspirone HCl (Buspirone 5 Mg Tab) 5 mg PO BID ARMANDO Stop: 11/20/24 08:59 Last Admin: 10/23/24 08:29 Dose: 5 mg Cetirizine HCl (Cetirizine Hcl 10 Mg Tablet) 5 mg PO DAILY PRN PRN Reason: Allergy Symptoms Stop: 11/20/24 03:00 Last Admin: 10/23/24 08:29 Dose: 5 mg Cyclobenzaprine HCl (Cyclobenzaprine Hcl 5 Mg Tab) 5 mg PO Q12H PRN PRN Reason: eye muscle spasm Stop: 11/20/24 03:00 Dexamethasone (Dexamethasone 4 Mg Tab) 4 mg PO 0800,1700 [facility] Stop: 11/22/24 07:59 Last Admin: 10/23/24 07:55 Dose: 4 mg Enoxaparin Sodium (Enoxaparin Inj 40 Mg/0.4 Ml Syr) 40 mg SQ QAM ARMANDO Stop: 11/20/24 08:59 Last Admin: 10/23/24 08:27 Dose: 40 mg Fluocinonide (Fluocinonide 0.05% Oint 15 Gm Tube) 1 appln EXT BID PRN PRN Reason: dermatitis Stop: 11/20/24 03:16 Fluticasone Propionate (Fluticasone Propionate Na Spr 16 Gm Btl) 2 sprays RENE DAILY ARMANDO Stop: 11/20/24 08:59 Last Admin: 10/23/24 08:30 Dose: 2 sprays Hydroxyzine HCl (Hydroxyzine Hcl 25 Mg Tab) 25 mg PO QID PRN PRN Reason: Anxiety Stop: 11/20/24 03:00 Last Admin: 10/22/24 20:27 Dose: 25 mg Ondansetron HCl (Ondansetron 4 Mg Od Tab) 8 mg PO Q8H PRN PRN Reason: Nausea And Vomiting Stop: 11/20/24 03:14 Last Admin: 10/22/24 20:29 Dose: 8 mg Polyethylene Glycol (Polyethylene (Miralax) 17 Gm Pack) 34 gm PO DAILY ARMANDO Stop: 11/22/24 08:59 Last Admin: 10/23/24 08:28 Dose: 34 gm Senna/Docusate Sodium (Docusate Sodium/Senna 50/8.6mg Tab) 2 tab PO BID ARMANDO Stop: 11/20/24 20:59 Last Admin: 10/23/24 08:28 Dose: 2 tab Sertraline HCl (Sertraline Hcl 100 Mg Tablet) 200 mg PO HS ARMANDO Stop: 11/20/24 20:59 Last Admin: 10/22/24 20:27 Dose: 200 mg Temozolomide (Temozolomide 100 Mg Capsule) 100 mg PO DAILYBB ARMANDO Stop: 11/20/24 06:29 Last Admin: 10/23/24 05:40 Dose: 100 mg Temozolomide (Temozolomide 20 Mg Capsule) 40 mg PO DAILYBB [facility] Stop: 11/20/24 06:29 Last Admin: 10/23/24 05:40 Dose: 40 mg Valsartan (Valsartan 80 Mg Tab) 80 mg PO DAILY ARMANDO Stop: 11/20/24 08:59 Last Admin: 10/23/24 08:28 Dose: 80 mg PG Care Time/CCT Total # of Minutes Spent Total Time Spent with Patient: Total time spent is greater than 50% in coordination of care (as documented) at patient's floor/unit and/or counseling patient: Coding [place] [address] SUB INP/OBS CARE 2/35MIN Patient Type Established History Expanded Problem Focused Exam Expanded Problem Focused Medical Decision Making Moderate Complexity Diagnoses Constipation K59.00 Sleep apnea G47.30 Hypoxia R09.02 Severe muscle deconditioning R29.898 Weakness generalized R53.1 Gait instability R26.81 Advanced care planning/counseling discussion Z71.89 Generalized headaches R51.9 Palliative care by specialist Z51.5
[2024-10-23 11:27] VITALS: RESP 20
[2024-10-23] MEDS: GADOBUTROL 65ML VIAL IV ONE (12:09)
--- NOTE | 2024-10-23 13:10 | Magnetic Resonance Report ---
MRI OF THE BRAIN COMBO CLINICAL HISTORY: Follow-up status post glioblastoma resection. COMPARISON STUDY: MRI examinations of the brain dated 09/05/2024, 10/21/2024, and 05/31/2024. TECHNIQUE: MRI of the brain was performed utilizing various T1 and T2-weighted sequences in the axial , sagittal, and coronal planes. Contrast-enhanced sequences were acquired following the administratio n of 8 cc of Gadavist. FINDINGS: Brain parenchyma: Again seen is postsurgical change from left frontal craniotomy with encephalomalaci a from left frontal lobe mass resection. There are foci of hemosiderin deposition identified around t he resection margin related to remote blood products. Soft tissue thickening and a small amount of fl uid deep to the craniotomy site likely represents postsurgical change. There are several foci of salas pheral nodular enhancement again seen surrounding the resection cavity which appear progressive as co mpared to the 09/05/2024 examination. Faint T1 signal hyperintensity is again seen within the left alicia tiform nucleus and external capsule. An enhancing component of this lesion centered in the left coron a radiata/lentiform nucleus has increased in size, now measuring 2.5 x 2.3 x 1.2 cm (previously measu red 1.8 x 1.1 x 1.8 cm). Nodular soft tissue thickening and enhancement deep to the craniotomy site a nd along the superior margin of the resection cavity also increased in size from previous. There is a lso increasing surrounding FLAIR signal are moderately. There is approximately 4.5 mm of [id number] t midline shift, which is increased from previous. There is no evidence of acute hemorrhage, and ther e is no restricted diffusion typical for acute ischemia. The cerebellar tonsils are normal in configu ration. Ventricles, sulci, and cisterns: Normal in configuration. Pituitary and sella: Unremarkable. Intracranial vasculature: Normal flow voids are maintained at the skull base. Orbits: The bony orbits are grossly intact. Orbital contents are normal in appearance. Sinuses and mastoids: There are bilateral mastoid effusions. The paranasal sinuses appear clear. Calvarium: There is no cervical change from left frontal craniotomy. No destructive calvarial lesion is seen. Cervical cord: Partially visualized cervical spinal cord is normal in morphology and signal intensity . IMPRESSION: 1. There is no evidence of acute hemorrhage or ischemia. 2. Again seen is postsurgical change from left frontal lobe mass resection as above. 3. There is increasing irregular nodular enhancement deep to the craniotomy site and around the resec tion cavity as compared to 09/05/2024. Additionally, there is increasing FLAIR signal within the surro unding brain parenchyma as well as a slight increase in left to right midline shift. Although some th is likely represents treatment-related change, the appearance favors progressive infiltrative enhanci ng and nonenhancing tumor. Continued attention at follow-up will be required. 4. Additional findings as above. ACT 112: Negative or not required by law. Electronically signed by: Johnny Corley M.D. 10/23/2024 1:09 PM
[2024-10-23 15:23] VITALS: TEMP 97.3; O2SAT 95
[2024-10-23 16:09] VITALS: BP 130/80; PULSE 79
--- NOTE | 2024-10-23 16:55 | Discharge Summary ---
Date of Service October 23, 2024 Admission HPI Per Admitting Provider Alice Duran is a 74 year old female with glioblastoma on chemotherapy who presents to the ER due to hypoxia and labored breathing. She denies any fever, chills, cough. She notes chronic nasal congestion but no worse than usual. The patient does not feel short of breath but her reports her breathing was much more labored at home and she was noted to be hypoxia on EMS pulse oximeter therefore decided to bring her to the ER. She is on room air at baseline. She has recently been on chemotherapy and has been very fatigued following this and her was unable to get her up today. She had been eating and drinking well up until today when she has been drinking much less. Admission Exam Per Admitting Provider Constitutional: well developed; + not well nourished and no acute distress ENMT: external ear and nose normal, oropharynx normal Respiratory: normal respiratory effort; no respiratory distress Auscultation: lungs clear to auscultation bilaterally; no diminished lung sounds, no crackles, no rhonchi and no wheezes Cardiovascular: RRR, no murmur, no edema Gastrointestinal (Abdomen): normal bowel sounds, soft, nontender, no hepatosplenomegaly Musculoskeletal: no cyanosis or clubbing, extremities motor strength 5/5 Skin: no rashes, warm and dry Neurologic: moves all extremities and awake; not confused Psychiatric: A+Ox3, euthymic affect Principal Diagnosis 1. Hypoxia Discharge Exam Constitutional well developed; + not well nourished and no acute distress ENMT external ear and nose normal, oropharynx normal Respiratory normal respiratory effort; no respiratory distress Auscultation: lungs clear to auscultation bilaterally; no diminished lung sounds, no crackles, no rhonchi and no wheezes Cardiovascular RRR, no murmur, no edema Gastrointestinal (Abdomen) normal bowel sounds, soft, nontender, no hepatosplenomegaly Musculoskeletal no cyanosis or clubbing, extremities motor strength 5/5 Skin no rashes, warm and dry Neurologic moves all extremities and awake; not confused Psychiatric A+Ox3, euthymic affect Discharge Data Allergies Allergy/AdvReac Type Severity Reaction Status Date / Time lisinopril Allergy Severe swelling Verified 10/20/24 22:56 Penicillins Allergy Severe UNKN Verified 10/20/24 22:56 ciprofloxacin [From Cipro] Allergy Intermediate Hives Verified 10/20/24 22:56 doxycycline Allergy Intermediate HIVE Verified 10/20/24 22:56 mold Allergy Intermediate CONGESTION Verified 10/20/24 22:56 Sulfa (Sulfonamide Allergy Intermediate Hives Verified 10/20/24 22:56 Antibiotics) clarithromycin [From Biaxin] Allergy Unknown CAN'T Verified 10/20/24 22:56 REMEMBER Tetracyclines Allergy Unknown CAN'T Verified 10/20/24 22:56 REMEMBER Consultations 10/20/24 23:08 ED Decision to Admit Stat 10/21/24 03:01 Consult Oncology Routine Consult Palliative Care Routine Ordered Studies 10/20/24 21:53 CT angio chest PE protocol Stat CT head/brain wo con Stat 10/21/24 13:31 MRI Brain [MR brain wo con] Routine 10/23/24 08:29 MRI Brain [MR brain wo/w con] Routine Hospital Course (1) Glioblastoma of frontal lobe: (2) Hypoxia: Plan 74 year old female with PMH of HTN, Glioblastoma, Anxiety w presents to the ER with shortness of breath and hypoxia. No acute findings on CTA, Chest Xray. No acute changes on EKG. Admitted for O2 supplementation for Hypoxia and further workup for Hypoxia #Hypoxia No respiratory distress No cause found on CT pulmonary angiogram History of obstructive sleep apnea not on CPAP Suspect most likely diagnosis is poor inspiratory effort and atelectasis due to generalized fatigue from chemotherapy Albuterol Inhaler as needed O2 as needed at home #Glioblastoma Consult oncology and palliative care Increase dose of Dexamathasone to 4mg BID #Hypertension Continue valsartan and amlodipine #Anxiety Continue sertraline and buspirone VTE Prophylaxis - Lovenox 40mg SQ daily Disposition - observation on med/tele Total Time Total Time Spent Total Time Spent (In Minutes): <30 Discharge Plan Discharge Items Patient Disposition: Home - Self-Care Reason For Visit: SHORTNESS OF BREATH, HYPOXIA Discharge Diagnosis: 1. Hypoxia Activity: Resume your previous activity Non-emergency contact: Primary Care Provider Call non-emergency contact if: you have any medication questions and your symptoms worsen Follow-up/Referrals: Shahbaz Andrew MD [Primary Care Provider] - 10/30/24 9:45 am Ansley Couch DNP [Nurse Practitioner] - 11/13/24 10:00 am Leandra Attending Provider Instructions: You were admitted to the hospital for Hypoxia. You were treated with Oxygen as needed. Imaging including CT chest ; CT Angiogram of chest, EKG were normal. It was thought that increased oxygen requirement was due to generalized weakness . So she is stable to discharge her home with home oxygen A discharge summary will be sent to your primary care physician to ensure continuity of care. Please bring this discharge summary with you to your next office appointment so that your provider can review it at that time. Follow-up appointments: Make a follow-up appointment with your PCP within the next week. It is very important that you follow up with them shortly after discharge from the hospital. Please make sure to follow up with Heme/Onc in the outpatient Medications: Your medication list has been reviewed and reconciled upon discharge to ensure accuracy and continuity of care. An updated list of all your medications is included with your hospital discharge paperwork. Please review this list closely, and make note of any changes. -We sent a new medication called Albuterol to your pharmacy. Take Albuterol inhaler three times a day as needed for shortness of breath -We have increased the dose of Dexamethasone to 4mg two times a day. Please take increased dose of Dexamethasone. . If you have any issues filling these prescriptions, please call [phone] and ask to leave a message for Dr. Ozzy Mittal Take your medications as instructed; do not skip a dose of your medicines. Make sure all of your doctors know every medicine you are taking (including [id number] medicines, vitamins, and supplements). Call your primary care provider before taking any new medicines (including overthe- counter medicines, vitamins, and supplements), because some of these may interact with your current medications, or may make your symptoms worse. Tell your primary care provider if you cannot afford your medications. CONTACT YOUR PRIMARY CARE PROVIDER if you experience any of the following: Worsening of your symptoms Difficulty following your treatment plan, or difficulty taking medications CALL 911 OR GO TO THE EMERGENCY DEPARTMENT if you experience any of the following: Sudden, severe abdominal pain or nausea/vomiting Severe chest pain, or chest pain that radiates (moves) to your jaw or arm Sudden, severe shortness of breath or difficulty breathing Thank you for allowing us to participate in your care. . Pending Studies at Discharge: No Stand-Alone Forms: [employer], Smoking Cessation Medications and DC Order Prescriptions: New dexamethasone 4 mg Tablet 4 mg PO 0800,1700 30 Days Qty: 60 0RF albuterol sulfate [Ventolin HFA] 90 mcg/actuation HFA aerosol inhaler 1 inh inhalation Q8H 30 Days Qty: 6.7 1RF Continued ondansetron HCl 8 mg tablet 8 mg PO Q8H PRN (Reason: n/v) temozolomide 140 mg Capsule 140 mg PO DAILY Rx Instructions: must be taken on empty stomach atorvastatin 20 mg tablet 20 mg PO QAM cyclobenzaprine 5 mg tablet 5 mg PO Q12H PRN (Reason: eye muscle spasm) 30 Days Qty: 60 0RF sertraline 100 mg Tablet 200 mg PO HS cetirizine 10 mg Tablet 5 mg PO DAILY PRN (Reason: Allergy Symptoms) cholecalciferol (vitamin D3) [Vitamin D3] 2,000 unit Capsule 2,000 unit PO QAM buspirone 5 mg Tablet 5 mg PO BID amlodipine 5 mg tablet 5 mg PO QAM hydroxyzine pamoate 25 mg capsule 25 mg PO QID PRN (Reason: Anxiety) valsartan 80 mg tablet 80 mg PO DAILY fluticasone propionate 50 mcg/actuation spray,suspension 2 spray INTRANASAL DAILY Prolia 60 mg/mL syringe 60 mg subcut .[id number] Rx Instructions: LAST TAKEN 09/2024. Once every 6 months betamethasone dipropionate 0.05 % ointment 1 applic topical BID PRN (Reason: dermatitis) Discontinued dexamethasone 2 mg tablet 2 mg PO DAILY Patient Comments: currently tapering down- goal 2 mg daily Discharge Orders: Discharge Order (Routine); Ordered 10/23/24 Ordered By: Ozzy Martin/Other Patient Handouts: A Sample Walking Program Admission Data Admit Date/Time: 10/22/24 15:10 Attending Provider: Mark Stewart Admit Provider: Simon Norris Primary Care Provider: Shahbaz Andrew Other Providers: Simon Norris; Yoana Alejandro; Ansley Couch Other Interventions: Discharge Summary Assessment (RN) Last Done: 10/23/24 16:07 Supervising Physician Co-Signing Physician Notes I personally examined the patient and verified all miranda points of history and exam, discussed case, and agree with decision making with Dr Mittal feeling better. Feeling up to going home. Discussed increasing dosing of steroid. Vitals noted, in general she is awake and alert fatigued but no distress. HEENT normocephalic atraumatic mucous membranes moist. Breathing unlabored no accessory muscle use good effort. Skin without rashes pallor or icterus. Neuro without focal deficits. dyspnea - clear lungs on exam and imaging, but notably diminished air entry. ?weakness due to chemo + deconditioning vs ?COPD type variant vs other. O2 set up for home. Has an albuterol inhaler. Safe for discharge. GBM - MRI brain with significant vasogenic edema Increasing dexamethasone at direction of her primary oncologist. Ongoing outpatient follow-up DVT prophylaxisLovenox utilized during her stay safe/stable for home. Otherwise as above.
--- NOTE | 2024-10-23 17:25 | Billing Data ---
Date of Service October 23, 2024 Coding Level of Care Code 22821 IN/OBS DISCH 30 MIN/LESS
== END 2024-10-23 16:57 | disposition home or self-care (01) | DRG 205 ==
LOC: EDINP 21:34 → ED 21:34 → SUATTDRO 23:49 → 2W 10-21 03:01
DX: T45.1X5A Adverse effect of antineoplastic and immunosuppressive drugs, initial encounter; I10 Essential (primary) hypertension; Z92.3 Personal history of irradiation; J98.11 Atelectasis; Z88.0 Allergy status to penicillin; G93.6 Cerebral edema; F41.9 Anxiety disorder, unspecified; Y92.009 Unspecified place in unspecified non-institutional (private) residence as the place of occurrence of the external cause; Z88.1 Allergy status to other antibiotic agents; R09.02 Hypoxemia; K59.00 Constipation, unspecified; Z88.2 Allergy status to sulfonamides; Z87.891 Personal history of nicotine dependence; Z66 Do not resuscitate; C71.1 Malignant neoplasm of frontal lobe; G47.33 Obstructive sleep apnea (adult) (pediatric)

== ENCOUNTER 2024-10-29 17:45 | Inpatient (IN) ==
[2024-10-29 18:06] LABS: Base Excess VBG 0.8 mEq/L; HCO3 VBG 24 mmol/L; Oxygen Saturation VBG 91.0 %; PCO2 VBG 34 mmHg (38-50); PO2 VBG 59 mmHg; pH VBG 7.46 (7.36-7.41)
[2024-10-29] MEDS: ALBUT/IPRATROP 3MG/0.5MG NEB 3 ML VIAL INH STA (18:07)
--- NOTE | 2024-10-29 18:07 | Emergency Department Note ---
Impression & Plan Acute hypoxemic respiratory failure, Shortness of breath, GBM (glioblastoma multiforme) ED Provider Note NAME: BRIANNA WRIGHT AGE: 74 SEX: F : 1950 ARRIVES VIA: Ambulance INFORMANT: Patient, EMS report ED PROVIDER(S): Davy Paz MD CHIEF COMPLAINT: Shortness of breath MEDICAL DECISION MAKING: Patient presents due to concern for shortness of breath and increased work of breathing. Patient initially seemed to be fine on supplemental nasal cannula but did desat into the low 80s as low as 81%. After further discussion the patient the patient does not want to be intubated under any circumstance. Patient was placed on BiPAP. IV was established and blood work was obtained. Patient was ordered a breathing treatment and upon subsequent reassessment the patient felt improved after the initial treatment. Patient was ordered additional 9 mL DuoNeb treatment. The patient did receive IV methylprednisolone 125. VBG obtained. Chest x-ray also obtained. Patient with a normal white count hemoglobin and mild thrombocytopenia at 119. The patient's VBG with lower CO2 and elevated pH. Unclear as to what the patient may have an anxiety component as the patient may have tachypnea causing respiratory alkalosis. Patient troponin negative. The patient's chest x-ray does not show evidence of obvious pneumonia. Patient did feel improved with the BiPAP and treatments. I did speak the on-call hospitalist service Dr. Bonds and the patient was admitted to the medicine service. Critical Care: I have personally spent 42 minutes of critical care time in direct management of this patient. This includes bedside care, interpretation of diagnostic studies, and testing, discussion with consultants, patient, and family members, and other require inpatient management activities. This 42 minutes is in excess of all separately billable procedures. Discussion w/ other healthcare providers: Dr. Bonds inpatient medicine service Prior /Outside records reviewed: I reviewed parva discharge summary from October 23, [address] Mittal. Patient with a known history of GBM who presented to the ER for hypoxia and labored breathing at that time. Patient did have CT angiography PE protocol which does not show any evidence of PE. Was thought that the patient's diagnosis secondary to poor respiratory effort atelectasis and generalized fatigue from her chemo. Also history of obstructive sleep apnea not on CPAP at home. Patient was discharged on home O2. Palliative care also involved and steroids for the patient's glioblastoma. Differential diagnosis: Reactive airway disease, pneumonia, pneumothorax, COPD, CHF, ACS, pulmonary embolism, musculoskeletal, GERD as well as other pathologies were considered. Diagnostics, as interpreted by me: ECG: Will sinus rhythm, rate of 76, normal intervals, normal axis, no ST elevations. Cardiac monitoring: An order was placed for continuous cardiac monitoring. The monitor shows a rate of 79 with sinus rhythm. Patient was placed on pulse oximetry Medical decision rules: None Imaging studies: I informally interpreted the patient's chest x-ray does not show obvious pneumonia or pneumothorax with formal report to follow. HPI: Patient presents due to concern for increasing work of breathing and shortness of breath. EMS was called out and they noticed the patient to be significantly increased work of breathing. The patient did pace patient on 10 L of supplemental oxygen. Patient did have a recent admission for shortness of breath and does have a known history of GBM. Patient reports that she has ceased chemo treatment as it was making her too sick. Patient reports that she had been on her 2 L at home but had increased to just in the last hour prior to EMS to see if it would help with her symptoms. She reported that the increase in oxygen well and route did make her feel better. Patient reports a history of maybe secondhand smoke related COPD. Patient denies any chest pains no abdominal pain. Patient has had some nausea but no vomiting. Patient denies any prior history of DVT or PE. Patient denies any cough or fever. Patient states that during last admission they thought that some of her symptoms were related to her chemotherapy. EMS did report the patient's respirations were in the 20s prior to oxygen administration but have been improved into the high teens. PAST MEDICAL HISTORY: See Below PAST SURGICAL HISTORY: See Below SOCIAL HISTORY: See Below HOME MEDICATIONS: See Below ALLERGIES: See Below VITALS: See Below PHYSICAL EXAMINATION: GENERAL: Moderate distress, breathing through pursed lips, moderate increased work of breathing Head: Healed scarring over the left proximal scalp area. EYE EXAM: Normal conjunctiva. PERRL, no anisocoria and EOM's grossly intact w/o pain. OROPHARYNX: Moist mucus membranes, grossly normal dentition. NECK: Trachea midline, no stridor. LUNGS: Clear to auscultation. Normal chest wall mechanics. Tachypnea noted. HEART: NSR, no MRG. ABDOMEN: Abdomen soft, non-tender, no masses, no rebound or guarding. BACK: No CVA TTP. SKIN: No rashes and no bruising. UPPER EXTREMITIES: Upper extremities are grossly normal. LOWER EXTREMITIES: Grossly normal, no edema. No significant swelling noted. Negative Homans' sign. NEURO EXAM: Awake and alert, follows commands, no obvious facial asymmetry, normal speech, moves all 4 extremities. 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) COVID-19 (Acute) Hemorrhoids Alcohol use Bright red blood per rectum Acute GI bleeding (Acute) Colitis (Acute) Postmenopausal atrophic vaginitis Pneumatosis of intestines (Acute) General ill feeling (Acute) Chest pain (Acute) Seasonal allergies (Chronic) JAIME (obstructive sleep apnea) no device Colitis (Acute) resolved Depression (Chronic) Anxiety (Chronic) Dyslipidemia (Chronic) HTN (hypertension) (Chronic) Medical History Seasonal allergies GERD (gastroesophageal reflux disease) COVID-19 11/17/22 > fever, sinus pressure, sore throat, headache > all resolved except for some fatigue Surgical History Status post craniotomy History of tooth extraction History of myringotomy History of endoscopic sinus surgery History of dilatation and curettage History of colonoscopy Family History Brother HIV positive Cancer Multiple sites Brother C. difficile colitis Brother Cancer Lung Social History Smoking Status: Former smoker Tobacco Type: Cigarettes Age Started Using Tobacco: 19; packs per day: 0.5; Second Hand Exposure: No; Do You Dip or Chew Tobacco: No; Hx Alcohol Use: Yes Alcohol type: beer Alcohol Intake Frequency: 4 or More x per/Week Alcohol Intake Frequency Comment: less frequently since craniotomy Hx Substance Use: No Preferred Language: Georgian Communication Ability: Effective Visual Impairment: Partially Limited Hearing Ability: Hard of Hearing Senior Information Developer Required: No Beliefs That Will Affect Care: None marital status: Current Living Situation: Spouse Current Living Situation Comment: with current occupational status: retired Feels Safe at Home: Yes Diet: regular Assistive Devices: None Allergies Allergies Allergy/AdvReac Type Severity Reaction Status Date / Time lisinopril Allergy Severe swelling Verified 10/29/24 19:22 Penicillins Allergy Severe UNKN Verified 10/29/24 19:22 ciprofloxacin [From Cipro] Allergy Intermediate Hives Verified 10/29/24 19:22 doxycycline Allergy Intermediate HIVE Verified 10/29/24 19:22 mold Allergy Intermediate CONGESTION Verified 10/29/24 19:22 Sulfa (Sulfonamide Allergy Intermediate Hives Verified 10/29/24 19:22 Antibiotics) clarithromycin [From Biaxin] Allergy Unknown CAN'T Verified 10/29/24 19:22 REMEMBER Tetracyclines Allergy Unknown CAN'T Verified 10/29/24 19:22 REMEMBER Home Meds Home Medications Medication Instructions Recorded Confirmed buspirone 5 mg tablet 5 mg PO BID 09/03/18 10/29/24 cetirizine 10 mg tablet 5 mg PO DAILY PRN Allergy Symptoms 09/03/18 10/29/24 cholecalciferol (vitamin D3) 50 2,000 unit PO QAM 09/03/18 10/29/24 mcg (2,000 unit) capsule (Vitamin D3) sertraline 100 mg tablet 200 mg PO HS 09/03/18 10/29/24 amlodipine 5 mg tablet 5 mg PO QAM 08/30/21 10/29/24 atorvastatin 20 mg tablet 20 mg PO QAM 10/07/21 10/29/24 denosumab 60 mg/mL subcutaneous 60 mg subcut .[id number] 05/31/24 10/29/24 syringe (Prolia) fluticasone propionate 50 2 spray intranasal DAILY 05/31/24 10/29/24 mcg/actuation nasal spray,suspension valsartan 80 mg tablet 80 mg PO DAILY 05/31/24 10/29/24 hydroxyzine pamoate 25 mg capsule 25 mg PO QID PRN Anxiety 06/23/24 10/29/24 ondansetron HCl 8 mg tablet 8 mg PO Q8H PRN n/v 07/07/24 10/29/24 temozolomide 140 mg capsule 140 mg PO DAILY 07/08/24 10/29/24 betamethasone dipropionate 0.05 % 1 applic topical BID PRN dermatitis 10/20/24 10/29/24 topical ointment Previous Rx's Medication Instructions Recorded cyclobenzaprine 5 mg tablet 5 mg PO Q12H PRN eye muscle spasm 10/09/24 1 month #60 tabs albuterol sulfate 90 mcg/actuation 1 inh inhalation Q8H 1 month #6.7 10/23/24 aerosol inhaler (Ventolin HFA) grams dexamethasone 4 mg tablet 4 mg PO 0800,1700 1 month #60 tabs 10/23/24 Results & Data (ED) Vital Signs Vital Signs - 24 hr 10/29/24 17:52 10/29/24 17:54 10/29/24 18:08 Temperature 36.7 C Temperature Source Axillary Pulse Rate 76 Pulse Rate [Apical] 73 Pulse Rate from SpO2 Sensor Respiratory Rate 26 H 22 Respiratory Effort / Characteristics Spontaneous Short of Breath Respiratory Depth Respiratory Pattern Blood Pressure 110/75 Blood Pressure Mean 86 Blood Pressure Position Sitting Pulse Oximetry 95 95 95 Oxygen Delivery Method Non-rebreather Non-rebreather BiPAP Oxygen Flow Rate 10 10 Fraction of Inspired Oxygen 40 Sepsis Recent Fever Within 48 Hours No Sepsis New/Unexplained Change in Mental Status No Sepsis Action Taken by Nursing No Action Required 10/29/24 18:08 10/29/24 18:18 10/29/24 18:25 Temperature Temperature Source Pulse Rate 77 Pulse Rate [Apical] 75 Pulse Rate from SpO2 Sensor Respiratory Rate 21 19 Respiratory Effort / Characteristics Spontaneous Short of Breath Spontaneous Short of Breath Respiratory Depth Normal Respiratory Pattern Regular Blood Pressure Blood Pressure Mean Blood Pressure Position Pulse Oximetry 94 94 Oxygen Delivery Method BiPAP BiPAP Oxygen Flow Rate Fraction of Inspired Oxygen 40 40 Sepsis Recent Fever Within 48 Hours Sepsis New/Unexplained Change in Mental Status Sepsis Action Taken by Nursing 10/29/24 18:48 10/29/24 18:57 10/29/24 19:30 Temperature Temperature Source Pulse Rate 81 85 Pulse Rate [Apical] Pulse Rate from SpO2 Sensor 81 85 Respiratory Rate 19 18 Respiratory Effort / Characteristics Respiratory Depth Respiratory Pattern Blood Pressure 123/77 115/64 Blood Pressure Mean 92 95 Blood Pressure Position Pulse Oximetry 93 93 Oxygen Delivery Method Oxygen Flow Rate Fraction of Inspired Oxygen Sepsis Recent Fever Within 48 Hours Sepsis New/Unexplained Change in Mental Status Sepsis Action Taken by Nursing 10/29/24 19:30 10/29/24 19:30 10/29/24 19:33 Temperature Temperature Source Pulse Rate 84 Pulse Rate [Apical] Pulse Rate from SpO2 Sensor 84 Respiratory Rate 20 Respiratory Effort / Characteristics Respiratory Depth Respiratory Pattern Blood Pressure 115/64 115/64 Blood Pressure Mean 95 95 Blood Pressure Position Pulse Oximetry 95 Oxygen Delivery Method Oxygen Flow Rate Fraction of Inspired Oxygen Sepsis Recent Fever Within 48 Hours Sepsis New/Unexplained Change in Mental Status Sepsis Action Taken by Nursing 10/29/24 19:42 10/29/24 19:42 10/29/24 20:39 Temperature Temperature Source Pulse Rate 84 84 78 Pulse Rate [Apical] Pulse Rate from SpO2 Sensor 85 Respiratory Rate 23 18 Respiratory Effort / Characteristics Non-Labored Spontaneous Respiratory Depth Normal Respiratory Pattern Blood Pressure Blood Pressure Mean Blood Pressure Position Pulse Oximetry 76 L 96 Oxygen Delivery Method Oxygen Flow Rate Fraction of Inspired Oxygen 28 Sepsis Recent Fever Within 48 Hours Sepsis New/Unexplained Change in Mental Status Sepsis Action Taken by Group Home Medications Current Medication List: was personally reviewed by me Laboratory Data Attestation: I reviewed the patient's lab results. 10/29/24 17:31 10/29/24 17:59 Lab Results 10/29/24 10/29/24 Range/Units 17:31 17:59 WBC 6.16 Cancelled (4.8-10.8) K/ul RBC 4.22 Cancelled (4.20-5.40) M/uL Hgb 12.5 Cancelled (12.0-16.0) g/dl Hct 38.4 Cancelled (37.0-47.0) % MCV 91.0 Cancelled (80.0-100.0) fL MCH 29.6 Cancelled (25.0-34.0) pg MCHC 32.6 Cancelled (32.0-36.0) g/dL RDW Std Deviation 46.0 Cancelled (36.4-46.3) fL RDW Coeff of Swapnil 13.8 Cancelled (11.5-14.5) % Plt Count 119 L Cancelled (130-400) K/uL MPV 10.6 Cancelled (9.4-12.4) fL Immature Gran % (Auto) 1.5 Cancelled % Neut % (Auto) 67.7 Cancelled % Lymph % (Auto) 13.3 Cancelled % [place] % (Auto) 8.1 Cancelled % Eos % (Auto) 8.8 Cancelled % Baso % (Auto) 0.6 Cancelled % Neut # (Auto) 4.17 Cancelled (1.40-6.50) K/uL Lymph # (Auto) 0.82 L Cancelled (1.20-3.40) K/uL [place] # (Auto) 0.50 Cancelled (0.11-0.59) K/uL Eos # (Auto) 0.54 H Cancelled (0.00-0.50) K/uL Baso # (Auto) 0.04 Cancelled (0.00-0.20) K/uL Immature Gran # (Auto) 0.09 Cancelled (0.01-0.20) K/uL Absolute Nucleated RBC Cancelled Nucleated RBC % (auto) Cancelled Neutrophils % (Manual) Cancelled Band Neutrophils % Cancelled Lymphocytes % (Manual) Cancelled Prolymphocyte % Cancelled Reactive Lymphs % (Man) Cancelled Monocytes % (Manual) Cancelled Eosinophils % (Manual) Cancelled Basophils % (Manual) Cancelled Metamyelocytes % (Man) Cancelled Myelocytes % (Man) Cancelled Promyelocytes % (Man) Cancelled Blast Cells % (Manual) Cancelled Plasma Cell % (Manual) Cancelled Other Cells % Cancelled Nucleated RBC % Cancelled Neutrophils # (Manual) Cancelled Band Neutrophils # Cancelled Total Absolute Neuts Cancelled Lymphocytes # (Manual) Cancelled Prolymphocyte # Cancelled Reactive Lymphs # Cancelled Total Abs Lymphocytes Cancelled Monocytes # (Manual) Cancelled Eosinophils # (Manual) Cancelled Basophils # (Manual) Cancelled Metamyelocytes # (Man) Cancelled Myelocytes # (Manual) Cancelled Promyelocytes # (Man) Cancelled Blast Cells # (Man) Cancelled Plasma Cell # (Manual) Cancelled Other Cells # Cancelled Nucleated RBCs # (Man) Cancelled Hypersegmented Neuts Cancelled Hyposegmented Neuts Cancelled Hypogranular Neuts Cancelled Large Granular Lymphs Cancelled # Lrg Granular Lymphs Cancelled Hairy Cells Cancelled Smudge Cells Cancelled Toxic Granulation Cancelled Toxic Vacuolation Cancelled Dohle Bodies Cancelled Yanely Rods Cancelled Platelet Estimate Normal Cancelled (Normal) Hypogranular Platelets Cancelled Giant Platelets Cancelled Platelet Satelliting Cancelled RBC Morphology Cancelled Polychromasia 1+ Cancelled Hypochromasia Cancelled Poikilocytosis Cancelled Basophilic Stippling Cancelled Anisocytosis Cancelled Microcytosis Cancelled Macrocytosis Cancelled Spherocytes Cancelled Pappenheimer Bodies Cancelled Sickle Cells Cancelled Target Cells Cancelled Tear Drop Cells 1+ Cancelled Ovalocytes Cancelled Stomatocytes Cancelled [place] Bodies Cancelled Echinocytes Cancelled Acanthocytes (Spur) Cancelled Rouleaux Cancelled RBC Agglutinates Cancelled Schistocytes Cancelled Sezary Cell Cancelled VBG pH 7.46 H (7.36-7.41) VBG pCO2 34 L (38-50) mmHg VBG pO2 59 mmHg VBG HCO3 24 mmol/L VBG O2 Saturation 91.0 % VBG Base Excess 0.8 mEq/L Sodium 137 (136-145) mmol/L Potassium 3.8 (3.5-5.1) mmol/L Chloride 106 (98-107) mmol/L Carbon Dioxide 23 (21-32) mmol/L Anion Gap 8 (3-11) BUN 24 H (6-23) mg/dl Creatinine 0.90 (0.6-1.2) mg/dl Est Cr Clr Drug Dosing 55.5 ml/min eGFR 67.08 BUN/Creatinine Ratio 26.7 H (10-20) Glucose 104 H (70-99(Fasting)) mg/dl Calcium 8.9 (8.6-10.3) mg/dl Magnesium 2.3 (1.7-2.4) mg/dl Total Bilirubin 0.3 (0.2-1.0) mg/dl AST 16 (13-39) U/L ALT 7 (7-52) U/L Alkaline Phosphatase 36 (34-104) U/L Troponin I High Sens 7.5 (0-14) pg/ml Total Protein 6.5 (6.0-8.3) gm/dl Albumin 3.6 (3.4-5.0) gm/dl Globulin 2.9 (2.5-4.0) gm/dl Albumin/Globulin Ratio 1.2 (0.9-2) Blood Parasites ID Cancelled Administered Medications Discontinued Medications Albuterol (Albut/Ipratrop 3mg/0.5mg Neb 3 Ml Vial) 3 ml INH NOW STA Stop: 10/29/24 17:55 Last Admin: 10/29/24 18:07 Dose: 3 ml Documented By: RAYMOND Albuterol (Albut/Ipratrop 3mg/0.5mg Neb 3 Ml Vial) 9 ml NEB NOW STA; Protocol Stop: 10/29/24 18:18 Last Admin: 10/29/24 18:18 Dose: 9 ml Documented By: RAYMOND Methylprednisolone (Methylprednisolone 125 Mg/2 Ml Vial) 125 mg IV NOW STA Stop: 10/29/24 17:55 Last Admin: 10/29/24 18:04 Dose: 125 mg Documented By: MARIA D Imaging Data Radiologist's Impression: Chest X-Ray 10/29/24 17:54 Chest radiograph, one view History: Dyspnea Comparison: None Findings: Single AP view of the chest performed. No focal consolidation or pleural effusion. No pneumothorax. The cardiomediastinal silhouette is within normal limits. Normal pulmonary vascularity. No evidence for lymphadenopathy. No visualized bony or soft tissue abnormality. Impression: Normal chest radiograph Electronically signed by Jairo Wallace 10-29-2024 6:58 PM Discharge Plan Visit Data Chief Complaint: Shortness of Breath/Dyspnea Stated Complaint: SOB ED Provider: Davy Paz Discharge Problem: Acute hypoxemic respiratory failure, Shortness of breath, GBM (glioblastoma multiforme) Patient Disposition: Admitted As Inpatient Condition: Good Forms Stand Alone Forms: [facility] Prescriptions Prescriptions: No Action ondansetron HCl 8 mg tablet 8 mg PO Q8H PRN (Reason: n/v) temozolomide 140 mg Capsule 140 mg PO DAILY Rx Instructions: must be taken on empty stomach atorvastatin 20 mg tablet 20 mg PO QAM cyclobenzaprine 5 mg tablet 5 mg PO Q12H PRN (Reason: eye muscle spasm) 30 Days Qty: 60 0RF sertraline 100 mg Tablet 200 mg PO HS cetirizine 10 mg Tablet 5 mg PO DAILY PRN (Reason: Allergy Symptoms) cholecalciferol (vitamin D3) [Vitamin D3] 2,000 unit Capsule 2,000 unit PO QAM buspirone 5 mg Tablet 5 mg PO BID amlodipine 5 mg tablet 5 mg PO QAM hydroxyzine pamoate 25 mg capsule 25 mg PO QID PRN (Reason: Anxiety) valsartan 80 mg tablet 80 mg PO DAILY fluticasone propionate 50 mcg/actuation spray,suspension 2 spray INTRANASAL DAILY Prolia 60 mg/mL syringe 60 mg subcut .[id number] Rx Instructions: LAST TAKEN 09/2024. Once every 6 months betamethasone dipropionate 0.05 % ointment 1 applic topical BID PRN (Reason: dermatitis) dexamethasone 4 mg Tablet 4 mg PO 0800,1700 30 Days Qty: 60 0RF albuterol sulfate [Ventolin HFA] 90 mcg/actuation HFA aerosol inhaler 1 inh inhalation Q8H 30 Days Qty: 6.7 1RF Referrals Referrals: Shahbaz Andrew MD [Primary Care Provider] -
[2024-10-29] MEDS: ALBUT/IPRATROP 3MG/0.5MG NEB 3 ML VIAL NEB STA (18:18)
[2024-10-29 18:33] LABS: Alanine Aminotransferase 7.0 U/L (7-52); Albumin Globulin Ratio 1.2 (0.9-2); Alkaline Phosphatase 36.0 U/L (34-104); Anion Gap 8.0 (3-11); Bilirubin,Total 0.3 mg/dl (0.2-1.0); Blood Urea Nitrogen 24.0 mg/dl (6-23); Calcium 8.9 mg/dl (8.6-10.3); Carbon Dioxide 23.0 mmol/L (21-32); Chloride 106.0 mmol/L (98-107); Creatinine Clr Calc Pharmacy 55.5 ml/min; Globulin 2.9 gm/dl (2.5-4.0); Glucose 104.0 mg/dl (70-99(Fasting)); Magnesium 2.3 mg/dl (1.7-2.4); Potassium 3.8 mmol/L (3.5-5.1); Sodium 137.0 mmol/L (136-145); Total Protein 6.5 gm/dl (6.0-8.3)
[2024-10-29 18:37] LABS: Hematocrit (blood only) 38.4 % (37.0-47.0); Hemoglobin 12.5 g/dl (12.0-16.0); Mean Corpuscular Hemoglobin 29.6 pg (25.0-34.0); Mean Corpuscular Volume 91.0 fL (80.0-100.0); Platelet Count 119 K/uL (130-400); RDW Standard Deviation 46.0 fL (36.4-46.3); Red Blood Count 4.22 M/uL (4.20-5.40); White Blood Count 6.16 K/ul (4.8-10.8)
[2024-10-29 18:41] LABS: Immature Granulocytes # (auto) 0.09 K/uL (0.01-0.20); Immature Granulocytes % (auto) 1.5 %; Polychromasia 1+; Tear Drop Cells 1+
--- NOTE | 2024-10-29 18:59 | XRay Report ---
Chest radiograph, one view History: Dyspnea Comparison: None Findings: Single AP view of the chest performed. No focal consolidation or pleural effusion. No pneumothorax. The cardiomediastinal silhouette is within normal limits. Normal pulmonary vascularity. No evidence for lymphadenopathy. No visualized bony or soft tissue abnormality. Impression: Normal chest radiograph Electronically signed by Jairo Wallace 10-29-2024 6:58 PM
--- NOTE | 2024-10-29 20:11 | History & Physical Report ---
Date of Service October 29, 2024 Assessment & Plan (1) Acute hypoxemic respiratory failure: (2) Acute exacerbation of chronic obstructive pulmonary disease (COPD): (3) GBM (glioblastoma multiforme): (4) Alcohol use: (5) HTN (hypertension): (6) Dyslipidemia: Plan 74yo female with history of glioblastoma multiforme, COPD, HTN, HLP presenting with acute exacerbation of COPD. Patient reports 2-3 days of progressive shortness of breath. Did become hypoxic today. Feels some improvement with nebulizer treatments given in the ER. No significant wheezing appreciated on exam. Patient doing well on BiPAP - minimal settings /, 28% #Acute hypoxic respiratory failure/Acute exacerbation COPD -Admit to medical with telemetry -Continue BiPAP, wean as tolerated, goal saturation 88-92% -Duonebs q 4 hours -Albuterol q 2 hours as needed for SOB or wheeze -Continue steroids - Solumedrol 40mg IV TID -Continue Zyrtec 5mg po daily #Glioblastoma multiforme -Continue home Temozolomide - patient's will need to bring this in from home -She is on Dexamethasone 4mg po BID. Will hold for now as she will be receiving IV Solumedrol for presumed COPD exacerbation (8mg Dexamethasone = 42.7mg Solumedrol per steroid converter) #Alcohol use - patient does drink 2-3 drinks per day but has not had any alcohol for several weeks per . No reports of withdrawal symptoms -Monitor #Hypertension - blood pressure well controlled -Continue Amlodipine 5mg po daily #Hyperlipidemia- chronic, stable -Continue Atorvastatin 20mg po qAM #Anxiety/Mental Health -Continue Sertraline 200mg po qHS -Continue Buspirone 5mg po BID -Hydroxyzine 25mg po QID PRN anxiety History of Present Illness Chief Complaint: shortness of breath Primary Care Provider: Shahbaz Andrew MD Alice Duran is a 74yo female with history of Glioblastoma on chemotherapy, HTN, HLP, COPD and GERD presenting with shortness of breath. Patient reports progressive dyspnea ongoing for the last 2-3 days. She has had cough productive for clear mucus as well. Denies fever, chills, chest pain or tightness, palpitations. Denies edema, weight gain or orthopnea. She has some chronic abdominal discomfort which has not changed. No vomiting or diarrhea. Patient's daughter has had some mild URI symptoms, possibly allergies. Patient feels that she is experiencing some mild allergy symptoms as well. She has not been using her inhalers at home for the last several days. Patient with home oxygen, typically wears 2L. monitors patient's oxygen saturation at home - reports that it has been >90% until today when it was in the 80's. increased the supplemental O2 to 3.5 liters but oxygenation did not improve. Upon arrival patient hypoxic at 81% on 4L. She was placed on a NRB with some improvement and was ultimately placed on BiPAP for increased work of breathing and ongoing hypoxia. ER Course: Solulmedrol 125mg IV Albuterol 9mL neb + 3mL neb Allergies Allergy/AdvReac Type Severity Reaction Status Date / Time lisinopril Allergy Severe swelling Verified 10/29/24 19:22 Penicillins Allergy Severe UNKN Verified 10/29/24 19:22 ciprofloxacin [From Cipro] Allergy Intermediate Hives Verified 10/29/24 19:22 doxycycline Allergy Intermediate HIVE Verified 10/29/24 19:22 mold Allergy Intermediate CONGESTION Verified 10/29/24 19:22 Sulfa (Sulfonamide Allergy Intermediate Hives Verified 10/29/24 19:22 Antibiotics) clarithromycin [From Biaxin] Allergy Unknown CAN'T Verified 10/29/24 19:22 REMEMBER Tetracyclines Allergy Unknown CAN'T Verified 10/29/24 19:22 REMEMBER Home Medications Medication Instructions Recorded Confirmed Type buspirone 5 mg tablet 5 mg PO BID 09/03/18 10/29/24 History cetirizine 10 mg tablet 5 mg PO DAILY PRN Allergy Symptoms 09/03/18 10/29/24 History cholecalciferol (vitamin D3) 50 2,000 unit PO QAM 09/03/18 10/29/24 History mcg (2,000 unit) capsule (Vitamin D3) sertraline 100 mg tablet 200 mg PO HS 09/03/18 10/29/24 History amlodipine 5 mg tablet 5 mg PO QAM 08/30/21 10/29/24 History atorvastatin 20 mg tablet 20 mg PO QAM 10/07/21 10/29/24 History denosumab 60 mg/mL subcutaneous 60 mg subcut .[id number] 05/31/24 10/29/24 History syringe (Prolia) fluticasone propionate 50 2 spray intranasal DAILY 05/31/24 10/29/24 History mcg/actuation nasal spray,suspension valsartan 80 mg tablet 80 mg PO DAILY 05/31/24 10/29/24 History hydroxyzine pamoate 25 mg capsule 25 mg PO QID PRN Anxiety 06/23/24 10/29/24 History ondansetron HCl 8 mg tablet 8 mg PO Q8H PRN n/v 07/07/24 10/29/24 History temozolomide 140 mg capsule 140 mg PO DAILY 07/08/24 10/29/24 History cyclobenzaprine 5 mg tablet 5 mg PO Q12H PRN eye muscle spasm 10/09/24 10/29/24 Rx 1 month #60 tabs betamethasone dipropionate 0.05 % 1 applic topical BID PRN dermatitis 10/20/24 10/29/24 History topical ointment albuterol sulfate 90 mcg/actuation 1 inh inhalation Q8H 1 month #6.7 10/23/24 10/29/24 Rx aerosol inhaler (Ventolin HFA) grams dexamethasone 4 mg tablet 4 mg PO 0800,1700 1 month #60 tabs 10/23/24 10/29/24 Rx Past Med/Surg History Problem List (Updated 10/30/24 @ 00:01 by Maria Elena Bonds DO) Acute exacerbation of chronic obstructive pulmonary disease (COPD) GBM (glioblastoma multiforme) (Acute) Shortness of breath (Acute) Acute hypoxemic respiratory failure (Acute) Chronic hypoxemic respiratory failure Sleep apnea Constipation Hypoxia (Acute) Fine motor impairment Hand weakness Severe muscle deconditioning Weakness generalized Gait instability Advanced care planning/counseling discussion Generalized headaches Palliative care by specialist Drug reaction 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) COVID-19 (Acute) Hemorrhoids Alcohol use Bright red blood per rectum Acute GI bleeding (Acute) Colitis (Acute) Postmenopausal atrophic vaginitis Pneumatosis of intestines (Acute) General ill feeling (Acute) Chest pain (Acute) Seasonal allergies (Chronic) JAIME (obstructive sleep apnea) no device Colitis (Acute) resolved Depression (Chronic) Anxiety (Chronic) Dyslipidemia (Chronic) HTN (hypertension) (Chronic) Medical History Seasonal allergies GERD (gastroesophageal reflux disease) COVID-19 11/17/22 > fever, sinus pressure, sore throat, headache > all resolved except for some fatigue Surgical History Status post craniotomy History of tooth extraction History of myringotomy History of endoscopic sinus surgery History of dilatation and curettage History of colonoscopy Family History Brother HIV positive Cancer Multiple sites Brother C. difficile colitis Brother Cancer Lung Social History Smoking Status: Former smoker Tobacco Type: Cigarettes Age Started Using Tobacco: 19; packs per day: 0.5; Second Hand Exposure: No; Do You Dip or Chew Tobacco: No; Hx Alcohol Use: Yes Alcohol type: beer Alcohol Intake Frequency: 4 or More x per/Week Alcohol Intake Frequency Comment: less frequently since craniotomy Hx Substance Use: No Preferred Language: [place] Communication Ability: Effective Visual Impairment: Partially Limited Hearing Ability: Hard of Hearing Consultant Teacher Required: No Beliefs That Will Affect Care: None marital status: Current Living Situation: Spouse Current Living Situation Comment: with current occupational status: retired Feels Safe at Home: Yes Diet: regular Assistive Devices: None Review of Systems Review of Systems: All systems reviewed & are unremarkable except as noted in HPI & below Physical Exam Physical Exam: General: patient resting comfortably, NAD, non-toxic in appearance, AA&O x 4 Skin: warm, dry, intact, no rashes or lesions HEENT: NC/AT, PERRL, EOMI, anicteric sclera, conjunctiva without injection, external ear normal to inspection and nontender, nares patent, moist mucus membranes, dentition intact, no oropharyngeal lesions, neck supple, trachea midline, no LAD, no thyromegaly, no JVD Heart: +S1/S2, regular, no m/r/g Lungs: equal air entry bilaterally, no rales/rhonchi/wheezes Abd: +BS, soft, NT/ND, no masses/organomegaly/ascites Ext: warm, 2+ pulses in UE/LE bilaterally, no clubbing/cyanosis or edema Neuro: nonfocal, patient AA&O x 4, speech intact, no facial droop, moving all extremities on command with equal strength 5/5 Results & Data Results & Data Vital Signs (Past 12 Hours) Vital Signs Temp Pulse Pulse Resp BP Pulse Ox O2 Del Method 10/29/24 19:42 84 23 76 L 10/29/24 19:42 84 10/29/24 19:33 84 20 95 10/29/24 19:30 115/64 10/29/24 19:30 115/64 10/29/24 19:30 115/64 10/29/24 18:57 85 18 123/77 93 10/29/24 18:48 81 19 93 10/29/24 18:25 BiPAP 10/29/24 18:18 75 19 94 BiPAP 10/29/24 18:08 77 21 94 10/29/24 18:08 73 22 95 BiPAP 10/29/24 17:54 95 Non-rebreather 10/29/24 17:52 36.7 C 76 26 H 110/75 95 Non-rebreather O2 Flow Rate FiO2 10/29/24 19:42 10/29/24 19:42 10/29/24 19:33 10/29/24 19:30 10/29/24 19:30 10/29/24 19:30 10/29/24 18:57 10/29/24 18:48 10/29/24 18:25 10/29/24 18:18 40 10/29/24 18:08 40 10/29/24 18:08 40 10/29/24 17:54 10 10/29/24 17:52 10 Laboratory Results Laboratory Results WBC Cancelled 10/29/24 17:59 RBC Cancelled 10/29/24 17:59 Hgb Cancelled 10/29/24 17:59 Hct Cancelled 10/29/24 17:59 MCV Cancelled 10/29/24 17:59 MCH Cancelled 10/29/24 17:59 MCHC Cancelled 10/29/24 17:59 RDW Std Deviation Cancelled 10/29/24 17:59 RDW Coeff of Swapnil Cancelled 10/29/24 17:59 Plt Count Cancelled 10/29/24 17:59 MPV Cancelled 10/29/24 17:59 Immature Gran % (Auto) Cancelled 10/29/24 17:59 Neut % (Auto) Cancelled 10/29/24 17:59 Lymph % (Auto) Cancelled 10/29/24 17:59 Curry % (Auto) Cancelled 10/29/24 17:59 Eos % (Auto) Cancelled 10/29/24 17:59 Baso % (Auto) Cancelled 10/29/24 17:59 Neut # (Auto) Cancelled 10/29/24 17:59 Lymph # (Auto) Cancelled 10/29/24 17:59 Curry # (Auto) Cancelled 10/29/24 17:59 Eos # (Auto) Cancelled 10/29/24 17:59 Baso # (Auto) Cancelled 10/29/24 17:59 Immature Gran # (Auto) Cancelled 10/29/24 17:59 Absolute Nucleated RBC Cancelled 10/29/24 17:59 Nucleated RBC % (auto) Cancelled 10/29/24 17:59 Neutrophils % (Manual) Cancelled 10/29/24 17:59 Band Neutrophils % Cancelled 10/29/24 17:59 Lymphocytes % (Manual) Cancelled 10/29/24 17:59 Prolymphocyte % Cancelled 10/29/24 17:59 Reactive Lymphs % (Man) Cancelled 10/29/24 17:59 Monocytes % (Manual) Cancelled 10/29/24 17:59 Eosinophils % (Manual) Cancelled 10/29/24 17:59 Basophils % (Manual) Cancelled 10/29/24 17:59 Metamyelocytes % (Man) Cancelled 10/29/24 17:59 Myelocytes % (Man) Cancelled 10/29/24 17:59 Promyelocytes % (Man) Cancelled 10/29/24 17:59 Blast Cells % (Manual) Cancelled 10/29/24 17:59 Plasma Cell % (Manual) Cancelled 10/29/24 17:59 Other Cells % Cancelled 10/29/24 17:59 Nucleated RBC % Cancelled 10/29/24 17:59 Neutrophils # (Manual) Cancelled 10/29/24 17:59 Band Neutrophils # Cancelled 10/29/24 17:59 Total Absolute Neuts Cancelled 10/29/24 17:59 Lymphocytes # (Manual) Cancelled 10/29/24 17:59 Prolymphocyte # Cancelled 10/29/24 17:59 Reactive Lymphs # Cancelled 10/29/24 17:59 Total Abs Lymphocytes Cancelled 10/29/24 17:59 Monocytes # (Manual) Cancelled 10/29/24 17:59 Eosinophils # (Manual) Cancelled 10/29/24 17:59 Basophils # (Manual) Cancelled 10/29/24 17:59 Metamyelocytes # (Man) Cancelled 10/29/24 17:59 Myelocytes # (Manual) Cancelled 10/29/24 17:59 Promyelocytes # (Man) Cancelled 10/29/24 17:59 Blast Cells # (Man) Cancelled 10/29/24 17:59 Plasma Cell # (Manual) Cancelled 10/29/24 17:59 Other Cells # Cancelled 10/29/24 17:59 Nucleated RBCs # (Man) Cancelled 10/29/24 17:59 Hypersegmented Neuts Cancelled 10/29/24 17:59 Hyposegmented Neuts Cancelled 10/29/24 17:59 Hypogranular Neuts Cancelled 10/29/24 17:59 Large Granular Lymphs Cancelled 10/29/24 17:59 # Lrg Granular Lymphs Cancelled 10/29/24 17:59 Hairy Cells Cancelled 10/29/24 17:59 Smudge Cells Cancelled 10/29/24 17:59 Toxic Granulation Cancelled 10/29/24 17:59 Toxic Vacuolation Cancelled 10/29/24 17:59 Dohle Bodies Cancelled 10/29/24 17:59 Yanely Rods Cancelled 10/29/24 17:59 Platelet Estimate Cancelled 10/29/24 17:59 Hypogranular Platelets Cancelled 10/29/24 17:59 Giant Platelets Cancelled 10/29/24 17:59 Platelet Satelliting Cancelled 10/29/24 17:59 RBC Morphology Cancelled 10/29/24 17:59 Polychromasia Cancelled 10/29/24 17:59 Hypochromasia Cancelled 10/29/24 17:59 Poikilocytosis Cancelled 10/29/24 17:59 Basophilic Stippling Cancelled 10/29/24 17:59 Anisocytosis Cancelled 10/29/24 17:59 Microcytosis Cancelled 10/29/24 17:59 Macrocytosis Cancelled 10/29/24 17:59 Spherocytes Cancelled 10/29/24 17:59 Pappenheimer Bodies Cancelled 10/29/24 17:59 Sickle Cells Cancelled 10/29/24 17:59 Target Cells Cancelled 10/29/24 17:59 Tear Drop Cells Cancelled 10/29/24 17:59 Ovalocytes Cancelled 10/29/24 17:59 Stomatocytes Cancelled 10/29/24 17:59 [place] Bodies Cancelled 10/29/24 17:59 Echinocytes Cancelled 10/29/24 17:59 Acanthocytes (Spur) Cancelled 10/29/24 17:59 Rouleaux Cancelled 10/29/24 17:59 RBC Agglutinates Cancelled 10/29/24 17:59 Schistocytes Cancelled 10/29/24 17:59 Sezary Cell Cancelled 10/29/24 17:59 VBG pH 7.46 (7.36-7.41) H 10/29/24 17:59 VBG pCO2 34 mmHg (38-50) L 10/29/24 17:59 VBG pO2 59 mmHg 10/29/24 17:59 VBG HCO3 24 mmol/L 10/29/24 17:59 VBG O2 Saturation 91.0 % 10/29/24 17:59 VBG Base Excess 0.8 mEq/L 10/29/24 17:59 Sodium 137 mmol/L (136-145) 10/29/24 17:59 Potassium 3.8 mmol/L (3.5-5.1) 10/29/24 17:59 Chloride 106 mmol/L (98-107) 10/29/24 17:59 Carbon Dioxide 23 mmol/L (21-32) 10/29/24 17:59 Anion Gap 8 (3-11) 10/29/24 17:59 BUN 24 mg/dl (6-23) H 10/29/24 17:59 Creatinine 0.90 mg/dl (0.6-1.2) 10/29/24 17:59 Est Cr Clr Drug Dosing 55.5 ml/min 10/29/24 17:59 eGFR 67.08 10/29/24 17:59 BUN/Creatinine Ratio 26.7 (10-20) H 10/29/24 17:59 Glucose 104 mg/dl (70-99(Fasting)) H 10/29/24 17:59 Calcium 8.9 mg/dl (8.6-10.3) 10/29/24 17:59 Magnesium 2.3 mg/dl (1.7-2.4) 10/29/24 17:59 Total Bilirubin 0.3 mg/dl (0.2-1.0) 10/29/24 17:59 AST 16 U/L (13-39) 10/29/24 17:59 ALT 7 U/L (7-52) 10/29/24 17:59 Alkaline Phosphatase 36 U/L (34-104) 10/29/24 17:59 Troponin I High Sens 7.5 pg/ml (0-14) 10/29/24 17:59 Total Protein 6.5 gm/dl (6.0-8.3) 10/29/24 17:59 Albumin 3.6 gm/dl (3.4-5.0) 10/29/24 17:59 Globulin 2.9 gm/dl (2.5-4.0) 10/29/24 17:59 Albumin/Globulin Ratio 1.2 (0.9-2) 10/29/24 17:59 Blood Parasites ID Cancelled 10/29/24 17:59 Impressions Chest X-Ray 10/29/24 17:54 Chest radiograph, one view History: Dyspnea Comparison: None Findings: Single AP view of the chest performed. No focal consolidation or pleural effusion. No pneumothorax. The cardiomediastinal silhouette is within normal limits. Normal pulmonary vascularity. No evidence for lymphadenopathy. No visualized bony or soft tissue abnormality. Impression: Normal chest radiograph Electronically signed by Jairo Wallace 10-29-2024 6:58 PM Code Status & VTE Plan VTE Prophylaxis Plan VTE Prophylaxis will be ordered: Yes PG Care Time/CCT Total # of Minutes Spent Total Time Spent with Patient: Total time spent is greater than 50% in coordination of care (as documented) at patient's floor/unit and/or counseling patient: Coding Level of Care Code 22116 INT INP/OBS CARE 3/75MIN Diagnoses Acute hypoxemic respiratory failure J96.01 Acute exacerbation of chronic obstructive pulmonary disease (COPD) J44.1 GBM (glioblastoma multiforme) C71.9 Alcohol use Z72.89 HTN (hypertension) I10 Dyslipidemia E78.5
[2024-10-29] MEDS ORDERED: ONDANSETRON INJ 2 MG/ML 2 ML VIAL IV PRN (22:48)
[2024-10-29] MEDS ORDERED: ALBUTEROL 0.5% NEB SOLN 2.5 MG/0.5 ML VIAL NEB PRN (22:48)
[2024-10-29] MEDS ORDERED: ACETAMINOPHEN 325 MG TAB PO PRN (22:48)
[2024-10-29] MEDS ORDERED: CYCLOBENZAPRINE HCL 10 MG TAB PO PRN (23:07)
[2024-10-29] MEDS: ALBUT/IPRATROP 3MG/0.5MG NEB 3 ML VIAL NEB SCH (23:18)
[2024-10-29] MEDS: busPIRone 5 MG TAB PO SCH (23:30)
[2024-10-29] MEDS: SERTRALINE HCL 100 MG TABLET PO SCH (23:30)
[2024-10-29] MEDS: ENOXAPARIN INJ 40 MG/0.4 ML SYR SQ SCH (23:30)
[2024-10-30] MEDS: ATORVASTATIN 20 MG TAB PO SCH (08:40)
[2024-10-30] MEDS: CETIRIZINE HCL 10 MG TABLET PO SCH (08:40)
[2024-10-30] MEDS: FLUTICASONE PROPIONATE NA SPR 16 GM BTL SCH (08:41)
[2024-10-30 09:33] LABS: Hematocrit (blood only) 38.7 % (37.0-47.0); Hemoglobin 12.3 g/dl (12.0-16.0); Mean Corpuscular Hemoglobin 29.3 pg (25.0-34.0); Mean Corpuscular Volume 92.1 fL (80.0-100.0); Platelet Count 177 K/uL (130-400); RDW Standard Deviation 45.7 fL (36.4-46.3); Red Blood Count 4.20 M/uL (4.20-5.40); White Blood Count 7.15 K/ul (4.8-10.8)
[2024-10-30 09:53] LABS: Immature Granulocytes # (auto) 0.09 K/uL (0.01-0.20); Immature Granulocytes % (auto) 1.3 %
--- NOTE | 2024-10-30 12:01 | Palliative Care Consultation ---
Date of Consultation October 30, 2024 Assessment & Plan (1) Dyspnea and respiratory abnormalities: Titrate nasal oxygen to maintain target SpO2 88-92% I suggest a home JAIME support with O2 added in, she has been on BiPAP in house this admission Home health nursing strongly suggested. needs support and reassurance, she needs someone to check/assess her more routinely (2) JAIME (obstructive sleep apnea): See #1 above (3) Weakness generalized: Stage IV Glio, progressive (4) Generalized headaches: (5) Severe muscle deconditioning: (6) Advanced care planning/counseling discussion: ACP face to face at bedside for 25min I met with Alice at bedside earlier this morning. and daughter were not present. Alice reports feeling "fine" at present but TIRED MORE THAN SHE HAS BEEN Admits she is spending a lot of her days in a resting or sleeping position States her wakes her up through the night at least 4 times to measure her vitals and SpO2, finds this disruptive She is not eating a lot/not hungry She feels mood is ok but subdued. Notes she is slower to process information. I shared with her my conversation with Dr Rodrigez re changes on brain imaging (MRI with contrast) and [facility] for adding bevacizumab (Avastin.) We discussed it is a monoclonal antibody that helps block the formation of new blood vessels, which tumors rely on to grow. The risks would include bleeding or gastric perforation. Alice replied she is starting to feel like a "medical guinea pig - everybody just keeps wanting to do stuff to me but i can't figure out why when they know it won't make a difference." I advised her Dr Rodrigez is planning to call them later today. We will plan on a follow up family meeting tomorrow. I updated her daughter arlette by phone x 10min as pt requested total ACP time 35min (7) Palliative care by specialist: Introduced Palliative Medicine and explained our role in patient's care. Patient and/or family were receptive to palliative services for goals of care discussions. Reviewed we are different from hospice, a home health nurse visiting service. Plan ACp as above Await further d/w neuro onc. Bevacizumab may be offered however her PS is declining and I worry she is transitioning to a new lower baseline which is likely going to worsen with further intensification of cancer rx. Dr Aregaw in agreement but will d/w pt and family further. Thank you for allowing us to participate in the ongoing care of this patient. Please page with any additional concerns. Marti Couch DNP Director, Palliative Medicine History of Present Illness Reason for Consultation: continuity of care Attending Physician: Tony Bernabe MD, PhD History of Present Illness Per admitting note, came to ED last night: "74yo female with glioblastoma multiforme, COPD, HTN, HLP presenting with acute exacerbation of COPD. Patient reports 2-3 days of progressive shortness of breath. Did become hypoxic today. Feels some improvement with nebulizer treatments given in the ER. No significant wheezing appreciated on exam. Patient doing well on BiPAP - minimal settings 11/24, 28%" Alice is well known to me from OP clinic She has Stage IV Glio She recently fnishe Cycle 1 of temodar She has progression on recent imaging from last admission, this was sent to [facility] for [facility] Neuro Onc Dr Cox to view. He recc consideration to add bevacizumab (Avastin) but notes Allergies Allergy/AdvReac Type Severity Reaction Status Date / Time lisinopril Allergy Severe swelling Verified 10/29/24 19:22 Penicillins Allergy Severe UNKN Verified 10/29/24 19:22 ciprofloxacin [From Cipro] Allergy Intermediate Hives Verified 10/29/24 19:22 doxycycline Allergy Intermediate HIVE Verified 10/29/24 19:22 mold Allergy Intermediate CONGESTION Verified 10/29/24 19:22 Sulfa (Sulfonamide Allergy Intermediate Hives Verified 10/29/24 19:22 Antibiotics) clarithromycin [From Biaxin] Allergy Unknown CAN'T Verified 10/29/24 19:22 REMEMBER Tetracyclines Allergy Unknown CAN'T Verified 10/29/24 19:22 REMEMBER Home Medications Medication Instructions Recorded Confirmed Type buspirone 5 mg tablet 5 mg PO BID 09/03/18 10/29/24 History cetirizine 10 mg tablet 5 mg PO DAILY PRN Allergy Symptoms 09/03/18 10/29/24 History cholecalciferol (vitamin D3) 50 2,000 unit PO QAM 09/03/18 10/29/24 History mcg (2,000 unit) capsule (Vitamin D3) sertraline 100 mg tablet 200 mg PO HS 09/03/18 10/29/24 History amlodipine 5 mg tablet 5 mg PO QAM 08/30/21 10/29/24 History atorvastatin 20 mg tablet 20 mg PO QAM 10/07/21 10/29/24 History denosumab 60 mg/mL subcutaneous 60 mg subcut .[id number] 05/31/24 10/29/24 History syringe (Prolia) fluticasone propionate 50 2 spray intranasal DAILY 05/31/24 10/29/24 History mcg/actuation nasal spray,suspension valsartan 80 mg tablet 80 mg PO DAILY 05/31/24 10/29/24 History hydroxyzine pamoate 25 mg capsule 25 mg PO QID PRN Anxiety 06/23/24 10/29/24 History ondansetron HCl 8 mg tablet 8 mg PO Q8H PRN n/v 07/07/24 10/29/24 History temozolomide 140 mg capsule 140 mg PO DAILY 07/08/24 10/29/24 History cyclobenzaprine 5 mg tablet 5 mg PO Q12H PRN eye muscle spasm 10/09/24 10/29/24 Rx 1 month #60 tabs betamethasone dipropionate 0.05 % 1 applic topical BID PRN dermatitis 10/20/24 10/29/24 History topical ointment albuterol sulfate 90 mcg/actuation 1 inh inhalation Q8H 1 month #6.7 10/23/24 10/29/24 Rx aerosol inhaler (Ventolin HFA) grams dexamethasone 4 mg tablet 4 mg PO 0800,1700 1 month #60 tabs 10/23/24 10/29/24 Rx Patient History Medical History Seasonal allergies GERD (gastroesophageal reflux disease) COVID-19 11/17/22 > fever, sinus pressure, sore throat, headache > all resolved except for some fatigue Surgical History Status post craniotomy History of tooth extraction History of myringotomy History of endoscopic sinus surgery History of dilatation and curettage History of colonoscopy Family History Brother HIV positive Cancer Multiple sites Brother C. 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 Retoucher Required: No Beliefs That Will Affect Care: None marital status: Current Living Situation: Spouse Current Living Situation Comment: with current occupational status: retired Other Information That Helps Us Care for You: No Feels Safe at Home: Yes Safety Concerns: Feels Safe At This Time Diet: regular Assistive Devices: Oxygen - Continuous and Walker Review of Systems Review of Systems: All systems reviewed & are unremarkable except as noted in Subjective Physical Exam Constitutional: + frail appearing and cooperative tired bitemp wasting Eyes: PERRL Respiratory: normal respiratory effort and able to speak in complete sentences; no respiratory distress, no labored breathing, does not use accessory muscles, no nasal flaring and no stridor Cardiovascular: Rate/Rhythm: regular rate Gastrointestinal (Abdomen): Inspection/Auscultation: abdomen normal to inspection and normal bowel sounds Percussion/Palpation: abdomen soft; abdomen nontender Musculoskeletal: Gait: + antalgic gait gen weakness Skin: + turgor decreased and + pallor Psychiatric: Orientation: alert, oriented to person, oriented to place and cooperative Results & Data Vital Signs (Past 12 Hours) Vital Signs Temp Pulse Pulse Pulse Resp BP Pulse Ox 10/30/24 11:08 82 18 91 10/30/24 10:20 10/30/24 10:19 97 10/30/24 07:54 36.4 C L 60 16 117/74 94 10/30/24 07:41 62 21 92 10/30/24 07:41 62 20 92 10/30/24 05:59 62 10/30/24 03:19 36.5 C 69 20 117/74 96 10/30/24 02:30 76 28 H 94 10/30/24 02:30 76 28 H 94 O2 Del Method O2 Flow Rate FiO2 10/30/24 11:08 Nasal Cannula 2.5 10/30/24 10:20 Nasal Cannula 2 10/30/24 10:19 Nasal Cannula 5 10/30/24 07:54 CPAP 10/30/24 07:41 28 10/30/24 07:41 BiPAP 28 10/30/24 05:59 10/30/24 03:19 BiPAP 10/30/24 02:30 28 10/30/24 02:30 BiPAP 28 Laboratory Results 10/30/24 10/30/24 10/29/24 Range/Units 14:03 09:23 17:59 WBC 7.15 Cancelled (4.8-10.8) K/ul RBC 4.20 Cancelled (4.20-5.40) M/uL Hgb 12.3 Cancelled (12.0-16.0) g/dl Hct 38.7 Cancelled (37.0-47.0) % MCV 92.1 Cancelled (80.0-100.0) fL MCH 29.3 Cancelled (25.0-34.0) pg MCHC 31.8 L Cancelled (32.0-36.0) g/dL RDW Std Deviation 45.7 Cancelled (36.4-46.3) fL RDW Coeff of Swapnil 13.7 Cancelled (11.5-14.5) % Plt Count 177 Cancelled (130-400) K/uL MPV 9.4 Cancelled (9.4-12.4) fL Immature Gran % (Auto) 1.3 Cancelled % Neut % (Auto) 92.8 Cancelled % Lymph % (Auto) 4.8 Cancelled % [place] % (Auto) 1.0 Cancelled % Eos % (Auto) 0.0 Cancelled % Baso % (Auto) 0.1 Cancelled % Neut # (Auto) 6.64 H Cancelled (1.40-6.50) K/uL Lymph # (Auto) 0.34 L Cancelled (1.20-3.40) K/uL [place] # (Auto) 0.07 L Cancelled (0.11-0.59) K/uL Eos # (Auto) 0.00 Cancelled (0.00-0.50) K/uL Baso # (Auto) 0.01 Cancelled (0.00-0.20) K/uL Immature Gran # (Auto) 0.09 Cancelled (0.01-0.20) K/uL Absolute Nucleated RBC Cancelled Nucleated RBC % (auto) Cancelled Neutrophils % (Manual) Cancelled Band Neutrophils % Cancelled Lymphocytes % (Manual) Cancelled Prolymphocyte % Cancelled Reactive Lymphs % (Man) Cancelled Monocytes % (Manual) Cancelled Eosinophils % (Manual) Cancelled Basophils % (Manual) Cancelled Metamyelocytes % (Man) Cancelled Myelocytes % (Man) Cancelled Promyelocytes % (Man) Cancelled Blast Cells % (Manual) Cancelled Plasma Cell % (Manual) Cancelled Other Cells % Cancelled Nucleated RBC % Cancelled Neutrophils # (Manual) Cancelled Band Neutrophils # Cancelled Total Absolute Neuts Cancelled Lymphocytes # (Manual) Cancelled Prolymphocyte # Cancelled Reactive Lymphs # Cancelled Total Abs Lymphocytes Cancelled Monocytes # (Manual) Cancelled Eosinophils # (Manual) Cancelled Basophils # (Manual) Cancelled Metamyelocytes # (Man) Cancelled Myelocytes # (Manual) Cancelled Promyelocytes # (Man) Cancelled Blast Cells # (Man) Cancelled Plasma Cell # (Manual) Cancelled Other Cells # Cancelled Nucleated RBCs # (Man) Cancelled Hypersegmented Neuts Cancelled Hyposegmented Neuts Cancelled Hypogranular Neuts Cancelled Large Granular Lymphs Cancelled # Lrg Granular Lymphs Cancelled Hairy Cells Cancelled Smudge Cells Cancelled Toxic Granulation Cancelled Toxic Vacuolation Cancelled Dohle Bodies Cancelled Yanely Rods Cancelled Platelet Estimate Cancelled (Normal) Hypogranular Platelets Cancelled Giant Platelets Cancelled Platelet Satelliting Cancelled RBC Morphology Cancelled Polychromasia Cancelled Hypochromasia Cancelled Poikilocytosis Cancelled Basophilic Stippling Cancelled Anisocytosis Cancelled Microcytosis Cancelled Macrocytosis Cancelled Spherocytes Cancelled Pappenheimer Bodies Cancelled Sickle Cells Cancelled Target Cells Cancelled Tear Drop Cells Cancelled Ovalocytes Cancelled Stomatocytes Cancelled Villa-Cowgill Bodies Cancelled Echinocytes Cancelled Acanthocytes (Spur) Cancelled Rouleaux Cancelled RBC Agglutinates Cancelled Schistocytes Cancelled Sezary Cell Cancelled VBG pH 7.46 H (7.36-7.41) VBG pCO2 34 L (38-50) mmHg VBG pO2 59 mmHg VBG HCO3 24 mmol/L VBG O2 Saturation 91.0 % VBG Base Excess 0.8 mEq/L Sodium 137 (136-145) mmol/L Potassium 3.8 (3.5-5.1) mmol/L Chloride 106 (98-107) mmol/L Carbon Dioxide 23 (21-32) mmol/L Anion Gap 8 (3-11) BUN 24 H (6-23) mg/dl Creatinine 0.90 (0.6-1.2) mg/dl Est Cr Clr Drug Dosing 55.5 ml/min eGFR 67.08 BUN/Creatinine Ratio 26.7 H (10-20) Glucose 104 H (70-99(Fasting)) mg/dl Lactate 2.9 H* 4.7 H* (0.4-2.0) mmol/L Calcium 8.9 (8.6-10.3) mg/dl Magnesium 2.3 (1.7-2.4) mg/dl Total Bilirubin 0.3 (0.2-1.0) mg/dl AST 16 (13-39) U/L ALT 7 (7-52) U/L Alkaline Phosphatase 36 (34-104) U/L Troponin I High Sens 7.5 (0-14) pg/ml Total Protein 6.5 (6.0-8.3) gm/dl Albumin 3.6 (3.4-5.0) gm/dl Globulin 2.9 (2.5-4.0) gm/dl Albumin/Globulin Ratio 1.2 (0.9-2) Procalcitonin < 0.02 (0-0.5) ng/ml Blood Parasites ID Cancelled 10/29/24 Range/Units 17:31 WBC 6.16 (4.8-10.8) K/ul RBC 4.22 (4.20-5.40) M/uL Hgb 12.5 (12.0-16.0) g/dl Hct 38.4 (37.0-47.0) % MCV 91.0 (80.0-100.0) fL MCH 29.6 (25.0-34.0) pg MCHC 32.6 (32.0-36.0) g/dL RDW Std Deviation 46.0 (36.4-46.3) fL RDW Coeff of Swapnil 13.8 (11.5-14.5) % Plt Count 119 L (130-400) K/uL MPV 10.6 (9.4-12.4) fL Immature Gran % (Auto) 1.5 % Neut % (Auto) 67.7 % Lymph % (Auto) 13.3 % [place] % (Auto) 8.1 % Eos % (Auto) 8.8 % Baso % (Auto) 0.6 % Neut # (Auto) 4.17 (1.40-6.50) K/uL Lymph # (Auto) 0.82 L (1.20-3.40) K/uL [place] # (Auto) 0.50 (0.11-0.59) K/uL Eos # (Auto) 0.54 H (0.00-0.50) K/uL Baso # (Auto) 0.04 (0.00-0.20) K/uL Immature Gran # (Auto) 0.09 (0.01-0.20) K/uL Absolute Nucleated RBC Nucleated RBC % (auto) Neutrophils % (Manual) Band Neutrophils % Lymphocytes % (Manual) Prolymphocyte % Reactive Lymphs % (Man) Monocytes % (Manual) Eosinophils % (Manual) Basophils % (Manual) Metamyelocytes % (Man) Myelocytes % (Man) Promyelocytes % (Man) Blast Cells % (Manual) Plasma Cell % (Manual) Other Cells % Nucleated RBC % Neutrophils # (Manual) Band Neutrophils # Total Absolute Neuts Lymphocytes # (Manual) Prolymphocyte # Reactive Lymphs # Total Abs Lymphocytes Monocytes # (Manual) Eosinophils # (Manual) Basophils # (Manual) Metamyelocytes # (Man) Myelocytes # (Manual) Promyelocytes # (Man) Blast Cells # (Man) Plasma Cell # (Manual) Other Cells # Nucleated RBCs # (Man) Hypersegmented Neuts Hyposegmented Neuts Hypogranular Neuts Large Granular Lymphs # Lrg Granular Lymphs Hairy Cells Smudge Cells Toxic Granulation Toxic Vacuolation Dohle Bodies Yanely Rods Platelet Estimate Normal (Normal) Hypogranular Platelets Giant Platelets Platelet Satelliting RBC Morphology Polychromasia 1+ Hypochromasia Poikilocytosis Basophilic Stippling Anisocytosis Microcytosis Macrocytosis Spherocytes Pappenheimer Bodies Sickle Cells Target Cells Tear Drop Cells 1+ Ovalocytes Stomatocytes Villa-Cowgill Bodies Echinocytes Acanthocytes (Spur) Rouleaux RBC Agglutinates Schistocytes Sezary Cell VBG pH (7.36-7.41) VBG pCO2 (38-50) mmHg VBG pO2 mmHg VBG HCO3 mmol/L VBG O2 Saturation % VBG Base Excess mEq/L Sodium (136-145) mmol/L Potassium (3.5-5.1) mmol/L Chloride (98-107) mmol/L Carbon Dioxide (21-32) mmol/L Anion Gap (3-11) BUN (6-23) mg/dl Creatinine (0.6-1.2) mg/dl Est Cr Clr Drug Dosing ml/min eGFR BUN/Creatinine Ratio (10-20) Glucose (70-99(Fasting)) mg/dl Lactate (0.4-2.0) mmol/L Calcium (8.6-10.3) mg/dl Magnesium (1.7-2.4) mg/dl Total Bilirubin (0.2-1.0) mg/dl AST (13-39) U/L ALT (7-52) U/L Alkaline Phosphatase (34-104) U/L Troponin I High Sens (0-14) pg/ml Total Protein (6.0-8.3) gm/dl Albumin (3.4-5.0) gm/dl Globulin (2.5-4.0) gm/dl Albumin/Globulin Ratio (0.9-2) Procalcitonin (0-0.5) ng/ml Blood Parasites ID Diagnostic Findings Chest X-Ray 10/29/24 17:54 Chest radiograph, one view History: Dyspnea Comparison: None Findings: Single AP view of the chest performed. No focal consolidation or pleural effusion. No pneumothorax. The cardiomediastinal silhouette is within normal limits. Normal pulmonary vascularity. No evidence for lymphadenopathy. No visualized bony or soft tissue abnormality. Impression: Normal chest radiograph Electronically signed by Jairo Wallace 10-29-2024 6:58 PM PG Care Time/CCT Total # of Minutes Spent Total Time Spent with Patient: Total time spent is greater than 50% in coordination of care (as documented) at patient's floor/unit and/or counseling patient: I spent 90 minutes overall addressing this case: 10 min in medical data review/discussion with referring provider(s) and/or preparation for the visit 15 min in direct interaction with the patient/exam 35 min in Advance Care Planning/Goals of Care discussions as detailed above in note (must be >16min) 10 min in subsequent review and synthesis of assessment and plan 20 min communicating with other providers regarding the patient's case: Advanced Care Planning 53740 Advanced Care Planning 30 [place] [address] IN/OBS CONSULT LVL 4,60M (25 - SIGNIFICANT, SEPARATELY IDENTIFIABLE ) Patient Type New Medical Decision Making High Complexity Diagnoses Dyspnea and respiratory abnormalities R06.00; R06.89 JAIME (obstructive sleep apnea) G47.33 Weakness generalized R53.1 Generalized headaches R51.9 Severe muscle deconditioning R29.898 Advanced care planning/counseling discussion Z71.89 Palliative care by specialist Z51.5 Additional Codes Advanced Care Planning - 93675 Advanced Care Planning 30 Min: 79108 Advanced Care Planning 30 Min ([id number]) Comment [id number], [id number]
[2024-10-30 15:19] VITALS: BP 128/78; TEMP 97.3
[2024-10-30 16:05] VITALS: PULSE 82; RESP 16; O2SAT 92
--- NOTE | 2024-10-30 18:37 | Electrocardiogram Report ---
Test Reason : Blood Pressure : */* mmHG Vent. Rate : 76 BPM Atrial Rate : 76 BPM P-R Int : 148 ms QRS Dur : 92 ms QT Int : 402 ms P-R-T Axes : * -12 -18 degrees QTcB Int : 452 ms Normal sinus rhythm possible Inferior infarct (cited on or before 10-Sep-2024) Abnormal ECG When compared with ECG of 20-Oct-2024 21:43, Non-specific change in ST segment in Inferior leads Nonspecific T wave abnormality no longer evident in Anterior leads Confirmed by Jairo Vail ([id number]) on 10/30/2024 6:37:32 PM Referred By: REFERRED SELF Confirmed By: Jairo Vail
--- NOTE | 2024-10-30 19:59 | Discharge Summary ---
Discharge Summary Date of Service October 30, 2024 Principal Dx & Hospital Course #1 = Principal Diagnosis (1) Acute hypoxemic respiratory failure: 1. Acute hypoxic respiratory failure with admitting O2 saturation of 76% on room air (10/29/2024, 7:42pm), due to acute exacerbation of COPD, initially placed on BIPAP in [facility] ER on admission date 10/29/2024, then titrated OFF BIPAP and ON 2 liters/minute O2 via nasal cannula in [facility] Med-Surg bed #[id number] on discharge date 10/30/2024. RESOLVING very well on 2 liters/minute O2 via nasal cannula (started on 10/29/2024, 10:44pm in [facility] ER; and continuing on hospital discharge home on 10/30/2024, 4:02pm with discharge O2 sat 92% on 10/30/2024, 4:02pm). Of note, patient underwent ambulatory O2 sat testing with Respiratory Therapy Service on 10/30/2024, and desaturated below 80%. Hence, patient requires supplemental oxygen support with 2 liters/minute O2 via nasal cannula on hospital discharge home. Hence, Case Management Service arranged for patient to receive supplemental oxygen support with 2 liters/minute O2 via nasal cannula PRIOR to hospital discharge home on 10/30/2024. (2) Acute exacerbation of chronic obstructive pulmonary disease (COPD): RESOLVING very well after having received solumedrol 125mg IV x 1 dose (10/29/2024, 6:04pm), followed by solumedrol 40mg IV q8 x 2 doses (day #1 on 10/30/2024, 5:48am, 2:52pm). Patient also received albuterol 2.5mg in 3mL NS neb x 1 dose (10/29/2024, 6:07pm), albuterol 7.5mg in 9mL neb x 1 dose (10/29/2024, 6:18pm), duoneb (0.5mg ipratropium - albuterol 2.5mg in 3mL NS) neb q4h x 5 doses (10/29/2024, 11:18pm, 10/30/2024, 2:31am, 7:41am, 11:08am, 3:39pm). Patient subsequently requested that she be discharged back to her home on 10/30/2024, NOT on solumedrol or prednisone. Patient subsequently requested that she be discharged back to her home on 10/30/2024 on her home-scheduled dexamethasone 4mg PO bid, which the patient takes at her home to mitigate cerebral edema associated with her glioblastoma multiforme s/p left frontal lobectomy (05/31/2024, [facility] NeuroSurgeon Dr. Triston Rodrigez), s/p XRT for 6 weeks and concurrent temozolomide 140mg PO daily for 6 weeks, followed by temozolomide 140mg PO daily x 1 week, which the patient did not tolerate at all, followed by permanent discontinuation of temozolomide 140mg PO daily, followed by dexamethasone 4mg PO bid, now receiving Palliative Care with her Palliative Care Dr. Ansley Couch. When I explained to the patient that she had been receiving up to 120mg solumedrol on a 40mg IV q8 basis while in [facility] from admission date 10/29/2024 through discharge date 10/30/2024, compared to her ho me-scheduled dexamethasone 4mg PO bid, which the patient did not receive while in [facility] from admission date 10/29/2024 through discharge date 10/30/2024, and that 120mg solumedrol is numerically larger and stronger than 8mg dexamethasone, and that patient may be better off taking prednisone 40mg PO bid at home for the next 3-5 days, instead of resuming her home- scheduled dexamethasone 4mg PO bid, in order to avoid being re-admitted to [facility] within the next 30 days after hospital discharge date 10/30/2024, patient summarily dismissed my recommendation for prednisone 40mg PO bid at home for the next 3-5 days with a manny wave of her hand, and said, "I am going home today, 10/30/2024, and I am going to restart my dexamethasone 4mg twice a day. I am not taking prednisone. I am not allergic to prednisone. I simply will not take the prednisone you recommend. I will take the oxygen that you are giving me here in the hospital, when I get home, however. If you can make sure that the oxygen tank is available at my home today, that will be very nice. Thank you very much." Patient was subsequently discharged back to her home on 10/30/2024, 4:02pm, with electronic prescriptions sent to her [id number], [address] [place] [address], for: 1. Nebulizer machine, #1 unit, no refills. 2. Duoneb (0.5mg ipratropium - albuterol 2.5mg in 3mL NS) neb q4 [id number], #540 mL, no refills. 3. Protonix 40mg PO daily, #30 tablets, no refills (to prophylax against home- scheduled dexamethasone 4mg PO bid-associated gastritis, ulcer formation, and/or GI bleeding). (3) GBM (glioblastoma multiforme): Patient was recently diagnosed with glioblastoma multiforme s/p left frontal lobectomy (05/31/2024, [facility] NeuroSurgeon Dr. Triston Rodrigez), s/p XRT for 6 weeks and concurrent temozolomide 140mg PO daily for 6 weeks, followed by temozolomide 140mg PO daily x 1 week, which the patient did not tolerate at all, followed by permanent discontinuation of temozolomide 140mg PO daily, followed by dexamethasone 4mg PO bid, now receiving Palliative Care with her Palliative Care Dr. Ansley Couch. Patient met with her Palliative Care Dr. Ansley Couch on 10/30/2024 while in [facility] as a formal consultation, in which Dr. Couch stated: "I met with Alice at bedside earlier this morning. and daughter were not present. Alice reports feeling "fine" at present but TIRED MORE THAN SHE HAS BEEN Admits she is spending a lot of her days in a resting or sleeping position States her wakes her up through the night at least 4 times to measure her vitals and SpO2, finds this disruptive She is not eating a lot/not hungry She feels mood is ok but subdued. Notes she is slower to process information. I shared with her my conversation with Dr Rodrigez re changes on brain imaging (MRI with contrast) and recc for adding bevacizumab (Avastin.) We discussed it is a monoclonal antibody that helps block the formation of new blood vessels, which tumors rely on to grow. The risks would include bleeding or gastric perforation. Alice replied she is starting to feel like a "medical guinea pig - everybody just keeps wanting to do stuff to me but i can't figure out why when they know it won't make a difference." I advised her Dr Rodrigez is planning to call them later today. We will plan on a follow up family meeting tomorrow. I updated her daughter arlette by phone x 10min as pt requested." Stay tuned. (4) HTN (hypertension): Well-controlled with discharge BP 128/78 (10/30/2024, 4:02pm) on home-scheduled amlodipine 5mg PO qam (administered on 10/30/2024, 8:41am) and holding off home- scheduled valsartan 80mg PO qam while patient remained in [facility] from admission date 10/29/2024 through discharge date 10/30/2024. Patient will continue her home-scheduled amlodipine 5mg PO qam on hospital discharge home on 10/30/2024. Patient will also resume her home-scheduled valsartan 80mg PO qam on hospital discharge home on 10/30/2024. (5) Dyslipidemia: Asymptomatic on home-scheduled atorvastatin 20mg PO qam (administered on 10/30/2024, 8:40am) while patient remained in [facility] from admission date 10/29/2024 through discharge date 10/30/2024. Patient will continue her home-scheduled atorvastatin 20mg PO qam on hospital discharge home on 10/30/2024. Plan 74 years old female with PMH of DNR/DNI @ home, obesity with BMI 33.5 (height 157.5 cm; weight 83.0 kg), allergic rhinitis on fluticasone nasal spray, 50ug per spray, 2 sprays to each nostril daily, hyperlipidemia on atorvastatin 20mg PO qam, HTN on amlodipine 5mg PO qam and valsartan 80mg PO qam, major depression on sertraline 200mg PO qhs, anxiety disorder on buspirone 5mg PO bid and hydroxyzine 25mg PO qid prn anxiety, glioblastoma multiforme s/p left frontal lobectomy (05/31/2024, [facility] NeuroSurgeon Dr. Triston Rodrigez), s/p XRT for 6 weeks and concurrent temozolomide 140mg PO daily for 6 weeks, followed by temozolomide 140mg PO daily x 1 week, which the patient did not tolerate at all, followed by permanent discontinuation of temozolomide 140mg PO daily, followed by dexamethasone 4mg PO bid, now receiving Palliative Care with her Palliative Care Dr. Ansley Couch, and former tobacco/smoke exposure (second-hand), resulting in COPD, not on home O2 or home steroids, who complained of 2-3 days of progressively worsening SOB/AVERY at home. Patient was subsequently admitted to the inpatient hospitalist service @ [facility] on 10/29/2024 with the following diagnosis: 1. Acute hypoxic respiratory failure with admitting O2 saturation of 76% on room air (10/29/2024, 7:42pm), due to acute exacerbation of COPD, initially placed on BIPAP in [facility] ER on admission date 10/29/2024, then titrated OFF BIPAP and ON 2 liters/minute O2 via nasal cannula in [facility] Med-Surg bed #N277-2 on discharge date 10/30/2024. Initial Plan on admission date 10/29/2024: #Acute hypoxic respiratory failure/Acute exacerbation COPD -Admit to medical with telemetry -Continue BiPAP, wean as tolerated, goal saturation 88-92% -Duonebs q 4 hours -Albuterol q 2 hours as needed for SOB or wheeze -Continue steroids - Solumedrol 40mg IV TID -Continue Zyrtec 5mg po daily #Glioblastoma multiforme -Continue home Temozolomide - patient's will need to bring this in from home -She is on Dexamethasone 4mg po BID. Will hold for now as she will be receiving IV Solumedrol for presumed COPD exacerbation (8mg Dexamethasone = 42.7mg Solumedrol per steroid converter) #Alcohol use - patient does drink 2-3 drinks per day but has not had any alcohol for several weeks per . No reports of withdrawal symptoms -Monitor #Hypertension - blood pressure well controlled -Continue Amlodipine 5mg po daily #Hyperlipidemia- chronic, stable -Continue Atorvastatin 20mg po qAM #Anxiety/Mental Health -Continue Sertraline 200mg po qHS -Continue Buspirone 5mg po BID -Hydroxyzine 25mg po QID PRN anxiety Admission HPI Per Admitting Provider Alice Duran is a 74yo female with history of Glioblastoma on chemotherapy, HTN, HLP, COPD and GERD presenting with shortness of breath. Patient reports progressive dyspnea ongoing for the last 2-3 days. She has had cough productive for clear mucus as well. Denies fever, chills, chest pain or tightness, palpitations. Denies edema, weight gain or orthopnea. She has some chronic abdominal discomfort which has not changed. No vomiting or diarrhea. Patient's daughter has had some mild URI symptoms, possibly allergies. Patient feels that she is experiencing some mild allergy symptoms as well. She has not been using her inhalers at home for the last several days. Patient with home oxygen, typically wears 2L. monitors patient's oxygen saturation at home - reports that it has been >90% until today when it was in the 80's. increased the supplemental O2 to 3.5 liters but oxygenation did not improve. Upon arrival patient hypoxic at 81% on 4L. She was placed on a NRB with some improvement and was ultimately placed on BiPAP for increased work of breathing and ongoing hypoxia. ER Course: Solulmedrol 125mg IV Albuterol 9mL neb + 3mL neb Discharge Exam Constitutional General: Comfortable, cooperative, coherent. Wide awake and alert. Not confused, lethargic, or obtunded. Patient speaks in complete, fluent, and articulate sentences without pause, interruption, cough, or wheeze. HEENT: Normocephalic, atraumatic. Pupils equally round and reactive to light. No nystagmus, gaze paresis, anisocoria, miosis, mydriasis, hyphema, scleral injection, conjunctivitis, or pterygium. No otorrhea. No pharyngeal erythema, edema, or discharge. Neck: Supple, no stridor, bruit, goiter, or hepato-jugular reflux. Jugular venous pressure is estimated to be 3 cm above the sternal angle of Richie, which in turn, is 5 cm above the level of the right atrium; with jugular venous pressure estimated to be 8 cm, then, there is no jugular venous distention on 10/30/2024. Lymphatics: No cervical (anterior/posterior), supraclavicular, infra clavicular, axillary, epitrochlear, or inguinal adenopathy. Chest: Symmetric rise and fall with respirations. Non-tender to palpation. Lungs: Clear to auscultation and percussion. No audible expiratory wheeze, egophony, pectoriloquy, increase in tactile fremitus, or flatness/dullness to percussion at the bases. Heart: RRR. S1 and S2 noted. No S3 or S4 summation gallop. No tripartite friction rub. Grade II/ early systolic murmur @ LLSB without radiation to the carotids, axilla, or back, and which remains invariant in regards to the respiratory cycle. Abdomen: Soft, non-tender, non-distended. No rebound, guarding, Vera's sign, or organomegaly. Bowel sounds auscultated in all 4 quadrants. Extremities: No clubbing, cyanosis, or edema in upper extremities or lower extremities bilaterally. 2+ pedal pulses bilaterally. Skin: No decubitus ulcer or enanthem. Genito-urinary: No urethral discharge. No tarango catheter. Neurology: Alert and oriented in regards to person, place, time, and situation. DTR+. 5/5 motor strength in all 4 extremities, both proximally and distally. No myoclonus, tremors, or tics. No erythema, edema, induration, warmth, crepitus, fluctuance, discharge, malodor, or lymphangitic streaking on back at all. Psychiatry: No homicidal ideation. No suicidal ideation. No flat affect; smiles appropriately. Discharge Plan Discharge Items Patient Disposition: Home - Home Health Services Reason For Visit: ACUTE HYPOXIC RESPIRATORY FAILURE Discharge Diagnosis: 1. Acute hypoxic respiratory failure requiring 2 liters per minute O2 via nasal cannula, due to acute exacerbation of COPD. Condition on Discharge: Good Activity: Resume your previous activity Lifting: Gradually increase as tolerated Bathing: No limitations Exercise/Sports: Gradually increase as tolerated Weightbearing: Full weightbearing Non-emergency contact: Primary Care Provider Call non-emergency contact if: you have any medication questions and your symptoms worsen Follow-up/Referrals: Shahbaz Andrew MD [Primary Care Provider] - Diet: Heart Healthy Addtl Attending Provider Instructions: 1. See your PCP Dr. Shahbaz Andrew within 5-7 days of hospital discharge. 2. See your Palliative Care Dr. Ansley Couch within 5-7 days of hospital discharge. Pending Studies at Discharge: No Stand-Alone Forms: My [facility], Smoking Cessation Medications and DC Order Prescriptions: New ipratropium-albuterol 0.5 mg-3 mg(2.5 mg base)/3 mL Solution For Nebulization 3 ml NEB Q4R Qty: 540 0RF pantoprazole 40 mg Tablet,Delayed Release (Dr/Ec) 40 mg PO QAM Qty: 30 0RF (DME) nebulizers Misc See Rx Instructions .Route Qty: 1 0RF Rx Instructions: As directed Continued ondansetron HCl 8 mg tablet 8 mg PO Q8H PRN (Reason: n/v) atorvastatin 20 mg tablet 20 mg PO QAM cyclobenzaprine 5 mg tablet 5 mg PO Q12H PRN (Reason: eye muscle spasm) 30 Days Qty: 60 0RF sertraline 100 mg Tablet 200 mg PO HS cetirizine 10 mg Tablet 5 mg PO DAILY PRN (Reason: Allergy Symptoms) cholecalciferol (vitamin D3) [Vitamin D3] 2,000 unit Capsule 2,000 unit PO QAM buspirone 5 mg Tablet 5 mg PO BID amlodipine 5 mg tablet 5 mg PO QAM hydroxyzine pamoate 25 mg capsule 25 mg PO QID PRN (Reason: Anxiety) valsartan 80 mg tablet 80 mg PO DAILY fluticasone propionate 50 mcg/actuation spray,suspension 2 spray INTRANASAL DAILY Prolia 60 mg/mL syringe 60 mg subcut .[id number] Rx Instructions: LAST TAKEN 09/2024. Once every 6 months betamethasone dipropionate 0.05 % ointment 1 applic topical BID PRN (Reason: dermatitis) dexamethasone 4 mg Tablet 4 mg PO 0800,1700 30 Days Qty: 60 0RF albuterol sulfate [Ventolin HFA] 90 mcg/actuation HFA aerosol inhaler 1 inh inhalation Q8H 30 Days Qty: 6.7 1RF Discontinued temozolomide 140 mg Capsule 140 mg PO DAILY Rx Instructions: must be taken on empty stomach Discharge Orders: Discharge Order (Routine); Ordered 10/30/24 Ordered By: Tony Bernabe Admission Data Admit Date/Time: 10/29/24 20:11 Attending Provider: Tony Bernabe Admit Provider: Maria Elena Bonds Primary Care Provider: Shahbaz Andrew Other Providers: Maria Elena Bonds; Ansley Couch; [facility] Other Interventions: Discharge Summary Assessment (RN) Last Done: 10/30/24 16:02 Hospital Stay Data Consultations 10/29/24 19:04 ED Decision to Admit Stat 10/30/24 11:28 Consult Palliative Care Routine Pending Results Patient Have Any Pending Studies at Discharge: No Discharge Instructions Given to Patient (Per Discharging Provider) 1. See your PCP Dr. Shahbaz Andrew within 5-7 days of hospital discharge. 2. See your Palliative Care DrDiana Couch within 5-7 days of hospital discharge. Total Time Total Time Spent Total Time Spent (In Minutes): 35 minutes. Of this time period, 19 minutes were spent in coordinating patient's discharge. Coding Level of Care Code 79075 INP/OBS DISCH >30 MIN Diagnoses Acute hypoxemic respiratory failure J96.01 Acute exacerbation of chronic obstructive pulmonary disease (COPD) J44.1 GBM (glioblastoma multiforme) C71.9 HTN (hypertension) I10 Dyslipidemia E78.5
== END 2024-10-30 18:03 | disposition home health service (06) | DRG 189 ==
LOC: ED 17:45 → SUATTDRO 20:11 → 2N 20:11